=== PATIENT | male | born 1960 | race Caucasian/White ===

== ENCOUNTER 2023-08-11 12:41 | Outpatient (OUT) | payer MEDICARE, OTHER, SELFPAY ==
--- NOTE | 2023-08-11 13:00 | CA_ITS ---
Patient Name: LOREN MORSE MR#: [id number] : 1960 Exam Date: 08/11/2023 Ordering Doctor: LISA EMERY M.D. ECHOCARDIOGRAM REPORT PROCEDURE: CA ECHO DOPPLER COMPLETE INDICATIONS: Dyspnea on exertion, dizziness, peripheral edema, hypertension, diabetes COMPARISON: None. DESCRIPTION: COMPLETE ECHOCARDIOGRAM Real-time transthoracic echocardiography with 2D, M-mode, spectral and color flow Doppler performed. QUALITY: Technical quality was limited. 69 , 300#, BSA 2.45 m2 LEFT VENTRICLE: Normal chamber size. Normal left ventricular wall thickness. Normal systolic function. LV EF: Normal left ventricular ejection fraction, (>55%). DIASTOLIC: Diastolic function is indeterminate. ATRIAL SEPTUM: Visually appears intact. LEFT ATRIUM: Normal chamber size. RIGHT ATRIUM: Normal chamber size. RIGHT VENTRICLE: Normal chamber size. Normal right ventricular systolic function. TRICUSPID VALVE: Normal mobility and thickness. No stenosis with no regurgitation. Unable to assess right-sided pressures due to lack of measurable tricuspid regurgitation. MITRAL VALVE: Normal mobility and thickness. No evidence of mitral valve stenosis. Mild mitral annular calcification. No mitral regurgitation. AORTIC VALVE: Normal trileaflet appearance. No visible sclerosis. Normal leaflet mobility. No evidence of aortic valve stenosis. No aortic regurgitation. AORTIC ROOT: Normal diameter and appearance. PULMONIC VALVE: Not well visualized. Normal with Trivial regurgitation. PERICARDIUM: Trivial pericardial effusion. IVC: Collapses with inspirations. PLEURA: CONCLUSION: 1. Normal left ventricular size and systolic function. LVEF is 55%. 2. Normal right ventricular size and systolic function. 3. No significant valvular abnormalities. 4. Unable to assess right-sided pressures due to lack of measurable tricuspid regurgitation. 5. Trivial pericardial effusion. 6. Technically difficult study with poor sound transmission. Adult Echocardiography Procedure Report Left Ventricle LVEDD (3.7 - 5.6 cm): 6.63 cm LVESD (2.2 - 4.0 cm): 4.23 cm LVIVS thickness (0.6 - 1.2 cm): 0.81 cm LVPW thickness (0.5 - 1.0 cm): 0.69 cm e': 0.06 m/s E - e': 11.33 LVOT Max Gradient: 2.35 mm[Hg] LVOT Area (cm2): 0.77 m/s Peak Velocity (LVOT): 0.77 m/s Mean Velocity (LVOT): 0.54 m/s LVOT Diameter 2.71 cm Left Atrium LA Volume Index (2D A2C): 28.44 ml/m2 Left Atrium Systolic Dimension: 3.64 cm Mitral Valve MV E to A Ratio: 0.96 Mitral Valve A-Wave Peak Velocity: 0.67 m/s Mitral Valve E-Wave Peak Velocity: 0.64 m/s Right Ventricle Aorta AO Root Diam: 4.30 cm Ascending Ao Diam: 3.19 cm Aortic Valve AoV Area (Peak Jamaal): 3.60 cm2, 3.60 cm2 AoV Area (VTI): 4.29 cm2, 4.29 cm2 Peak Velocity(Antegrade Flow): 1.23 m/s Peak Gradient(Antegrade Flow): 6.04 mm[Hg] Mean Velocity(Antegrade Flow): 0.88 m/s Mean Gradient(Antegrade Flow): 3.43 mm[Hg] Velocity Time Integral: 25.65 cm Tricuspid Valve Pulmonic Valve Peak Velocity: 0.88 m/s Peak Gradient: 2.77 mm[Hg], 3.39 mm[Hg] Right Atrium Right Atrium Systolic Pressure: 55.87 ml, 55.87 ml Dictated by: Kiran Calles M.D. on 08/11/2023 at 16:39 Approved by: Kiran Calles M.D. on 08/11/2023 at 16:42
== END 2023-08-11 12:42 | disposition home or self-care (01) ==
LOC: CARD 12:41
PROVIDERS: PCP Family Medicine; Visit Provider Internal Medicine Cardiovascular Disease
DX: R42 Dizziness and giddiness (principal); R60.0 Localized edema; R06.02 Shortness of breath
CPT/HCPCS: 93306

== ENCOUNTER 2023-12-15 09:10 | Outpatient (OUT) | payer MEDICARE, OTHER, SELFPAY ==
[2023-12-15 09:41] LABS: Creatinine Urine Random 115.95 mg/dL (20.00-300.00); Microalbum Creatinine Ratio Ur 11.2 mg/g (0.0-29.9); Microalbumin Urine Random <1.3 mg/dL (<=30.0)
[2023-12-15 10:27] LABS: Albumin Level 3.3 g/dL (3.4-5.0); Anion Gap 12.8; BUN Creatinine Ratio 15.7; Calcium 8.6 mg/dL (8.5-10.1); Carbon Dioxide 29.4 mmol/L (21.0-32.0); Chloride 102 mmol/L (98-107); Chol HDL Ratio 2.4; Cholesterol 111 mg/dL (<=200); Estimated GFR (African America >60 (>=60); Estimated GFR (Non-African Ame >60 (>=60); Glucose 110 mg/dL (74-106); HDL Cholesterol 47 mg/dL (40-60); Phosphorus 3.8 mg/dL (2.6-4.7); Potassium 4.2 mmol/L (3.5-5.1); Sodium 140 mmol/L (136-145); Triglycerides 65 mg/dL (<=150)
== END 2023-12-15 09:11 | disposition home or self-care (01) ==
LOC: LAB 09:12
PROVIDERS: PCP Family Medicine; Visit Provider Internal Medicine
DX: E78.2 Mixed hyperlipidemia (principal); Z79.4 Long term (current) use of insulin; E11.49 Type 2 diabetes mellitus with other diabetic neurological complication
CPT/HCPCS: 36415; 80061; 80069; 82043; 82306; 82570

== ENCOUNTER 2024-09-16 09:26 | Emergency (ER) | payer OTHER, SELFPAY ==
[2024-09-16 09:35] VITALS: BP 104/59; PULSE 74; TEMP 37.1; O2SAT 98; BMI 38.4
--- NOTE | 2024-09-16 09:45 | ED_ITS ---
HPI HPI - General Adult General Chief complaint: Fall Stated complaint: FALL; BACK PAIN Time Seen by Provider: 09/16/24 09:30 Source: patient Mode of arrival: walk-in Limitations: no limitations History of Present Illness HPI narrative: 64-year-old male presents for left lower back pain. At about 3:00 this morning he was stepping backwards and stepped on a toy mouse which caused him to lose his balance and he fell and landed on his lower back. The pain does not seem to radiate down his legs, no weakness or numbness. He did not hit his head. He is on Plavix. The pain is moderate and worse in certain positions. Related Data Home Medications ?Medication ?Instructions ?Recorded ?Confirmed atorvastatin 80 mg tablet 80 mg PO DAILY 09/16/24 09/16/24 clopidogrel 75 mg tablet 75 mg PO DAILY 09/16/24 09/16/24 duloxetine 30 mg capsule,delayed 30 mg PO DAILY 09/16/24 09/16/24 release duloxetine 60 mg capsule,delayed 60 mg PO DAILY 09/16/24 09/16/24 release insulin glargine 100 unit/mL (3 65 unit subcut .QHS 09/16/24 09/16/24 mL) subcutaneous pen (Lantus Solostar U-100 Insulin) levothyroxine 200 mcg tablet 200 mcg PO .ACB 09/16/24 09/16/24 lisinopril 10 mg tablet 10 mg PO .QD 09/16/24 09/16/24 metformin 500 mg tablet 1,000 mg PO BIDWM 09/16/24 09/16/24 metoprolol succinate 50 mg 50 mg PO .QD 09/16/24 09/16/24 tablet,extended release 24 hr Previous Rx's ?Medication ?Instructions ?Recorded hydrocodone 5 mg-acetaminophen 325 1 tab PO Q6H PRN pain 5 days #20 09/16/24 mg tablet tabs Allergies Allergy/AdvReac Type Severity Reaction Status Date / Time No Known Drug Allergies Allergy Verified 09/16/24 09:35 Opioid HPI Opioid Management Most Recent Opioid Data: No Data to Display Review of Systems ROS Narrative A ten point review of systems is negative except as noted above. PFSH PFSH Social History Little interest or pleasure in doing things: not at all Feeling down, depressed, or hopeless: not at all Exam Narrative Exam Narrative: Nurses note and vital signs reviewed and patient is not hypoxic. General: The patient appears in no apparent distress. Patient laying in a recumbent position. Skin: Warm, dry, no pallor noted. There is no rash noted. Head: Normocephalic, atraumatic Eye: Normal conjunctiva, no drainage Ears, Nose, Mouth, and Throat: oral mucosa is moist. Nares patent. Cardiovascular: Regular Rate and Rhythm Respiratory: Patient is in no distress, no accessory muscle use, lungs are clear to auscultation, no wheezing, rales or rhonchi Back: No bruise rash or abrasion. He has some tenderness in the left lower back. GI: Soft and nontender Musculoskeletal: Hips have good range of motion. He is able to stand and ambulate. Neurological: A&O, normal speech Psychiatric: Cooperative Constitutional Vital Signs, click to edit/add: Last Vital Signs Temp 98.7 F 09/16/24 09:35 Pulse 74 09/16/24 09:35 Resp 18 09/16/24 09:35 BP 104/59 09/16/24 09:35 Pulse Ox 98 09/16/24 09:35 O2 Del Method Room Air 09/16/24 09:35 Course Vital Signs Vital signs: Vital Signs Temperature 98.7 F 09/16/24 09:35 Pulse Rate 74 09/16/24 09:35 Respiratory Rate 18 09/16/24 09:35 Blood Pressure 104/59 09/16/24 09:35 Pulse Oximetry 98 09/16/24 09:35 Oxygen Delivery Method Room Air 09/16/24 09:35 Temperature 98.7 F 09/16/24 09:35 Pulse Rate 74 09/16/24 09:35 Respiratory Rate 18 09/16/24 09:35 Blood Pressure 104/59 09/16/24 09:35 Pulse Oximetry 98 09/16/24 09:35 Oxygen Delivery Method Room Air 09/16/24 09:35 Medical Decision Making MDM Narrative Medical decision making narrative: X-rays per radiologist showed no acute findings and he is prescribed Clarinda and given a dose here. Treatment diagnosis and follow-up were discussed with the patient. Differential Diagnosis Differential Diagnosis: Contusion, fracture Imaging Data Lumbar x-ray: Radiologist's impression: No acute fracture Discharge Plan Discharge Chief Complaint: Fall Clinical Impression: Back contusion Patient Disposition: Home, Self-Care Time of Disposition Decision: 10:37 Condition: Good Mode of Transportation: Private Vehicle Prescriptions / Home Meds: New hydrocodone-acetaminophen 5-325 mg tablet 1 tab PO Q6H PRN (Reason: pain) 5 Days Qty: 20 0RF No Action metformin 500 mg tablet 1,000 mg PO BIDWM atorvastatin 80 mg tablet 80 mg PO DAILY metoprolol succinate 50 mg tablet extended release 24 hr 50 mg PO .QD clopidogrel 75 mg tablet 75 mg PO DAILY lisinopril 10 mg tablet 10 mg PO .QD levothyroxine 200 mcg tablet 200 mcg PO .ACB duloxetine 30 mg capsule,delayed release(DR/EC) 30 mg PO DAILY duloxetine 60 mg capsule,delayed release(DR/EC) 60 mg PO DAILY insulin glargine [Lantus Solostar U-100 Insulin] 100 unit/mL (3 mL) insulin pen 65 unit SUBCUT .[facility] Print Language: Amharic Instructions: Contusion in Adults (ED) Referrals: POLI WELCH [Primary Care Provider] - 1 week
--- OUTSIDE RECORDS SUMMARY | 2024-09-16 09:49 | XMS_ITS | CCD ---
Author Organization [facility] Care Team Providers Care Director Custom Name Role Phone Alberto Mcgrath Unavailable Norma Fonseca Unavailable WARNER WELCH Primary Care Unavailable ALGHOTHANI, MOHAMAD Admitting Unavailable RUPERT, VALERIOD Attending Unavailable WARNER WELCH Referring Unavailable NORMA KIRAN Attending Unavailable REBEKAH, WARNER Primary Care Unavailable NORMA KIRAN Admitting Unavailable WARNER WELCH Referring Unavailable NORMA KIRAN Admitting Unavailable NORMA KIRAN Attending Unavailable REBEKAH, WARNER Primary Care Unavailable WARNER WELCH Referring Unavailable TATIANALOJASON, WARNER Primary Care Unavailable SAMMIE BERKOWITZAMED Admitting Unavailable ZENJANA Attending Unavailable WARNER WELCH Referring Unavailable FURLOJASON, DR WARNER Ward Primary Care Unavailable ALGHOTHANI, MOHAMAD Admitting Unavailable ALGHOTHANI, MOHAMAD Consulting Unavailable ALGHOTHANI, MOHAMAD Attending Unavailable FCO, DR BEKAH Acosta Consulting Unavailable TATIANALOJASON, DR WARNER Ward Primary Care Unavailable GRACE, LAMONT N Admitting Unavailable GRACE, LAMONT N Attending Unavailable GRACE, LAMONT N Consulting Unavailable FURLONG, DR WARNER Ward Primary Care Unavailable GRACE, LAMONT N Admitting Unavailable GRACE, LAMONT N Consulting Unavailable GRACE, LAMONT N Attending Unavailable FURLOJASON, DR WARNER Ward Primary Care Unavailable LÓPEZ, AHMAD Admitting Unavailable LÓPEZ, AHMAD Consulting Unavailable LÓPEZ, AHMAD Attending Unavailable MISC, DR BECKETT Admitting Unavailable REBEKAH, DR WARNER Ward Primary Care Unavailable MISC, DR BECKETT Attending Unavailable OLDWICK, DR JOSEF Matos Consulting Unavailable MISC, DR BECKETT Consulting Unavailable ZIDR BEKAH CAIN Consulting Unavailable Grovers, Lilibeth R Unavailable BEN ZIMMERMAN Referring Unavailable Mamie AGUIRRE, Lilibeth R Unavailable KARIE BARRIGA Attending Unavailable SELF Referring Unavailable WARNER WELCH Referring Unavailab BEN Mcdaniel Attending Unavailable BEN ZIMMERMAN Referring Unavailable ELSIE, BEN Ward Referring Unavailable NONA ZAMBRANO Attending Unavailable BEN ZIMMERMAN Referring Unavailable MINDA DELCID Attending Unavailable LISA EMERY Attending Unavailable LISA EMERY Attending Unavailable LISA EMERY Attending Unavailable Warner Welch MD Primary Care Provider Warner Welch DO Primary Care Provider [phone] WARNER WELCH Referring Unavailable WARNER WELCH Primary Care Unavailable WARNER WELCH Attending Unavailable WARNER WELCH Referring Unavailable WARNER WELCH Primary Care Unavailable MILO MODI Attending Unavailable MILO MODI Attending Unavailable MILO MODI Referring Unavailable HOOD SALES Attending Unavailable TatianaloWarner manuel Primary Care Unavailable Austin Corral Admitting Unavailable Austin Corral Attending Unavailable Hood Sales Admitting Unavailable Hood Sales Attending Unavailable Warner Welch Primary Care Unavailable Warner Welch Primary Care Unavailable Kleber Alarcon Admitting Unavailab Kleber Celeste Attending Unavailab le Medications Current Medications Medication Drug Class(es) Dates Sig (Normalized) Sig (Original) acetaminophen 325 mg oral tablet (5 sources) End: 05-24-2024 acetaminophen (Tylenol) 325 MG tablet Take by mouth 05/24/2024 Discontinued albuterol 0.83 mg/ml inhalation solution (18 sources) beta2-Adrenergic Agonist Start: 05-01-2020 Albuterol Sulfate (2.5 MG/3ML) 0.083% 1 dose as directed Inhalation every 6 hrs Apr, Active atorvastatin 80 mg oral tablet (20 sources) HMG-CoA Reductase Inhibitor Start: 02-11-2024 take 1 tablet by mouth once daily in the morning atorvastatin (LIPITOR) 80 mg tablet Take 1 tablet (80 mg total) by mouth every morning. 90 tablet 1 02/11/2024 Active Start: 02-10-2024 take 1 tablet by luis enrique th once daily in the morning atorvastatin (LIPITOR) 80 mg tablet Take 1 tablet (80 mg total) by mouth every morning. 90 tablet 1 02/10/2024 Active Start: 08-25-2022 End: 02-11-2024 take 1 tablet by mouth once daily in the morning atorvastatin (LIPITOR) 80 mg tablet Take 1 tablet (80 mg total) by mouth every morning. 90 tablet 1 02/10/2024 02/11/2024 Discontinued (Reorder) take 1 tablet by luis enrique th once daily atorvastatin (Lipitor) 40 MG tablet Take 40 mg by mouth Daily Active Atorvastatin Pablo cium 80 MG Oral for 90 Active Lipitor Active Comment on above: Take 1 tablet by luis enrique th once daily. Take 40 mg by mouth once daily. blood-glucose meter misc (12 sources) blood-glucose me ter misc Accu-Chek Domonique Plus Meter Active blood-glucose me ter misc Accu-Chek Domonique Plus Meter 0 Active celecoxib 100 mg oral capsule (20 sources) Nonsteroidal Anti-inflammatory Drug Start: 03-10-2022 End: 07-27-2024 take 1 capsule by mouth once daily celecoxib (CeleBREX) 100 mg capsule take 1 capsule by mouth once daily if needed 90 capsule 1 07/02/2023 07/27/2024 Discontinued (Ineffective) Comment on above: take [address] [facility] once daily if needed chlorthalidone 25 mg oral tablet (20 sources) Thiazide-like Diuretic Start: 05-23-2022 chlorthalidone (Hygroton) 25 MG tablet Take 25 mg by mouth 08/17/2023 Active Comment on above: Take 1 tablet by luis enrique th once daily. cholecalciferol 0.05 mg oral tablet (3 sources) Vitamin D Start: 04-21-2024 cholecalciferol (Vitamin D-3) 50 MCG (1999 UT) tablet Take 50 mcg by mouth 04/21/2024 Active clopidogrel 75 mg oral tablet (20 sources) P2Y12 Platelet Inhibitor Start: 01-09-2023 End: 07-20-2023 take 1 tablet by mouth once daily clopidogreL (PLAVIX) 75 mg tablet take 1 tablet by mouth once daily 90 tablet 1 07/20/2023 Active Comment on above: Take 1 tablet by luis enrique once daily. Continuous Glucose Sensor (FreeStyle Temla 3 Sensor) [facility] [place] (7 sources) Start: 03-02-2024 Continuous Glucose Sensor (FreeStyle Telma 3 Sensor) [facility] [place] Indications: Type II diabetes mellitus with neurological manifestations (CMS/HCC) 1 kit by Other route every 14 (fourteen) days 6 each 1 03/02/2024 Active Start: 03-01-2024 Continuous Glu cose Sensor (FreeStyle Telma 3 Sensor) [facility] [place] Indications: Type II diabetes mellitus with neurological manifestations (CMS/HCC) USE DIRECTED and change q14d 6 each 1 03/01/2024 Active DULoxetine 60 mg delayed release oral capsule (19 sources) Serotonin and Norepinephrine Reuptake Inhibitor Start: 07-10-2023 take 1 capsule by mouth in the morning DULoxetine (Cymbalta) [address] capsule Take 60 mg by mouth in the morning. 07/10/2023 Active take [address] [facility] every twelve hours Cymbalta 20 MG 1 capsule Orally Twice a day Active ergocalciferol 1.25 mg oral capsule (20 sources) Provitamin D2 Compound Start: 11-08-2022 take 1 capsule by mouth every week ergocalciferol 50,000 unit capsule (VITAMIN D2, DRISDOL) Take 1 capsule by mouth one time a week. 11/08/2022 Active Start: 08-22-2022 End: 07-27-2024 take 1 capsule by mouth every week ergocalciferol (DRISDOL) 1,250 mcg (50,000 unit) capsule Take 1 capsule (50,000 Units total) by mouth once a week. 08/22/2022 07/27/2024 Discontinued (Therapy completed) Comment on above: Take [address] [facility] one time a week. Fluarix Quadrivalent 0.5 ML (3 sources) Fluarix Quadriva lent 0.5 ML Intramuscular for 1 Active furosemide 20 mg oral tablet (20 sources) Loop Diuretic Start: 04-08-2024 furosemide (Lasix) 20 MG tablet Take 20 mg by mouth 04/08/2024 Active Start: 01-22-2023 take 1 tablet by mouth once fu rosemide (LASIX) 20 mg tablet Take 1 tablet by mouth every afternoon. 0 01/22/2023 Active take 1 tablet by luis enrique th every twenty-four hours Lasix 20 MG 1 tablet Orally Once a day Active Comment on above: Take 1 tablet by luis enrique th every afternoon. gabapentin 300 mg oral capsule (19 sources) Anti-epileptic Agent Start: 3 End: 5 take 1 capsule by mouth twice daily at bedtime gabapentin (NEURONTIN) 300 mg capsule Indications: Spinal stenosis at L4-L5 level take 1 capsule by mouth twice a day - IN THE MORNING AND AT BEDTIME 60 capsule 2 01/09/2023 07/27/2024 Discontinued (Therapy completed) Comment on above: Take 300 mg by mouth . ibuprofen 200 mg oral tablet (6 sources) Nonsteroidal Anti-inflammatory Drug ibuprofen 200 MG tablet Take by mouth Active 3 ml insulin aspart, human 100 unt/ml pen injector (18 sources) Insulin Analog Insulin Aspart FlexPen 100 UNIT/ML Subcutaneous for 75 Active 3 ml insulin glargine 100 unt/ml pen injector (20 sources) Insulin Analog insulin glargine (LANTUS, BASAGLAR) 100 unit/mL (3 mL) insulin pen Inject under the skin nightly. Active inject 30 [IU] by marrero bcutaneous injection at bedtime insulin glargine (Lantus) 100 UNIT/ML injection Inject 30 Units under the skin at bedtime Active insulin glargine (LANTUS, BASAGLAR) 100 unit/mL (3 mL) insulin pen Inject under the skin nightly. 0 Active Lantus SoloStar 100 UNIT/ML Subcutaneous for 75 Active insulin glargine,hum.rec.anl og (LANTUS SUBCUTANEOUS) (7 sources) insulin glargine ,hum.rec.anlog (LANTUS SUBCUTANEOUS) Inject subcutaneously. Active insulin glargine ,hum.rec.anlog (LANTUS SUBCUTANEOUS) Inject subcutaneously. 0 Active Comment on above: Inject subcutaneousl y. 3 ml insulin lispro 100 unt/ml pen injector (20 sources) Insulin Analog Start: 03-05-2022 End: 07-27-2024 HumaLOG KwikPen Insulin 100 unit/mL insulin pen inject 20-25-30 units three times a day PLUS SLIDING ACALE ACCORD... (REFER TO PRESCRIPTION NOTES). 03/05/2022 07/27/2024 Discontinued (Discontinued by another clinician) insulin lispro ( HUMALOG PEN SUBCUTANEOUS) Inject subcutaneously. Active insulin lispro ( HUMALOG PEN SUBCUTANEOUS) Inject subcutaneously. 0 Active Comment on above: Inject subcutaneousl y. 3 ml insulin lispro 50 unt/ml / insulin lispro protamine, human 50 unt/ml pen injector (10 sources) Insulin Analog End: 09-03-2023 insulin lispro protamine-insulin lispro (HumaLOG MIX 50/50 KWIKPEN) (50-50) 100 UNIT/ML injection Inject under the skin 2 (two) times a day with meals Active Lacto no.78-Ftgmcw-WAT-l arch 25B cell-25B cell-50 mg cap (14 sources) Start: 06-25-2022 take 2 tablets by mouth twice daily Lacto no.69-Xttecd-AFA-l arch 25B cell-25B cell-50 mg cap Take 2 tablets twice a day by oral route for 90 days. 06/25/2022 Active Start: 06-25-2022 take 2 tablets by [facility] twice daily Lacto no.69-Ugyqzu-SRH-larch 25B cell-25 B cell-50 mg cap Take 2 tablets twice a day by oral route for 90 days. 0 06/25/2022 Active take 1 tablet by luis enrique once daily Lacto no.37-Owuwwo-JDW-larch 25B cell-25 B cell-50 mg cap Take 1 tablet by mouth once daily. Active take 1 tablet by luis enrique once daily Lacto no.48-Rwgwlf-JXS-larch 25B cell-25 B cell-50 mg cap Take 1 tablet by mouth once daily. 0 Active Comment on above: Take 1 tablet by luis enrique th once daily. Take 2 tablets twice a day by oral route for 90 days. levothyroxine sodium 0.2 mg oral tablet (20 sources) l-Thyroxine Start: 3 End: 4 take 1 tablet by mouth in the morning levothyroxine (SYNTHROID, LEVOTHROID) 200 MCG tablet Take 1 tablet (200 mcg total) by mouth in the morning. 90 tablet 01/27/2024 Active levothyroxine (S ynthroid, Unithroid) 300 MCG tablet Take by mouth Daily before meals Active take 1 capsule by mo uth once daily before breakfast levothyroxine 200 mcg cap Take 200 mcg b y mouth daily before breakfast. Active Levothyroxine So dium 300 MCG Oral for 90 Active Comment on above: Take 200 mcg by mout h daily before breakfast. 3 ml liraglutide 6 mg/ml pen injector (20 sources) GLP-1 Receptor Agonist End: 07-27-19 25 inject 0.3 mL by subcutaneous injection in the morning liraglutide (VICTOZA) 0.6 mg/0.1 mL (18 mg/3 mL) pen injector Inject 0.3 mL (1.8 mg total) under the skin in the morning. 07/27/2024 Discontinued (Formulary change) End: 05-24-2024 liraglutide (Victoza) 18 MG/ 3ML injection Inject under the skin Daily 05/24/2024 Discontinued liraglutide (BRODERICK TOZA 3-FRANKLIN SUBCUTANEOUS) Inject subcutaneously. Active liraglutide (BRODERICK TOZA 3-FRANKLIN SUBCUTANEOUS) Inject subcutaneously. 0 Active Victoza 18 MG/3M L Subcutaneous for 90 Active Comment on above: Inject subcutaneousl y. lisinopril 20 mg oral tablet (20 sources) Angiotensin Converting Enzyme Inhibitor Start: 03-17-20 take 1 tablet by mouth once daily in the morning lisinopriL (PRINIVIL,ZESTRIL) 20 mg tablet Indications: Essential hypertension take 1 tablet by mouth every morning 30 tablet 11 03/17/2023 Active Start: 06-08-2008 take 1 tablet by luis enrique th once daily lisinopril (ZESTRIL) 40 mg tablet Take 1 tablet every day by oral route for 90 days. 06/08/2008 Active Comment on above: Take 1 tablet every day by oral route for 90 days. loratadine 10 mg oral tablet (20 sources) Start: 04-21-2024 take 1 tablet by mouth every twenty-four hours as needed loratadine (Claritin) 10 MG tablet Take 1 tablet by mouth Daily as needed 04/21/2024 Active Claritin Active 24 hr metFORMIN hydrochloride 500 mg extended release oral tablet (20 sources) Biguanide Start: 12-30-2022 take 2 tablets by mouth every twenty-four hours at bedtime metFORMIN XR (GLUCOPHAGE XR) 500 mg 24 hr tablet Take 2 tablets (1,000 mg total) by mouth in the morning and at bedtime. 360 tablet 1 12/30/2022 Active Start: 12-30-2022 take 2 tablets by mo uth twice daily metFORMIN ER (GLUCOPHAGE XR) 500 mg 24 hr tablet Take 500 mg by mouth twice daily. Takes two tablets by mouth twice daily 0 12/30/2022 Active take 1 tablet by lui senrique th at mealtime, then take 1 tablet by mouth every twenty-four hours metFORMIN, OSM, (Fortamet) 500 MG 24 hr tablet Take 500 mg by mouth in the evening. Take with meals Do not crush, chew, or split. Active metFORMIN HCl ER 500 MG Oral for 90 Active Comment on above: Take 500 mg by mouth twice daily. Takes two tablets by mouth twice daily 24 hr metoprolol succinate 50 mg extended release oral tablet (20 sources) beta-Adrenergic Peggy Start: 03-24-2024 take 1 tablet by mouth once daily metoprolol succinate XL (Toprol-XL) 50 MG 24 hr tablet Take 1 tablet by mouth Daily 03/24/2024 Active take 1 tablet by luis enrique th every twenty-four hours in the morning metoprolol succinate XL (TOPROL XL) 50 m g 24 hr tablet Take 1 tablet (50 mg total) by mouth in the morning. Active take 1 tablet by mouth once yon y metoprolol succinate ER (TOPROL XL) 25 mg 24 hr tablet Take 1 tablet by mouth once daily. Active take 1 capsule by mouth once renu ly Metoprolol Succinate 25 MG 1 capsule Orally Once a day Active Comment on above: Take 1 tablet by luis enrique th once daily. pioglitazone 45 mg oral tablet (20 sources) Peroxisome Proliferator Receptor alpha Agonist, Peroxisome Proliferator Receptor gamma Agonist, Thiazolidinedione Start: 09-22-19 End: 08-29-19 take 1 tablet by mouth once daily pioglitazone (Actos) 45 MG tablet Indications: Type 2 diabetes mellitus with hyperglycemia, unspecified whether [facility] insulin use ([facility]) Take 1 tablet (45 mg) by mouth Daily 90 tablet 1 03/01/2024 08/28/2024 Active Pioglitazone HCl 45 MG Oral for 90 Active Comment on above: Take 1 tablet by luis enrique th once daily. 0.25 mg, 0.5 mg dose 1.5 ml semaglutide 1.34 mg/ml pen injector (1 source) semaglutide 0.25 mg or 0.5 mg(2 mg/1.5 mL) pen injector Inject under the skin. Active Semaglutide,0.25 or 0.5MG/DOS, 2 MG/3ML solution pen-injector (3 sources) Start: 04-21-2024 Semaglutide,0.25 or 0.5MG/DOS, 2 MG/3ML solution pen-injector Inject under the skin 04/21/2024 Active sertraline 25 mg oral tablet (18 sources) Serotonin Reuptake Inhibitor End: 05-24-2024 sertraline (Zoloft) 25 MG tablet Take by mouth Daily 05/24/2024 Discontinued take 1 tablet by luis enrique th every twenty-four hours Zoloft 100 MG 1 tablet orally Once a day Active take 1 tablet by luis enrique th every twenty-four hours Zoloft 50 MG 1 tablet orally Once a day Active TENS Unit (4 sources) Start: 06-26-2022 TENS Unit Use as directed. Jun, Active Completed/Discontinued Medications Medication Drug Class(es) Dates Sig (Normalized) Sig (Original) amoxicillin 875 mg oral tablet (13 sources) Penicillin-class Antibacterial Start: 05-01-2020 take 1 tablet by mouth every twelve hours Amoxicillin 875 MG 1 tablet Orally every 12 hrs for 7 days Apr, Not-Taking ARIPiprazole 5 mg oral tablet (3 sources) Atypical Antipsychotic Start: 01-27-2023 take 1 tablet by mouth once ARIPiprazole (ABILIFY) 5 mg tablet Take 1 tablet by mouth every afternoon. 0 01/27/2023 Active Comment on above: Take 1 tablet by luis enrique th every afternoon. aspirin 81 mg delayed release oral tablet (20 sources) Platelet Aggregation Inhibitor, Nonsteroidal Anti-inflammatory Drug Start: 01-22-2023 End: 09-03-2023 take 1 tablet by mouth in the morning aspirin 81 mg Indications: Cerebrovascular accident (CVA), unspecified mechanism (CMS-HCC) Take 1 tablet (81 mg total) by mouth in the morning. 150 tablet 2 01/22/2023 09/03/2023 Discontinued (Therapy completed) Aspirin 81 Activ e azithromycin 250 mg oral tablet (13 sources) Macrolide Antimicrobial Start: 05-01-2020 Azithromycin 250 MG as directed Orally for 5 days Apr, Not-Taking cariprazine 3 mg oral capsule (6 sources) Atypical Antipsychotic Start: 04-13-2023 take 1 capsule by mouth once VRAYLAR 3 mg capsule Take 1 capsule by mouth every afternoon. 0 04/13/2023 Active Start: 02-27-2023 End: 09-03-2023 take 1 capsule by mouth once daily VRAYLAR 1.5 mg capsule take 1 capsule by mouth once daily 0 02/27/2023 09/03/2023 Discontinued (Therapy completed) Comment on above: Take 1 capsule by la ut every afternoon. dextromethorphan hydrobromide 1.5 mg/ml / pyrilamine maleate 1.5 mg/ml oral solution (13 sources) Uncompetitive A-qtsrlt-C-aspartate Receptor Antagonist, Sigma-1 Agonist Start: [place] DM 7.5-7.5 MG/5ML 10 ml Orally every 6-8 hours as needed for 8 days Apr, Not-Taking Lacto no.91-Rkvuwl-MNF-larch 25B cell-25B cell-50 mg capsule (4 sources) Start: 023 End: 024 take 2 tablets by mouth twice daily Lacto no.58-Fdorht-MUB-la rch 25B cell-25B cell-50 mg capsule Take 2 tablets twice a day by oral route for 90 days. 0 06/25/2022 09/03/2023 Discontinued (Therapy completed) Start: 06-25-2022 take 2 tablets by [facility] twice daily Lacto no.34-Gkgyzn-NPQ-larch 25B cell-25 B cell-50 mg capsule Take 2 tablets twice a day by oral route for 90 days. 0 06/25/2022 Active methylPREDNISolone 4 mg oral tablet (13 sources) Corticosteroid Start: 05-01-2020 Medrol ([place]) 4 MG half of daily dose in the morning with food and the rest at night with food Orally Apr, Not-Taking vilazodone hydrochloride 40 mg oral tablet (11 sources) Start: 05-12-2022 End: 09-03-2023 take 1 tablet by mouth once daily in the morning vilazodone (VIIBRYD) 40 mg tablet Indications: Moderate episode of recurrent major depressive disorder (CMS-HCC) , 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 , with long-term current use of insulin (CMS-HCC) take 1 tablet by mouth every morning (AFTER COMPLETING 10MG AND 20MG) 90 tablet 1 12/07/2022 09/03/2023 Discontinued (Therapy completed) Comment on above: take 1 tablet by luis enrique th every morning (AFTER COMPLETING 10MG AND 20MG) Problems Active Problems Problem Classification Problem Date Documented Date Episodic/Chronic Acute cerebrovascular disease (14 sources) Cerebrovascular accident; Translations: [Cerebral infarction, unspecified] Onset: 07-29-2021 08-11-2023 Chronic Administrative/social admission (4 sources) Patient encounter status; Translations: [Persons encountering health services in other specified circumstances] 08-14-2023 Episodic Anxiety disorders (13 sources) Anxiety; Translations: [Anxiety disorder, unspecified] Onset: 01-22-2023 08-11-2023 Chronic Aortic; peripheral; and visceral artery aneurysms (4 sources) Aneurysm of infrarenal abdominal aorta ; Translations: [Infrarenal abdominal aortic aneurysm, without rupture] Onset: 07-03-2022 08-11-2023 Chronic Chronic kidney disease (2 sources) Chronic kidney disease stage 3; Translations: [Chronic kidney disease, stage 3 unspecified] Onset: 10-23-2022 08-11-2023 Chronic Diabetes mellitus with complications (18 sources) Type 2 diabetes mellitus with other specified complication; Translations: [Hyperglycemia due to type 2 diabetes mellitus] Onset: 04-14-2022 04-19-2024 Chronic Diabetes mellitus without complication (20 sources) Type 2 diabetes mellitus; Translations: [Type 2 diabetes mellitus without complications] Onset: 03-03-2022 Resolved: 04-14-2022 08-11-2023 Chronic Disorders of lipid metabolism (20 sources) Hyperlipidemia; Translations: [Hyperlipidemia, unspecified] Onset: 03-03-2022 08-11-2023 Chronic Diverticulosis and diverticulitis (15 sources) Diverticulosis of large intestine without perforation or abscess without bleeding; Translations: [Diverticulosis of sigmoid colon] Onset: 03-03-2022 08-11-2023 Chronic Essential hypertension (20 sources) Essential hypertension; Translations: [Essential (primary) hypertension] Onset: 03-03-2022 08-11-2023 Chronic Genitourinary symptoms and ill-defined conditions (8 sources) Proteinuria; Translations: [Proteinuria, unspecified] Onset: 04-04-2024 04-04-2024 Episodic Headache; including migraine (14 sources) Cluster headache; Translations: [Cluster headache syndrome, unspecified, not intractable] Onset: 03-03-2022 08-11-2023 Chronic Hypertension with complications and secondary hypertension (2 sources) Hypertensive heart failure; Translations: [Hypertensive heart disease with heart failure] Onset: 10-23-2022 08-11-2023 Chronic Mood disorders (15 sources) Moderate major depression, single episode; Translations: [Major depressive disorder, single episode, moderate] Onset: 04-14-2022 08-11-2023 Chronic Nutritional deficiencies (8 sources) Vitamin D deficiency; Translations: [Vitamin D deficiency, unspecified] Onset: 04-04-2024 04-04-2024 Chronic Osteoarthritis (14 sources) Osteoarthritis of knee; Translations: [Osteoarthritis of knee, unspecified] Onset: 03-03-2022 08-11-2023 Chronic Other aftercare (8 sources) Long-term current use of insulin; Translations: [group home (current) use of insulin] Onset: 04-04-2024 04-04-2024 Episodic Other connective tissue disease (14 sources) History of arthroplasty of right knee; Translations: [Presence of right artificial knee joint] Onset: 03-03-2022 08-11-2023 Chronic Other nervous system disorders (18 sources) Chronic pain; Translations: [Other chronic pain] Chronic Other nervous system disorders (12 sources) Other chronic pain; Translations: [Chronic midline low back pain without sciatica] Onset: 10-24-2021 Resolved: 01-30-2022 Chronic Other nervous system disorders (12 sources) Plantar nerve lesion; Translations: [Lesion of plantar nerve, unspecified lower limb] Onset: 03-03-2022 03-03-2022 Chronic Other nervous system disorders (3 sources) Numbness of lower limb ; Translations: [Anesthesia of skin] 12-16-2022 Episodic Other nutritional; endocrine; and metabolic disorders (4 sources) Morbid (severe) obesity due to excess calories; Translations: [MORBID SEVERE OBES D/T EXCESS PABLO] Onset: 01-24-2022 Chronic Other nutritional; endocrine; and metabolic disorders (2 sources) Obesity; Translations: [Obesity, unspecified] 12-16-2022 Chronic Other nutritional; endocrine; and metabolic disorders (3 sources) Severe obesity; Translations: [Morbid (severe) obesity due to excess calories] 08-14-2023 Chronic Other nutritional; endocrine; and metabolic disorders (1 source) Obesity, unspecified; Translations: [Obesity with serious comorbidity, unspecified classification, unspecified obesity type] Onset: 05-07-2023 Chronic Other nutritional; endocrine; and metabolic disorders (6 sources) Obesity caused by energy imbalance; Translations: [Morbid (severe) obesity due to excess calories] Onset: 04-04-2024 04-04-2024 Chronic Other nutritional; endocrine; and metabolic disorders (13 sources) Morbid obesity; Translations: [Morbid (severe) obesity due to excess calories] Onset: 03-14-2019 03-03-2022 Chronic Residual codes; unclassified (14 sources) Obstructive sleep apnea syndrome; Translations: [Obstructive sleep apnea (adult) (pediatric)] Onset: 03-03-2022 08-11-2023 Chronic Spondylosis; intervertebral disc disorders; other back problems (20 sources) Solitary sacroiliitis; Translations: [Sacroiliitis, not elsewhere classified] Onset: 10-24-2021 Resolved: 01-30-2022 Chronic Thyroid disorders (15 sources) Hypothyroidism; Translations: [Hypothyroidism, unspecified] Onset: 03-03-2022 08-11-2023 Chronic Unclassified (2 sources) Chronic midline low back pain without sciatica; Translations: [Chronic midline low back pain without sciatica] Onset: 12-16-2022 Unclassified (1 source) Thyroid Problem Onset: 07-27-2024 Unclassified (1 source) medicare annual wellness Onset: 09-03-2023 Past or Other Problems Problem Classification Problem Date Documented Da te Episodic/Chronic Abdominal hernia (2 sources) Umbilical hernia without obstruction or gangrene; Translations: [Unilateral inguinal hernia, without obstruction or gangrene, not specified as recurrent] Onset: 05-03-2022 Episodic Acquired foot deformities (14 sources) Acquired deformity of left foot; Translations: [Other acquired deformities of left foot] Onset: 03-03-2022 08-11-2023 Episodic Acquired foot deformities (14 sources) Acquired deformity of right foot; Translations: [Other acquired deformities of right foot] Onset: 03-03-2022 08-11-2023 Episodic Calculus of urinary tract (3 sources) Calculus of kidney; Translations: [History of calculus of kidney] Onset: 04-21-2022 08-11-2023 Episodic Cardiac dysrhythmias (12 sources) Palpitations; Translations: [Palpitations] Onset: 11-26-2021 05-14-2022 Episodic Fracture of upper limb (14 sources) Fracture of distal end of radius; Translations: [Unspecified fracture of the lower end of unspecified radius, initial encounter for closed fracture] Onset: 04-04-2016 08-11-2023 Episodic Joint disorders and dislocations; trauma-related (12 sources) Tear of meniscus of knee; Translations: [Unspecified tear of unspecified meniscus, current injury, unspecified knee, initial encounter] Onset: 03-03-2022 03-03-2022 Episodic Mood disorders (12 sources) Mood disorders Onset: 03-10-2023 Resolved: 07-27-2024 03-10-2023 Occlusion or stenosis of precerebral arteries (6 sources) Occlusion and stenosis of bilateral carotid arteries; Translations: [Bilateral carotid artery occlusion] Onset: 04-28-2022 Resolved: 01-09-2024 Chronic Other and unspecified benign neoplasm (14 sources) Hyperplastic polyp of intestine; Translations: [Polyp of colon] Onset: 06-08-2009 08-11-2023 Episodic Other circulatory disease (1 source) Personal history of other diseases of the circulatory system; Translations: [PERSONAL HISTORY OTH DZ CIRC SYSTEM] Onset: 05-03-2022 Episodic Other circulatory disease (1 source) History of cerebrovascular disease; Translations: [Personal history of transient ischemic attack (TIA), and cerebral infarction without residual deficits] Onset: 01-22-2023 08-11-2023 Episodic Other diseases of veins and lymphatics (1 source) Peripheral venous insufficiency; Translations: [Venous insufficiency (chronic) (peripheral)] Onset: 01-22-2023 08-11-2023 Episodic Other gastrointestinal disorders (6 sources) Other specified diseases of intestine; Translations: [Other specified disorders of intestine] Onset: 05-24-2024 05-24-2024 Episodic Other lower respiratory disease (4 sources) Dyspnea, unspecified; Translations: [DYSPNEA UNSPECIFIED] Onset: 12-25-2021 Episodic Other lower respiratory disease (12 sources) Dyspnea; Translations: [Dyspnea, unspecified] Onset: 11-26-2021 Resolved: 07-27-2024 05-14-2022 Episodic Other nervous system disorders (2 sources) Anesthesia of skin; Translations: [Numbness of right lower extremity] Onset: 12-16-2022 Episodic Other non-traumatic joint disorders (12 sources) Anterior knee pain; Translations: [Pain in right knee] Onset: 03-03-2022 03-03-2022 Episodic Other screening for suspected conditions (not mental disorders or infectious disease) (1 source) Encounter for screening for malignant neoplasm of colon; Translations: [Encounter for screening for malignant neoplasm of colon] Onset: 05-20-2024 Episodic Residual codes; unclassified (1 source) Other specified postprocedural states; Translations: [OTH SPECIFIED POSTPROCEDURAL STATES] Onset: 05-03-2022 Episodic Residual codes; unclassified (4 sources) Localized edema; Translations: [LOCALIZED EDEMA] Onset: 10-25-2021 Episodic Screening and history of mental health and substance abuse codes (13 sources) Ex-cigar smoker; Translations: [Personal history of nicotine dependence] Onset: 01-22-2023 08-11-2023 Episodic Spondylosis; intervertebral disc disorders; other back problems (20 sources) Lumbar radiculopathy; Translations: [Radiculopathy, lumbar region] Onset: 10-24-2021 Resolved: 01-30-2022 Episodic Substance-related disorders (20 sources) Tobacco dependence syndrome; Translations: [Nicotine dependence, unspecified, uncomplicated] Onset: 03-03-2022 Resolved: 03-10-2023 08-11-2023 Chronic Syncope (12 sources) Tussive syncope; Translations: [Syncope and collapse] Onset: 03-03-2022 03-03-2022 Episodic Unclassified (2 sources) Cecum mass 05-24-2024 Results Test Name Value Interpretation Reference Range Facility Creatinineon 05-24-2024 Creatinine [Mass/Vol] 1.36 mg/dL High 0.70-1.30 [facility] Comment on above: Performed By: #### C REAT #### [address] Estimated GFR 58.113 mL/Min Normal [facility] Comment on above: Result Comment: PERF ORMED BY: [place] [address] PATHOLOGIST CONNIE CLEANER JANA VARMA M.D. Performed By: #### C REAT #### [place] [id number] [place] Creatinine [Mass/Vol]on 05-08 Creatinine (U) [Mass/Vol] 1.36 mg/dL High 0.70 - 1.30 mg/dL [facility] GFR/1.73 sq M.predicted MDRD (S/P/Bld) [Vol rate/Area] 58.113 mL/min/{1.73_m2} mL/Min [facility] Interpretation and review of laboratory results Abnormal [facility] [employer] e Glucose Poct Glucometerson 07-21-2023 Glucose [Mass/Vol] 131 mg/dL Normal [facility] Comment on above: Result Comment: [facility] Glucose Reference Range is dependent on time and content of last meal. Glucose of more than 200 mg/dL in a nonstressed, ambulatory subject supports the diagnosis of Diabetes Mellitus. PERFORMED BY: [place] [address] PATHOLOGIST CONNIE CLEANER JANA VARMA M.D. Performed By: #### G LULS #### Point of Care testing , Pathology Request for Lab Co rpon 05-20-2024 Pathology Request for Lab Cristina Normal [facility] Comment on above: Order Comment: PATHO LOGY GI SPECIMEN Result Comment: See report. Scanned copy available in EMR. PERFORMED BY: [place] [id number] PATHOLOGIST CONNIE CLEANER JANA VARMA M.D. Performed By: #### P ATH TO [facility] #### [facility] [address] [place] [id number] [place] Glucose (Bld) [Mass/Vol]Orde red By: Shazia Yung on 04-19-2024 Glucose Blood, POC 188 mg/dL [facility] [employer] [facility] Office Visiton 04-07-2024 Follow-up visit [id number] Loren Porter 1960 Date Provider Department Center 04/07/2024 [place] [facility] TOBARFIDENCIOSharon OLIVEIRA [facility] No family history on file Level of Service:[id number] [place] OFFICE/OUTPATIENT ESTABLISHED LOW MDM 20 MIN Normal [facility] Office Visiton 10-19-2023 Follow-up visit [id number] Loren Porter Shantel 1960 Date Provider Department Center 10/19/2023 [place] [facility] No family history on file Level of Service:73444 [place] OFFICE/OUTPATIENT ESTABLISHED LOW MDM 20 MIN Normal [facility] Office Visiton 07-24-2023 Follow-up visit [id number] Loren Porter Shantel 1960 Date Provider Department Center 07/24/2023 [place] [facility]USANTRENTON SAMMIEPIYUSH OLIVEIRA [facility] No family history on file Level of Service:42851 [place] OFFICE/OUTPATIENT ESTABLISHED LOW MDM 20 MIN Normal [facility] CNOVon 05-07-2023 CNOV Office Visit (GENBMI ) LOREN PORTER ([id number]) 1960 Date Time Provider Department 05/07/23 3:45 PM MINDA DELCID GENBMI During your visit today, we recorded the following information about you: Pulse Blood pressure Weight Height 85/minute 120/62 147.5 kg 1.753 m Minda Delcid DO 05/07/2023 4:54 PM Signed BMI Obesity Medicine Consult 05/07/23 Consultation requested by Ben Zimmerman DO for an opinion regarding Obesity. My final recommendations will be communicated back to the requesting physician by way of shared Medical record or letter to requesting physician via US mail. Patient Summary: Loren Porter is a 62 year old male with obesity who presents to the [facility] for an initial evaluation of his obesity and is interested in non-surgical weight loss approaches. Primary reason for wanting obesity treatment : improve overall health Overall goal: 220 lbs Weight History: He reports a family history of obesity and adult onset weight gain. He states his weight gain is related to the following factors, including inactivity in the last 2 years after having a right sided weakness secondary to a stroke in 2020, and lifestyle changes Weight Graph: (please see graph scanned in chart) Obesigenic Medications: No Diet: Quality of diet: 24hr recall suggests healthy diet, has 3 meals a day, low carb diet, and does not skip meals B- egg sandwich L-chicken breast sandwich D-prepared meal Drinks water and diet 2 drinks diet drinks Characterization of diet:Structured. Health Management Consultant of impaired eating habits:denies Eating Disorder no Diet History: Past weight loss attempts? dietitian. Exercise: Regular exercise: No Strength/resistance exercise: limited due to low back pain Barriers to regular exercise? See above Work-related activity:retired x 20 years. ?Sleep: Duration: 8 hours. JORDAN YES ; CPAP YES Quality:adequate, Generally restful:Sleep-wake cycle disruption:No ??Stress: Some, Cause:Personal Obesity Related Comorbidities: Prior Weight Loss Surgery:No PMH: T2DM x 20 years, hypertension, hypothyroidism, JORDAN, hyperlipidemia, kidney stones, and CVA. No history of IA, COPD, asthma, peptic ulcer dx, pancreatitis, cancer, DVT, PE, gout, CKD, glaucoma, smoking history (quit 2017) PSH: bilateral TKR, stent abdominal aorta, left CEA, hernia repair, and cholecystectomy Obesity ROS/ FHx GEN: Fatigue:No CV: h/o palpitations/cardiac arrhythmia, CP:No PULM: Asthma:No GI: GERD:No; Gallstones: S/P cholecystectomy; Fatty liver disease:No; H/o hernia:YES MSK: Joint Pain:No : Nephrolithiasis:YES; Stress incontinence:N/A Symptoms of PCOS(women):N/A No history of cold intolerance,heat,into lerance,polydypsia, polyuria, and polyphagia NEURO: Migraines/BARROW:+ cluster headaches; H/o seizures: No Glaucoma:No; Cataracts No Symptoms of pseudotumor cerebri:No The physical systems reviewed reveal no pathological symptoms that are pertinent to this visit No family history on file. PREV: PAP n/a, Mammogram n/a and Colonoscopy Not UTD Social History Occupation: retired PE BP 120/62 NAD. Central adiposity. Waist circumference not measured. No acanthosis, no lipoma, no pallor. No supraclavicular adiposity. No dorsal adiposity. PERRL. Tongue moist, pink. + OP crowding. Good dental hygiene RRR nl. s1s2 CTAB Abdomen Soft Large pannus; No striae. NT/ND. No peripheral edema Results: reviewed with the patient No visits with results within 3 Month(s) from this visit. Latest known visit with results is: No results found for any previous visit. Impression: Loren Porter is a 62 year old male with Class III obesity (There is no height or weight on file to calculate BMI.) who has adult onset obesity with gradual weight gain despite several weight loss attempts. The causes of his obesity are multifactorial, biological, psychological and social and environmental. Specific factors include suboptimal physical activity. He has several weight-related medical comorbidities which increase his cardiovascular mortality risk. There are additional metabolic obesity complications including type 2 diabetes mellitus, dyslipidemia, hypertension, obstructive sleep apnea, and carotid artery disease. Other medical conditions as above. Regarding his lifestyle, as above, he has no significant behavioral contributors; his physical activity is non-existent. Overall, it is clear that his quality of life is moderately compromised by his weight. It is likely a combination of weight loss therapies will be needed. He appears motivated today. Plan: -- Based on the severity and resistance of the obesity to more conservative weight loss approaches, I believe a combination of behavioral and pharmacological intervention is the best and most appro (more content not included)... Normal [facility] CNOVon 01-29-2023 CNOV Office Visit (NSADHC ) LOREN PORTER ([id number]) 1960 M Date Time Provider Department 01/29/23 10:00 AM NONA ZAMBRANO [facility] During your visit today, we recorded the following information about you: Nona Zambrano MD 01/29/2023 12:38 PM Signed SPINE SURGERY OUTPATIENT CONSULT This is an in-person visit. SERVICE DATE: 01/29/2023 PCP: No primary care provider on file. REFERRING PROVIDER: Ben Zimmerman [id number] [facility] [id number] Consult requested for an opinion regarding the evaluation and treatment of back pain. My final impression and recommendations will be communicated back to the requesting physician by way of the shared medical record or letter via US mail. SUBJECTIVE Loren Porter is a 62 year old male presenting with spouse for back pain. States that pain is distal lumbar region, and that when he gets out of bed the pain is exacerbated. Pt denies radiating pain to LE. Pt claims to have gone to pain management and PT with no significant positive improvement on lifestyle. CHIEF COMPLAINT: LB pain HISTORY OF PRESENT ILLNESS PRECIPITATING EVENT: None DURATION OF SYMPTOMS: Greater Than 1 Year PAIN EVALUATION 01/28/2023 1624 01/29/2023 0938 Pain Level: 8 7 Pain Location: Back-Lower Back-Lower Description: Aching;Crushing Aching;Pressure Duration Amount of Time: 24 -- Duration Units: Hours Years Frequency: Continuous Continuous Intervention/Comfort measure: Medication;Reposition ;Relaxation;Cold;Heat ;Positioning Medication;Therapeuti c techniques-CPRP injections from pain management Pain Radiation: Pain does not radiate Aggravating Factors: Standing, Walking Alleviating Factors: Lying down, leaning Pain Ratio: N/A DERMATOMAL DISTRIBUTION: NA AMBULATORY STATUS: Independent Community Distances ANTIPLATELET OR ANTICOAGULATION STATUS: Yes, Plavix PREVIOUS CONSERVATIVE TREATMENTS: PREVIOUS SPINAL SURGERY: None There is no problem list on file for this patient. No past medical history on file. No past surgical history on file. No family history on file. ALLERGIES No Known Allergies MEDICATIONS: ARIPiprazole (ABILIFY) 5 mg tablet Take 1 tablet by mouth every afternoon. clopidogrel (PLAVIX) 75 mg tablet Take 1 tablet by mouth once daily. furosemide (LASIX) 20 mg tablet Take 1 tablet by mouth every afternoon. metFORMIN ER (GLUCOPHAGE XR) 500 mg 24 hr tablet Take 500 mg by mouth twice daily. Takes two tablets by mouth twice daily atorvastatin (LIPITOR) 40 mg tablet Take 40 mg by mouth once daily. liraglutide (VICTOZA 3-FRANKLIN SUBCUTANEOUS) Inject subcutaneously. insulin glargine,hum.rec.anlo g (LANTUS SUBCUTANEOUS) Inject subcutaneously. insulin lispro (HUMALOG PEN SUBCUTANEOUS) Inject subcutaneously. levothyroxine 200 mcg cap Take 200 mcg by mouth daily before breakfast. celecoxib (CELEBREX) 100 mg capsule take 1 capsule by mouth once daily if needed chlorthalidone (HYGROTON) 25 mg tablet Take 1 tablet by mouth once daily. ergocalciferol 50,000 unit capsule (VITAMIN D2, DRISDOL) Take 1 capsule by mouth one time a week. pioglitazone (ACTOS) 45 mg tablet Take 1 tablet by mouth once daily. vilazodone (VIIBRYD) 40 mg tablet take 1 tablet by mouth every morning (AFTER COMPLETING 10MG AND 20MG) metoprolol succinate ER (TOPROL XL) 25 mg 24 hr tablet Take 1 tablet by mouth once daily. lisinopril (ZESTRIL) 40 mg tablet Take 1 tablet every day by oral route for 90 days. gabapentin (NEURONTIN) 300 mg capsule Take 300 mg by mouth. Lacto no.99-Zphein-YLT-larc h 25B cell-25B cell-50 mg cap Take 1 tablet by mouth once daily. Lacto no.04-Locjrn-NLA-larc h 25B cell-25B cell-50 mg cap Take 2 tablets twice a day by oral route for 90 days. (Patient not taking: Reported on 01/29/2023) atorvastatin (LIPITOR) 80 mg tablet Take 1 tablet by mouth once daily. (Patient not taking: Reported on 01/29/2023) REVIEW OF SYSTEMS: GENERAL: No weight loss or malaise MUSCULOSKELETAL: Negative for joint pain, swelling or muscle pain NEURO: No history of headaches, syncope, paralysis, seizures or tremors Patient Entered Questionnaires Spine Questions 12/15/2022 01/28/2023 Pain Location: Lower back Lower back Pain Duration: 1 to 5 years - Pain over last 6 months: Every day or nearly every day in the past 6 months - Symptoms from neck/cervical spine: Yes No Employment Status: Disabled for reasons other than back pain - Involved in law suit/legal claim: No - Spine Red Flags 12/15/2022 Any type of cancer: No Unexplained fever: No Bowel or bladder disfunction: No Unintentional weight loss: No Osteoporosis: No Neck Questionnaires 12/15/2022 [place] Modified JOAQUÍN Score 14 (A lower score indicates increased pain and issues.) PROMIS Score Percentiles Physical Health 12/15/2022 01/28/2023 Physical Function Percentile 3 2 Sleep Percentile 34 62 Fatigue Percentile 16 (more content not included)... Normal [facility] MRI LUMBAR SPINE WO IVCONon 01-03-2023 MRI LUMBAR SPINE WO IVCON * * *Final Report* * * DATE OF EXAM: Jan 03 2023 10:16AM [id number] [id number] - MRI LUMBAR SPINE WO IVCON / PROCEDURE REASON: multiple diagnoses * * * * Physician Interpretation * * * * EXAMINATION: MRI LUMBAR SPINE WO IVCON CLINICAL HISTORY: Chronic midline low back pain without sciatica Chronic midline low back pain without sciatica Degenerative lumbar spinal stenosis Numbness of right lower extremity Chronic midline lower lumbar back pain without radiating pain to lower extremities. He is having numbness down the RLE. Patient has tried PT, NSAIDs, Gabapentin , chiropractic, acupuncture, lumbar injections including MBB and RFA, all without significant benefit. At this point a new MRI is SEE MYPRACTICE FOR MORE DETAILS TECHNIQUE: Routine lumbosacral spine MR protocol without gadolinium. MQ: [id number] COMPARISON: MRI lumbar spine 09/09/2021 RESULT: Counting reference: Lumbosacral junction. For the purposes of this report, L4-5 is considered the level of the iliac crest and assume there are 5 lumbar-type vertebrae. Anatomic variant: None. Localizer images: No additional findings. Alignment: There is slight retrolisthesis at L3-4 and slight anterolisthesis at L4-5. Bone marrow signal/fracture: There is desiccation and mild height loss of the T11-12, L3-4, L4-5 and L5-S1 intervertebral discs. No evidence of pathologic marrow infiltration. No evidence of prior fracture. The lower spinal canal is developmentally borderline in size and there is prominent dorsal epidural fat accentuating compressive features. Conus: The conus is within normal limits of signal intensity and morphology. Paraspinal soft tissues: There is dilatation of the infrarenal abdominal aorta to a maximum diameter of approximately 4.9 cm which is not well included on the prior study due to saturation bands. There appears to be a central stent with bilateral iliac wings confirmed on the recent x-ray. Lower thoracic spine: At T11-12 there is disc bulging narrowing the ventral epidural space and there is mild posterior facet arthropathy. The spinal canal and neural foramen are adequately maintained. At T12-L1 the spinal canal and neural foramen are adequately maintained. L1-L2: The spinal canal and neural foramen are adequately maintained. L2-L3: There is little leftward disc bulging and mild posterior facet arthropathy. There is mild left foraminal stenosis. The right neural foramen and spinal canal are adequately maintained. L3-L4: There is uncovering of mild disc bulge and facet arthropathy as well as prominent dorsal epidural fat. There is mild narrowing of the thecal sac with worsening and there is mild to moderate foraminal stenosis similar to that seen previously. L4-L5: Uncovering of mild to moderate disc bulge and there is moderate posterior facet arthropathy as well as prominent dorsal epidural fat. There is mild to moderate spinal canal stenosis and moderate foraminal stenosis right side worse in left. Findings are similar to progressed. L5-S1: There is disc bulge, moderate to advanced right and moderate left posterior facet arthropathy. There is mild foraminal stenosis without substantial spinal canal stenosis. Findings are similar. Sacrum and iliac wings: The visualized sacrum and iliac wings are within normal limits. IMPRESSION: Multilevel malalignment associated with multilevel spondylosis most significantly in the mid to lower lumbar spine which is similar to progressed. The spinal canal is developmentally borderline in size and there is prominent dorsal epidural fat accentuating compressive features. There is mild to moderate spinal canal stenosis at L4-5 and mild spinal canal stenosis at L3-4. There is multilevel acquired foraminal stenosis most notably moderate foraminal stenosis at L4-5. Anatomic Lumbar Variant: None. L4-5 is considered the level of the iliac crest and assume there are 5 lumbar-type vertebrae. Barrow Worker: BRITTANY Transcribe Date/Time: Jan 03 2023 11:56A Dictated by : PAZ FREEMAN MD This examination was interpreted and the report reviewed and electronically signed by: PAZ FREEMAN MD on Jan 03 2023 12:52PM EST [id number] Normal [facility] XR Lumbar spine Views W flex ion and W extensionon 12-22-2022 IMPRESSION: Anterior subluxation at L4-5 with no acute fractures seen. Facet degenerative changes. Barrow Worker: BRITTANY Transcribe Date/Time: Dec 22 2022 8:05P Dictated by : JESSICA ÁLVAREZ MD This examination was interpreted and the report reviewed and electronically signed by: JESSICA ÁLVAREZ MD on Dec 22 2022 8:07PM [facility] DIVISION OF RADIOLOGY * * *Final Report* * * DATE OF EXAM: Dec 16 2022 12:34PM [id number] - XR LUMBAR 4V AP/LAT/ FLEX/EXT / PROCEDURE REASON: multiple diagnoses * * * * Physician Interpretation * * * * XR LUMBAR 4V AP/LAT/ FLEX/EXT PROVIDED HISTORY: Chronic midline low back pain without sciatica Chronic midline low back pain without sciatica Degenerative lumbar spinal stenosis Numbness of right lower extremity COMPARISON: No previous similar exams are available for comparison TECHNIQUE: 4 views. Counting reference: Lumbosacral junction. For the purposes of this report, L4-5 is considered the level of the iliac crest and assume there are 5 lumbar-type vertebrae. Anatomic variant: None. RESULT: The bony mineralization appears within normal limits. There is mild endplate degenerative change at L3-4 and L4-5 with moderate narrowing at L5-S1. Moderate facet degenerative change at L3-4, L4-5 and L5-S1. Anterior subluxation at L4-5 of 7 mm. No significant change seen on flexion and extension. Stent in the aorta and iliac arteries DIVISION OF RADIOLOGY Provider, [facility] - 12/22/2022 * * *Final Report* * * DATE OF EXAM: Dec 16 2022 12:34PM [id number] - XR LUMBAR 4V AP/LAT/ FLEX/EXT / PROCEDURE REASON: multiple diagnoses * * * * Physician Interpretation * * * * XR LUMBAR 4V AP/LAT/ FLEX/EXT PROVIDED HISTORY: Chronic midline low back pain without sciatica Chronic midline low back pain without sciatica Degenerative lumbar spinal stenosis Numbness of right lower extremity COMPARISON: No previous similar exams are available for comparison TECHNIQUE: 4 views. Counting reference: Lumbosacral junction. For the purposes of this report, L4-5 is considered the level of the iliac crest and assume there are 5 lumbar-type vertebrae. Anatomic variant: None. RESULT: The bony mineralization appears within normal limits. There is mild endplate degenerative change at L3-4 and L4-5 with moderate narrowing at L5-S1. Moderate facet degenerative change at L3-4, L4-5 and L5-S1. Anterior subluxation at L4-5 of 7 mm. No significant change seen on flexion and extension. Stent in the aorta and iliac arteries IMPRESSION IMPRESSION: Anterior subluxation at L4-5 with no acute fractures seen. Facet degenerative changes. Barrow Worker: PSCB Transcribe Date/Time: Dec 22 2022 8:05P Dictated by : JESSICA ÁLVAREZ MD This examination was interpreted and the report reviewed and electronically signed by: JESSICA ÁLVAREZ MD on Dec 22 2022 8:07PM EST [facility] XR Lumbar spine Views W flex ion and W extensionOrdered By: Ccf Provider on 12-22-2022 [facility] CNOVon 12-16-2022 CNOV Office Visit (SPMESH ) ANNECHANTELLLOREN ([id number]) 1960 M Date Time Provider Department 12/16/22 11:00 AM [facility] During your visit today, we recorded the following information about you: Pulse Blood pressure Weight 70/minute 104/66 151.5 kg Ben Zimmerman DO 12/21/2022 4:18 PM Signed [facility] [place] [facility] [place] [facility] - Medical Spine Initial Exam SUBJECTIVE HISTORY OF PRESENT ILLNESS: Loren Porter is a 62 year old male who presents with a chief complaint of low back pain and is seen in consultation requested by Dr. Warner Welch for an opinion regarding lumbar spine. My final recommendations will be communicated back to the requesting physician by way of shared medical record or letter via US mail. Patient reports symptoms for around 2 years, but has progressively worsened. Patient had a CVA and while recovering he began having pain that he thought was his hips and he saw Ortho and X-rays showed aortic aneurysm. States he had a stent for that. Then was told problem was not his hips, but his spine instead. He then tried PT. Then saw Pain management and had RFA, but it only helped for 10 days so repeat RFA was not approved. He then tried TENS unit without benefit. Pain is distal midline lumbar region. Denies radiating pain to LE. Does report numbness in RLE posterior/medially into the foot. Denies weakness. Denies bowel/bladder incontinence or saddle anesthesia. Patient reports his function and quality of life are limited by pain. The pain is currently 8/10. The pain can get to 10/10 at the highest and 3-4/10 at the lowest with lying down. PAIN EVALUATION 12/15/20222103 Pain Level: 8 Pain Location: Back-Lower Description: Aching;Crushing Duration Amount of Time: 20 Duration Units: Hours Frequency: Continuous Intervention/Comfort measure: Medication;Reposition ;Relaxation;Distracti ons;Positioning;Spina l Cord Stimulator Pain Radiation: As above Aggravating Factors: Standing, walking Alleviating Factors: Lying down better than Sitting Standing/walking in pool Leaning on grocery cart Current Treatment: Medications Celebrex 100 mg or Ibuprofen 800 mg daily - minimal relief Gabapentin 300 mg BID - minimal benefit THC edibles make the pain numb, help him sleep Therapies Pool exercise arthritis class twice weekly, Seated cardio class Prior Treatment: Medications Therapies PT in 2021 for 6 weeks, last in April 2022 - made his pain worse Chiropractic without benefit Acupuncture with chiropractor Prior spine interventions: Dr. Alberto Mcgrath All procedures only provided mild temporary relief. -06/19/22 BL IA SI joint CSI - 30 mg Kenalog, 2 mL 0.025% Bupivacaine into each side (Versed 3 mg) -05/27/22 BL L4 TFESI - 60 mg Depomedrol, 2 m L 0.5% Lidocaine divided into each side (Versed 3 mg) -01/14/22 BL L3, L4 MB and L5 DR RFA for the BL L4-5 and L5-S1 facet joints (90 degrees Celsius for 90 seconds, 2 sessions at each needle), no steroid (Versed 3 mg, Fentanyl 50 mcg) - helped for 10 days -12/31/21 BL L3, L4 MB and L5 DR blocks - 0.5 mL of 0.5% bupivacaine at each level -12/19/21 BL L3, L4 MB and L5 DR - 0.5 mL of 0.5% bupivacaine at each level -11/12/21 BLI IA SI joint CSI - 30 mg Kenalog, 2 mL 0.025% Bupivacaine into each side (Versed 3 mg) -10/30/21 BL L4 TFESI - 60 mg Depomedrol, 2 m L 0.5% Lidocaine divided into each side (Versed 3 mg) -10/16/21 L4-5 ILESI - 60 mg Depomedrol and 4 mL 0.5% Lidocaine (Versed 3 mg) Prior spine surgery: Denies Previously treated by: -Pain Management Dr. Sheriff Mcgrath in [place]. Last visit around August 2022. 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 Litigation: No Workers' Compensation: No YELLOW AND BLUE FLAGS No-Neg Attitude; Back Pain is Disabling No-Avoiding Activity (for Fear of Pain) YES-Depression or Anxiety Disorders No-Social Problems No-Substance Use Disorder No-Job Dissatisfaction No-Financial Disincentives Patient Entered Questionnaires Spine Questions 12/15/2022 Pain Location: Lower back Pain Duration: 1 to 5 years Pain over last 6 months: Every day or nearly every day in the past 6 months Symptoms from neck/cervical spine: Yes Employment Status: Disabled for reasons other than back pain Involved in law suit/legal claim: No Spine Red Flags 12/15/2022 Any ty (more content not included)... Normal [facility] XR LUMBAR 4V AP/LAT/ FLEX/EX Ton 12-16-2022 XR LUMBAR 4V AP/LAT/ FLEX/EXT * * *Final Report* * * DATE OF EXAM: Dec 16 2022 12:34PM [id number] - XR LUMBAR 4V AP/LAT/ FLEX/EXT / PROCEDURE REASON: multiple diagnoses * * * * Physician Interpretation * * * * XR LUMBAR 4V AP/LAT/ FLEX/EXT PROVIDED HISTORY: Chronic midline low back pain without sciatica Chronic midline low back pain without sciatica Degenerative lumbar spinal stenosis Numbness of right lower extremity COMPARISON: No previous similar exams are available for comparison TECHNIQUE: 4 views. Counting reference: Lumbosacral junction. For the purposes of this report, L4-5 is considered the level of the iliac crest and assume there are 5 lumbar-type vertebrae. Anatomic variant: None. RESULT: The bony mineralization appears within normal limits. There is mild endplate degenerative change at L3-4 and L4-5 with moderate narrowing at L5-S1. Moderate facet degenerative change at L3-4, L4-5 and L5-S1. Anterior subluxation at L4-5 of 7 mm. No significant change seen on flexion and extension. Stent in the aorta and iliac arteries IMPRESSION: Anterior subluxation at L4-5 with no acute fractures seen. Facet degenerative changes. Barrow Worker: BRITTANY Transcribe Date/Time: Dec 22 2022 8:05P Dictated by : JESSICA ÁLVAREZ MD This examination was interpreted and the report reviewed and electronically signed by: JESSICA ÁLVAREZ MD on Dec 22 2022 8:07PM EST [id number] Normal [facility] XR Lumbar spine Views W flex ion and W extensionon 12-16-2022 Radiology Study observation (narrative) [facility] C-PEPTIDE, SERUMon 3 C-Peptide, Serum 2.0 ng/mL Normal 1.1-4.4 [facility] Comment on above: Result Comment: C-Pe ptide reference interval is for fasting patients. Performed By: #### C PEPT #### [facility] [address] [address] [address] Red Munoz LIPID PROFILEon 10-20-2022 CHOL-HDL RATIO NORM SEE BELOW Normal [facility] Comment on above: Result Comment: 3.3 - 4.4 LOW RISK 4.4 - 7.1 AVERAGE RISK 7.1 - 11.0 MODERATE RISK >11.0 HIGH RISK Performed By: #### L IPID, RENAL #### [facility] [address] [place], [place] [address] Dr. Red Munoz Cholesterol [Mass/Vol] 129 mg/dL Normal <=200 [facility] Comment on above: Performed By: #### L IPID, RENAL #### [facility] [address] [address] [address] Red Munoz Cholesterol in HDL [Mass/Vol] 44 mg/dL Normal 40-60 [facility] Comment on above: Performed By: #### L IPID, RENAL #### [facility] [address] [address] [address] Red Munoz Cholesterol in LDL [Mass/Vol] 69.4 mg/dL Normal [facility] Comment on above: Performed By: #### L IPID, RENAL #### [facility] [address] [address] [address] Red Munoz Cholesterol.total/Ch olesterol in HDL [Mass ratio] 2.9 {ratio} Normal [facility] Comment on above: Performed By: #### L IPID, RENAL #### [facility] [address] [place] [address] Dr. Red Munoz HDL NORMAL > or = 60 mg/dl - LO W CARDIOVASCULAR RISK <40 mg/dl - HIGH CARDIOVASCULAR RISK Normal [facility] Comment on above: Performed By: #### L IPID, RENAL #### [facility] [address] [address] [address] Red Munoz LDL CALC NORMAL SEE BELOW Normal [facility] Comment on above: Result Comment: <100 mg/dl OPTIMAL 100 - 129 mg/dl NEAR OR ABOVE OPTIMAL 130 - 159 mg/dl BORDERLINE HIGH 160 - 189 mg/dl HIGH >190 mg/dl VERY HIGH Performed By: #### L IPID, RENAL #### [facility] [address] [address] [address] Red Munoz Triglyceride [Mass/Vol] 78 mg/dL Normal <=150 [facility] Comment on above: Performed By: #### L IPID, RENAL #### [facility] [address] [address] [address] Red Munoz VLDL CALC 15.6 mg/dL Normal [facility] Comment on above: Performed By: #### L IPID, RENAL #### [facility] [address] [address] [address] eRd Munoz MICROALB CREAT RATIO RANDOMo n 10-20-2022 mALB <1.3 Normal <=30.[address] [facility] Comment on above: Performed By: #### M CRR #### [facility] [address] [address] [address] Red Munoz URINE CREAT 99.86 mg/dL Normal 20.00-300.00 [facility] Comment on above: Performed By: #### M CRR #### [facility] [address] [address] [address] Red Munoz RENAL FUNCTION PANELon 10-20 Albumin [Mass/Vol] 3.6 g/dL Normal 3.4-5.0 [facility] Comment on above: Performed By: #### L IPID, RENAL #### [facility] [address] [place] [address] Dr. Red Munoz Calcium [Mass/Vol] 9.1 mg/dL Normal 8.5-10.1 [facility] Comment on above: Performed By: #### L IPID, RENAL #### [facility] [address] [place] [address] Dr. Red Munoz Chloride [Moles/Vol] 103 mmol/L Normal 98-[address] [facility] Comment on above: Performed By: #### L IPID, RENAL #### [facility] [address] [place] [address] Dr. Red Munoz CO2 [Moles/Vol] 28.3 mmol/L Normal 21.0-32.0 [facility] Comment on above: Performed By: #### L IPID, RENAL #### [facility] [address] [place] [address] Dr. Red Munoz Creatinine [Mass/Vol] 1.28 mg/dL Normal 0.70-1.[address] [facility] Comment on above: Performed By: #### L IPID, RENAL #### [facility] [address] [place] [address] Dr. Red Munoz EGFR-AF KENYAN >60 Normal >=60 [facility] Comment on above: Performed By: #### L IPID, RENAL #### [facility] [address] [address] [address] Red Munoz EGFR-NON AF KENYAN 57 mL/min/1.73m2 Critically low >=60 [facility] Comment on above: Performed By: #### L IPID, RENAL #### [facility] [address] [address] [address] Red Munoz Glucose [Mass/Vol] 110 mg/dL Critically high 74-106 [facility] Comment on above: Performed By: #### L IPID, RENAL #### [facility] [address] [address] [address] Red Munoz Phosphate [Mass/Vol] 3.7 mg/dL Normal 2.6-4.7 [facility] Comment on above: Performed By: #### L IPID, RENAL #### [facility] [address] [place] [address] Dr. Red Munoz Potassium [Moles/Vol] 4.1 mmol/L Normal 3.5-5.1 [facility] Comment on above: Performed By: #### L IPID, RENAL #### [facility] [address] [address] [address] Red Munoz Sodium [Moles/Vol] 141 mmol/L Normal 136-145 [facility] Comment on above: Performed By: #### L IPID, RENAL #### [facility] [address] [address] [address] Red Munoz Urea nitrogen [Mass/Vol] 18.0 mg/dL Normal 7.0-18.0 [facility] Comment on above: Performed By: #### L IPID, RENAL #### [facility] [address] [address] [address] Red Munoz VITAMIN D 25 OHon 10-20-2022 VIT D 25-OH 35.5 ng/mL Normal [facility] Comment on above: Performed By: #### V ITAD #### [facility] [address] [address] [address] Red Munoz VIT D RANGES SEE BELOW Normal [facility] Comment on above: Result Comment: <20 ng/mL Vit D deficient 20 - <30 ng/mL Vit D insufficient 30 - 100 ng/mL Vit D sufficient >100 ng/mL Potential Toxicity Performed By: #### V ITAD #### [facility] [address] [address] [address] Red Munoz CTA ABD/PELVIS WO W CONon CTA ABD/PELVIS WO W CON EXAMINATION: CTA ABD/PELVIS WO W CON HISTORY: Postprocedural state finding ; follow-up abdominal aortic aneurysm COMPARISON: CTA abdomen pelvis 03/22/2021 TECHNIQUE: Axial, Coronal, and Sagittal CT images without and with IV contrast. Multi-planar/3-D imaging to optimize visualization of vascular anatomy. Dose reduction techniques were achieved by using automated exposure control and/or adjustment of mA and/or kV according to patient size and/or use of iterative reconstruction technique. FINDINGS: AORTA/VASCULAR: 5.1 cm diameter fusiform aneurysm of the infrarenal aorta with prior aortobifemoral endovascular stenting. No evidence of leakage of contrast out of the stent lumen. CELIAC ARTERY: Normal celiac vessels. SMA: Mild atherosclerotic narrowing at its origin. RENAL ARTERIES: Narrowed at their origins, left greater than right. LUNG BASES: No visible pulmonary or pleural disease. LIVER: No enlargement, atrophy, abnormal density, or significant focal lesion. BILIARY: Cholecystectomy. PANCREAS: No lesion, fluid collection, ductal dilatation, or atrophy. SPLEEN: No enlargement or focal lesion. ADRENALS: No mass or enlargement. KIDNEYS: Nonobstructing 3 mm stone within right kidney. Unremarkable left kidney and bilateral ureters. BOWEL/MESENTERY: Marked diverticulosis of the descending and sigmoid colon without acute inflammatory changes. No visible mass, obstruction, or bowel wall thickening. Normal appendix. RETROPERITONEUM: No mass or adenopathy. LYMPH NODES: No adenopathy. URINARY BLADDER: No visible focal wall thickening, lesion, or calculus. PELVIC ORGANS: No visible mass. Pelvic organs appropriate for patient age. ABDOMINAL WALL: Small fat filled inguinal and umbilical hernias without strangulation. Fat and bowel filled supraumbilical hernia 5.67 m in diameter with wide neck and no strangulation or obstruction. BONES: No bony lesion or fracture. OTHER: Negative. IMPRESSION: 1. Stable 5.1 cm diameter fusiform infrarenal aortic aneurysm with interval aortobifemoral endovascular stenting compared to prior study. 2. Nonobstructing right nephrolithiasis. 3. Marked colonic diverticulosis. No acute findings. 4. Supraumbilical 5.6 cm ventral hernia containing fat and small bowel; this has a wide neck without strangulation or obstruction. Addition there are fat filled umbilical and bilateral inguinal small hernias without strangulation. Electronically authenticated by: BEKAH EAGLE Date: 2022-04-29 16:[address] [facility] CREATININEon 04-28-2022 Creatinine [Mass/Vol] 1.21 mg/dL Normal 0.70-1.30 [facility] Comment on above: Performed By: #### C ANKITA #### [facility] [address] [address] [address] Red Munoz EGFR-AF KENYAN >60 Normal >=60 [facility] Comment on above: Performed By: #### C ANKITA #### [facility] [address] [address] [address] Red Munoz EGFR-NON AF KENYAN >60 Normal >=60 [facility] Comment on above: Performed By: #### C ANKITA #### [facility] [address] [place] [address] Dr. Red Munoz US CAROTID ART BILon 022 US CAROTID ART SUSAN EXAMINATION: US CAROTID ART SUSAN HISTORY: Bilateral carotid artery occlusion COMPARISON: No relevant comparison available. TECHNIQUE: Duplex Doppler ultrasound analysis of carotid and vertebral arteries. . Bilateral carotid arterial duplex examination was performed using B-mode, color flow and spectral analysis. Carotid stenosis is reported according to validated velocity parameters, similar to NASCET criteria. FINDINGS: RIGHT CAROTID ARTERY Moderate plaque, 78% reduction proximal ica Subclavian: PSV: 258.8 cm/s cm/s EDV: 11.4 cm/s cm/s CCA: Prox: PSV: 134.5 cm/s cm/s EDV: 30.0 cm/s cm/s Mid: PSV: 108.9 cm/s cm/s EDV: 25.3 cm/s cm/s Distal: PSV: 99.6 cm/s cm/s EDV: 27.6 cm/s cm/s BULB: PSV: 69.3 cm/s cm/s EDV: 17.6 cm/s cm/s ICA: Prox: PSV: 125.8 cm/s cm/s EDV: 17.6 cm/s cm/s Mid: PSV: 64.7 cm/s cm/s EDV: 18.6 cm/s cm/s Distal: PSV: 79.0 cm/s cm/s EDV: 13.1 cm/s cm/s ECA: PSV: 180.8 cm/s cm/s EDV: 22.0 cm/s cm/s VERTEBRAL: PSV: 49.1 cm/s cm/s EDV: 19.3 cm/s cm/s ICA/CCA ratio: PSV: 0.9 EDV: 0.6 LEFT CAROTID ARTERY Mild plaque Subclavian: PSV: 271.2 cm/s cm/s EDV: 0.0 cm/s CCA: Prox: PSV: 115.9 cm/s cm/s EDV: 35.2 cm/s Mid: PSV: 97.3 cm/s cm/s EDV: 30.0 cm/s Distal: PSV: 90.4 cm/s cm/s EDV: 25.3 cm/s BULB: PSV: 95.0 cm/s cm/s EDV: 23.0 cm/s ICA: Prox: PSV: 127.9 cm/s cm/s EDV: 22.0 cm/s Mid: PSV: 71.0 cm/s cm/s EDV: 23.2 cm/s Distal: PSV: 58.1 cm/s cm/s EDV: 23.2 cm/s ECA: PSV: 166.9 cm/s cm/s EDV: 24.8 cm/s VERTEBRAL: PSV: 64.5 cm/s cm/s EDV: 19.2 cm/s ICA/CCA ratio: PSV: 1.1 EDV: 0.6 IMPRESSION: 78% area narrowing proximal right ica 0-49% flow stenosis left ica Spectral Doppler US Thresholds (Reference: Derrick EG, et al. Radiology 2000; 214:247-252) Stenosis (%) PSV (cm/sec) VICA/VCCA 0-49 <150 <2.5 50-69 150-225 2.5-4.0 >70 >225 >4.0 Electronically authenticated by: JOSEF MCFARLANE Date: 2022-04-28 17:05 Normal [facility] ECHOCARDIO M/2D COMPLETEon 0 12-25-2021 ECHOCARDIO M/2D COMPLETE Patient: LOREN PORTER Exam Date: 12/25/2021 : 1960 Gender:M Ordering : LISA EMERY Admission #: [id number] Family : DR ASHTON SylviaDipti TATIANABRIGITTE Order #: [id number] CLICK HERE TO VIEW EXAM ECHOCARDIOGRAM REPORT PROCEDURE: CARDIO PULMONARY ECHOCARDIO M/2D COMP INDICATIONS: Dyspnea COMPARISON: None. DESCRIPTION: COMPLETE ECHOCARDIOGRAM Real-time transthoracic echocardiography with 2D, M-mode, spectral and color flow Doppler performed. QUALITY: Technical quality was adequate. 69 340# 108/58 HR 92 LEFT VENTRICLE: Normal chamber size. Proximal septal hypertrophy (sigmoid septum). LV EF: Global left ventricular systolic function is hyperdynamic. Visual estimation of left ventricular ejection fraction is 65-70%. No regional wall motion abnormalities. DIASTOLIC: Normal diastolic function. ATRIAL SEPTUM: Lipomatous hypertrophy of the interatrial septum. LEFT ATRIUM: Normal chamber size. RIGHT ATRIUM: Normal chamber size. RIGHT VENTRICLE: Normal chamber size. Normal right ventricular systolic function. TRICUSPID VALVE: Normal mobility and thickness. No stenosis with trivial regurgitation. Doppler studies reveal mildly (35-45) elevated right sided pressures. RVSP 38 mmHg. MITRAL VALVE: Normal mobility and thickness. No evidence of mitral valve stenosis. Mild mitral annular calcification. AORTIC VALVE: Normal trileaflet appearance. No evidence of aortic valve stenosis. No aortic regurgitation. AORTIC ROOT: Normal diameter and appearance. Ascending aorta and arch are normal in size. PULMONIC VALVE: Normal thickness and mobility. No stenosis. Trivial regurgitation. PERICARDIUM: Anterior free space; trivial effusion versus fat pad. IVC: Collapses with inspirations. IVC is normal in size. CONCLUSION: Global left ventricular systolic function is hyperdynamic; visually estimated ejection fraction is 65 to 70%. No wall motion abnormalities. Normal diastolic function. The right ventricle is normal in size and systolic function. Mildly elevated right-sided heart pressures. Anterior free space; trivial effusion versus fat pad. No significant valvular abnormalities. Adult Echocardiography Procedure Report Left Ventricle Left Atrium Mitral Valve Right Ventricle Aorta Aortic Valve Peak Velocity (Antegrade Flow): 1.30 m/s AoV Area (Peak Jamaal): 3.05 cm2, 3.05 cm2 Peak Velocity(Antegrade Flow): 1.30 m/s Peak Gradient(Antegrade Flow): 6.75 mm[Hg] Tricuspid Valve Peak Velocity (Regurgitant Flow): 2.08 m/s, 3.16 m/s, 2.78 m/s Peak Velocity: 0.57 m/s Pulmonic Valve PV Max Jamaal (0.6 - 0.9 m per sec): 1.06 m/s PV Max Gradient: 4.50 mm[Hg] Right Atrium Dictated by: Luz Marina Leon M.D. on 12/25/2021 at 17:02 Approved by: Luz Marina Leon M.D. on 12/25/2021 at 17:05 Normal [facility] BASIC METABOLIC PANELon - Calcium [Mass/Vol] 9.1 mg/dL Normal 8.6-10.3 [facility] Comment on above: Performed By: #### 0 0071 #### [facility] [address] [place] [address], [place] Chloride [Moles/Vol] 98 mmol/L Normal 98-107 [facility] Comment on above: Performed By: #### 0 0071 #### [facility] [address] [place] [address], [place] CO2 [Moles/Vol] 30 mmol/L Normal 21-31 [facility] Comment on above: Performed By: #### 0 0071 #### [facility] [address] [place] [address], [place] Creatinine [Mass/Vol] 1.15 mg/dL Normal 0.70-1.30 [facility] Comment on above: Performed By: #### 0 0071 #### [facility] [address] [place] [address], [place] GFR/1.73 sq M.predicted among blacks MDRD (S/P/Bld) [Vol rate/Area] mL/min/{1.73_m2} Normal >60 [facility] Comment on above: Performed By: #### 0 0071 #### [facility] [address] [place] [address], [facility] GFR/1.73 sq M.predicted among non-blacks MDRD (S/P/Bld) [Vol rate/Area] mL/min/{1.73_m2} Normal >60 [facility] Comment on above: Performed By: #### 0 0071 #### [facility] [address] [place] [address], [facility] Glucose [Mass/Vol] 110 mg/dL High 70-100 [facility] Comment on above: Performed By: #### 0 0071 #### [facility] [address] [place] [address], [facility] Potassium [Moles/Vol] 4.2 mmol/L Normal 3.5-5.1 [facility] Comment on above: Performed By: #### 0 0071 #### [facility] [address] [place] [address], [facility] Sodium [Moles/Vol] 135 mmol/L Low 136-145 [facility] Comment on above: Performed By: #### 0 0071 #### [facility] [address] [place] [address], [facility] Urea nitrogen [Mass/Vol] 26 mg/dL High 7-25 [facility] Comment on above: Performed By: #### 0 0071 #### [facility] [address] [place] [address], [facility] BNP (B-TYPE NATRIURETIC PEPT PRECIOUS)on 11-26-2021 Natriuretic peptide B (Bld) [Mass/Vol] 12 pg/mL Normal 0-100 [facility] [place] [facility] Comment on above: Result Comment: Give n the appropriate clinical setting a BNP result of >100 pg/mL indicates congestive heart failure. Performed By: #### 0 0071 #### [facility] [address] VC VENOUS REFLUX SUSAN LMTon 0 10-25-2021 VC VENOUS REFLUX SUSAN LMT Patient: LOREN PORTER Exam Date: 10/25/2021 : 1960 Gender:M Ordering : LAMONT EDWADRS Admission #: [id number] Family : Order #: [id number] CLICK HERE TO VIEW EXAM RADIOLOGY REPORT PROCEDURE: VEIN CENTER ULTRASOUND VENOUS REFLUX BILATERAL LIMTED COMPARISON: None. INDICATIONS: Bilateral lower leg edema R60.0 TECHNIQUE: Duplex imaging of the lower extremity to assess the deep and superficial venous system for the presence of deep or superficial venous incompetence and to document the location and severity of disease. The study includes evaluation of the great saphenous vein (GSV), anterior accessory saphenous vein (AASV) and small saphenous vein (SSV). Patient scanned in reverse Trendelenburg and standing. FINDINGS: RIGHT LOWER EXTREMITY: Saphenofemoral Junction Reflux: Yes 8.8mm 4.8 sec GSV: Diam (mm) Reflux/ Time (sec) Proximal Thigh 8.8 Yes 1.4 Mid Thigh 6.4 Yes 0.7 Distal Thigh 5.3 Yes 4.9 Prox Calf 5.0 Yes 1.4 Mid Calf 3.3 Yes 0.7 Saphenopopliteal Junction Reflux: 3.0mm No SSV: Proximal Calf 3.2 Yes 2.7 Mid Calf 2.2 Yes 0.9 AASV: Proximal Thigh 6.2 Yes 3.7 Mid Thigh 4.8 Yes 0.4 Distal Thigh Thrombi: No acute or chronic thrombus. Compressibility: Normal. Flow: Mild deep reflux in popliteal vein. Preforator: Dist calf 3.9 mm, 4.6s reflux. Mid calf 3.8 mm, 3.0s. Tech Note: Incompetent varicose vein mid calf 3.3 mm with 3.6s reflux. Prox calf varicosity measures 3.1 mm with 0.2s reflux. LEFT LOWER EXTREMITY: Saphenofemoral Junction Reflux: Yes 9.9 mm 1.8 sec GSV: Diam (mm) Reflux/Time (sec) Proximal Thigh 11.7 Yes 2.7 Mid Thigh 7.5 Yes 1.5 Distal Thigh 6.0 Yes 2.6 Prox Calf 4.6 Yes 4.8 Mid Calf 3.0 Yes 2.8 Saphenopopliteal Junction Relux: 5.7 mm Yes 0.5 SSV: Proximal Calf 3.4 Yes 0.6 Mid Calf 2.9 Yes 0.4 AASV: Proximal Thigh 5.0 Yes 0.6 Mid Thigh 4.5 Yes 0.3 Distal Thigh Thrombi: No acute or chronic thrombus. Compressibility: Normal. Flow: Normal. Fleet Director: Dist calf 3.6mm, 1.8s. Dist calf 3.0mm, 1.2s. Mid calf 2.6mm. Tech Note: Multiple incompetent varicose veins. Prox calf medial varicose vein measures 3.5 mm with 4.8s reflux. Medial knee varicose vein measures 4.1 mm with 0.5s reflux. Distal anterior lower leg varicosity measures 4.2 mm with 0.4s reflux. CONCLUSION: 1. Dilated, incompetent right great saphenous, small saphenous, and anterior accessory saphenous veins. 2. Dilated, incompetent left great saphenous vein. 3. Bilateral dilated incompetent branch saphenous varicosities. 4. Consultation for venous ablation is recommended. Dictated by: Bekah Eagle M.D. on 10/25/2021 at 12:14 Approved by: Bekah Eagle M.D. on 10/25/2021 at 12:18 Normal [facility] BASIC METABOLIC PANELon 04- BUN/CREATININE RATIO NOT APPLICABLE Normal 6-22 [facility] Comment on above: Order Comment: FASTI NG:NO FASTING: NO Performed By: #### 1 0165 #### [facility] [address], [address] [place], [place] [id number] [employer] Helper: Mario Vasquez MD Calcium [Mass/Vol] 8.9 mg/dL Normal 8.6-10.3 [facility] Comment on above: Order Comment: FASTI NG:NO FASTING: NO Performed By: #### 1 0165 #### [facility] [address], [address] [place] [id number] [employer] Helper: Mario Vasquez MD Chloride [Moles/Vol] 103 mmol/L Normal 98-110 [facility] Comment on above: Order Comment: FASTI NG:NO FASTING: NO Performed By: #### 1 0165 #### [facility] [place] [address] [employer] Helper: Mario Vasquez MD CO2 [Moles/Vol] 28 mmol/L Normal 20-32 [facility] Comment on above: Order Comment: FASTI NG:NO FASTING: NO Performed By: #### 1 0165 #### [facility] [place] [address] [employer] Helper: Mario Vasquez MD Creatinine [Mass/Vol] 1.00 mg/dL Normal 0.70-1.25 [facility] Comment on above: Order Comment: FASTI NG:NO FASTING: NO Result Comment: For patients >49 years of age, the reference limit for Creatinine is approximately 13% higher for people identified as -Brazilian. Performed By: #### 1 0165 #### [facility] [place] [address] [employer] Helper: Mario Vasquez MD eGFR NON-AFR. KENYAN 80 mL/min/1.73m2 Normal > OR = 60 [facility] Comment on above: Order Comment: FASTI NG:NO FASTING: NO Performed By: #### 1 0165 #### [facility] [place] [address] [employer] Helper: Mario Vasquez MD GFR/1.73 sq M.predicted among blacks MDRD (S/P/Bld) [Vol rate/Area] 93 mL/min/{1.73_m2} Normal > OR = 60 [facility] Comment on above: Order Comment: FASTI NG:NO FASTING: NO Performed By: #### 1 0165 #### [facility] [place] [address] [employer] Helper: Mario Vasquez MD Glucose [Mass/Vol] 128 mg/dL Normal 65-139 [facility] Comment on above: Order Comment: FASTI NG:NO FASTING: NO Result Comment: Non-fasting reference interval For someone without known diabetes, a glucose value >125 mg/dL indicates that they may have diabetes and this should be confirmed with a follow-up test. Performed By: #### 1 0165 #### [facility] [address], [address] [place] [address] [employer] Helper: Mario Vasquez MD Potassium [Moles/Vol] 4.8 mmol/L Normal 3.5-5.3 [facility] Comment on above: Order Comment: FASTI NG:NO FASTING: NO Performed By: #### 1 0165 #### [facility] [address], [address] [place] [address] [employer] Helper: Mario Vasquez MD Sodium [Moles/Vol] 139 mmol/L Normal 135-146 [facility] Comment on above: Order Comment: FASTI NG:NO FASTING: NO Performed By: #### 1 0165 #### [facility] [address], [address] [place] [address] [employer] Helper: Mario Vasquez MD Urea nitrogen [Mass/Vol] 16 mg/dL Normal 7-25 [facility] Comment on above: Order Comment: FASTI NG:NO FASTING: NO Performed By: #### 1 0165 #### [facility] [address], [address] [place] [address] [employer] Helper: Mraio Vasquez MD ALBUMIN, RANDOM URINE W/CREA TININEon 07-29-2021 ALBUMIN, URINE 15.8 mg/dL Normal See Note: [facility] Comment on above: Result Comment: Refe rence Range: Reference Range Not established Performed By: #### 1 0231, 7600, 6517, 496, 5363 #### [facility] [address], [address] [place] [address] [employer] Helper: Mario Vasquez MD ALBUMIN/CREATININE RATIO, RANDOM URINE 170 mcg/mg creat High <30 [facility] Comment on above: Result Comment: The ADA defines abnormalities in albumin excretion as follows: Albuminuria Category Result (mcg/mg creatinine) Normal to Mildly increased <30 Moderately increased 30-299 Severely increased > OR = 300 The ADA recommends that at least two of three specimens collected within a 3-6 month period be abnormal before considering a patient to be within a diagnostic category. Performed By: #### 1 0231, 7600, 6517, 496, 5363 #### [facility] of [place] [address] [employer]per: Mario Vasquez MD Creatinine (U) [Mass/Vol] 93 mg/dL Normal 20-320 [facility] Comment on above: Performed By: #### 1 0231, 7600, 6517, 496, 5363 #### [facility] of [address], [address] [place] [address] [employer] Helper: Mario Vasquez MD [facility] METABOLIC [facility] 07-29-2021 Albumin [Mass/Vol] 4.1 g/dL Normal 3.6-5.1 [facility] Comment on above: Performed By: #### 1 0231, 7600, 6517, 496, 5363 #### [facility] of [place] [address] [employer] Helper: Mario Vasquez MD Albumin/Globulin [Mass ratio] 1.6 {ratio} Normal 1.0-2.5 [facility] Comment on above: Performed By: #### 1 0231, 7600, 6517, 496, 5363 #### [facility] [place] [address] [employer] Helper: Mario Vasquez MD ALP [Catalytic activity/Vol] 119 U/L Normal 35-144 [facility] Comment on above: Performed By: #### 1 0231, 7600, 6517, 496, 5363 #### [facility] [place] [address] [employer] Helper: Mario Vasquez MD ALT [Catalytic activity/Vol] 21 U/L Normal 9-46 [facility] Comment on above: Performed By: #### 1 0231, 7600, 6517, 496, 5363 #### [facility] [place] [address] [employer] Helper: Mario Vasquez MD AST [Catalytic activity/Vol] 18 U/L Normal 10-35 [facility] Comment on above: Performed By: #### 1 0231, 7600, 6517, 496, 5363 #### [facility] of [address], [address] [place] [address] [employer] Helper: Mario Vasquez MD Bilirubin [Mass/Vol] 0.3 mg/dL Normal 0.2-1.2 [facility] Comment on above: Performed By: #### 1 0231, 7600, 6517, 496, 5363 #### [facility] of [address], [address] [place] [address] [employer] Helper: Mario Vasquez MD BUN/CREATININE RATIO NOT APPLICABLE Normal 6-22 [facility] Comment on above: Performed By: #### 1 0231, 7600, 6517, 496, 5363 #### [facility] [place] [address] [employer] Helper: Mario Vasquez MD Calcium [Mass/Vol] 9.0 mg/dL Normal 8.6-10.3 [facility] Comment on above: Performed By: #### 1 0231, 0, 6517, 496, 5363 #### [facility] [place] [address] [employer] Helper: Mario Vasquez MD Chloride [Moles/Vol] 104 mmol/L Normal 98-110 [facility] Comment on above: Performed By: #### 1 0231, 7600, 6517, 496, 5363 #### [facility] [place] [address] [employer] Helper: Mario Vasquez MD CO2 [Moles/Vol] 29 mmol/L Normal 20-32 [facility] Comment on above: Performed By: #### 1 0231, 7600, 6517, 496, 5363 #### [facility] [place] [address] [employer] Helper: Mario Vasquez MD Creatinine [Mass/Vol] 1.03 mg/dL Normal 0.70-1.25 [facility] Comment on above: Result Comment: For patients >49 years of age, the reference limit for Creatinine is approximately 13% higher for people identified as -Brazilian. Performed By: #### 1 0231, 7600, 6517, 496, 5363 #### [facility] [place] [address] [employer]per: Mario Vasquez MD eGFR NON-AFR. KENYAN 77 mL/min/1.73m2 Normal > OR = 60 [facility] Comment on above: Performed By: #### 1 0231, 7600, 6517, 496, 5363 #### [facility] [place] [address] [employer] Helper: Mario Vasquez MD GFR/1.73 sq M.predicted among blacks MDRD (S/P/Bld) [Vol rate/Area] 90 mL/min/{1.73_m2} Normal > OR = 60 [facility] Comment on above: Performed By: #### 1 0231, 7600, 6517, 496, 5363 #### [facility] [place] [address] [employer] Helper: Mario Vasquez MD Globulin (S) [Mass/Vol] 2.5 g/dL Normal 1.9-3.7 [facility] Comment on above: Performed By: #### 1 0231, 7600, 6517, 496, 5363 #### [facility] [place] [address] [employer] Helper: Mario Vasquez MD Glucose [Mass/Vol] 126 mg/dL High 65-99 [facility] Comment on above: Result Comment: Fasting reference interval For someone without known diabetes, a glucose value >125 mg/dL indicates that they may have diabetes and this should be confirmed with a follow-up test. Performed By: #### 1 0231, 7600, 6517, 496, 5363 #### [facility] [place] [address] [employer] Helper: Mario Vasquez MD Potassium [Moles/Vol] 4.7 mmol/L Normal 3.5-5.3 [facility] Comment on above: Performed By: #### 1 0231, 7600, 6517, 496, 5363 #### [facility] [place] [address] [employer] Helper: Mario Vasquez MD Protein [Mass/Vol] 6.6 g/dL Normal 6.1-8.1 [facility] Comment on above: Performed By: #### 1 0231, 7600, 6517, 496, 5363 #### [facility] [place] [address] [employer] Helper: Mario Vasquez MD Sodium [Moles/Vol] 140 mmol/L Normal 135-146 [facility] Comment on above: Performed By: #### 1 023, 7600, 6517, 496, 5363 #### [facility] [place] [address] [employer] Helper: Mario Vasquez MD Urea nitrogen [Mass/Vol] 22 mg/dL Normal 7-25 [facility] Comment on above: Performed By: #### 1 0231, 7600, 6517, 496, 5363 #### [facility] [place] [address] [employer] Helper: Mario Vasquez MD HEMOGLOBIN A1con 07-29-2021 HEMOGLOBIN A1c 7.5 % of total Hgb High <5.7 [facility] Comment on above: Result Comment: For someone without known diabetes, a hemoglobin A1c value of 6.5% or greater indicates that they may have diabetes and this should be confirmed with a follow-up test. For someone with known diabetes, a value <7% indicates that their diabetes is well controlled and a value greater than or equal to 7% indicates suboptimal control. A1c targets should be individualized based on duration of diabetes, age, comorbid conditions, and other considerations. Currently, no consensus exists regarding use of hemoglobin A1c for diagnosis of diabetes for children. Performed By: #### 1 0231, 7600, 6517, 496, 5363 #### [facility] [address], [address] [place] [address] [employer] Helper: Mario Vasquez MD LIPID PANEL, [facility] 07-10 Cholesterol [Mass/Vol] 129 mg/dL Normal <200 [facility] Comment on above: Performed By: #### 1 0231, 7600, 6517, 496, 5363 #### [facility] [address], [address] [place] [address] [employer] Helper: Mario Vasquez MD Cholesterol in HDL [Mass/Vol] 46 mg/dL Normal > OR = 40 [facility] Comment on above: Performed By: #### 1 0231, 7600, 6517, 496, 5363 #### [facility] [address], [address] [place] [address] [employer] Helper: Mario Vasquez MD Cholesterol in LDL [Mass/Vol] 68 mg/dL Normal [facility] Comment on above: Result Comment: Refe rence range: <100 Desirable range <100 mg/dL for primary prevention; <70 mg/dL for patients with CHD or diabetic patients with > or = 2 CHD risk factors. LDL-C is now calculated using the River-Marcella calculation, which is a validated novel method providing better accuracy than the Friedewald equation in the estimation of LDL-C. River MICHAEL et al. SHANIA. 2013;310(19): 6716-8673 (http://education.[employer]/faq/PPP101) Performed By: #### 1 0231, 7600, 6517, 496, 5363 #### [facility] [address], [address] [place] [address] [employer] Helper: Mario Vasquez MD Cholesterol.total/Ch olesterol in HDL [Mass ratio] 2.8 {ratio} Normal <5.0 [facility] Comment on above: Performed By: #### 1 0231, 7600, 6517, 496, 5363 #### [facility] [address], [address] [place] [address] [employer] Helper: Mario Vasquez MD NON HDL CHOLESTEROL 83 mg/dL (calc) Normal <130 [facility] Comment on above: Result Comment: For patients with diabetes plus 1 major ASCVD risk factor, treating to a non-HDL-C goal of <100 mg/dL (LDL-C of <70 mg/dL) is considered a therapeutic option. Performed By: #### 1 023, 7600, 6517, 496, 5363 #### [facility] [address], [address] [place] [address] [employer] Helper: Mario Vasquez MD Triglyceride [Mass/Vol] 70 mg/dL Normal <150 [facility] Comment on above: Performed By: #### 1 023, 7600, 6517, 496, 5363 #### [facility] [address], [address] [place] [address] [employer] Helper: Mario Vasquez MD PSA, TOTALon 07-29-2021 PSA, TOTAL 0.29 ng/mL Normal < OR = 4.00 [facility] Comment on above: Result Comment: The total PSA value from this assay system is standardized against the WHO standard. The test result will be approximately 20% lower when compared to the equimolar-standardized total PSA (Tyrone Cleveland). Comparison of serial PSA results should be interpreted with this fact in mind. This test was performed using the Siemens chemiluminescent method. Values obtained from different assay methods cannot be used interchangeably. PSA levels, regardless of value, should not be interpreted as absolute evidence of the presence or absence of disease. Performed By: #### 1 0231, 760, 6517, 496, 5363 #### [facility] [address], [address] [place], [place] [id number] [employer] Helper: Mario Vasquez MD CTA ABDOMEN AND PELVISon CTA ABDOMEN AND PELVIS [facility] Department of Radiology [address] [place] [id number] Patient Name: LOREN PORTER : 1960 Sex: M Age: Race: White Pt. Location: [facility] Patient Status: O Ordered Date: 05/17/2021 12:05:00 PM Completed Date: 06/13/2021 10:42 AM Requesting Provider: NORMA KIRAN Attending Provider: NORMA KIRAN Report Copy To: WARNER WELCH Signs & Symptoms: I71.4 Abdominal aortic aneurysm, without rupture I10 History: Reserve labs done 04/26/21 Same day F/U Comments: Exam: CTA ABDOMEN AND PELVIS CTA ABDOMEN AND PELVIS 06/13/2021 10:42 AM CLINICAL INDICATIONS: I71.4 Abdominal aortic aneurysm, without rupture I10 TECHNOLOGIST COMMENTS: follow up AAA repair QUESTION FOR THE RADIOLOGIST: PROTOCOL: Axial CT angiography images were obtained with IV contrast. CONTRAST: Contrast: OMNIPAQUE 350 (LOCM), 100 milliliter, Intravenous TECHNIQUE: Multidetector CT angiography axial slices of the abdomen and pelvis were obtained with IV contrast. Multiplanar reformats, MIP, and volume rendered 3-D images were generated on a separate workstation and reviewed to further define anatomy and possible pathology. Appropriate CT dose lowering techniques were utilized. COMPARISON: CTA abdomen pelvis March 22, 2021. FINDINGS: Infrarenal abdominal aneurysm has undergone endovascular stenting since the prior outside study. The abdominal aorta measures 5.1 x 4.8 cm on the immediate postcontrast image 315, unchanged from the prior study. No endoleak is identified. Both iliac limbs of the stent are patent with a satisfactory bilateral runoff. The origins of the celiac axis and SMA are unremarkable. Both renal arteries are opacified and appear unremarkable. The lung bases are unremarkable. The liver, spleen, adrenals and pancreas are unremarkable. The gallbladder has been resected. The kidneys concentrate contrast satisfactorily with no focal lesion identified. The GI tract is unremarkable except for uncomplicated colonic diverticula. The bladder, seminal vesicles and prostate appear unremarkable. There is a midline ventral hernia present containing unaffected bowel. No free intraperitoneal air or free fluid. No retroperitoneal adenopathy or hematoma. The study viewed at bone window is unremarkable. IMPRESSION: * Stenting of infrarenal abdominal aortic aneurysm with no evidence of endoleak. Satisfactory bilateral iliac runoff. * Uncomplicated colonic diverticula. * Midline ventral hernia containing unaffected bowel. All CT scans at this facility use dose modulation, iterative reconstruction, and/or weight based dosing when appropriate to reduce radiation dose to as low as reasonably achievable Electronically signed: Dhaval Gregory. Transcribed by: [email or web address], User Resident: Electronically Signed by: DHAVAL GREGORY @ 06/13/2021 12:34 PM Normal [facility] Operative Reporton 1 Operative Report MR#: [id number] I [facility] Pt. Name: Loren Porter Room #: DESIRE 300 10 Discharge 04/30/2021 Date: Birthdate: 1960 OPERATIVE REPORT DATE OF SURGERY: 04/29/2021 SURGEON: Brian Waite M.D. PREOPERATIVE DIAGNOSIS: Abdominal aortic aneurysm. POSTOPERATIVE DIAGNOSIS: Abdominal aortic aneurysm. PROCEDURES DONE: 1. Percutaneous access to the right common femoral artery. 2. Percutaneous access to the left common femoral artery. 3. Abdominal aortogram and angiogram. 4. Placement of an aorto bi-iliac endograft. Perclose closure of the common femoral arteries bilaterally. ANESTHESIA: General anesthesia. COMPLICATIONS: No complications. TOTAL AMOUNT OF CONTRAST: 50 mL. RADIATION TIME: 10.5 minutes. RADIATION DOSE: 1242 mGy. INDICATIONS: The patient is a 60-year-old male patient who is presenting for abdominal aortic aneurysm, which is about 5.2 cm. The patient presented with backache and it was found during evaluation. The patient currently had no abdominal pain. He is overweight, presenting for repair. This was discussed with him in the clinic. DESCRIPTION OF PROCEDURE: The patient was put in supine position, given general anesthesia with intubation. Abdomen was prepped and draped in the usual fashion. After that, time-out was performed. Access was made to the right common femoral artery under ultrasound guidance. Perclose devices were inserted 2 of them. Then, after that, access was made to the left common femoral artery in the same way. After that, 9-Urdu sheaths were inserted in both groins. Then, wire was placed in the aorta followed by placing of a universal flush catheter in the left groin to the abdominal aorta. Angiogram was done followed by placing bifurcated graft 28 x 14 x 103, deployed partially. Then, the stabilizers were released. After that, the contralateral limb was negotiated and the gate entered with no difficulty. This was followed by placing on the left side and an iliac extension of 16 x 20 x 124 that ended just before the bifurcation of the common iliac artery. Then, after that, the bifurcated graft was completely released. Sheaths were inserted in both the groins followed by angiogram of the right groin followed by placement of an extension on the right side, which is 16 x 20 x 124, followed by placing 2 balloons dilating the stent throughout its length. Then, an angiogram was done again followed by removal of the sheath and closure of the access site bilaterally successfully. The patient recovered from anesthesia with no complications. Blood loss was about 100 mL. The patient was stable during the procedure. Was taken to recovery. FINDINGS: The abdominal angiogram showed aneurysmal dilatation involving the aorta and the iliac arteries, more on the left side. Both renal arteries seem to have some degree of stenosis. The aorta is slightly dilated around the renal arteries, then becomes smaller just immediately distal to the renal arteries. Post placement of aneurysm device, there was no endoleak and the renal arteries were patent. Both internal iliac arteries were patent. Electronically Signed by: Brian Waite M.D. 05/30/2021 05:26 P Brian Waite M.D. Date Dict: 05/01/2021/10:59 A/Brian Waite M.D. Date Trans: 05/01/2021 08:56 P/blossom [id number] cc: Warner Welch M.D. [address] [place] [phone] Normal [facility] APTTon 04-30-2021 aPTT Coag (Bld) [Time] 25.9 s Normal 25.0-35.0 [facility] Comment on above: Order Comment: No: D o not add to previous draw Result Comment: ALL RESULTS MUST BE INTERPRETED WITH RESPECT TO BLOOD DRAWING ARTIFACT OR DILUTION ERROR OF ANTICOAGULANT AT THE TIME OF SAMPLING. THE APTT SHOULD NOT BE USED TO MONITOR UNFRACTIONATED HEPARIN THERAPY, THIS LABORATORY NO LONGER HAS AN ESTABLISHED THERAPEUTIC RANGE BASED ON THE APTT. IT IS RECOMMENDED THAT THE [facility]FH - HEPARIN ASSAY (ANTI-XA ACTIVITY) BE USED FOR THIS PURPOSE. Performed By: #### 0 0071 #### [facility] [address] [place] [address], [facility] BASIC METABOLIC PANELon 04-09 Calcium [Mass/Vol] 8.4 mg/dL Low 8.6-10.3 [facility] Comment on above: Order Comment: No: D o not add to previous draw Performed By: #### 0 0071 #### [facility] [address] [place] [address], [facility] Chloride [Moles/Vol] 101 mmol/L Normal 98-107 [facility] Comment on above: Order Comment: No: D o not add to previous draw Performed By: #### 0 0071 #### [facility] [address] [place] [address], [place] CO2 [Moles/Vol] 28 mmol/L Normal 21-31 [facility] Comment on above: Order Comment: No: D o not add to previous draw Performed By: #### 0 0071 #### [facility] [address] [place] [address], [facility] Creatinine [Mass/Vol] 0.73 mg/dL Normal 0.70-1.30 [facility] Comment on above: Order Comment: No: D o not add to previous draw Performed By: #### 0 0071 #### [facility] [address] [place] [address], [place] GFR/1.73 sq M.predicted among blacks MDRD (S/P/Bld) [Vol rate/Area] mL/min/{1.73_m2} Normal >60 [facility] Comment on above: Order Comment: No: D o not add to previous draw Performed By: #### 0 0071 #### [facility] [address] [place] [address], [place] GFR/1.73 sq M.predicted among non-blacks MDRD (S/P/Bld) [Vol rate/Area] mL/min/{1.73_m2} Normal >60 [facility] Comment on above: Order Comment: No: D o not add to previous draw Performed By: #### 0 0071 #### [facility] [address] [place] [address], [place] Glucose [Mass/Vol] 194 mg/dL High 70-100 [facility] Comment on above: Order Comment: No: D o not add to previous draw Performed By: #### 0 0071 #### [facility] [address] [place] [address], [place] Potassium [Moles/Vol] 4.5 mmol/L Normal 3.5-5.1 The [facility] Comment on above: Order Comment: No: D o not add to previous draw Performed By: #### 0 0071 #### [facility] [address] [place] [address], [place] Sodium [Moles/Vol] 135 mmol/L Low 136-145 The [facility] Comment on above: Order Comment: No: D o not add to previous draw Performed By: #### 0 0071 #### [facility] [address] [place] [address], [place] Urea nitrogen [Mass/Vol] 18 mg/dL Normal 7-25 The [facility] Comment on above: Order Comment: No: D o not add to previous draw Performed By: #### 0 0071 #### [facility] [address] [place] [address], [facility] CBC COMPLETE BLOOD COUNTon 06-30-2020 Erythrocyte distribution width (RBC) [Ratio] 13.5 % Normal 11.5-15.0 The [facility] Comment on above: Order Comment: No: D o not add to previous draw Performed By: #### 0 0071 #### [facility] [address] [place] [address], [facility] Hematocrit (Bld) [Volume fraction] 34.1 % Low 39.0-50.0 The [facility] Comment on above: Order Comment: No: D o not add to previous draw Performed By: #### 0 0071 #### [facility] [address] [place] [address], [facility] Hemoglobin (Bld) [Mass/Vol] 10.9 g/dL Low 13.0-17.0 The [facility] Comment on above: Order Comment: No: D o not add to previous draw Performed By: #### 0 0071 #### [facility] [address] [facility] [place] [address], [facility] MCH (RBC) [Entitic mass] 30.2 pg Normal 27.0-33.0 The [facility] Comment on above: Order Comment: No: D o not add to previous draw Performed By: #### 0 0071 #### [facility] [address] [place] [address], [facility] MCHC (RBC) [Mass/Vol] 32.0 g/dL Normal 32.0-35.0 The [facility] Comment on above: Order Comment: No: D o not add to previous draw Performed By: #### 0 0071 #### [facility] [address] [place] [id number], [facility] MCV (RBC) [Entitic vol] 94.5 fL Normal 82.0-98.0 The [facility] Comment on above: Order Comment: No: D o not add to previous draw Performed By: #### 0 0071 #### [facility] [address] [place] [address], [facility] Nucleated RBC/100 WBC (Bld) [Ratio] 0 % Normal 0-0 The [facility] Comment on above: Order Comment: No: D o not add to previous draw Performed By: #### 0 0071 #### [facility] [address] [place] [id number], [facility] PLAT CNT 214 10*3/uL Normal 150-400 The [facility] Comment on above: Order Comment: No: D o not add to previous draw Performed By: #### 0 0071 #### [facility] [address] [facility] [place] [address], [facility] RBC (Bld) [#/Vol] 3.61 10*6/uL Low 4.20-5.70 The [facility] Comment on above: Order Comment: No: D o not add to previous draw Performed By: #### 0 0071 #### [facility] [address] [place] [address], [facility] WBC (Bld) [#/Vol] 10.93 10*3/uL High 4.00-10.60 The [facility] Comment on above: Order Comment: No: D o not add to previous draw Performed By: #### 0 0071 #### [facility] [address] [place] [address], [facility] LACTATE BLOODon 04-30-2021 Lactate [Moles/Vol] 0.6 mmol/L Normal .5-2.2 The [facility] Comment on above: Order Comment: No: D o not add to previous draw Performed By: #### 1 0054 #### [facility] [address] [place] [id number], [facility] POC GLUCOSE LABon 04-30-2021 Glucose [Mass/Vol] 265 mg/dL High 70-100 The [facility] Comment on above: Performed By: #### 8 [id number] #### [facility] [address] [place] [address], [facility] Glucose [Mass/Vol] 270 mg/dL High 70-100 [facility] Comment on above: Performed By: #### 0 0071 #### [facility] [address] [place] [address], [facility] Glucose [Mass/Vol] 171 mg/dL High 70-100 The [facility] Comment on above: Performed By: #### 0 0071 #### [facility] [address] PROTHROMBIN TIMEon 1 INR Coag (PPP) [Relative time] 1.03 {INR} Normal 0.91-1.16 The [facility] Comment on above: Order Comment: No: D o not add to previous draw Result Comment: ACCC P RECOMMENDED INR FOR WARFARIN THERAPY ------- ------- CONDITION INR PROPHYLAXIS OF VENOUS THROMBOSIS 2-3 (HIGH-RISK SURGERY) TREATMENT OF VENOUS THROMBOSIS 2-3 TREATMENT OF PULMONARY EMBOLISM 2-3 PREVENTION OF SYSTEMIC EMBOLISM: 2-3 ACUTE MYOCARDIAL INFARCTION TISSUE HEART VALVES VALVULAR HEART DISEASE ATRIAL FIBRILLATION RECURRENT SYSTEMIC EMBOLISM MECHANICAL HEART VALVE 2.5-3.5 FROM: ORAL ANTICOAGULANTS. MECHANISM OF ACTION, CLINICAL EFFECTIVENESS, AND OPTIMAL THERAPEUTIC RANGE. CHEST 1995;108:231S-246S. Performed By: #### 0 0071 #### [facility] [address] PT Coag (PPP) [Time] 13.5 s Normal 12.3-14.8 [facility] Comment on above: Order Comment: No: D o not add to previous draw Result Comment: ALL RESULTS MUST BE INTERPRETED WITH RESPECT TO BLOOD DRAWING ARTIFACT OR DILUTION ERROR OF ANTICOAGULANT AT THE TIME OF SAMPLING. Performed By: #### 0 0071 #### [facility] [address] [facility] ACTIVATED CLOTTING TIMEon ACTIVATED CLOTTING TIME 169 sec High 82-152 The [facility] Comment on above: Performed By: #### 0 0071 #### [facility] [address] [facility]. [address] ACTIVATED CLOTTING TIME 126 sec Normal 82-152 The [facility] Comment on above: Performed By: #### 0 0071 #### [facility] [address] [facility]. [address] ARTERIAL BLOOD GAS W/COOXon 04-29-2021 BASE EXCESS -2 mmol/L Normal -2-3 [facility] Comment on above: Order Comment: RESUL TS CHECKED AND CALLED. ACCURATELY READ BACK BY A WALKER, OR Performed By: #### 4 005, 88238, 17953, 88311 #### [facility] [address] COHB 1.2 % Normal 0.0-1.5 [facility] Comment on above: Order Comment: RESUL TS CHECKED AND CALLED. ACCURATELY READ BACK BY A WALKER, OR Performed By: #### 4 0055, 48351, 68011, 03158 #### [facility] [address] DELIVERY SYSTEMS OR Normal The [facility] Comment on above: Order Comment: RESUL TS CHECKED AND CALLED. ACCURATELY READ BACK BY A WALKER, OR Performed By: #### 4 0055, 94083, 68395, 35326 #### [facility] [address] [place] [address], [facility] HCO3 (Bld) [Moles/Vol] 26 mmol/L Normal 21-28 [facility] Comment on above: Order Comment: RESUL TS CHECKED AND CALLED. ACCURATELY READ BACK BY A WALKER, OR Performed By: #### 4 0055, 44493, 05499, 52739 #### [facility] [address] [place] [address], [facility] METHB 0.6 % Normal 0.0-1.5 [facility] Comment on above: Order Comment: RESUL TS CHECKED AND CALLED. ACCURATELY READ BACK BY A WALKER, OR Performed By: #### 4 0055, 12472, 59098, 38325 #### [facility] [address] [place] [address], [facility] Oxygen (Bld) [Partial pressure] 83 mm[Hg] Normal 83-108 [facility] Comment on above: Order Comment: RESUL TS CHECKED AND CALLED. ACCURATELY READ BACK BY A WALKER, OR Performed By: #### 4 0055, 02801, 36483, 96122 #### [facility] [address] Oxygen saturation in Blood 94.8 % Normal 94.0-97.0 [facility] Comment on above: Order Comment: RESUL TS CHECKED AND CALLED. ACCURATELY READ BACK BY A WALKER, OR Performed By: #### 4 0055, 46496, 85290, 00772 #### [facility] [address] [place] [address], [facility] PCO2 57 mmHg Critically high 35-45 The [facility] Comment on above: Order Comment: RESUL TS CHECKED AND CALLED. ACCURATELY READ BACK BY A WALKER, OR Performed By: #### 4 0055, 79239, 06763, 38070 #### [facility] [address] [place] [address], [facility] pH (Bld) 7.26 [pH] Low 7.35-7.45 [facility] Comment on above: Order Comment: RESUL TS CHECKED AND CALLED. ACCURATELY READ BACK BY A WALKER, OR Performed By: #### 4 0055, 69919, 50818, 82340 #### [facility] [address] [place] [address], [facility] THB 12.0 g/dL Normal 12.0-16.3 The [facility] Comment on above: Order Comment: RESUL TS CHECKED AND CALLED. ACCURATELY READ BACK BY A WALKER, OR Performed By: #### 4 0055, 73676, 30071, 85522 #### [facility] [address] [place] [address], [facility] CALCIUM IONIZED CBGLon 04-29 IONIZED CALCIUM 1.20 mmol/L Normal 1.13-1.32 [facility] Comment on above: Performed By: #### 4 0055, 12557, 04538, 15165 #### [facility] [address] [place] [address], [facility] POC GLUCOSE LABon 04-29-2021 Glucose [Mass/Vol] 180 mg/dL High 70-100 The [facility] Comment on above: Performed By: #### 0 0071 #### [facility] [address] [facility] [place] [id number], [facility] Glucose [Mass/Vol] 200 mg/dL High 70-100 [facility] Comment on above: Performed By: #### 0 0071 #### [facility] [address] [facility] [place] [address], [facility] Glucose [Mass/Vol] 166 mg/dL High 70-100 [facility] Comment on above: Performed By: #### 0 0071 #### [facility] [address] [place] [id number], [facility] POTASSIUM WHOLE BLOOD CBGLon 04-29-2021 Potassium [Moles/Vol] 4.1 mmol/L Normal 3.4-5.2 The [facility] Comment on above: Performed By: #### 4 0055, 87142, 18025, 86094 #### [facility] [address] SODIUM WHOLE BLOOD CBGLon Sodium [Moles/Vol] 135.0 mmol/L Low 136.0-146.0 The [facility] Comment on above: Performed By: #### 4 0055, 37465, 59049, 25818 #### [facility] [address] [place] [address], [facility] TYPE AND SCREENon 04-29-2021 ABO INTERPRETATION O Normal [facility] Comment on above: Performed By: #### 0 0071 #### [facility] [address] RH INTERPRETATION Positive Normal [facility] Comment on above: Performed By: #### 0 0071 #### [facility] [address] Pulmonary Functionon 021 Pulmonary Function MR #: [id number] [facility] PT. Name: Loren Porter Date: 03/11/2021 Date of : 1960 Patient Type: D Pulmonary Function INTERPRETATION CLINICAL INDICATION: The patient is 60-year-old male with BMI of 47.5. Indication is dyspnea on exertion. Patient has nonproductive cough but no wheezing. He smoked 1 pack/day for 40 years but quit 3 years ago patient was on prednisone until 1 week prior to testing. LUNG MECHANICS: FEV1 is mild reduced to 72% of predicted which is 2.48 L with improvement by 7% after bronchodilators. FVC is reduced also to 67% of predicted which is 3.07 L with improvement by 4% after bronchodilators. FEV1/FVC ratio is 81% with no significant change after bronchodilators. There is some bronchospastic component at the level of small airway. MVV is normal. The change after bronchodilators does not meet ATS criteria for positivity. Flow volume loop showed normal inhalation loop, the exhalation loop does not show central obstruction however may suggest small airway obstruction. LUNG VOLUMES: (NITROGEN WASHOUT TECHNIQUE) Residual volume is 62%. Total lung capacity is 73%. LUNG VOLUMES: (BODY BOX TECHNIQUE) Residual volume is 89% which is normal, total lung capacity is normal at 82%. LUNG DIFFUSION: Uncorrected DLCO is 68%. Corrected DLCO to hemoglobin is 76%. DLCO corrected to alveolar volume is 101%. The reduction in DLCO could be secondary to extraparenchymal causes. ARTERIAL BLOOD GASES: Arterial blood gas on room air showed normal oxygenation with PaO2 of 98 and saturation of 98.7% on room air. Carboxyhemoglobin is normal. PaCO2 is normal at 42 with pH of 7.42. AA gradient is within normal. 6-minute walk test: 6-minute walk test was completed on room air on 03/11/2021. The predicted distance was 453 m and the predicted low limit of normal distance was a 300 m, the patient walked for a total of 317 m which is 70% of the predicted distance and 105% of the predicted lower limit of normal. The patient saturation was 93% on room air with a heart rate of 86 bpm at the beginning of the test. Patient did not have desaturation below 89% during the test, sat O2 was 93% at the minute of the test and 93% at the end of the test. Heart rate increased to 112 at the end of the test which is 70% of the predicted max heart rate dyspnea Pradeep score was 2 at the base of the test and 4 at the end of the test. Fatigue Pradeep score was 4 at the minute of the test and 6 at the end of the test. Leg Pradeep score was a 3 at the point of the test and 7 at the end of the test. Blood pressure was 111/64 at the beginning of the test and 117/64 at the end of the test. CLINICAL IMPRESSION: Spirometry shows restrictive pattern with suggestion of bronchospastic component and obstruction at the level of small airway. The bronchodilators does not meet ATS criteria for positivity. Lung volumes are normal. There is mild reduction in DLCO which is most likely secondary to extraparenchymal causes like chest wall/body habitus. Normal arterial blood gas. That the study was done after 1 week of his steroids that may affect the results. The patient did not have desaturation during the 6-minute walk test at rest or exercise on room air. Electronically Signed by: Fabi Jaramillo MD 03/14/2021 05:07 P Fabi Jaramillo MD [facility] Date Dict: 03/14/2021/04:48 P/Fabi Jaramillo MD Date Trans: 03/14/2021 04:48 P/ [id number] cc: Warner Welch M.D. [address] [place] [address] Normal The [facility] ARTERIAL BLOOD GAS W/COOXon 03-11-2021 BASE EXCESS 2 mmol/L Normal -2-3 [facility] Comment on above: Performed By: #### 0 0071 #### [facility] [address] [place] [address], [facility] COHB 1.4 % Normal 0.0-1.5 [facility] Comment on above: Performed By: #### 0 0071 #### [facility] [address] [place] [address], [facility] DELIVERY SYSTEMS ROOM AIR Normal [facility] Comment on above: Performed By: #### 0 0071 #### [facility] [address] [place] [address], [place] FIO2 0 % Normal [facility] Comment on above: Performed By: #### 0 0071 #### [facility] [address] [place] [address], [place] HCO3 (Bld) [Moles/Vol] 27 mmol/L Normal 21-28 [facility] Comment on above: Performed By: #### 0 0071 #### [facility] [address] [place] [address], [place] METHB 0.9 % Normal 0.0-1.5 [facility] Comment on above: Performed By: #### 0 0071 #### [facility] [address] [place] [address], [facility] Oxygen (Bld) [Partial pressure] 98 mm[Hg] Normal 83-108 [facility] Comment on above: Performed By: #### 0 0071 #### [facility] [address] [place] [address], [facility] Oxygen saturation in Blood 96.4 % Normal 94.0-97.0 [facility] Comment on above: Performed By: #### 0 0071 #### [facility] [address] [place] [address], [facility] PCO2 42 mmHg Normal 35-45 [facility] Comment on above: Performed By: #### 0 0071 #### [facility] [address] [place] [address], [facility] pH (Bld) 7.42 [pH] Normal 7.35-7.45 [facility] Comment on above: Performed By: #### 0 0071 #### [facility] [address] [place] [address], [facility] THB 13.0 g/dL Normal 12.0-16.3 [facility] Comment on above: Performed By: #### 0 0071 #### [facility] [address] [place] [address], [facility] TSH+FREE T4on 02-07-2021 Free T4 [Mass/Vol] 1.1 ng/dL Normal 0.8-1.8 [facility] Comment on above: Order Comment: FASTI NG:YES FASTING: YES Performed By: #### 5 8984 #### [facility] [address], [address] [place] [id number] [employer] Helper: Mario Vasquez MD TSH Qn 0.86 m[IU]/L Normal 0.40-4.50 [facility] Comment on above: Order Comment: FASTI NG:YES FASTING: YES Performed By: #### 5 8938 #### [facility] [address] [place] [address] [employer]: Mario Vasquez MD Coding Summaryon 01-24-2020 Coding Summary CODING DATE: 01/24/2020 [facility] STATUS: Home PAYOR: [employer] APC DESCRIPTION 5591 Level 1 [facility] ADMIT DX: REASON FOR VISIT DX: M25.561 Pain in right knee FINAL DX: PRINCIPAL: M25.561 Pain in right knee SECONDARY: Z96.651 Presence of right artificial knee joint PYMT PROC APC STAT DESCRIPTION DOCTOR NAME DATE NOTE: The code number assigned matches the documented diagnosis and / or procedure in the patient's chart. However, the narrative phrase printed from the coding software may appear abbreviated, or result in slightly different terminology. Coded By: Lisa Chowdary Date Saved: 01/24/2020 11:46 am [facility] Provider [place] 01-24-2020 Provider Orders [id number] [facility]-06 Medication Management [id number] [facility] 01-18-2020 [place] Bone Three Phase Study EXAMINATION: [place] BONE THREE PHASE STUDY HISTORY: Acute pain of right knee. COMPARISON: Three-phase bone scan dated 04/29/2019. TECHNIQUE: Utilizing 26.2 mCi of technetium 99m MDP, three-phase bone scan of the knees was performed. FINDINGS: Blood flow images demonstrate grossly symmetric isotope activity. Blood pool images demonstrate yeeb-lu-aarwzyja increased isotope activity about the right knee distal femoral region compared to the unremarkable appearance of the left knee at this level. Minimal activity at the medial tibial plateau level on the left. Standard delayed images demonstrate mild to moderate increased isotope activity about the right knee compared to the left. Isotope defect about both knees compatible with post arthroplasty changes. Overall the degree of activity in the right knee is slightly decreased compared to the prior exam, activity of the left knee appears similar to prior study. IMPRESSION: Increased isotope activity in the right knee as described with minimal increased activity in the medial tibial plateau on the left. Right knee findings are slightly decreased compared to the prior exam with left knee findings appearing similar. There was concern for loosening or infection in the right knee previously, this is difficult to exclude entirely though slightly improved compared to prior study. Left knee finding is likely of doubtful acute significance. Final Dictated by: Thom Mccoy MD Dictated DT/TM: 01/18/20 10:52 Signed (Electronic Signature): Thom Mccoy MD 01/18/20 11:46 a Technologist: SIMON [facility] Provider [place] 05-03-2019 Provider Orders [id number] .00OTGTIFF [facility] Coding Summaryon 05-02-2019 Coding Summary CODING DATE: 05/02/2019 [facility] STATUS: Home PAYOR: Derick Murphy APC DESCRIPTION 5591 Level 1 Nuclear Medicine and Related Services ADMIT DX: REASON FOR VISIT DX: M25.561 Pain in right knee FINAL DX: PRINCIPAL: M25.561 Pain in right knee SECONDARY: PYMT PROC APC STAT DESCRIPTION DOCTOR NAME DATE NOTE: The code number assigned matches the documented diagnosis and / or procedure in the patient's chart. However, the narrative phrase printed from the coding software may appear abbreviated, or result in slightly different terminology. Coded By: Ave Sandoval Date Saved: 05/02/2019 01:03 pm [facility] Medication Managementon 04-09 Medication Management [id number] .00OTGTIFF [facility] Bone Three Phase Studyon 04-29-2019 [place] Bone Three Phase Study NUCLEAR MEDICINE TRIPLE-PHASE BONE SCAN HISTORY: Right knee pain with right knee prosthesis. COMPARISON: None. METHOD: Following an intravenous injection of 26.8 mCi of Tc-MDP, blood flow and blood pool of the knees was acquired. In addition, delayed images of the same area of the skeleton were performed. FINDINGS: There is increased blood flow and increased blood pool activity seen in the right knee more focal increased uptake seen in the right posterior medial femoral condyle. On delayed scintigraphy, there is symmetric increased uptake seen in the tibial plateau portion of the right knee prosthesis with more focal increased uptake seen in the posterior medial femoral condyle. There is minimal hyperemia and minimal blood pool uptake seen in the medial tibial plateau process of the left knee prosthesis. There is focal asymmetric increased uptake in the medial plateau portion of the left knee prosthesis. IMPRESSION: Findings concerning for loosening or infection in the right posterior medial femoral condyle. Hyperemia with asymmetric delayed uptake in the medial tibial plateau portion of the left knee prosthesis, cannot exclude loosening or infection. Final Dictated by: Diallo Bird Dictated DT/TM: 04/29/19 1:28 Signed (Electronic Signature): Diallo Bird 04/29/19 2:17 pm Technologist: ANTWAN [facility] Vital Signs Date Time Vital Sign Value Performing Clinician Facility 07-27-2024 09:42-0500 Body height 175.3 cm Warner Furlong DO Work Phone: [facility] 07-27-2024 09:42-0500 Body mass index (BMI) [Ratio] 41.45 kg/m2 Warner Furlong DO Work Phone: [facility] 07-27-2024 09:42-0500 Body temperature 98.01 [degF] Warner Furlong DO Work Phone: [facility] 07-27-2024 09:42-0500 Body weight 127.37 kg Warner Furlong DO Work Phone: [facility] 07-27-2024 09:42-0500 Diastolic blood pressure 58 mm[Hg] Warner Furlong DO Work Phone: [facility] 07-27-2024 09:42-0500 Heart rate 69 /min Warner Furlong DO Work Phone: [facility] 07-27-2024 09:42-0500 Respiratory rate 20 /min Warner Furlong DO Work Phone: [facility] 07-27-2024 09:42-0500 SaO2% (BldA) [Mass fraction] 97 % Warner Furlong DO Work Phone: [facility] 07-27-2024 09:42-0500 Systolic blood pressure 110 mm[Hg] Warner Welch DO Work Phone: [facility] 05-24-2024 08:58-0500 Body height 175.3 cm Hood Sales DO Work Phone: [facility] 05-24-2024 08:58-0500 Body mass index (BMI) [Ratio] 44.15 kg/m2 Hood Sales DO Work Phone: [facility] 05-24-2024 08:58-0500 Body weight 135.63 kg Hood Sales DO Work Phone: [facility] 05-24-2024 08:58-0500 Diastolic blood pressure 90 mm[Hg] Hood Sales DO Work Phone: [facility] 05-24-2024 08:58-0500 Systolic blood pressure 140 mm[Hg] Hood Sales DO Work Phone: [facility] 04-19-2024 10:52-0500 Body height 175.3 cm Milo Modi MD Work Phone: [facility] 04-19-2024 10:52-0500 Body mass index (BMI) [Ratio] 44.3 kg/m2 Milo Modi MD Work Phone: [facility] 04-19-2024 10:52-0500 Body weight 136.08 kg Milo Modi MD Work Phone: [facility] 04-19-2024 10:52-0500 Diastolic blood pressure 68 mm[Hg] Milo Modi MD Work Phone: [facility] 04-19-2024 10:52-0500 Heart rate 70 /min Milo Modi MD Work Phone: [facility] 04-19-2024 10:52-0500 Respiratory rate 19 /min Milo Modi MD Work Phone: [facility] 04-19-2024 10:52-0500 Systolic blood pressure 134 mm[Hg] Milo Modi MD Work Phone: [facility] 09-03-2023 15:06-0400 Body height 175.3 cm Warner Furlong DO Work Phone: [facility] 09-03-2023 15:06-0400 Body mass index (BMI) [Ratio] 45.22 kg/m2 Warner Furlong DO Work Phone: [facility] 09-03-2023 15:06-0400 Body weight 138.89 kg Warner Furlong DO Work Phone: [facility] 09-03-2023 15:06-0400 Diastolic blood pressure 70 mm[Hg] Warner Furlong DO Work Phone: [facility] 09-03-2023 15:06-0400 Systolic blood pressure 127 mm[Hg] Warner Furlong DO Work Phone: [facility] 08-14-2023 14:54-0500 Body height 175.3 cm Karie Barriga SPOILAGE WORKER.MANAGER CRITICAL CARE Work Phone: [facility] 08-14-2023 14:54-0500 Body weight 136.08 kg Karie Barriga SPOILAGE WORKER.MANAGER CRITICAL CARE Work Phone: [facility] 05-07-2023 15:46-0500 Body height 175.3 cm Minda Cetin DO Work Phone: [facility] 05-07-2023 15:46-0500 Body weight 147.46 kg Minda Cetin DO Work Phone: [facility] 05-07-2023 15:46-0500 Diastolic blood pressure 62 mm[Hg] Minda Cetin DO Work Phone: [facility] 05-07-2023 15:46-0500 Heart rate 85 /min Minda Cetin DO Work Phone: [facility] 05-07-2023 15:46-0500 Systolic blood pressure 120 mm[Hg] Minda Cetin DO Work Phone: [facility] 12-16-2022 11:01-0400 Body weight 151.5 kg Ben Zimmerman DO Work Phone: [facility] 12-16-2022 11:01-0400 Diastolic blood pressure 66 mm[Hg] Ben Zimmerman DO Work Phone: [facility] 12-16-2022 11:01-0400 Heart rate 70 /min Ben Zimmerman DO Work Phone: [facility] 12-16-2022 11:01-0400 SaO2% (BldA) [Mass fraction] 99 % Ben Zimmerman DO Work Phone: [facility] 12-16-2022 11:01-0400 Systolic blood pressure 104 mm[Hg] Ben Zimmerman DO Work Phone: [facility] 06-26-2022 14:45-0500 Body height 175.26 cm Alberto Mcgrath Other [employer] Other 06-26-2022 14:45-0500 Body mass index (BMI) [Ratio] 48.2 kg/m2 Alberto Mcgrath Other [employer] Other 06-26-2022 14:45-0500 Body weight 148.06 kg Alberto Mcgrath Other [employer] Other 06-26-2022 14:45-0500 Diastolic blood pressure 66 mm[Hg] Alberto Mcgrath Other [employer] Other 06-26-2022 14:45-0500 SaO2% (BldA) [Mass fraction] 96 % Alberto Mcgrath Other [employer] Other 06-26-2022 14:45-0500 Systolic blood pressure 118 mm[Hg] Alberto Mcgrath Other [employer] Other 06-12-2022 16:15-0500 Body height 175.26 cm Alberto Mcgrath Other [employer] Other 06-12-2022 16:15-0500 Body mass index (BMI) [Ratio] 48.2 kg/m2 Alberto Mcgrath Other [employer] Other 06-12-2022 16:15-0500 Body weight 148.06 kg Alberto Mcgrath Other [employer] Other 06-12-2022 16:15-0500 Diastolic blood pressure 78 mm[Hg] Alberto Mcgrath Other [employer] Other 06-12-2022 16:15-0500 SaO2% (BldA) [Mass fraction] 97 % Alberto Mcgrath Other [employer] Other 06-12-2022 16:15-0500 Systolic blood pressure 136 mm[Hg] Alberto Mcgrath Other [employer] Other 05-13-2022 10:15-0500 Body height 175.26 cm Alberto Mcgrath Other [employer] Other 05-13-2022 10:15-0500 Body mass index (BMI) [Ratio] 4.37 kg/m2 Alberto Mcgrath Other [employer] Other 05-13-2022 10:15-0500 Body weight 13.43 kg Alberto Mcgrath Other [employer] Other 05-13-2022 10:15-0500 Diastolic blood pressure 60 mm[Hg] Alberto Alcides Other [employer] Other 05-13-2022 10:15-0500 SaO2% (BldA) [Mass fraction] 98 % Alberto Mcgrath Other [employer] Other 05-13-2022 10:15-0500 Systolic blood pressure 110 mm[Hg] Alberto Gusmanky Other [employer] Other 01-30-2022 10:45-0400 Body height 175.26 cm Norma Fonseca Other [employer] Other 01-30-2022 10:45-0400 Diastolic blood pressure 68 mm[Hg] Norma Fonseca Other [employer] Other 01-30-2022 10:45-0400 Respiratory rate 18 /min Norma Fonseca Other [employer] Other 01-30-2022 10:45-0400 SaO2% (BldA) [Mass fraction] 96 % Norma Fonseca Other [employer] Other 01-30-2022 10:45-0400 Systolic blood pressure 116 mm[Hg] Norma Fonseca Other [employer] Other 01-09-2022 15:30-0400 Body height 175.26 cm Alberto Mcgrath Other [employer] Other 01-09-2022 15:30-0400 Body mass index (BMI) [Ratio] 48.64 kg/m2 Alberto Gusmanky Other [employer] Other 01-09-2022 15:30-0400 Body weight 149.42 kg Alberto Alcides Other [employer] Other 01-09-2022 15:30-0400 Diastolic blood pressure 58 mm[Hg] Alberto Mcgrath Other [employer] Other 01-09-2022 15:30-0400 SaO2% (BldA) [Mass fraction] 98 % Alberto Mcgrath Other [employer] Other 01-09-2022 15:30-0400 Systolic blood pressure 116 mm[Hg] Alberto Mcgrath Other [employer] Other 12-26-2021 16:00-0400 Body height 175.26 cm Alberto Mcgrath Other [employer] Other 12-26-2021 16:00-0400 Body mass index (BMI) [Ratio] 49.76 kg/m2 Alberto Mcgrath Other [employer] Other 12-26-2021 16:00-0400 Body weight 152.86 kg Alberto Mcgrath Other [employer] Other 12-26-2021 16:00-0400 Diastolic blood pressure 74 mm[Hg] Alberto Mcgrath Other [employer] Other 12-26-2021 16:00-0400 Systolic blood pressure 122 mm[Hg] Alberto Mcgrath Other [employer] Other 12-16-2021 16:15-0400 Body height 175.26 cm Alberto Mcgrath Other [employer] Other 12-16-2021 16:15-0400 Body mass index (BMI) [Ratio] 50.41 kg/m2 Alberto Alcides Other [employer] Other 12-16-2021 16:15-0400 Body weight 154.86 kg Alberto Mcgrath Other [employer] Other 12-16-2021 16:15-0400 Diastolic blood pressure 70 mm[Hg] Alberto Mcgrath Other [employer] Other 12-16-2021 16:15-0400 SaO2% (BldA) [Mass fraction] 97 % Alberto Mcgrath Other [employer] Other 12-16-2021 16:15-0400 Systolic blood pressure 124 mm[Hg] Alberto Mcgrath Other [employer] Other 11-19-2021 12:45-0400 Body height 175.26 cm Alberto Mcgrath Other [employer] Other 11-19-2021 12:45-0400 Body mass index (BMI) [Ratio] 49.97 kg/m2 Alberto Mcgrath Other [employer] Other 11-19-2021 12:45-0400 Body weight 153.5 kg Alberto Mcgrath Other [employer] Other 11-19-2021 12:45-0400 Diastolic blood pressure 74 mm[Hg] Alberto Mcgrath Other [employer] Other 11-19-2021 12:45-0400 SaO2% (BldA) [Mass fraction] 99 % Alberto Mcgrath Other [employer] Other 11-19-2021 12:45-0400 Systolic blood pressure 126 mm[Hg] Alberto Mcgrath Other [employer] Other 11-11-2021 11:45-0400 Body height 175.26 cm Alberto Mcgrath Other [employer] Other 11-11-2021 11:45-0400 Body mass index (BMI) [Ratio] 49.97 kg/m2 Alberto Mcgrath Other [employer] Other 11-11-2021 11:45-0400 Body weight 153.5 kg Alberto Mcgrath Other [employer] Other 11-11-2021 11:45-0400 Diastolic blood pressure 70 mm[Hg] Alberto Mcgrath Other [employer] Other 11-11-2021 11:45-0400 SaO2% (BldA) [Mass fraction] 98 % Alberto Mcgrath Other [employer] Other 11-11-2021 11:45-0400 Systolic blood pressure 120 mm[Hg] Alberto Mcgrath Other [employer] Other 10-24-2021 16:15-0400 Body height 175.26 cm Alberto Mcgrath Other [employer] Other 10-24-2021 16:15-0400 Body mass index (BMI) [Ratio] 51.24 kg/m2 Alberto Mcgrath Other [employer] Other 10-24-2021 16:15-0400 Body weight 157.4 kg Alberto Mcgrath Other [employer] Other 10-24-2021 16:15-0400 Diastolic blood pressure 80 mm[Hg] Alberto Mcgrath Other [employer] Other 10-24-2021 16:15-0400 Systolic blood pressure 128 mm[Hg] Alberto Mcgrath Other [employer] Other Encounters Encounter Date Encounter Type Care Provider Facility Start: 09-06-2024 [facility] Facility :[facility] Start: 08-16-2024 End: 08-16-2024 ambulatory AZUCENAPARVEZ Trish LÓPEZ Not Available Start: 07-27-2024 End: 07-27-2024 Office outpatient visit 25 minutes [facility] DO Work Phone: [facility] Comment on above: 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 ([facility]) (Primary Dx); Infrarenal abdominal aortic aneurysm (AAA) without rupture ([facility]); Current moderate episode of major depressive disorder, unspecified whether recurrent ([facility]); Morbid obesity ([facility]); Acquired hypothyroidism Start: 07-27-2024 End: 07-27-2024 [facility] Start: 05-24-2024 End: 05-24-2024 External Result Encounter Hood Sales DO Work Phone: [facility] External Department Unsolicited Start: 05-24-2024 End: 05-24-2024 External Result Encounter Hood Sales DO Work Phone: [facility] External Department Unsolicited Start: 05-24-2024 End: 05-24-2024 Office outpatient new 45 minutes Hood Sales DO Work Phone: [facility] Comment on above: Cecum mass (Primary Dx) Start: 05-24-2024 End: 05-24-2024 ambulatory HOOD SALES Not Available Start: 05-20-2024 End: 05-20-2024 ambulatory [facility] Facility:[facility] Start: 04-19-2024 End: 04-19-2024 Bamboo flowsheet Milo Modi MD Work Phone: [facility] Start: 04-19-2024 End: 04-19-2024 Bamboo flowsheet Milo Modi MD Work Phone: [facility] Start: 04-19-2024 End: 04-19-2024 Office outpatient visit 25 minutes Milo Modi MD Work Phone: [facility] Comment on above: Type 2 diabetes sulaiman itus with hyperglycemia, with long-term current use of insulin (CMS/HCC) (Primary Dx); Essential (primary) hypertension (CMS/HCC); Mixed hyperlipidemia (CMS/HCC); group home (current) use of insulin (CMS/HCC); Vitamin D deficiency; Microalbuminuria; Encounter for dietary consultation; Class 3 severe obesity due to excess calories with serious comorbidity and body mass index (BMI) of 40.0 to 44.9 in adult (CMS/HCC) Start: 04-19-2024 End: 04-19-2024 ambulatory MILO OMDI Not Available Start: 04-07-2024 End: 04-07-2024 ambulatory [facility] Start: 02-29-2024 End: 03-01-2024 Telephone encounter Milo Modi MD Work Phone: [facility] Start: 02-11-2024 End: 02-11-2024 Orders Only Warner Ward Rebekah DO Work Phone: [facility] Start: 02-10-2024 End: 02-10-2024 Refill Shaneka Pierce HEAD OF BUSINESS DEVELOPMENT [facility] Start: 02-02-2024 End: 02-03-2024 Refill Shaneka Pierce HEAD OF BUSINESS DEVELOPMENT [facility] Start: 01-27-2024 End: 01-27-2024 Refill Shaneka Pierce HEAD OF BUSINESS DEVELOPMENT [facility] Start: 01-18-2024 End: 01-18-2024 Refill Shaneka Pierce HEAD OF BUSINESS DEVELOPMENT [facility] Start: 11-07-2023 End: 11-07-2023 Refill Lilibeth Hatch SPOILAGE WORKER-FRUIT RECEIVER [facility] Start: 10-19-2023 End: 10-19-2023 ambulatory [facility] Start: 10-13-2023 End: 10-13-2023 Refill Warner Welch DO Work Phone: [facility] Start: 09-03-2023 End: 09-03-2023 ambulatory FLINT Sylvia Muscogee Start: 09-03-2023 End: 09-03-2023 Patient encounter procedure Warner Welch DO Work Phone: [facility] Comment on above: Medicare annual well ness visit, subsequent (Primary Dx); Screening for depression Start: 08-14-2023 End: 08-14-2023 ambulatory Karie Barriga MANAGER CRITICAL CARE Work Phone: General Surgery Comment on above: Encounter for weight management (Primary Dx); Class 3 severe obesity with serious comorbidity and body mass index (BMI) of 45.0 to 49.9 in adult, unspecified obesity type (HCC) Start: 08-14-2023 End: 08-14-2023 Telemedicine consultation with patient Karie Barriga MANAGER CRITICAL CARE Work Phone: [facility] Start: 07-24-2023 End: 07-24-2023 ambulatory [facility] Start: 07-19-2023 Refill Lilibeth Hatch SPOILAGE WORKER-FRUIT RECEIVER [facility] Start: 07-02-2023 Refill Lilibeth Hatch SPOILAGE WORKER-FRUIT RECEIVER Work Phone: [facility] Medicine - Family [facility] Start: 06-09-2023 Refill Lilibeth Hatch SPOILAGE WORKER-FRUIT RECEIVER Work Phone: [facility] Start: 05-07-2023 End: 05-08-2023 ambulatory BEN ZIMMERMAN Facility:[facility] Start: 05-07-2023 End: 05-07-2023 Patient encounter procedure Minda Delcid DO Work Phone: General Surgery Comment on above: Obesity with serious comorbidity, unspecified classification, unspecified obesity type Start: 01-29-2023 End: 01-29-2023 ambulatory BEN ZIMMERMAN Facility:[facility] Start: 01-29-2023 End: 01-29-2023 Patient encounter procedure Nona Zambrano MD Work Phone: Neurosurgery Comment on above: Degenerative lumbar spinal stenosis; Chronic midline low back pain without sciatica Start: 01-14-2023 ambulatory Ben edouard DO Work Phone: [facility] Start: 01-14-2023 Patient encounter procedure Ben Zimmerman DO Work Phone: Spine Medicine Comment on above: Consultation Start: 01-03-2023 [facility]ulatory [facility] Start: 01-03-2023 End: 01-03-2023 Subsequent hospital visit by physician [facility] (I-Stat/Lg Bore/1.5t) [facility] Comment on above: Chronic midline low back pain without sciatica [M54.50, G89.29] Start: 12-16-2022 End: 12-16-2022 ambulatory WARNER WELCH Facility:[facility] Start: 12-16-2022 End: 12-16-2022 Subsequent hospital visit by physician [facility] Work Phone: Radiology Comment on above: Chronic midline low back pain without sciatica [M54.50, G89.29] Start: 12-16-2022 End: 12-16-2022 Patient encounter procedure Ben Zimmerman DO Work Phone: Spine Medicine Comment on above: Chronic midline low back pain without sciatica (Primary Dx); Degenerative lumbar spinal stenosis; Numbness of right lower extremity; Obesity with serious comorbidity, unspecified classification, unspecified obesity type Start: 10-20-2022 End: 10-21-[address] WARNER WELCH Facility:[facility] Start: 06-26-2022 End: 06-26-2022 ambulatory Alberto Mcgrath Other [employer] Other Start: 06-26-2022 Office outpatient vi sit 15 minutes Alberto Alcides [facility] Start: 06-19-2022 (PROC) PROCEDURE Alberto Ellis [facility] [place] Start: 06-19-2022 End: 06-19-2022 ambulatory Alberto Alcides Other [employer] Other Start: 06-12-2022 End: 06-12-2022 ambulatory Alberto Alcides Other [employer] Other Start: 06-12-2022 Office outpatient vi sit 25 minutes Alberto Alcides [facility] Start: 05-27-2022 (PROC) PROCEDURE Alberto Ellis [facility] Start: 05-27-2022 End: 05-27-2022 ambulatory Alberto Alcides Other [employer] Other Start: 05-13-2022 End: 05-13-2022 ambulatory Alberto Alcides Other [employer] Other Start: 05-13-2022 Office outpatient vi sit 25 minutes Alberto Alcides [facility] Start: 04-28-2022 End: 04-29-[address] DOCTOR BLANC Facility:[facility] Start: 01-30-2022 End: 01-30-2022 ambulatory Norma Fonseca Other [employer] Other Start: 01-30-2022 Office outpatient vi sit 15 minutes Norma Fonseca [facility] Start: 01-24-2022 End: 01-25-[address] WARNER WELCH Facility:[facility] Start: 01-14-2022 (Procedure) Short Alberto Alcides [facility] Start: 01-14-2022 End: 01-14-2022 ambulatory Alberto Alcides Other [employer] Other Start: 01-09-2022 End: 01-09-2022 ambulatory Alberto Alcides Other [employer] Other Start: 01-09-2022 Office outpatient vi sit 25 minutes Alberto Alcides [facility] Start: 12-31-2021 (Procedure) Short Alberto Mcgrath [facility] Start: 12-31-2021 End: 12-31-2021 ambulatory Alberto Alcides Other [employer] Other Start: 12-26-2021 End: 12-26-2021 ambulatory Alberto Alcides Other [employer] Other Start: 12-26-2021 Office outpatient vi sit 15 minutes Alberto Alcides [facility] Start: 12-25-2021 End: 12-26-[address] WANRER WELCH Facility: Start: 12-19-2021 (Procedure) Margarito Mcgrath [facility] Start: 12-19-2021 End: 12-19-2021 ambulatory Alberto Alcides Other [employer] Other Start: 12-16-2021 End: 12-16-2021 ambulatory Alberto Alcides Other [employer] Other Start: 12-16-2021 Office outpatient vi sit 25 minutes Alberto Alcides [facility] Start: 12-05-2021 End: 12-25-2021 ambulatory WARNER WELCH Facility:[facility] Start: 11-19-2021 End: 11-19-2021 ambulatory Alberto Alcides Other [employer] Other Start: 11-19-2021 Office outpatient vi sit 25 minutes Alberto Alcides [facility] Start: 11-12-2021 (Procedure) Short Alberto Mcgrath [facility] Start: 11-12-2021 End: 11-12-2021 ambulatory Alberto Alcides Other [employer] Other Start: 11-11-2021 End: 11-11-2021 ambulatory Alberto Alcides Other [employer] Other Start: 11-11-2021 Office outpatient vi sit 25 minutes Alberto Alcides [facility] Start: 10-30-2021 (Procedure) Short Alberto Mcgrath [facility] Start: 10-30-2021 End: 10-30-2021 ambulatory Alberto Alcides Other [employer] Other Start: 10-25-2021 End: 10-26-[address] BEKAH EAGLE Facility: Start: 10-24-2021 End: 10-24-2021 ambulatory Alberto Alcides Other [employer] Other Start: 10-24-2021 Office outpatient vi sit 25 minutes Alberto Alcides [facility] Start: 10-16-2021 (Procedure) Short Alberto Mcgrath [facility] Start: 10-16-2021 End: 10-16-2021 ambulatory Alberto Alcides Other [employer] Other Start: 06-13-2021 End: 06-14-2021 ambulatory NORMA KIRAN Facility:[facility] Start: 04-29-2021 End: 04-30-2021 Evaluation and management of inpatient WARNER WELCH Facility:[facility] Start: 02-12-2021 End: 02-13-2021 ambulatory NORMA KIRAN Facility:[facility] Procedures Date Procedure Procedure Detail Performing Clinician Start: 07-27-2024 Adult depression scr eening assessment Warner Welch DO Work Phone: Start: 05-24-2024 Creatinine blood Hood Sales DO Work Phone: Start: 05-23-2024 Colonoscopy Hood winchester DO Work Phone: Start: 04-19-2024 Gluc bld gluc mntr d ev cleared fda spec home use Milo Modi MD Work Phone: Start: 09-03-2023 Adult depression scr eening assessment Warner Welch DO Work Phone: Start: 03-10-2023 Adult depression scr eening assessment Lilibeth Hatch SPOILAGE WORKER-FRUIT RECEIVER Work Phone: Start: 01-22-2023 Lipid 1996 panel - S jasbir or Plasma Minda Mayomelody DO Work Phone: Start: 01-03-2023 Mri spinal canal lum bar w/o contrast material Ben Navarrosilke DO Work Phone: Start: 12-16-2022 Radex spine lumbosac ral minimum 4 views Ben G Elsie DO Work Phone: Start: 04-29-2021 Antibody screen WARNER WELCH Comment on above: Performed By: #### [id number] #### [address] Plan of Treatment Date Care Activity Detail Author Start: 05-23-2034 Screening for malign ant neoplasm of colon [facility] Start: 05-20-2032 DTaP,Tdap and Td Vaccines (2 - Td or Tdap) DTaP,Tdap and Td Vaccines (2 - Td or Tdap) [facility] Start: 05-20-2032 Urine microalbumin profile DTaP,Tdap,Td Vaccine (2 - Td or Tdap) [facility] Start: 01-23-2028 Lipid 1996 panel - S jasbir or Plasma Lipid Screening [facility] Start: 01-23-2028 LIPID SCREEN LIPID SCREEN [facility] Start: 01-23-2028 PROSTATE CANCER SCREENING DISCUSSION PROSTATE CANCER SCREENING DISCUSSION [facility] Start: 01-23-2028 Prostate specific antigen measurement Prostate Cancer Screening Discussion [facility] Start: 07-27-2025 Adult BMI Screening Adult BMI Screen ing [facility] Start: 07-27-2025 Depression Screening Depression Scre ening [facility] Start: 07-27-2025 Fall Risk Screening Fall Risk Screen ing [facility] Start: 07-27-2025 Tobacco Screening Tobacco Screening [facility] Start: 01-25-2025 End: 01-25-2025 Patient encounter procedure 01/25/2025 9:00 AM EDT Office Visit [facility] [address] [place] [address] Warner Welch DO [address], [facility] [place] [address] [facility] Start: 09-06-2024 End: 09-06-2024 Patient encounter procedure 09/06/2024 2:20 PM EDT Office Visit [facility] [address] [place] [address] [facility] Start: 09-02-2024 Adult BMI Screening Adult BMI Screen ing [facility] Start: 09-02-2024 Depression Screening Depression Scre ing [facility] Start: 08-16-2024 End: 08-16-2024 Patient encounter procedure 08/16/2024 11:10 AM EDT Office Visit [facility] [address] [place] [address] Milo Modi MD [address] [place] [address] [facility] Start: 2024 Pneumococcal vaccination Pneum ococcal Vaccine (3 of 3 - PPSV23 or PCV20) [facility] Start: 06-10-2024 End: 06-10-2024 Patient encounter procedure 06/10/2024 10:30 AM EST Office Visit [facility] [address] [facility] [address] [place] [id number] Hood Sales DO [address] [facility] [address] [place] [address] [facility] Start: 05-24-2024 End: 05-24-2025 Creatinine [Mass/volume] in Serum or Plasma Creatinine, Serum Lab Routine Cecum mass Expected: 05/24/2024 (Approximate), Expires: 05/24/2025 [facility] Comment on above: Expected: 05/24/2024 (Approximate), Expires: 05/24/2025 Start: 05-24-2024 End: 05-24-2025 CT Abdomen and Pelvis W contrast IV CT abdomen pelvis w IV contrast Imaging Routine Cecum mass Expected: 05/24/2024, Expires: 05/24/2025 [facility] Work Phone: Comment on above: Expected: 05/24/2024 , Expires: 05/24/2025 Start: 05-07-2024 BP Controlled (<130/80) BP Con trolled (<130/80) [facility] Start: 04-19-2024 End: 04-19-2024 Patient encounter procedure 04/19/2024 10:40 AM EST Office Visit [facility] [address] [place] [address] Milo Modi MD [address] [place] [address] [facility] Start: 03-10-2024 Adult BMI Screening Adult BMI Screen ing [facility] Start: 03-10-2024 Creatinine measurement Serum Creatin ine [facility] Start: 03-10-2024 Depression Screening Depression Scre ening [facility] Start: 03-10-2024 Tobacco Screening Tobacco Screening [facility] Start: 02-07-2024 Covid-19 Vaccine () Covid-19 Vaccine () [facility] Start: 02-07-2024 Influenza vaccination [facility] Start: 10-04-2023 Administration of varicella zoster vaccine Zoster (Shingles) Vaccine (3 of 3) [facility] Comment on above: Postponed from 07/15 (Insurance / Financial) Start: 09-24-2023 Diabetic foot examination Diabetic Foot Exam [facility] Start: 02-06-2023 Covid-19 Vaccine () Covid-19 Vaccine () [facility] Start: 02-06-2023 Influenza vaccination C [facility] Start: 07-15-2022 Administration of varicella zoster vaccine Zoster (Shingles) Vaccine (3 of 3) [facility] Start: 06-08-2022 DEPRESSION ASSESSMENT DEPRESSION ASS ESSMENT [facility] Start: 2019 RSV Vaccine (1 - 1-d ose 60+ series) RSV Vaccine (1 - 1-dose 60+ series) [facility] Start: 2014 PROSTATE CANCER SCREENING DISCUSSION PROSTATE CANCER SCREENING DISCUSSION [facility] Start: 2009 SHINGRIX VACCINE (1 of 2) SHINGRIX VACCINE (1 of 2) [facility] Start: 2004 COLOGUARD (FIT-DNA) COLOGUARD (FIT-D NA) [facility] Start: 2004 Colonoscopy COLONOSCOPY [facility] Start: 2004 COLORECTAL CANCER SCREENING COLORECTAL CANCER SCREENING [facility] Start: [address] COLONOGRAPHY [facility] Start: 2004 DIABETES SCREEN DIABETES SCREEN [facility] Start: 2004 Diabetes Screening Diabetes Screenin g [facility] Start: 2004 FECAL OCCULT BLOOD FECAL OCCULT BLOO D [facility] Start: 2004 Screening for malign ant neoplasm of colon [facility] Start: 2004 SIGMOIDOSCOPY SIGMOIDOSCOPY [facility] Start: 1994 LIPID SCREEN LIPID SCREEN [facility] Start: 1978 Urine microalbumin profile DTAP,TDAP,TD (1 - Tdap) [facility] Start: 1977 Adult BMI Follow Up Plan Adult BMI Follow Up Plan [facility] Start: 1977 Annual PCP Team Lead Web Application Developer amarilis Disease Visit Annual PCP Team Chronic Disease Visit [facility] Start: 1977 Complete blood count Hemoglobin/Jose tocrit [facility] Start: 1977 Hepatitis B surface antibody level LDL Cholesterol [facility] Start: 1977 HEPATITIS C SCREENING HEPATITIS C [facility] Start: 1977 Hepatitis C screening Hepatitis C [facility] Start: 1977 HIV SCREENING HIV SCREENING [facility] Start: 1977 HIV screening HIV Screening [facility] Start: 1969 Diabetic foot examination Diabetic Foot Exam [facility] Start: 1969 Glaucoma screening Dilated Retinal E xam [facility] Start: 1969 Hepatitis B screening Urine Albumin:Creatinine Ratio [facility] Start: 1964 Hemoglobin A1c measurement HbA1C [facility] Start: 1959 Glaucoma screening Diabetic Op hthalmology Exam [facility] Start: 1959 Screening for malign ant neoplasm of colon [facility] Start: 1959 Urine screening for protein Urine Microalbumin [facility] End: 01-15-2024 Mri spinal canal lumbar w/o contrast material MRI LUMBAR SPINE WO IVCON Radiology Routine Chronic midline low back pain without sciatica Degenerative lumbar spinal stenosis Numbness of right lower extremity 1 Occurrences starting 12/16/2022 until 01/15/2024 [facility] Work Phone: Comment on above: 1 Occurrences starti ng 12/16/2022 until 01/15/2024 End: 01-15-2024 Radex spine lumbosacral minimum 4 views XR LUMBAR MOTION 4V AP/LAT/ FLEX/EXT Radiology Routine Chronic midline low back pain without sciatica Degenerative lumbar spinal stenosis Numbness of right lower extremity 1 Occurrences starting 12/16/2022 until 01/15/2024 [facility] Work Phone: Comment on above: 1 Occurrences starti ng 12/16/2022 until 01/15/2024 Radex spine lumbosac ral minimum 4 views XR LUMBAR MOTION 4V AP/LAT/ FLEX/EXT Radiology Routine Chronic midline low back pain without sciatica Degenerative lumbar spinal stenosis Numbness of right lower extremity 12/16/2022 12:34 PM EDT [facility] Work Phone: [facility] Immunizations Immunization Date Immunization Notes Care Provider Jose moreno 04-06-2024 Influenza, High-dose , Quadrivalent Warner Welch DO Work Phone: [facility] 05-20-2022 tetanus toxoid, redu akanksha diphtheria toxoid, and acellular pertussis vaccine, adsorbed Lilibeth Hatch SPOILAGE WORKER-FRUIT RECEIVER Work Phone: [facility] 05-20-2022 zoster vaccine recombinant Lilibeth Hatch SPOILAGE WORKER-FRUIT RECEIVER Work Phone: [facility] 05-20-2022 zoster vaccine, live Lilibeth ledesma SPOILAGE WORKER-FRUIT RECEIVER Work Phone: [facility] 05-20-2022 zoster vaccine, unspecified formulation Lilibeth Hatch SPOILAGE WORKER-FRUIT RECEIVER Work Phone: [facility] 03-24-2022 SARS-COV-2 (COVID-19 ) Vaccine, Unspecified Lilibeth Hatch SPOILAGE WORKER-FRUIT RECEIVER Work Phone: [facility] 03-24-2022 zoster vaccine recombinant Lilibeth Hatch SPOILAGE WORKER-FRUIT RECEIVER Work Phone: [facility] 03-17-2022 influenza virus vaccine, unspecified formulation Minda Delcid DO Work Phone: [facility] 05-22-2021 Influenza, injectabl e, Madin [place] Canine Kidney, preservative free, quadrivalent Lilibeth Hatch SPOILAGE WORKER-FRUIT RECEIVER Work Phone: [facility] 05-22-2021 pneumococcal conjuga te vaccine, 13 valent Lilibeth Hatch SPOILAGE WORKER-FRUIT RECEIVER Work Phone: [facility] 05-22-2021 pneumococcal conjuga te vaccine, 7 valent Lilibeth Hatch SPOILAGE WORKER-FRUIT RECEIVER Work Phone: [facility] 05-22-2021 influenza virus vaccine, unspecified formulation Lilibeth Hatch SPOILAGE WORKER-FRUIT RECEIVER Work Phone: [facility] 04-09-2021 COVID-19 Vaccine, vector-nr, rS-Ad26, PF, 0.5mL Lilibeth Hatch SPOILAGE WORKER-FRUIT RECEIVER Work Phone: [facility] 04-09-2021 SARS-COV-2 (COVID-19 ) Vaccine, Unspecified Lilibeth Hatch SPOILAGE WORKER-FRUIT RECEIVER Work Phone: [facility] 08-13-2020 COVID-19 Vaccine, vector-nr, rS-Ad26, PF, 0.5mL Lilibeth Hatch SPOILAGE WORKER-FRUIT RECEIVER Work Phone: [facility] 08-13-2020 SARS-COV-2 (COVID-19 ) Vaccine, Unspecified Lilibeth Hatch SPOILAGE WORKER-FRUIT RECEIVER Work Phone: [facility] 08-06-2020 COVID-19, mRNA, LNP- S, PF, 100mcg/0.5mL Dose Lilibeth Hatch SPOILAGE WORKER-FRUIT RECEIVER Work Phone: [facility] 03-23-2020 influenza, injectabl e, quadrivalent, preservative free Lilibeth Hatch SPOILAGE WORKER-FRUIT RECEIVER Work Phone: [facility] 03-30-2016 influenza virus vaccine, unspecified formulation Lilibeth Hatch SPOILAGE WORKER-FRUIT RECEIVER Work Phone: [facility] 05-05-2015 influenza, seasonal, injectable, preservative free Lilibeth Hatch SPOILAGE WORKER-FRUIT RECEIVER Work Phone: [facility] 04-01-2013 pneumococcal polysaccharide vaccine, 23 valent Lilibeth Hatch SPOILAGE WORKER-FRUIT RECEIVER Work Phone: [facility] Fluarix Quadrivalent 0.5 ML; Translations: [Fluarix Quadrivalent 0.5 ML] Alberto Mcgrath Other [employer] Other Payers Date Payer Category Payer Medicare HMO [facility] [id number] 2024 Medicare [id number] 2023 Medicare [facility] MEDICARE [facility] MEDICARE ADVANTAGE [id number] [id number] [place], [place] [id number] 2023 Medicare (Managed Care) [facility] [id number] 2023 Medicare [id number] 2022 Self-pay 2022 [employer] ( and others) [id number] 2022 Unknown [id number] 2021 () [id number] 2021 [employer] ( and others) [id number] 2021 Medicaid [id number] 2019 Department [facility] ( and others) [id number] 2018 Private Health Insurance [id number] 1959 Unknown [id number] [id number] .647 1959 Unknown [id number] 2.16.840.1.985409.3.579.2 .647 1959 Unknown [id number] 2.16.840.1.583693.3.579.2 .647 1959 Unknown [id number] 2.16.840.1.234024.3.579.2 .647 1959 Unknown [id number] 2.16.840.1.045353.3.579.2 .593 1959 Unknown [id number] 2.16.840.1.115744.3.579.2 .593 1959 Unknown [id number] 2.16.840.1.308881.3.579.2 .593 1959 Unknown [id number] 2.16.840.1.640546.3.579.2 .593 1959 Unknown [id number] 2.16.840.1.748925.3.579.2 .593 1959 Unknown [id number] 2.16.840.1.804993.3.579.2 .1286 1959 Unknown [id number] 2.16.840.1.894777.3.579.2 .1286 1959 Unknown [id number] 2.16.840.1.858868.3.579.2 .1259 1959 Unknown [id number] 2.16.840.1.742145.3.579.2 .1259 1959 Unknown [id number] 2.16.840.1.860272.3.579.2 .1259 1959 [employer] ( and others) [id number] 1959 Unknown [id number] 2.16.840.1.290937.19 Unknown [id number] 2.16.840.1.340693.3.579.2 .531 Unknown [id number] 2.16.840.1.989583.3.579.2 .531 Unknown [id number] 2.16.840.1.530018.3.579.2 .531 Social History Date Type Detail Facility Unknown if ever smoked [employer] Other Start: 12-15-2022 End: 09-03-2023 Sex Assigned At [facility] Tobacco smoking status [facility] Tobacco smoking consumption unknown [facility] Start: 12-15-2022 End: 09-03-2023 History of Social function [facility] Adult Depression Screening Assessment 5 [facility] Start: 1960 Sex Assigned At Not on file [facility] Start: 05-07-2023 End: 07-27-2024 Tobacco smoking status [facility] Ex-smoker [facility] Start: 01-06-1998 End: 01-06-2018 History of tobacco use Current smoker [facility] Start: 01-06-1998 End: 01-06-2018 History of tobacco use Cigarette Smoker [facility] Start: 05-07-2023 End: 07-27-2024 Tobacco use and exposure Smokeless tobacco non-user [facility] Start: 05-07-2023 Alcohol intake Lifetime non-d nikki (finding) [facility] Start: 04-19-2024 End: 07-27-2024 Alcoholic beverage intake Current drinker of alcohol (finding) [facility] Start: 11-11-2022 Tobacco Comment Last smoked: 1 -5 years [facility] Start: 11-11-2022 Alcohol Comment 1 or 2 drinks, 2-4 times a month; caffeine intake: 1-2 cups per day coffee, soda/pop [facility] Start: 1960 Sex assigned at Male [facility] Start: 11-05-2022 Gender identity Identifies as male gender (finding) [facility] History of tobacco use Passive smoker [facility] Start: 01-22-2023 Tobacco Comment Smoked 1 PPD x 20 years and 0.5 PPD x 20 years for a total of 30 pack years [facility] Start: 02-27-2022 Alcohol Comment OCCASIONAL [facility] Has the electric, gas, oil, or water company threatened to shut off services in your home in past 12Mo No [facility] Are you now , , , , never or living with a partner? [facility] How often to you have a drink containing alcohol? Monthly or less [facility] How many standard drinks containing alcohol do you have on a typical day? 1 or 2 [facility] How often do you have 6 or more drinks on 1 occasion? Never [facility] Do you feel stress - tense, restless, nervous, or anxious, or unable to sleep at night because your mind is troubled all the time - these days [OSQ] Not at all [facility] Start: 01-11-2015 Sex Male (finding) [facility] NEGATED: Highlighted rowStart: [id number] History of tobacco use Passive smoker [facility] Medical Equipment Procedure Code Equipment Code Equipment Origin al Text Equipment Identifier Dates [id number], [id number] Star t: 03-25-2022 End: 07-27-2024 Clinical Notes 05-01-2021 to 07-27-2024 Warner Welch, - 07/27/2024 9:30 AM Loly Sales, - 05/24/2024 9:00 AM Yannick Modi MD - 04/19/2024 10:40 AM ESTTelephone Encounter - Pedro Harris - 02/29/2024 1:12 PM EDT Note Date & Type Note Facility 07-27-2024 History of Present illness Narrative Subjective Patient ID: Loren Porter is a 64 y.o. male. Loren Porter is 64 y.o. male here for evaluation of lipids and thyroid. He has been seeing a doctor at the [place] and they are monitoring his labs twice a year. He reports he has begun a weight loss challenge and has lost 20lbs intentionally since early June. He has a continuous blood glucose monitor averaging in the 140-150 range daily. He reports occasional episodes of cold and hot flashes. He also reports occasional lightheadedness when rises from a seated position too quickly. He denies chest pain, SOB, palpitations. He sees the eye doctor yearly. Thyroid Problem Patient reports no constipation, diarrhea or palpitations. The following portions of the patient's history were reviewed and updated as appropriate: allergies, current medications, past family history, past medical history, past social history, past surgical history, problem list, and medication reconciliation was completed including current medication and post discharge medication. Review of Systems Constitutional: Positive for appetite change (Decreased since he starte semiglutide). Negative for fever. HENT: Negative for congestion and rhinorrhea. Eyes: Negative. Respiratory: Negative for shortness of breath and wheezing. Cardiovascular: Negative for chest pain, palpitations and leg swelling. Gastrointestinal: Negative for abdominal pain, blood in stool, constipation and diarrhea. Genitourinary: Positive for decreased urine volume (Difficulty initating urine). Negative for dysuria and hematuria. Neurological: Positive for light-headedness (When rising from a seated position). Negative for dizziness. Psychiatric/Behavioral: Positive for agitation (Feeling irritable for the past month, not sure why). Negative for confusion. Objective Physical Exam Constitutional: General: He is not in acute distress. Appearance: Normal appearance. He is obese. He is not ill-appearing. HENT: Head: Normocephalic and atraumatic. Right Ear: Tympanic membrane, ear canal and external ear normal. Left Ear: Tympanic membrane, ear canal and external ear normal. Nose: Nose normal. Mouth/Throat: Mouth: Mucous membranes are moist. Eyes: Extraocular Movements: Extraocular movements intact. Pupils: Pupils are equal, round, and reactive to light. Neck: Vascular: No carotid bruit. Cardiovascular: Rate and Rhythm: Normal rate and regular rhythm. Pulses: Normal pulses. Heart sounds: No murmur heard. Pulmonary: Effort: Pulmonary effort is normal. No respiratory distress. Breath sounds: No wheezing, rhonchi or rales. Abdominal: General: Abdomen is flat. Palpations: Abdomen is soft. Tenderness: There is no abdominal tenderness. Musculoskeletal: Cervical back: Neck supple. Lymphadenopathy: Cervical: No cervical adenopathy. Skin: General: Skin is warm and dry. Coloration: Skin is not jaundiced. Neurological: General: No focal deficit present. Mental Status: He is alert and oriented to person, place, and time. Psychiatric: Mood and Affect: Mood normal. Behavior: Behavior normal. Thought Content: Thought content normal. Judgment: Judgment normal. Assessment/Plan Loren was seen today for thyroid problem. Diagnoses and all orders for this visit: Hypertension 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 ([facility]) Blood pressure at goal. Recommend to get labs sent [facility]. Infrarenal abdominal aortic aneurysm (AAA) without rupture (CMS-HCC) Stable. Follow up with specialist as directed. Current moderate episode of major depressive disorder, unspecified whether recurrent ([facility]) Stable. Continue current regimen Morbid obesity ([facility]) He is morbidly obese. He is losing weight through medications, diet and an exercise program. He has lost 43 lb in a year and 4 months. He was congratulated on his weight loss and encouraged to continue. Acquired hypothyroidism Try to get labs documenting that his thyroid is under control. Note composed in part by Dieter Kim MS3 07/27/24 9:45 AM documented in this encounter [facility] 05-24-2024 History of Present illness Narrative Images from the original note were not included. Loren Porter 1960 Loren Porter is a 63 y.o. male presents with chief complaint of Consult (Colon mass) HPI: HPI Patient had a colonoscopy and said that his bilingual receptionist told him that he had a growth where his appendix comes in that could not be removed and he needed to see a surgeon. He has not having any blood in his stool. He has not having any abdominal pain. He has not having any bloating or nausea or problems eating. He did have polyps years ago and was overdue for his colonoscopy, He does see a branch controller, he had a stroke and a endovascular AAA repaired in 2020 as well as a carotid endarterectomy and a lap choly. He did not have problems with anesthesia. He has not having any chest pain or shortness of breath currently. His hemoglobin A1c is 7 he is working with his family doctor on his diabetes control. SUBJECTIVE: MEDICATIONS: ALLERGIES Current Outpatient Medications Medication Instructions atorvastatin (LIPITOR) 40 mg, Daily chlorthalidone (HYGROTON) 25 mg cholecalciferol (VITAMIN D-3) 50 mcg clopidogrel (Plavix) 75 MG tablet Daily Continuous Glucose Sensor (FreeStyle Telma 3 Sensor) misc 1 kit, Other, Every 14 days Drug Tamms Unifine Pentips 31G X 8 MM misc USE DIRECTED FOUR TIMES DAILY DULoxetine (CYMBALTA) 60 mg, Daily RT ergocalciferol (VITAMIN D-2) 1.25 mg, Weekly furosemide (LASIX) 20 mg HumaLOG KWIKPEN 100 UNIT/ML injection INJECT 8-10-12 UNITS THREE TIMES DAILY PLUS SLIDING SCALE ACCORDING TO MEAL SIZE (EXPECT UP TO 50 TOTAL UNITS DAILY) ibuprofen 200 MG tablet Take by mouth insulin glargine (LANTUS) 30 Units, Nightly insulin lispro protamine-insulin lispro (HumaLOG MIX 50/50 KWIKPEN) (50-50) 100 UNIT/ML injection 2 times daily with meals levothyroxine (Synthroid, Unithroid) 300 MCG tablet Daily before breakfast lisinopril 40 mg, Daily loratadine (Claritin) 10 MG tablet 1 tablet, Daily PRN metFORMIN (OSM) (FORTAMET) 500 mg, Daily with evening meal metoprolol succinate XL (Toprol-XL) 50 MG 24 hr tablet 1 tablet, Daily pioglitazone (ACTOS) 45 mg, Oral, Daily Semaglutide,0.25 or 0.5MG/DOS, 2 MG/3ML solution pen-injector Inject under the skin No Known Allergies PAST MEDICAL HISTORY: SOCIAL HISTORY SURGICAL HISTORY: Past Medical History: Diagnosis Date Current use of insulin ([facility]) Diabetes ([facility]) Dietary counseling and surveillance HTN (hypertension) ([facility] Hyperlipemia ([facility] Hypothyroidism ([facility]) Kidney stone Microalbuminuria Mixed hyperlipidemia ([facility]) Morbid obesity with body mass index (BMI) of 40.0 to 49.9 ([facility]) Sleep apnea Type 2 diabetes mellitus with other diabetic neurological complication ([facility]) Vitamin D deficiency, unspecified Social History Tobacco Use Smoking status: Former Types: Cigarettes Tobacco comments: Last smoked: 1-5 years Substance Use Topics Alcohol use: Yes Comment: 1 or 2 drinks, 2-4 times a month; caffeine intake: 1-2 cups per day coffee, soda/pop Past Surgical History: Procedure Laterality Date CAROTID ENDARTERECTOMY 01/14/2021 CT ANGIOGRAM ABDOMEN PELVIS 06/13/2021 CT ANGIOGRAM ABDOMEN PELVIS HERNIA REPAIR KNEE ARTHROPLASTY Left 2011 DR. ZAMBRANO KNEE SURGERY x 9 GA KNEE SCOPE,DIAGNOSTIC Bilateral LT KNEE SCOPE X5 PER DR QUESADA/JUAN MANUEL, [place] LAP,CHOLECYSTECTOMY 08/2020 - [facility] TOTAL KNEE ARTHROPLASTY Right 01/21/2018 DR ZAMBRANO WRIST SURGERY Left 2016 PER [facility] REVIEW OF SYMPTOMS: Review of Systems Constitutional: Negative for appetite change and fatigue. HENT: Negative for trouble swallowing. Respiratory: Negative for cough and shortness of breath. Cardiovascular: Negative for chest pain. Gastrointestinal: Negative for abdominal pain. Genitourinary: Negative for hematuria. Musculoskeletal: Negative for arthralgias. Neurological: Negative for seizures. Hematological: Negative for adenopathy. OBJECTIVE: Visit Vitals Ht 5' 9 Wt 299 lb BMI 44.15 kg/m Smoking Status Former BSA 2.57 m Physical Exam Constitutional: Appearance: Normal appearance. He is not ill-appearing. HENT: Head: Atraumatic. Eyes: General: No scleral icterus. Cardiovascular: Rate and Rhythm: Regular rhythm. Heart sounds: Normal heart sounds. Pulmonary: Breath sounds: No wheezing. Abdominal: General: There is no distension. Tenderness: There is no abdominal tenderness. Musculoskeletal: Right lower leg: No edema. Left lower leg: No edema. Neurological: Mental Status: He is alert. ASSESSMENT AND PLAN: Assessment/Plan Diagnoses and all orders for this visit: Cecum mass - CT abdomen pelvis w IV contrast; Future - Creatinine, Serum; Future Large polyp at cecum irregular and involving appendiceal orifice. Gastroenterology did not feel this could be endoscopically resected. I discussed with the patient all findings. We discussed surgical treatment which would be partial colectomy. We discussed some of the basics of surgery and hospitalization. Also we will check CT abdomen and pelvis with IV contrast to look for any local invasion or evidence of metastases as well as check CEA. Pathology is still pending. I will see him back with all this to discuss further. documented in this encounter [facility] 04-19-2024 History of Present illness Narrative Loren Porter is a 63 y.o. male Milo Modi MD presents with chief complaint of Diabetes and Follow-up HPI: Interim History: 04/2024 Follow-up visit on 04/18/2024, [facility], bg 188, He is on Lantus 30, Humalog an average 12 at least once a day, metformin 500 2 tablets twice a day, and Actos 45. Interim History: 12/2023 Follow-up visit on 12/22/2023, A1c 6.6, bg 131, He is on Lantus 35, Humalog an average 9-10 at least once a day, metformin 500 2 tablets twice a day, and Actos 45, off Victoza 1.8. CGM avg 146. lab on 12/2023 TC 111, HDL 47, LDL 51, VIT D 39. Interim History: 08/2023 Follow-up visit on 09/03/2023, A1c 6.1, bg 111, He is on Lantus 45, Humalog an average 15-18 at least once a day, metformin 500 2 tablets twice a day, and Actos 45, victoza 1.8. Interim History: 05/2023. Follow-up visit on 05/28/2023, A1c 5.9 bg 121, He is on Lantus 60, Humalog an average 20 at least once a day, metformin 500 2 tablets twice a day, and Actos 45, victoza 1.8. meter 62 low 34 normal, 0 high, avg 60. Interim History: 02/2023. Follow-up visit on 02/16/2023, A1c 6.3, bg 108, He is on Lantus 65, Humalog an average 20 to 25 at least once a day, metformin 500 2 tablets twice a day, and Actos 45, victoza 1.8. lab on 10/2022 GFR 57, TC 129,HDL 44, TG 78, LDL 69, VIT D 35, AL/CR 13, C-peptide 2.0 Interim History: 10/2022. Follow-up visit on 10/15/2022, A1c 6.8, bg 74, He is on Lantus 65, Humalog an average 20 to 25 every meal, metformin 500 2 tablets twice a day, and Actos 45, victoza 1.8. meter 75-25%, avg 152. Interim History: 06/2022. Follow-up visit on 06/18/2022, A1c 7.9, bg 102, He is on Lantus 65, Humalog an average 20 to 25 every meal, metformin 500 2 tablets twice a day, and Actos 45, victoza 1.8 Interim History: 02/2022. Follow-up visit on 02/17/2022, A1c 6, bg 107, He is on Lantus 80, Humalog an average 20 to 30 every meal, metformin 500 2 tablets twice a day, and Actos 45, victoza 1.8 Interim History: 10/2021. Follow-up visit on UNABLE TO DO A1C, bg 108 He is on Lantus 80, Humalog an average 20 to 30 every vani , metformin 500 2 tablets twice a day, and Actos 45. meter 50-226 , avg 160. lab on 08/2021 GFR>60, TC 129,TG 78, HDL 46, LDL 68. Interim History: 06/2021. Follow-up visit on A1c 7.2 , bg 142 He is on Lantus 80, Humalog an average 20 to 30 every meal mainly once , metformin 500 2 tablets twice a day, and Actos 45. meter 161-312, avg 248. lab on 03/2021 GFR>60, TC 133,TG 74, HDL 52, LDL 66, AL/CR 13, VIT D 34 Interim History: 03/2021. Follow-up visit on 03/25/2021. A1c 8.3 , bg 253 He is on Lantus 80, Humalog an average 20 to 30 every meal, MISSED SOMETIMES , metformin 500 twice a day, and Actos 45. meter 87-251, avg 261 Interim History: 12/2020. Follow-up visit on 12/11/2020. A1c 9.2, bg 156 He is on Lantus 80, Humalog an average 20 to 30 every meal, metformin 500 twice a day, and Actos 45 Interim History: 08/2020. Follow-up visit on 08/28/2020. A1c 7.8, bg 237 He is on Lantus 80, Humalog an average 20 to 30 every meal, metformin 500 twice a day, and Actos 45. meter 92-377, avg 192 Interim History: 05/2020. Follow-up visit on 05/16/2020. A1c 8,3, bg 104 He is on Lantus 80, Humalog an average 20 to 30 every meal, metformin 500 twice a day, and Actos 45. Interim History: 02/2020. Follow-up visit on 02/09/2020. CGM interpretation in good range, 2% low range, 86 good range, 12 in high range, and average 133. Lab done. BUN 22, creatinine 1, and GFR above 60. Total cholesterol 134, HDL 38, triglycerides 154, LDL 85, albumin/creatinine 100, vitamin D 14.3, and C-peptide 2.9. He is on Lantus 80, Humalog an average 20 to 30 every meal, metformin 500 twice a day, and Actos 45. HPI: 01/2020 New patient sent from Dr. Welch for uncontrolled diabetes. A1c 9, blood sugar 240 and lab done in early January 2020; A1c 10.8, total cholesterol 110, triglycerides 160, HDL 40, LDL 37, and GFR 58. He is asking and concerned about creatinine 1.16. He was never aware about kidney function before. He used on daily basis NSAID for his joint pain. He has issues with his knee. He is currently on metformin 500 , Actos 45, Victoza 1.8, Lantus 80, and NovoLog mainly use once at big dinner 20. SUBJECTIVE: MEDICATIONS: Current Outpatient Medications Medication Instructions acetaminophen (Tylenol) 325 MG tablet Take by mouth atorvastatin (LIPITOR) 40 mg, Daily clopidogrel (Plavix) 75 MG tablet Daily Continuous Glucose Sensor (FreeStyle Telma 3 Sensor) misc 1 kit, Other, Every 14 days ergocalciferol (VITAMIN D-2) 1.25 mg, Weekly ibuprofen 200 MG tablet Take by mouth insulin glargine (LANTUS) 30 Units, Nightly insulin lispro protamine-insulin lispro (HumaLOG MIX 50/50 KWIKPEN) (50-50) 100 UNIT/ML injection 2 times daily with meals levothyroxine (Synthroid, Unithroid) 300 MCG tablet Daily before breakfast liraglutide (Victoza) 18 MG/3ML injection Daily lisinopril 40 mg, Daily metFORMIN (OSM) (FORTAMET) 500 mg, Daily with evening meal pioglitazone (ACTOS) 45 mg, Oral, Daily sertraline (Zoloft) 25 MG tablet Daily ALLERGIES: No Known Allergies Past Medical History: Diagnosis Date Current use of insulin ([facility]) Diabetes ([facility]) Dietary counseling and surveillance HTN (hypertension) ([facility]) Hyperlipemia ([facility]) Hypothyroidism ([facility]) Kidney stone Microalbuminuria Mixed hyperlipidemia ([facility]) Morbid obesity with body mass index (BMI) of 40.0 to 49.9 ([facility]) Sleep apnea Type 2 diabetes mellitus with other diabetic neurological complication ([facility]) Vitamin D deficiency, unspecified Past Surgical History: Procedure Laterality Date CAROTID ENDARTERECTOMY 01/14/2021 CT ANGIOGRAM ABDOMEN PELVIS 06/13/2021 CT ANGIOGRAM ABDOMEN PELVIS HERNIA REPAIR KNEE ARTHROPLASTY Left 2011 DR. ZAMBRANO KNEE SURGERY x 9 [place] KNEE SCOPE,DIAGNOSTIC Bilateral LT KNEE SCOPE X5 PER DR QUESADA/JUAN MANUEL, [place] LAP,CHOLECYSTECTOMY 08/2020 - [facility] TOTAL KNEE ARTHROPLASTY Right 01/21/2018 DR ZAMBRANO WRIST SURGERY Left 2015 PER [facility] REVIEW OF SYMPTOMS: 14 POINT OF SYSTEM REVIEWED AND NEGATIVE OBJECTIVE: Constitutional: Afebrile @ home; no weakness or night sweats SKIN: No change in skin color; no itching, rash or lesions; no hair loss; HEENT: No HAs or injury; no dizziness; No difficulty with vision; no eye pain, discharge or lesions; no hearing loss or difficulty; no nasal discharge, NECK: No pain, limitation of motion, lumps or swollen glands RESP: No cough, wheezing or difficulty breathing. No CP with breathing; CARDIO: No CP , SOB or fatigue, No edema, palpitations or dyspnea with exertion GI: No N/V/D or abd. pain; good appetite with no recent change. No heart burn, liver or gallbladder disease; no rectal bleeding or pain : No urinary pain , frequency or odor. MUSCULOSKELETAL: No muscle pain or cramps; no extremity weakness.No joint pain, stiffness, swelling or limitation of movement NEUROLOGY: No H/O seizures, stroke or fainting. No weakness, tremors. Hematology: No bleeding problems or excessive bruising ENDOCRINE: No increase in hunger, thirst or urination; admits compliance to medical management plan Feet: numbness tingling , ulcers or skin break Lab Results Component Value Date GLU 188 04/19/2024 GLU 98 03/10/2023 GLU 185 (H) 08/31/2020 Visit Vitals BP 134/68 Pulse 70 Resp 19 Ht 5' 9 Wt 300 lb BMI 44.30 kg/m Smoking Status Former BSA 2.57 m ASSESSMENT AND PLAN: Assessment/Plan Diagnoses and all orders for this visit: Type 2 diabetes mellitus with hyperglycemia, with long-term current use of insulin ([facility]) - POCT glucose manually resulted Continue with Lantus 30 units, NovoLog average 12 units, metformin 500 2tablets twice a day, Actos 45 mg daily, he enrolled in weight loss program Essential (primary) hypertension (CMS/HCC) Mixed hyperlipidemia (CMS/HCC) group home (current) use of insulin ([facility]) Vitamin D deficiency Microalbuminuria Encounter for dietary consultation Diet and exercise reviewed with the patient in Class 3 severe obesity due to excess calories with serious comorbidity and body mass index (BMI) of 40.0 to 44.9 in adult ([facility]) Follow up in about 4 months (around 08/17/2024). documented in this encounter [facility] 04-07-2024 Note Cardiology Clinic No te Loren Porter is a 63 y.o. year old male with past medical history of abdominal aortic aneurysm status post EVAR 04/27/2021, history of TIA status post CEA in January 2021, venous insufficiency, hypertension, type 2 diabetes, hypothyroidism and obesity seen in follow-up. Patient here for 6 mo follow up hypertension, hyperlipidemia, and hx of syncope. Had lipid panel in December 2023, lipids near target. Denies chest pain, SOB, and recurrent syncope. Doing well cardiac ku. Patient adamantly denies any cardiac complaints or concerns. Patient denies any chest pain or shortness of breath. Patient denies any lower extremity edema, orthopnea, or proximal nocturnal dyspnea. No near-syncope or syncope. No dizziness or lightheadedness. Patient Active Problem List Diagnosis Knee pain Cerebrovascular accident (CMS/HCC) Cluster headache Current moderate episode of major depressive disorder (CMS/HCC) Type 2 diabetes mellitus (CMS/HCC) Diverticulosis of sigmoid colon Dyspnea Essential hypertension Fracture of distal end of radius History of arthroplasty of right knee History of renal calculi Hyperlipidemia Hyperplastic polyp of intestine Hypothyroidism Morbid obesity (CMS/HCC) Neck pain Obstructive sleep apnea syndrome Other acquired deformities of left foot Palpitations Plantar nerve lesion Right anterior knee pain Tear of meniscus of knee Tobacco dependence syndrome Anxiety Spinal stenosis at L4-L5 level Tussive syncope Ex-cigar smoker Chronic kidney disease, stage 3 unspecified (CMS/HCC) Hypertensive heart disease with heart failure (CMS/HCC) Infrarenal abdominal aortic aneurysm, without rupture (CMS/HCC) Occlusion and stenosis of bilateral carotid arteries Personal history of transient ischemic attack (TIA), and cerebral infarction without residual deficits Venous insufficiency (chronic) (peripheral) No family history on file. Social History Tobacco Use Smoking status: Former Years: 40 Types: Cigarettes Smokeless tobacco: Never Substance Use Topics Alcohol use: Defer Drug use: Defer HPI Loren Porter is a 61 y.o. male with a past medical history including HTN, HLD, DM, TIA s/p CEA in January 2021, and EVAR 04/27/2021. Patient was initially referred to cardiology for lower extremity edema and shortness of breath. Lower extremity edema was thought to be secondary to venous insufficiency, as demonstrated by venous reflux study, and shortness of breath was thought to be multifactorial. Update: 07/16/2022 Patient presents today for follow up. He denies any cardiac complaints or concerns. He adamantly denies any chest pain, syncope, orthopnea, PND, palps, or bleeding. He states that his lower extremity edema is much improved with lasix/chlorthalidone and lower extremity stocking. Shortness of breath has resolved, as per his report. Update: 01/22/2023 He has noticed lower extremity edema over the last month despite compression stockings No worsening dyspneic symptoms Dealing with back pain and is scheduled to see spinal surgery next week No chest pain or palpitations Review of Systems Cardiovascular: Positive for leg swelling. Musculoskeletal: Positive for back pain. Objective Visit Vitals Smoking Status Former Physical Exam General: Awake, alert, NAD Pulm: Breath sounds clear to ascultation bilaterally with no wheeze, crackles or rhonchi Cards: Regular rate and rhythm, S1, S2. No S3 or S4 gallop. Murmur: none Extr: Lower extremity edema: None. DP pulses:2+ Skin: warm, dry, well perfused Neuro: A&Ox3, No gross deficits Allergies No Known Allergies Medications Current Outpatient Medications: atorvastatin (Lipitor) 80 mg tablet, Take 80 mg by mouth at bedtime., Disp: , Rfl: celecoxib (CeleBREX) 100 mg capsule, celecoxib 100 mg capsule take 1 capsule by mouth once daily if needed, Disp: , Rfl: chlorthalidone (Hygroton) 25 mg tablet, take 1 tablet by mouth every morning, Disp: 90 tablet, Rfl: 3 clopidogrel (Plavix) 75 mg tablet, Take 75 mg by mouth in the morning., Disp: , Rfl: DULoxetine (Cymbalta) [address] capsule, Take 60 mg by mouth in the morning., Disp: , Rfl: ergocalciferol (Vitamin D-2) 1.25 MG (34700 Units) capsule, Vitamin D2 1,250 mcg (50,000 unit) capsule take 1 capsule by mouth every week, Disp: , Rfl: furosemide (Lasix) 20 mg tablet, Take 1 tablet (20 mg) by mouth if needed (Take daily as needed for lower extremity edema). (Patient not taking: Reported on 10/19/2023), Disp: 60 tablet, Rfl: 1 insulin glargine (Lantus) 100 unit/mL (3 mL) pen, Lantus Solostar U-100 Insulin 100 unit/mL (3 mL) subcutaneous pen INJECT 80 UNITS SUBCUTANEOUSLY ONCE A DAY, Disp: , Rfl: insulin lispro (HumaLOG) 100 unit/mL injection, Humalog KwikPen (U-100) Insulin 100 unit/mL subcutaneous, Disp: , Rfl: levothyroxine (Synthroid, Levoxyl) 175 mcg tablet, levothyroxine 175 mcg tablet, Disp: , Rfl: (more content not included)... [facility] 02-29-2024 Telephone encounter Note Please send Piglitozone 45mg please and thank you. Pt PCP retired and wants med mgmt through you now. [facility] 02-29-2024 Miscellaneous Notes Please send Piglitozone 45mg please and thank you. Pt PCP retired and wants med mgmt through you now. documented in this encounter [facility] 02-10-2024 Miscellaneous Notes [facility] can you resend it ? documented in this encounter [facility] 02-10-2024 Telephone encounter Note [facility] RX can you resend it ? [facility] 02-02-2024 Miscellaneous Notes Pt [facility] documented in this encounter [facility] 02-02-2024 Telephone encounter Note Pt called [facility] order [facility] 01-27-2024 Miscellaneous Notes Pretty sure the last refill on 01/17 was sent to [facility] . Pharmacy is updated now Prescription sent in. He is due for CV/general recheck documented in this encounter [facility] 01-27-2024 Telephone encounter Note Pretty sure the last refill on 01/17 was [facility] to [facility] . Pharmacy is updated now [facility] 01-27-2024 Telephone encounter Note Prescription sent in. He is due for CV/general recheck [facility] 10-19-2023 Note Cardiology Clinic No te Subjective Loren Porter is a 63 y.o. year old male with past medical history of abdominal aortic aneurysm status post EVAR 04/27/2021, history of TIA status post CEA in January 2021, venous insufficiency, hypertension, type 2 diabetes, hypothyroidism and obesity seen in follow-up. Patient here for 3 mo follow up echo done in August 2023. Hasn't had to take lasix for a few weeks. Denies chest pain and palpitations. Breathing is improved overall. No complaints or concerns. No recurrent syncopal episodes. Echo was complete after last visit and was without acute abnormality. EF is normal. Normal right ventricular size and systolic function. No significant valvular abnormality. Unable to assess right sided pressures due to lack of measurable tricuspid regurg. Patient Active Problem List Diagnosis Knee pain Cerebrovascular accident (CMS/HCC) Cluster headache Current moderate episode of major depressive disorder (CMS/HCC) Type 2 diabetes mellitus (CMS/HCC) Diverticulosis of sigmoid colon Dyspnea Essential hypertension Fracture of distal end of radius History of arthroplasty of right knee History of renal calculi Hyperlipidemia Hyperplastic polyp of intestine Hypothyroidism Morbid obesity (CMS/HCC) Neck pain Obstructive sleep apnea syndrome Other acquired deformities of left foot Palpitations Plantar nerve lesion Right anterior knee pain Tear of meniscus of knee Tobacco dependence syndrome Anxiety Spinal stenosis at L4-L5 level Tussive syncope Ex-cigar smoker Chronic kidney disease, stage 3 unspecified (CMS/HCC) Hypertensive heart disease with heart failure (CMS/HCC) Infrarenal abdominal aortic aneurysm, without rupture (CMS/HCC) Occlusion and stenosis of bilateral carotid arteries Personal history of transient ischemic attack (TIA), and cerebral infarction without residual deficits Venous insufficiency (chronic) (peripheral) No family history on file. Social History Tobacco Use Smoking status: Former Years: 40 Types: Cigarettes Smokeless tobacco: Never Substance Use Topics Alcohol use: Defer Drug use: Defer HPI Loren Porter is a 61 y.o. male with a past medical history including HTN, HLD, DM, TIA s/p CEA in January 2021, and EVAR 04/27/2021. Patient was initially referred to cardiology for lower extremity edema and shortness of breath. Lower extremity edema was thought to be secondary to venous insufficiency, as demonstrated by venous reflux study, and shortness of breath was thought to be multifactorial. Update: 07/16/2022 Patient presents today for follow up. He denies any cardiac complaints or concerns. He adamantly denies any chest pain, syncope, orthopnea, PND, palps, or bleeding. He states that his lower extremity edema is much improved with lasix/chlorthalidone and lower extremity stocking. Shortness of breath has resolved, as per his report. Update: 01/22/2023 He has noticed lower extremity edema over the last month despite compression stockings No worsening dyspneic symptoms Dealing with back pain and is scheduled to see spinal surgery next week No chest pain or palpitations Review of Systems Cardiovascular: Positive for dyspnea on exertion and leg swelling. Negative for chest pain, irregular heartbeat, near-syncope, orthopnea, palpitations, paroxysmal nocturnal dyspnea and syncope. Musculoskeletal: Positive for back pain. Objective Visit Vitals BP 99/60 (BP Location: Left arm, Patient Position: Sitting) Pulse 70 Ht 1.753 m (5' 9 ) Wt (!) 138 kg (305 lb) SpO2 95% BMI 45.04 kg/m??? Smoking Status Former BSA 2.59 m??? Physical Exam General: Awake, alert, NAD Pulm: Breath sounds clear to ascultation bilaterally with no wheeze, crackles or rhonchi Cards: Regular rate and rhythm, S1, S2. No S3 or S4 gallop. Murmur: none Extr: Lower extremity edema: None. DP pulses:2+ Skin: warm, dry, well perfused Neuro: A&Ox3, No gross deficits Allergies No Known Allergies Medications Current Outpatient Medications: atorvastatin (Lipitor) 80 mg tablet, Take 80 mg by mouth at bedtime., Disp: , Rfl: celecoxib (CeleBREX) 100 mg capsule, celecoxib 100 mg capsule take 1 capsule by mouth once daily if needed, Disp: , Rfl: chlorthalidone (Hygroton) 25 mg tablet, take 1 tablet by mouth every morning, Disp: 90 tablet, Rfl: 3 clopidogrel (Plavix) 75 mg tablet, Take 75 mg by mouth in the morning., Disp: , Rfl: DULoxetine (Cymbalta) [address] capsule, Take 60 mg by mouth in the morning., Disp: , Rfl: ergocalciferol (Vitamin D-2) 1.25 MG (19016 Units) capsule, Vitamin D2 1,250 mcg (50,000 unit) capsule take 1 capsule by mouth every week, Disp: , Rfl: insulin glargine (Lantus) 100 unit/mL (3 mL) pen, Lantus Solostar U-100 Insulin 100 unit/mL (3 mL) subcutaneous pen INJECT 80 UNITS SUBCUTANEOUSLY ONCE A DAY, Disp: , Rfl: insulin lispro (HumaLOG) 100 unit/mL injection, Humalog KwikPen ( (more content not included)... [facility] 09-03-2023 History of Present illness Narrative Subjective SUBJECTIVE: Patient ID: Loren Porter is a 63 y.o. male who presents for a Medicare Annual Wellness exam. HPI The following portions of the patient's history were reviewed and updated as appropriate: allergies, current medications, past family history, past medical history, past social history, past surgical history and problem list. AWV FLOWSHEET : Lifestyle Assessment Do you smoke or use smokeless tobacco?: No If you smoke or use smokeless tobacco, are you ready to quit?: NA Are you exposed to secondhand smoke?: No On average, how many drinks of alcohol do you consume in a week?: 1 or less Do you exercise for 30 or more minutes on average at least 3 days a week?: (!) Never Do you have any tooth, denture, or oral problems?: No Do you snore or has anyone told you that you snore?: No Do you try to eat a balanced diet?: Yes Do you experience leakage of urine, also known as urinary incontinence?: Never Do you have difficulty performing any of these activities? (check all that apply): None Do you have difficulty performing any of these activities? (check all that apply): None Fall Risk Fall Risk Assessment Completed?: Yes Have you fallen in the past year?: (!) Yes How many times?: 1 Were you injured?: No Are you worried about falling?: No Do you feel unsteady when standing or walking?: No Risk Stratification: Moderate Risk Depression Screening Little interest or pleasure in doing things: Not at all Feeling down, depressed, or hopeless: Not at all Trouble falling or staying asleep, or sleeping too much: Not at all Feeling tired or having little energy: Not at all Poor appetite or overeating: Not at all Feeling bad about yourself - or that you are a failure or have let yourself or your family down: Not at all Trouble concentrating on things, such as reading the newspaper or watching television: Not at all Moving or speaking so slowly that other people could have noticed. Or the opposite - being so fidgety or restless that you have been moving around a lot more than usual: Not at all Thoughts that you would be better off , or of hurting yourself in some way: Not at all PEG Scale Safety Assessment Do you have throw rugs on the floor?: No Do you feel safe at your home?: Yes Do you feel unsteady when walking?: No Are you having difficulty with driving?: No Do you have trouble seeing?: No What assistive device do you use? (check all that apply): None Hearing Assessment Do you strain or struggle to hear/understand conversations?: (!) Yes Do you have trouble hearing the television or radio when others do not?: (!) Yes Does your family ever voice concerns about your hearing?: (!) Yes Do you wear hearing aid/s?: (!) Yes Personal Health During the past 4 weeks, how would you rate your overall health?: (!) Fair Do you understand how to take all of your medications?: Yes How confident are you that you can control and manage most of your health problems?: Very confident In the past 12 months, how many times have you been hospitalized?: None End of Life Planning Do you have a living will?: (!) No Do you have a durable power of geochemical manager?: (!) No Cognitive Screening Do you have trouble remembering or recalling facts or events?: (!) Yes Do family members or caregivers report that you have difficulty remembering things?: (!) Yes Clock Drawing Test: Normal REVIEW OF SYSTEMS: Review of Systems Objective PHYSICAL EXAMINATION: Vitals: 03/28/24 1506 BP: 127/70 Weight: (!) 138.9 kg (306 lb 3.2 oz) Height: 175.3 cm (5' 9 ) Physical Exam Assessment/Plan ASSESSMENT/PLAN Encounter Diagnoses Name Primary? Medicare annual wellness visit, subsequent Yes Screening for depression Health maintenance discussed. Depression screen was negative. At least 3 minute spent administering and discussing. Cognitive evaluation did not reveal any impairment. He does not have any advanced directives in place. He was encouraged to do so. Return in about 1 year (around 09/02/2024). documented in this encounter [facility] 08-14-2023 Note HNO ID: [id number] Author: KARIE BARRIGA APRN.MANAGER CRITICAL CARE Service: ? Author Type: Nurse Practitioner Type: Progress Notes Filed: 08/14/2023 15:18 Note Text: BMI Obesity Medicine Follow-Up Note - VIRTUAL VISIT August 14, 2023 This Team Access Model visit is a virtual encounter. I have communicated my name and active licensure. The patient's identity and physical location were verified at the time of this visit. Either the patient or their legal contact representative has been informed of the risks and benefits of -- and alternatives to -- treatment through a remote evaluation and consents to proceed with the evaluation remotely. Patient Summary: is 63 year old male who presents for follow-up evaluation of his obesity and related complications to the [facility]. Initial program weight: 325 lbs [April 2023] Today's weight: 300 lbs Recent Weight history: Last Wt 08/14/23 : 136.1 kg (300 lb) 05/07/23 : (!) 147.5 kg (325 lb 1.6 oz) 12/16/22 : (!) 151.5 kg (334 lb) Assessement/plan from last visit: -- Based on the severity and resistance of the obesity to more conservative weight loss approaches, I believe a combination of behavioral and pharmacological intervention is the best and most appropriate usp therapeutic option. The patient is extremely reluctant to have bariatric surgery as his had complications from bariatric surgery. -- We discussed several strategies to track food intake and increase mindfulness around eating. He was counseled on the moderate protein, low carbohydrate diet, and the Mediterranean heart healthy guidelines. He will be referred to dietitian for further education on the Mediterranean heart healthy guidelines. -- Should try and discontinue all diet drinks in an effort to help promote additional weight loss. -- He will have a discussion with his curriculum development coordinator to potentially switch to tirzepatide 15 mg weekly dose to be used in place of liraglutide 1.8 mg daily dose. Other options would include semaglutide 2.0, liraglutide 3.0, and the extended release form of naltrexone/bupropion. Tirzepatide can provide not only excellent diabetic control but may promote additional weight loss not seen with the current dose of liraglutide at the 1.8 mg dose which is effectively controlling his diabetes. He is also on Lantus, NovoLog, metformin, and Actos. -- Encouraged the patient to improve his physical activity. Although cardiovascular exercise is most beneficial for weight loss initially, we discussed healthy muscle from a combination of resistance training and cardiovascular exercise is the best hospice bereavement coordinator plan. An overall goal of 200 minutes per week of exercise has been effective in weight loss and maintenance. -- Follow-up visit in 3 months for management of above interventions HPI: PT specifies the following items as new or significant updates since the last appointment: Last visit was with Dr. Delcid in April. Reports weight is stable since the last visit. Was advised to discuss switching GLP-1 options with his curriculum development coordinator at initial visit. He saw his curriculum development coordinator and they did not switch GLP-1. His A1C decreased to 5.7%, curriculum development coordinator did not want to adjust GLP. Lowered his novolog, metformin, and lantus. Anti-obesity medication: No AOMs prescribed by our office Metformin Victoza per his endo Dietary changes: Increasing water intake Increasing servings of fruit Increasing servings of vegetables Seeing internal communications writer Increasing protein Exercise: stable Regular exercise: No Strength/resistance exercise: limited due to low back pain Barriers to regular exercise? See above Work-related activity:retired x 20 years Stress: stable Sleep: stable Weight graph: No past medical history on file. Current Outpatient Medications Medication Sig Dispense Refill VRAYLAR 3 mg capsule Take 1 capsule by mouth every afternoon. ARIPiprazole (ABILIFY) 5 mg tablet Take 1 tablet by mouth every afternoon. (Patient not taking: Reported on 05/07/2023) clopidogrel (PLAVIX) 75 mg tablet Take 1 tablet by mouth once daily. furosemide (LASIX) 20 mg tablet Take 1 tablet by mouth every afternoon. metFORMIN ER (GLUCOPHAGE XR) 500 mg 24 hr tablet Take 500 mg by mouth twice daily. Takes two tablets by mouth twice daily atorvastatin (LIPITOR) 40 mg tablet Take 40 mg by mouth once daily. Lacto no.08-Cpvqct-DSD-larch 25B cell-25B cell-50 mg cap Take 1 tablet by mouth once daily. Lacto no.24-Wzrfth-IAH-larch 25B cell-25B cell-50 mg cap Take 2 tablets twice a day by oral route for 90 days. (Patient not taking: Reported on 01/29/2023) atorvastatin (LIPITOR) 80 mg tablet Take 1 tablet by mouth once daily. (Patient not taking: Reported on 01/29/2023) liraglutide (VICTOZA 3-FRANKLIN SUBCUTANEOUS) Inject subcutaneously. insulin glargine,hum.rec.anlog (LANTUS SUBCUTANEOUS) Inject subcutaneously. insulin lispro (HUMALO (more content not included)... [facility] 08-14-2023 History of Present illness Narrative Images from the original note were not included. BMI Obesity Medicine Follow-Up Note - VIRTUAL VISIT August 14, 2023 This Team Access Model visit is a virtual encounter. I have communicated my name and active licensure. The patient's identity and physical location were verified at the time of this visit. Either the patient or their legal contact representative has been informed of the risks and benefits of -- and alternatives to -- treatment through a remote evaluation and consents to proceed with the evaluation remotely. Patient Summary: is 63 year old male who presents for follow-up evaluation of his obesity and related complications to the [facility]. Initial program weight: 325 lbs [April 2023] Today's weight: 300 lbs Recent Weight history: Last Wt 08/14/23 : 136.1 kg (300 lb) 05/07/23 : (!) 147.5 kg (325 lb 1.6 oz) 12/16/22 : (!) 151.5 kg (334 lb) Assessement/plan from last visit: -- Based on the severity and resistance of the obesity to more conservative weight loss approaches, I believe a combination of behavioral and pharmacological intervention is the best and most appropriate usp therapeutic option. The patient is extremely reluctant to have bariatric surgery as his had complications from bariatric surgery. -- We discussed several strategies to track food intake and increase mindfulness around eating. He was counseled on the moderate protein, low carbohydrate diet, and the Mediterranean heart healthy guidelines. He will be referred to dietitian for further education on the Mediterranean heart healthy guidelines. -- Should try and discontinue all diet drinks in an effort to help promote additional weight loss. -- He will have a discussion with his curriculum development coordinator to potentially switch to tirzepatide 15 mg weekly dose to be used in place of liraglutide 1.8 mg daily dose. Other options would include semaglutide 2.0, liraglutide 3.0, and the extended release form of naltrexone/bupropion. Tirzepatide can provide not only excellent diabetic control but may promote additional weight loss not seen with the current dose of liraglutide at the 1.8 mg dose which is effectively controlling his diabetes. He is also on Lantus, NovoLog, metformin, and Actos. -- Encouraged the patient to improve his physical activity. Although cardiovascular exercise is most beneficial for weight loss initially, we discussed healthy muscle from a combination of resistance training and cardiovascular exercise is the best hospice bereavement coordinator plan. An overall goal of 200 minutes per week of exercise has been effective in weight loss and maintenance. -- Follow-up visit in 3 months for management of above interventions HPI: PT specifies the following items as new or significant updates since the last appointment: Last visit was with Dr. Delcid in April. Reports weight is stable since the last visit. Was advised to discuss switching GLP-1 options with his curriculum development coordinator at initial visit. He saw his curriculum development coordinator and they did not switch GLP-1. His A1C decreased to 5.7%, curriculum development coordinator did not want to adjust GLP. Lowered his novolog, metformin, and lantus. Anti-obesity medication: No AOMs prescribed by our office Metformin Victoza per his endo Dietary changes: Increasing water intake Increasing servings of fruit Increasing servings of vegetables Seeing internal communications writer Increasing protein Exercise: stable Regular exercise: No Strength/resistance exercise: limited due to low back pain Barriers to regular exercise? See above Work-related activity:retired x 20 years Stress: stable Sleep: stable Weight graph: No past medical history on file. Current Outpatient Medications Medication Sig Dispense Refill VRAYLAR 3 mg capsule Take 1 capsule by mouth every afternoon. ARIPiprazole (ABILIFY) 5 mg tablet Take 1 tablet by mouth every afternoon. (Patient not taking: Reported on 05/07/2023) clopidogrel (PLAVIX) 75 mg tablet Take 1 tablet by mouth once daily. furosemide (LASIX) 20 mg tablet Take 1 tablet by mouth every afternoon. metFORMIN ER (GLUCOPHAGE XR) 500 mg 24 hr tablet Take 500 mg by mouth twice daily. Takes two tablets by mouth twice daily atorvastatin (LIPITOR) 40 mg tablet Take 40 mg by mouth once daily. Lacto no.06-Whjtwm-OHI-larch 25B cell-25B cell-50 mg cap Take 1 tablet by mouth once daily. Lacto no.64-Kahwow-NAO-larch 25B cell-25B cell-50 mg cap Take 2 tablets twice a day by oral route for 90 days. (Patient not taking: Reported on 01/29/2023) atorvastatin (LIPITOR) 80 mg tablet Take 1 tablet by mouth once daily. (Patient not taking: Reported on 01/29/2023) liraglutide (VICTOZA 3-FRANKLIN SUBCUTANEOUS) Inject subcutaneously. insulin glargine,hum.rec.anlog (LANTUS SUBCUTANEOUS) Inject subcutaneously. insulin lispro (HUMALOG PEN SUBCUTANEOUS) Inject subcutaneously. levothyroxine 200 mcg cap Take 200 mcg by mouth daily before breakfast. celecoxib (CELEBREX) 100 mg capsule take 1 capsule by mouth once daily if needed chlorthalidone (HYGROTON) 25 mg tablet Take 1 tablet by mouth once daily. (Patient not taking: Reported on 05/07/2023) ergocalciferol 50,000 unit capsule (VITAMIN D2, DRISDOL) Take 1 capsule by mouth one time a week. pioglitazone (ACTOS) 45 mg tablet Take 1 tablet by mouth once daily. vilazodone (VIIBRYD) 40 mg tablet take 1 tablet by mouth every morning (AFTER COMPLETING 10MG AND 20MG) metoprolol succinate ER (TOPROL XL) 25 mg 24 hr tablet Take 1 tablet by mouth once daily. lisinopril (ZESTRIL) 40 mg tablet Take 1 tablet every day by oral route for 90 days. gabapentin (NEURONTIN) 300 mg capsule Take 300 mg by mouth. (Patient not taking: Reported on 05/07/2023) No current facility-administered medications for this visit. Denies chest pain, sob, palpitations, elevated heart rate or blood pressure. Denies abdominal pain, constipation, diarrhea, nausea, vomiting, or GERD. Denies trouble swallowing, hoarseness. Denies paresthesias, insomnia, grogginess, anxiety, mood changes, or flank pain. Physical exam:Ht 175.3 cm (5' 9 ) Wt 136.1 kg (300 lb) BMI 44.30 kg/m VIDEO EXAM: (if done, performed via video enabled technology) GENERAL: alert and appropriate, in no distress, well-hydrated, well nourished, and happy, smiling, interactive Results: No flowsheet data found. No results found for: CHOL No results found for: HDL No results found for: LDL No results found for: TG No flowsheet data found. CrCl cannot be calculated (No successful lab value found.). No results found for: HBA1C Assessment/Plan: Loren Porter is a 63 year old male with Class III obesity who presents today for supervised weight loss follow-up. Patient has been successful with the personalized nutrition and physical activity plan we discussed last visit. Patient has lost 25 lbs/7.7% TBW from last visit and since initiating medical weight management in April 2023. - Was advised to discuss switching GLP-1s with his curriculum development coordinator. Endo lowered his insulin and other DM medications, did not adjust GLP-1. I will send a recap of more ideal GLP-1s to him via [employer] to discuss with his curriculum development coordinator again at next visit such as Mounjaro [tirzepatide] or Ozempic [semaglutide]. - His only other medication option is contrave, he would like to avoid this given his current mental health regimen and I agree. - Referral placed to BMI dieticians. - Additional agents that may be useful in the future are bupropion/naltrexone. - Agents that are currently contraindicated in this case are phentermine (CVA). Would avoid topiramate (kidney stone hx). Already takes metformin. Follow-up visit for management of above interventions in 3 mos. I spent a total of 15 minutes on the date of the service which included preparing to see the patient, [id number] patient care, completing clinical documentation, obtaining and/or reviewing separately obtained history, performing a medically appropriate examination, counseling and educating the patient/family/caregiver, and ordering medications, tests, or procedures. This visit was performed virtually due to the COVID-19 epidemic as an effort to protect patients and minimize exposure. Karie Barriga, MSN, SPOILAGE WORKER, YARN HAULER-C [facility] [address], [address] [place] [address] documented in this encounter [facility] 07-24-2023 Note Patient here for 6 m o follow up hypertension, hyperlipidemia, and venous insufficiency. Compression stockings help control LE edema, and he's taking lasix PRN. states he passes out when he laughs. Had labs in Jan and Mar 2023. Denies chest pain and palpitations. States there's no change to his SHAVER, lightheadedness, and LE edema. He has lost 20# since last apt in Jan! Review of Systems Constitutional: Positive for weight loss (20# since Jan 2023). Cardiovascular: Positive for dyspnea on exertion and leg swelling. Musculoskeletal: Positive for back pain. Neurological: Positive for light-headedness. All other systems reviewed and are negative. [facility] 07-24-2023 Note Cardiology Clinic No te Subjective Loren Porter is a 63 y.o. year old male with past medical history of abdominal aortic aneurysm status post EVAR 04/27/2021, history of TIA status post CEA in January 2021, venous insufficiency, hypertension, type 2 diabetes, hypothyroidism and obesity seen in follow-up. Patient adamantly denies any chest pain or shortness of breath. Patient denies any lower extremity edema, orthopnea, or proximal nocturnal dyspnea. states that patient has had several episodes of syncope with laughing. This goes back quite some time. No syncope with exertion, just with laughing. She states that they have just learned to deal with it. He feels it oncoming. Patient Active Problem List Diagnosis Knee pain Cerebrovascular accident (CMS/HCC) Cluster headache Current moderate episode of major depressive disorder (CMS/HCC) Type 2 diabetes mellitus (CMS/HCC) Diverticulosis of sigmoid colon Dyspnea Essential hypertension Fracture of distal end of radius History of arthroplasty of right knee History of renal calculi Hyperlipidemia Hyperplastic polyp of intestine Hypothyroidism Morbid obesity (CMS/HCC) Neck pain Obstructive sleep apnea syndrome Other acquired deformities of left foot Palpitations Plantar nerve lesion Right anterior knee pain Tear of meniscus of knee Tobacco dependence syndrome Anxiety Spinal stenosis at L4-L5 level Tussive syncope Ex-cigar smoker No family history on file. Social History Tobacco Use Smoking status: Former Years: 40 Types: Cigarettes Smokeless tobacco: Never Substance Use Topics Alcohol use: Defer Drug use: Defer HPI Loren Porter is a 61 y.o. male with a past medical history including HTN, HLD, DM, TIA s/p CEA in January 2021, and EVAR 04/27/2021. Patient was initially referred to cardiology for lower extremity edema and shortness of breath. Lower extremity edema was thought to be secondary to venous insufficiency, as demonstrated by venous reflux study, and shortness of breath was thought to be multifactorial. Update: 07/16/2022 Patient presents today for follow up. He denies any cardiac complaints or concerns. He adamantly denies any chest pain, syncope, orthopnea, PND, palps, or bleeding. He states that his lower extremity edema is much improved with lasix/chlorthalidone and lower extremity stocking. Shortness of breath has resolved, as per his report. Update: 01/22/2023 He has noticed lower extremity edema over the last month despite compression stockings No worsening dyspneic symptoms Dealing with back pain and is scheduled to see spinal surgery next week No chest pain or palpitations Review of Systems Cardiovascular: Positive for dyspnea on exertion and leg swelling. Negative for chest pain, irregular heartbeat, near-syncope, orthopnea, palpitations, paroxysmal nocturnal dyspnea and syncope. Musculoskeletal: Positive for back pain. Objective Visit Vitals BP 112/60 (BP Location: Left arm, Patient Position: Sitting) Pulse 91 Ht 1.753 m (5' 9 ) Wt (!) 140 kg (308 lb) SpO2 96% BMI 45.48 kg/m??? Smoking Status Former BSA 2.61 m??? Physical Exam General: Awake, alert, NAD Pulm: Breath sounds clear to ascultation bilaterally with no wheeze, crackles or rhonchi Cards: Regular rate and rhythm, S1, S2. No S3 or S4 gallop. Murmur: none Extr: Lower extremity edema: None. DP pulses:2+ Skin: warm, dry, well perfused Neuro: A&Ox3, No gross deficits Allergies No Known Allergies Medications Current Outpatient Medications: atorvastatin (Lipitor) 80 mg tablet, Take 80 mg by mouth at bedtime., Disp: , Rfl: celecoxib (CeleBREX) 100 mg capsule, celecoxib 100 mg capsule take 1 capsule by mouth once daily if needed, Disp: , Rfl: chlorthalidone (Hygroton) 25 mg tablet, Take 1 tablet (25 mg) by mouth in the morning., Disp: 90 tablet, Rfl: 3 clopidogrel (Plavix) 75 mg tablet, Take 75 mg by mouth in the morning., Disp: , Rfl: DULoxetine (Cymbalta) [address] capsule, Take 60 mg by mouth in the morning., Disp: , Rfl: ergocalciferol (Vitamin D-2) 1.25 MG (80333 Units) capsule, Vitamin D2 1,250 mcg (50,000 unit) capsule take 1 capsule by mouth every week, Disp: , Rfl: furosemide (Lasix) 20 mg tablet, Take 1 tablet (20 mg) by mouth if needed (Take daily as needed for lower extremity edema)., Disp: 60 tablet, Rfl: 1 insulin glargine (Lantus) 100 unit/mL (3 mL) pen, Lantus Solostar U-100 Insulin 100 unit/mL (3 mL) subcutaneous pen INJECT 80 UNITS SUBCUTANEOUSLY ONCE A DAY, Disp: , Rfl: insulin lispro (HumaLOG) 100 unit/mL injection, Humalog KwikPen (U-100) Insulin 100 unit/mL subcutaneous, Disp: , Rfl: levothyroxine (Synthroid, Levoxyl) 175 mcg tablet, levothyroxine 175 mcg tablet, Disp: , Rfl: liraglutide (Victoza 2-Franklin) 0.6 mg/0.1 mL (18 mg/3 mL) injection, as directed Subcutaneous, Disp: , Rfl: lisinopril 20 mg tablet, Take 20 mg by mouth in the morning., Dis (more content not included)... [facility] 05-07-2023 Note HNO ID: [id number] Author: Minda Delcid, DO Service: ? Author Type: Physician Type: Progress Notes Filed: 05/07/2023 4:54 PM Note Text: BMI Obesity Medicine Consult 05/07/23 Consultation requested by Ben Zimmerman DO for an opinion regarding Obesity. My final recommendations will be communicated back to the requesting physician by way of shared Medical record or letter to requesting physician via [place] mail. Patient Summary: Loren Porter is a 62 year old male with obesity who presents to the [facility] for an initial evaluation of his obesity and is interested in non-surgical weight loss approaches. Primary reason for wanting obesity treatment : improve overall health Overall goal: 220 lbs Weight History: He reports a family history of obesity and adult onset weight gain. He states his weight gain is related to the following factors, including inactivity in the last 2 years after having a right sided weakness secondary to a stroke in 2020, and lifestyle changes Weight Graph: (please see graph scanned in chart) Obesigenic Medications: No Diet: Quality of diet: 24hr recall suggests healthy diet, has 3 meals a day, low carb diet, and does not skip meals B- egg sandwich L-chicken breast sandwich D-prepared meal Drinks water and diet 2 drinks diet drinks Characterization of diet:Structured. Health Management Consultant of impaired eating habits:denies Eating Disorder no Diet History: Past weight loss attempts? dietitian. Exercise: Regular exercise: No Strength/resistance exercise: limited due to low back pain Barriers to regular exercise? See above Work-related activity:retired x 20 years. ?Sleep: Duration: 8 hours. JORDAN YES ; CPAP YES Quality:adequate, Generally restful:Sleep-wake cycle disruption:No ??Stress: Some, Cause:Personal Obesity Related Comorbidities: Prior Weight Loss Surgery:No PMH: T2DM x 20 years, hypertension, hypothyroidism, JORDAN, hyperlipidemia, kidney stones, and CVA. No history of IA, COPD, asthma, peptic ulcer dx, pancreatitis, cancer, DVT, PE, gout, CKD, glaucoma, smoking history (quit 2017) PSH: bilateral TKR, stent abdominal aorta, left CEA, hernia repair, and cholecystectomy Obesity ROS/ FHx GEN: Fatigue:No CV: h/o palpitations/cardiac arrhythmia, CP:No PULM: Asthma:No GI: GERD:No; Gallstones: S/P cholecystectomy; Fatty liver disease:No; H/o hernia:YES MSK: Joint Pain:No : Nephrolithiasis:YES; Stress incontinence:N/A Symptoms of PCOS(women):N/A No history of cold intolerance,heat,intolerance,poly dypsia, polyuria, and polyphagia NEURO: Migraines/BARROW:+ cluster headaches; H/o seizures: No Glaucoma:No; Cataracts No Symptoms of pseudotumor cerebri:No The physical systems reviewed reveal no pathological symptoms that are pertinent to this visit No family history on file. PREV: PAP n/a, Mammogram n/a and Colonoscopy Not UTD Social History Occupation: retired PE BP 120/62 NAD. Central adiposity. Waist circumference not measured. No acanthosis, no lipoma, no pallor. No supraclavicular adiposity. No dorsal adiposity. PERRL. Tongue moist, pink. + OP crowding. Good dental hygiene RRR nl. s1s2 CTAB Abdomen Soft Large pannus; No striae. NT/ND. No peripheral edema Results: reviewed with the patient No visits with results within 3 Month(s) from this visit. Latest known visit with results is: No results found for any previous visit. Impression: Loren Porter is a 62 year old male with Class III obesity (There is no height or weight on file to calculate BMI.) who has adult onset obesity with gradual weight gain despite several weight loss attempts. The causes of his obesity are multifactorial, biological, psychological and social and environmental. Specific factors include suboptimal physical activity. He has several weight-related medical comorbidities which increase his cardiovascular mortality risk. There are additional metabolic obesity complications including type 2 diabetes mellitus, dyslipidemia, hypertension, obstructive sleep apnea, and carotid artery disease. Other medical conditions as above. Regarding his lifestyle, as above, he has no significant behavioral contributors; his physical activity is non-existent. Overall, it is clear that his quality of life is moderately compromised by his weight. It is likely a combination of weight loss therapies will be needed. He appears motivated today. Plan: -- Based on the severity and resistance of the obesity to more conservative weight loss approaches, I believe a combination of behavioral and pharmacological intervention is the best and most appropriate usp therapeutic option. The patient is extremely reluctant to have bariatric surgery as his had complications from bariatric surgery. -- We discussed several strategies to track food intake and increase mindfulness around eating. He was co (more content not included)... [facility] 05-07-2023 History of Present illness Narrative BMI Obesity Medicine Consult 05/07/23 Consultation requested by Ben Zimmerman DO for an opinion regarding Obesity. My final recommendations will be communicated back to the requesting physician by way of shared Medical record or letter to requesting physician via [place] mail. Patient Summary: Loren Porter is a 62 year old male with obesity who presents to the [facility] for an initial evaluation of his obesity and is interested in non-surgical weight loss approaches. Primary reason for wanting obesity treatment : improve overall health Overall goal: 220 lbs Weight History: He reports a family history of obesity and adult onset weight gain. He states his weight gain is related to the following factors, including inactivity in the last 2 years after having a right sided weakness secondary to a stroke in 2020, and lifestyle changes Weight Graph: (please see graph scanned in chart) Obesigenic Medications: No Diet: Quality of diet: 24hr recall suggests healthy diet, has 3 meals a day, low carb diet, and does not skip meals B- egg sandwich L-chicken breast sandwich D-prepared meal Drinks water and diet 2 drinks diet drinks Characterization of diet:Structured. Health Management Consultant of impaired eating habits:denies Eating Disorder no Diet History: Past weight loss attempts? dietitian. Exercise: Regular exercise: No Strength/resistance exercise: limited due to low back pain Barriers to regular exercise? See above Work-related activity:retired x 20 years. ?Sleep: Duration: 8 hours. JORDAN YES ; CPAP YES Quality:adequate, Generally restful:Sleep-wake cycle disruption:No ??Stress: Some, Cause:Personal Obesity Related Comorbidities: Prior Weight Loss Surgery:No PMH: T2DM x 20 years, hypertension, hypothyroidism, JORDAN, hyperlipidemia, kidney stones, and CVA. No history of IA, COPD, asthma, peptic ulcer dx, pancreatitis, cancer, DVT, PE, gout, CKD, glaucoma, smoking history (quit 2017) PSH: bilateral TKR, stent abdominal aorta, left CEA, hernia repair, and cholecystectomy Obesity ROS/ FHx GEN: Fatigue:No CV: h/o palpitations/cardiac arrhythmia, CP:No PULM: Asthma:No GI: GERD:No; Gallstones: S/P cholecystectomy; Fatty liver disease:No; H/o hernia:YES MSK: Joint Pain:No : Nephrolithiasis:YES; Stress incontinence:N/A Symptoms of PCOS(women):N/A No history of cold intolerance,heat,intolerance,poly dypsia, polyuria, and polyphagia NEURO: Migraines/BARROW:+ cluster headaches; H/o seizures: No Glaucoma:No; Cataracts No Symptoms of pseudotumor cerebri:No The physical systems reviewed reveal no pathological symptoms that are pertinent to this visit No family history on file. PREV: PAP n/a, Mammogram n/a and Colonoscopy Not UTD Social History Occupation: retired PE BP 120/62 NAD. Central adiposity. Waist circumference not measured. No acanthosis, no lipoma, no pallor. No supraclavicular adiposity. No dorsal adiposity. PERRL. Tongue moist, pink. + OP crowding. Good dental hygiene RRR nl. s1s2 CTAB Abdomen Soft Large pannus; No striae. NT/ND. No peripheral edema Results: reviewed with the patient No visits with results within 3 Month(s) from this visit. Latest known visit with results is: No results found for any previous visit. Impression: Loren Porter is a 62 year old male with Class III obesity (There is no height or weight on file to calculate BMI.) who has adult onset obesity with gradual weight gain despite several weight loss attempts. The causes of his obesity are multifactorial, biological, psychological and social and environmental. Specific factors include suboptimal physical activity. He has several weight-related medical comorbidities which increase his cardiovascular mortality risk. There are additional metabolic obesity complications including type 2 diabetes mellitus, dyslipidemia, hypertension, obstructive sleep apnea, and carotid artery disease. Other medical conditions as above. Regarding his lifestyle, as above, he has no significant behavioral contributors; his physical activity is non-existent. Overall, it is clear that his quality of life is moderately compromised by his weight. It is likely a combination of weight loss therapies will be needed. He appears motivated today. Plan: -- Based on the severity and resistance of the obesity to more conservative weight loss approaches, I believe a combination of behavioral and pharmacological intervention is the best and most appropriate usp therapeutic option. The patient is extremely reluctant to have bariatric surgery as his had complications from bariatric surgery. -- We discussed several strategies to track food intake and increase mindfulness around eating. He was counseled on the moderate protein, low carbohydrate diet, and the Mediterranean heart healthy guidelines. He will be referred to dietitian for further education on the Mediterranean heart healthy guidelines. -- Should try and discontinue all diet drinks in an effort to help promote additional weight loss. -- He will have a discussion with his curriculum development coordinator to potentially switch to tirzepatide 15 mg weekly dose to be used in place of liraglutide 1.8 mg daily dose. Other options would include semaglutide 2.0, liraglutide 3.0, and the extended release form of naltrexone/bupropion. Tirzepatide can provide not only excellent diabetic control but may promote additional weight loss not seen with the current dose of liraglutide at the 1.8 mg dose which is effectively controlling his diabetes. He is also on Lantus, NovoLog, metformin, and Actos. -- Encouraged the patient to improve his physical activity. Although cardiovascular exercise is most beneficial for weight loss initially, we discussed healthy muscle from a combination of resistance training and cardiovascular exercise is the best usp plan. An overall goal of 200 minutes per week of exercise has been effective in weight loss and maintenance. -- Follow-up visit in 3 months for management of above interventions I spent a total of 45 minutes on the date of the service which included [id number] patient care, completing clinical documentation, obtaining and/or reviewing separately obtained history, performing a medically appropriate examination, counseling and educating the patient/family/caregiver, ordering medications, tests, or procedures, and communicating with other HCPs (not separately reported). Minda Delcid DO documented in this encounter [facility] 01-29-2023 Note HNO ID: [id number] Author: Nona Zambrano MD Service: ? Author Type: Physician Type: Progress Notes Filed: 01/29/2023 12:38 PM Note Text: SPINE SURGERY OUTPATIENT CONSULT This is an in-person visit. SERVICE DATE: 01/29/2023 PCP: No primary care provider on file. REFERRING PROVIDER: Ben Zimmerman [address] [facility] [id number] Consult requested for an opinion regarding the evaluation and treatment of back pain. My final impression and recommendations will be communicated back to the requesting physician by way of the shared medical record or letter via US mail. SUBJECTIVE Loren Porter is a 62 year old male presenting with spouse for back pain. States that pain is distal lumbar region, and that when he gets out of bed the pain is exacerbated. Pt denies radiating pain to LE. Pt claims to have gone to pain management and PT with no significant positive improvement on lifestyle. CHIEF COMPLAINT: LB pain HISTORY OF PRESENT ILLNESS PRECIPITATING EVENT: None DURATION OF SYMPTOMS: Greater Than 1 Year PAIN EVALUATION 01/28/2023 1624 01/29/2023 0938 Pain Level: 8 7 Pain Location: Back-Lower Back-Lower Description: Aching;Crushing Aching;Pressure Duration Amount of Time: 24 -- Duration Units: Hours Years Frequency: Continuous Continuous Intervention/Comfort measure: Medication;Reposition;Relaxation; Cold;Heat;Positioning Medication;Therapeutic techniques-CPRP injections from pain management Pain Radiation: Pain does not radiate Aggravating Factors: Standing, Walking Alleviating Factors: Lying down, leaning Pain Ratio: N/A DERMATOMAL DISTRIBUTION: NA AMBULATORY STATUS: Independent Community Distances ANTIPLATELET OR ANTICOAGULATION STATUS: Yes, Plavix PREVIOUS CONSERVATIVE TREATMENTS: PREVIOUS SPINAL SURGERY: None There is no problem list on file for this patient. No past medical history on file. No past surgical history on file. No family history on file. ALLERGIES No Known Allergies MEDICATIONS: ARIPiprazole (ABILIFY) 5 mg tablet Take 1 tablet by mouth every afternoon. clopidogrel (PLAVIX) 75 mg tablet Take 1 tablet by mouth once daily. furosemide (LASIX) 20 mg tablet Take 1 tablet by mouth every afternoon. metFORMIN ER (GLUCOPHAGE XR) 500 mg 24 hr tablet Take 500 mg by mouth twice daily. Takes two tablets by mouth twice daily atorvastatin (LIPITOR) 40 mg tablet Take 40 mg by mouth once daily. liraglutide (VICTOZA 3-FRANKLIN SUBCUTANEOUS) Inject subcutaneously. insulin glargine,hum.rec.anlog (LANTUS SUBCUTANEOUS) Inject subcutaneously. insulin lispro (HUMALOG PEN SUBCUTANEOUS) Inject subcutaneously. levothyroxine 200 mcg cap Take 200 mcg by mouth daily before breakfast. celecoxib (CELEBREX) 100 mg capsule take 1 capsule by mouth once daily if needed chlorthalidone (HYGROTON) 25 mg tablet Take 1 tablet by mouth once daily. ergocalciferol 50,000 unit capsule (VITAMIN D2, DRISDOL) Take 1 capsule by mouth one time a week. pioglitazone (ACTOS) 45 mg tablet Take 1 tablet by mouth once daily. vilazodone (VIIBRYD) 40 mg tablet take 1 tablet by mouth every morning (AFTER COMPLETING 10MG AND 20MG) metoprolol succinate ER (TOPROL XL) 25 mg 24 hr tablet Take 1 tablet by mouth once daily. lisinopril (ZESTRIL) 40 mg tablet Take 1 tablet every day by oral route for 90 days. gabapentin (NEURONTIN) 300 mg capsule Take 300 mg by mouth. Lacto no.06-Iyrnfw-YTJ-larch 25B cell-25B cell-50 mg cap Take 1 tablet by mouth once daily. Lacto no.51-Bjlbpr-QYB-larch 25B cell-25B cell-50 mg cap Take 2 tablets twice a day by oral route for 90 days. (Patient not taking: Reported on 01/29/2023) atorvastatin (LIPITOR) 80 mg tablet Take 1 tablet by mouth once daily. (Patient not taking: Reported on 01/29/2023) REVIEW OF SYSTEMS: GENERAL: No weight loss or malaise MUSCULOSKELETAL: Negative for joint pain, swelling or muscle pain NEURO: No history of headaches, syncope, paralysis, seizures or tremors Patient Entered Questionnaires Spine Questions 12/15/2022 01/28/2023 Pain Location: Lower back Lower back Pain Duration: 1 to 5 years - Pain over last 6 months: Every day or nearly every day in the past 6 months - Symptoms from neck/cervical spine: Yes No Employment Status: Disabled for reasons other than back pain - Involved in law suit/legal claim: No - Spine Red Flags 12/15/2022 Any type of cancer: No Unexplained fever: No Bowel or bladder disfunction: No Unintentional weight loss: No Osteoporosis: No Neck Questionnaires 12/15/2022 Benzel Modified JOAQUÍN Score 14 (A lower score indicates increased pain and issues.) PROMIS Score Percentiles Physical Health 12/15/2022 01/28/2023 Physical Function Percentile 3 2 Sleep Percentile 34 62 Fatigue Percentile 16* 38 Pain Interference Percentile 1 1 PROMIS SOCIAL ROLE SCORE 12/15/2022 01/28/2023 Social Role Satisfaction Percentile 2 12 PROMIS Global Health Scale 12/15/2022 Phy (more content not included)... [facility] 01-29-2023 History of Present illness Narrative Images from the original note were not included. SPINE SURGERY OUTPATIENT CONSULT This is an in-person visit. SERVICE DATE: 01/29/2023 PCP: No primary care provider on file. REFERRING PROVIDER: Ben Zimmerman [address] [facility] [id number] Consult requested for an opinion regarding the evaluation and treatment of back pain. My final impression and recommendations will be communicated back to the requesting physician by way of the shared medical record or letter via US mail. SUBJECTIVE Loren Porter is a 62 year old male presenting with spouse for back pain. States that pain is distal lumbar region, and that when he gets out of bed the pain is exacerbated. Pt denies radiating pain to LE. Pt claims to have gone to pain management and PT with no significant positive improvement on lifestyle. CHIEF COMPLAINT: LB pain HISTORY OF PRESENT ILLNESS PRECIPITATING EVENT: None DURATION OF SYMPTOMS: Greater Than 1 Year PAIN EVALUATION 01/28/2023 1624 01/29/2023 0938 Pain Level: 8 7 Pain Location: Back-Lower Back-Lower Description: Aching;Crushing Aching;Pressure Duration Amount of Time: 24 -- Duration Units: Hours Years Frequency: Continuous Continuous Intervention/Comfort measure: Medication;Reposition;Relaxation; Cold;Heat;Positioning Medication;Therapeutic techniques-CPRP injections from pain management Pain Radiation: Pain does not radiate Aggravating Factors: Standing, Walking Alleviating Factors: Lying down, leaning Pain Ratio: N/A DERMATOMAL DISTRIBUTION: NA AMBULATORY STATUS: Independent Community Distances ANTIPLATELET OR ANTICOAGULATION STATUS: Yes, Plavix PREVIOUS CONSERVATIVE TREATMENTS: PREVIOUS SPINAL SURGERY: None There is no problem list on file for this patient. No past medical history on file. No past surgical history on file. No family history on file. ALLERGIES No Known Allergies MEDICATIONS: ARIPiprazole (ABILIFY) 5 mg tablet Take 1 tablet by mouth every afternoon. clopidogrel (PLAVIX) 75 mg tablet Take 1 tablet by mouth once daily. furosemide (LASIX) 20 mg tablet Take 1 tablet by mouth every afternoon. metFORMIN ER (GLUCOPHAGE XR) 500 mg 24 hr tablet Take 500 mg by mouth twice daily. Takes two tablets by mouth twice daily atorvastatin (LIPITOR) 40 mg tablet Take 40 mg by mouth once daily. liraglutide (VICTOZA 3-FRANKLIN SUBCUTANEOUS) Inject subcutaneously. insulin glargine,hum.rec.anlog (LANTUS SUBCUTANEOUS) Inject subcutaneously. insulin lispro (HUMALOG PEN SUBCUTANEOUS) Inject subcutaneously. levothyroxine 200 mcg cap Take 200 mcg by mouth daily before breakfast. celecoxib (CELEBREX) 100 mg capsule take 1 capsule by mouth once daily if needed chlorthalidone (HYGROTON) 25 mg tablet Take 1 tablet by mouth once daily. ergocalciferol 50,000 unit capsule (VITAMIN D2, DRISDOL) Take 1 capsule by mouth one time a week. pioglitazone (ACTOS) 45 mg tablet Take 1 tablet by mouth once daily. vilazodone (VIIBRYD) 40 mg tablet take 1 tablet by mouth every morning (AFTER COMPLETING 10MG AND 20MG) metoprolol succinate ER (TOPROL XL) 25 mg 24 hr tablet Take 1 tablet by mouth once daily. lisinopril (ZESTRIL) 40 mg tablet Take 1 tablet every day by oral route for 90 days. gabapentin (NEURONTIN) 300 mg capsule Take 300 mg by mouth. Lacto no.54-Dmiwjm-NAV-larch 25B cell-25B cell-50 mg cap Take 1 tablet by mouth once daily. Lacto no.12-Jmxucu-GUK-larch 25B cell-25B cell-50 mg cap Take 2 tablets twice a day by oral route for 90 days. (Patient not taking: Reported on 01/29/2023) atorvastatin (LIPITOR) 80 mg tablet Take 1 tablet by mouth once daily. (Patient not taking: Reported on 01/29/2023) REVIEW OF SYSTEMS: GENERAL: No weight loss or malaise MUSCULOSKELETAL: Negative for joint pain, swelling or muscle pain NEURO: No history of headaches, syncope, paralysis, seizures or tremors Patient Entered Questionnaires Spine Questions 12/15/2022 01/28/2023 Pain Location: Lower back Lower back Pain Duration: 1 to 5 years - Pain over last 6 months: Every day or nearly every day in the past 6 months - Symptoms from neck/cervical spine: Yes No Employment Status: Disabled for reasons other than back pain - Involved in law suit/legal claim: No - Spine Red Flags 12/15/2022 Any type of cancer: No Unexplained fever: No Bowel or bladder disfunction: No Unintentional weight loss: No Osteoporosis: No Neck Questionnaires 12/15/2022 Benzel Modified JOAQUÍN Score 14 (A lower score indicates increased pain and issues.) PROMIS Score Percentiles Physical Health 12/15/2022 01/28/2023 Physical Function Percentile 3 2 Sleep Percentile 34 62 Fatigue Percentile 16* 38 Pain Interference Percentile 1 1 PROMIS SOCIAL ROLE SCORE 12/15/2022 01/28/2023 Social Role Satisfaction Percentile 2 12 PROMIS Global Health Scale 12/15/2022 Physical Health Percentile 4 Mental Health Percentile 3 Percentiles provide an indication of how the patient's score ranks in relation to the general population. Higher percentile rankings indicate better function/quality of life. 50th percentile is the average of the general population and indicates half of respondents had a worse score. Depression Screening: PHQ-9 12/15/2022 01/28/2023 Score 11 5 PHQ-9 Self-harm Question 12/15/2022 01/28/2023 Thoughts that you would be better off , or of hurting yourself in some way 0 0 PHQ-9 Self-Harm (Item 9) response options: 0 Not at all 1 Several days 2 More than half the days 3 Nearly every day PHQ-9 Levels: 0-4 No to mild depression 5-9 Mild depression 10-14 Moderate depression 15-19 Moderately severe depression 20-27 Severe depression OBJECTIVE: PHYSICAL EXAM There were no vitals taken for this visit. GENERAL APPEARANCE: Morbidly obese. NEURO PSYCH: Patient oriented to person, place, and time. Mood pleasant. Benign affect. MUSCULOSKELETAL VISUAL INSPECTION CERVICAL: WNL THORACIC: WNL LUMBAR: WNL MOTOR: 5/5 in all muscle groups. SENSORY: Normal sensory exam GAIT: Normal. NEURO TESTS: None DATA REVIEW No additional images reviewed today ASSESSMENT/PLAN (M48.061) Degenerative lumbar spinal stenosis (M54.50, G89.29) Chronic midline low back pain without sciatica Loren Porter is not a candidate for surgery at this time. 1. Consults: Bariatric Consult for BMI level > 40 2. Follow up: Following above Imaging Ordered: None The documentation for this note was completed by Madalyn Starks acting as scribe for Nona Zambrano MD. January 29, 2023 10:08 AM. I agree with the Chief Complaint, ROS, and Past Histories independently gathered by the clinical client support manager and the remaining scribed note accurately describes my personal service to the patient. SIGNATURE: Nona Zambrano MD PATIENT NAME: Loren Porter DATE: January 29, 2023 TIME: 10:02 AM PAGER: documented in this encounter [facility] 01-18-2023 Miscellaneous Notes Patient has not responded to lumbar spine interventions and is now interested in surgical consultation. Updated MRI lumbar spine is available. Spine Surgery consult placed. Ben Zimmerman DO Patient is requesting a surgical consult since nothing else to offer. Do you want him to cancel 01/21 appointment? documented in this encounter [facility] 01-03-2023 Note HNO ID: [id number] Author: Carina Jo RT(Karla) Service: ? Author Type: Refuse Collector Type: Progress Notes Filed: 01/03/2023 10:03 AM Note Text: Radiology Service Progress Note PATIENT NAME: Loren Porter DATE OF SERVICE: January 03, 2023 TIME: 10:02 AM PATIENT IDENTITY VERIFICATION COMPLETED USING TWO (2) IDENTIFIERS: Name and Date of confirmed by patient verbally and Name and Date of confirmed by identification band. FALL SCREENING: Has the patient had 2 falls in the last year or 1 fall with injury or currently using an Ambulatory Assistive Device (Walker, Cane, Wheelchair, Crutches, etc.)? No PATIENT GENDER DATA: Male PATIENT RELEVANT IMPLANT DATA REVIEWED: Yes RADIOLOGY DEPARTMENT: MR; Exam(s) Completed: Spine: Lumbar spine PERIPHERAL IV DATA: Not applicable SIGNED BY: RT Ernesto(Karla) January 03, 2023 10:02 AM [facility] 01-03-2023 History of Present illness Narrative Radiology Service Progress Note PATIENT NAME: Loren Porter DATE OF SERVICE: January 03, 2023 TIME: 10:02 AM PATIENT IDENTITY VERIFICATION COMPLETED USING TWO (2) IDENTIFIERS: Name and Date of confirmed by patient verbally and Name and Date of confirmed by identification band. FALL SCREENING: Has the patient had 2 falls in the last year or 1 fall with injury or currently using an Ambulatory Assistive Device (Walker, Cane, Wheelchair, Crutches, etc.)? No PATIENT GENDER DATA: Male PATIENT RELEVANT IMPLANT DATA REVIEWED: Yes RADIOLOGY DEPARTMENT: MR; Exam(s) Completed: Spine: Lumbar spine PERIPHERAL IV DATA: Not applicable SIGNED BY: RT Ernesto(R) January 03, 2023 10:02 AM documented in this encounter [facility] 12-16-2022 Note HNO ID: [id number] Author: RT John(R) Service: ? Author Type: Technologist Type: Progress Notes Filed: 12/16/2022 12:30 PM Note Text: Radiology Service Progress Note PATIENT NAME: Loren Porter DATE OF SERVICE: December 16, 2022 TIME: 12:30 PM PATIENT IDENTITY VERIFICATION COMPLETED USING TWO (2) IDENTIFIERS: Name and Date of confirmed by patient verbally. FALL SCREENING: Has the patient had 2 falls in the last year or 1 fall with injury or currently using an Ambulatory Assistive Device (Walker, Cane, Wheelchair, Crutches, etc.)? No PATIENT GENDER DATA: Male PATIENT RELEVANT IMPLANT DATA REVIEWED: Not Applicable RADIOLOGY DEPARTMENT: General X-ray: Exam(s) Completed: Spine X-Ray(s): Lumbar AP / LAT / L5-S1 / FLEX-EXT PERIPHERAL IV DATA: Not applicable SIGNED BY: RT John(R) December 16, 2022 12:[address] [facility] 12-16-2022 Note HNO ID: [id number] Author: Ben Zimmerman, DO Service: ? Author Type: Physician Type: Progress Notes Filed: 12/21/2022 4:18 PM Note Text: [facility] [place] [facility] - Medical Spine Initial Exam SUBJECTIVE HISTORY OF PRESENT ILLNESS: Loren Porter is a 62 year old male who presents with a chief complaint of low back pain and is seen in consultation requested by Dr. Warner Welch for an opinion regarding lumbar spine. My final recommendations will be communicated back to the requesting physician by way of shared medical record or letter via US mail. Patient reports symptoms for around 2 years, but has progressively worsened. Patient had a CVA and while recovering he began having pain that he thought was his hips and he saw Ortho and X-rays showed aortic aneurysm. States he had a stent for that. Then was told problem was not his hips, but his spine instead. He then tried PT. Then saw Pain management and had RFA, but it only helped for 10 days so repeat RFA was not approved. He then tried TENS unit without benefit. Pain is distal midline lumbar region. Denies radiating pain to LE. Does report numbness in RLE posterior/medially into the foot. Denies weakness. Denies bowel/bladder incontinence or saddle anesthesia. Patient reports his function and quality of life are limited by pain. The pain is currently 8/10. The pain can get to 10/10 at the highest and 3-4/10 at the lowest with lying down. PAIN EVALUATION 12/15/20222103 Pain Level: 8 Pain Location: Back-Lower Description: Aching;Crushing Duration Amount of Time: 20 Duration Units: Hours Frequency: Continuous Intervention/Comfort measure: Medication;Reposition;Relaxation; Distractions;Positioning;Spinal Cord Stimulator Pain Radiation: As above Aggravating Factors: Standing, walking Alleviating Factors: Lying down better than Sitting Standing/walking in pool Leaning on grocery cart Current Treatment: Medications Celebrex 100 mg or Ibuprofen 800 mg daily - minimal relief Gabapentin 300 mg BID - minimal benefit THC edibles make the pain numb, help him sleep Therapies Pool exercise arthritis class twice weekly, Seated cardio class Prior Treatment: Medications Therapies PT in 2021 for 6 weeks, last in April 2022 - made his pain worse Chiropractic without benefit Acupuncture with chiropractor Prior spine interventions: Dr. Alberto Mcgrath All procedures only provided mild temporary relief. -06/19/22 BL IA SI joint CSI - 30 mg Kenalog, 2 mL 0.025% Bupivacaine into each side (Versed 3 mg) -05/27/22 BL L4 TFESI - 60 mg Depomedrol, 2 m L 0.5% Lidocaine divided into each side (Versed 3 mg) -01/14/22 BL L3, L4 MB and L5 DR RFA for the BL L4-5 and L5-S1 facet joints (90 degrees Celsius for 90 seconds, 2 sessions at each needle), no steroid (Versed 3 mg, Fentanyl 50 mcg) - helped for 10 days -12/31/21 BL L3, L4 MB and L5 DR blocks - 0.5 mL of 0.5% bupivacaine at each level -12/19/21 BL L3, L4 MB and L5 DR - 0.5 mL of 0.5% bupivacaine at each level -11/12/21 BLI IA SI joint CSI - 30 mg Kenalog, 2 mL 0.025% Bupivacaine into each side (Versed 3 mg) -10/30/21 BL L4 TFESI - 60 mg Depomedrol, 2 m L 0.5% Lidocaine divided into each side (Versed 3 mg) -10/16/21 L4-5 ILESI - 60 mg Depomedrol and 4 mL 0.5% Lidocaine (Versed 3 mg) Prior spine surgery: Denies Previously treated by: -Pain Management Dr. Sheriff Mcgrath in [place]. Last visit around August 2022. 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 Litigation: No Workers' Compensation: No YELLOW AND BLUE FLAGS No-Neg Attitude; Back Pain is Disabling No-Avoiding Activity (for Fear of Pain) YES-Depression or Anxiety Disorders No-Social Problems No-Substance Use Disorder No-Job Dissatisfaction No-Financial Disincentives Patient Entered Questionnaires Spine Questions 12/15/2022 Pain Location: Lower back Pain Duration: 1 to 5 years Pain over last 6 months: Every day or nearly every day in the past 6 months Symptoms from neck/cervical spine: Yes Employment Status: Disabled for reasons other than back pain Involved in law suit/legal claim: No Spine Red Flags 12/15/2022 Any type of cancer: No Unexplained fever: No Bowel or bladder disfunction: No Unintentional weight loss: No Osteoporosis: No Neck Questionnaires 12/15/2022 Benzel Modified JOAQUÍN Score 14 (A lower score indicates increased pain and issues. (more content not included)... [facility] 12-16-2022 History of Present illness Narrative Images from the original note were not included. [facility] - Medical Spine Initial Exam SUBJECTIVE HISTORY OF PRESENT ILLNESS: Loren Porter is a 62 year old male who presents with a chief complaint of low back pain and is seen in consultation requested by Dr. Warner Welch for an opinion regarding lumbar spine. My final recommendations will be communicated back to the requesting physician by way of shared medical record or letter via US mail. Patient reports symptoms for around 2 years, but has progressively worsened. Patient had a CVA and while recovering he began having pain that he thought was his hips and he saw Ortho and X-rays showed aortic aneurysm. States he had a stent for that. Then was told problem was not his hips, but his spine instead. He then tried PT. Then saw Pain management and had RFA, but it only helped for 10 days so repeat RFA was not approved. He then tried TENS unit without benefit. Pain is distal midline lumbar region. Denies radiating pain to LE. Does report numbness in RLE posterior/medially into the foot. Denies weakness. Denies bowel/bladder incontinence or saddle anesthesia. Patient reports his function and quality of life are limited by pain. The pain is currently 8/10. The pain can get to 10/10 at the highest and 3-4/10 at the lowest with lying down. PAIN EVALUATION 12/15/20222103 Pain Level: 8 Pain Location: Back-Lower Description: Aching;Crushing Duration Amount of Time: 20 Duration Units: Hours Frequency: Continuous Intervention/Comfort measure: Medication;Reposition;Relaxation; Distractions;Positioning;Spinal Cord Stimulator Pain Radiation: As above Aggravating Factors: Standing, walking Alleviating Factors: Lying down better than Sitting Standing/walking in pool Leaning on grocery cart Current Treatment: Medications Celebrex 100 mg or Ibuprofen 800 mg daily - minimal relief Gabapentin 300 mg BID - minimal benefit THC edibles make the pain numb, help him sleep Therapies Pool exercise arthritis class twice weekly, Seated cardio class Prior Treatment: Medications Therapies PT in 2021 for 6 weeks, last in April 2022 - made his pain worse Chiropractic without benefit Acupuncture with chiropractor Prior spine interventions: Dr. Alberto Mcgrath All procedures only provided mild temporary relief. -06/19/22 BL IA SI joint CSI - 30 mg Kenalog, 2 mL 0.025% Bupivacaine into each side (Versed 3 mg) -05/27/22 BL L4 TFESI - 60 mg Depomedrol, 2 m L 0.5% Lidocaine divided into each side (Versed 3 mg) -01/14/22 BL L3, L4 MB and L5 DR RFA for the BL L4-5 and L5-S1 facet joints (90 degrees Celsius for 90 seconds, 2 sessions at each needle), no steroid (Versed 3 mg, Fentanyl 50 mcg) - helped for 10 days -12/31/21 BL L3, L4 MB and L5 DR blocks - 0.5 mL of 0.5% bupivacaine at each level -12/19/21 BL L3, L4 MB and L5 DR - 0.5 mL of 0.5% bupivacaine at each level -11/12/21 BLI IA SI joint CSI - 30 mg Kenalog, 2 mL 0.025% Bupivacaine into each side (Versed 3 mg) -10/30/21 BL L4 TFESI - 60 mg Depomedrol, 2 m L 0.5% Lidocaine divided into each side (Versed 3 mg) -10/16/21 L4-5 ILESI - 60 mg Depomedrol and 4 mL 0.5% Lidocaine (Versed 3 mg) Prior spine surgery: Denies Previously treated by: -Pain Management Dr. Sheriff Mcgrath in [place]. Last visit around August 2022. 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 Litigation: No Workers' Compensation: No YELLOW & BLUE FLAGS No-Neg Attitude; Back Pain is Disabling No-Avoiding Activity (for Fear of Pain) YES-Depression or Anxiety Disorders No-Social Problems No-Substance Use Disorder No-Job Dissatisfaction No-Financial Disincentives Patient Entered Questionnaires Spine Questions 12/15/2022 Pain Location: Lower back Pain Duration: 1 to 5 years Pain over last 6 months: Every day or nearly every day in the past 6 months Symptoms from neck/cervical spine: Yes Employment Status: Disabled for reasons other than back pain Involved in law suit/legal claim: No Spine Red Flags 12/15/2022 Any type of cancer: No Unexplained fever: No Bowel or bladder disfunction: No Unintentional weight loss: No Osteoporosis: No Neck Questionnaires 12/15/2022 Benzel Modified JOAQUÍN Score 14 (A lower score indicates increased pain and issues.) PROMIS Score Percentiles Physical Health 12/15/2022 Physical Function Percentile 3 Sleep Percentile 34 Fatigue Percentile 16* Pain Interference Percentile 1 PROMIS SOCIAL ROLE SCORE 12/15/2022 Social Role Satisfaction Percentile 2 PROMIS Global Health Scale 12/15/2022 Physical Health Percentile 4 Mental Health Percentile 3 Percentiles provide an indication of how the patient's score ranks in relation to the general population. Higher percentile rankings indicate better function/quality of life. 50th percentile is the average of the general population and indicates half of respondents had a worse score. Depression Screening: PHQ-9 12/15/2022 Score 11 PHQ-9 Self Harm 12/15/2022 Question 9 Not at all PHQ-9 Self-Harm (Item 9) response options: 0 Not at all 1 Several days 2 More than half the days 3 Nearly every day PHQ-9 Levels: 0-4 No - mild depression 5-9 Mild depression 10-14 Moderate depression 15-19 Moderately severe depression 20-27 Severe depression There is no problem list on file for this patient. No past medical history on file. No past surgical history on file. No family history on file. ALLERGIES Not on File CURRENT MEDICATIONS: Lacto no.10-Rnpdle-TFI-larch 25B cell-25B cell-50 mg cap Take 1 tablet by mouth once daily. Lacto no.01-Vnyigv-YJC-larch 25B cell-25B cell-50 mg cap Take 2 tablets twice a day by oral route for 90 days. atorvastatin (LIPITOR) 80 mg tablet Take 1 tablet by mouth once daily. liraglutide (VICTOZA 3-FRANKLIN SUBCUTANEOUS) Inject subcutaneously. insulin glargine,hum.rec.anlog (LANTUS SUBCUTANEOUS) Inject subcutaneously. insulin lispro (HUMALOG PEN SUBCUTANEOUS) Inject subcutaneously. levothyroxine 200 mcg cap Take 200 mcg by mouth daily before breakfast. celecoxib (CELEBREX) 100 mg capsule take 1 capsule by mouth once daily if needed chlorthalidone (HYGROTON) 25 mg tablet Take 1 tablet by mouth once daily. ergocalciferol 50,000 unit capsule (VITAMIN D2, DRISDOL) Take 1 capsule by mouth one time a week. pioglitazone (ACTOS) 45 mg tablet Take 1 tablet by mouth once daily. vilazodone (VIIBRYD) 40 mg tablet take 1 tablet by mouth every morning (AFTER COMPLETING 10MG AND 20MG) metoprolol succinate ER (TOPROL XL) 25 mg 24 hr tablet Take 1 tablet by mouth once daily. lisinopril (ZESTRIL) 40 mg tablet Take 1 tablet every day by oral route for 90 days. gabapentin (NEURONTIN) 300 mg capsule Take 300 mg by mouth. REVIEW OF SYSTEMS: 14 systems reviewed and otherwise negative unless mentioned above. OBJECTIVE: PHYSICAL EXAM BP 104/66 Pulse 70 Wt (!) 151.5 kg (334 lb) SpO2 99% GENERAL APPEARANCE: Overweight, well developed, and no apparent distress. NEURO PSYCH: Patient oriented to person, place, and time. Mood pleasant. Benign affect. CARDIOVASCULAR: Palpable pulses. No edema noted. RESPIRATORY: non-labored breathing, no grunting/flaring/retractions SKIN: Head, neck, trunk, and extremities dry, intact and without lesions. MUSCULOSKELETAL VISUAL INSPECTION Posture: normal posture and alignment PALPATION: No tenderness to palpation SPINE ROM: LUMBAR ROM: Flexion and Extension full without pain, Rotation ok. MUSCLE BULK: Normal and symmetrical in the upper & lower extremities. MUSCLE TONE: Normal. MOTOR: 5/5 bilateral LE hip flexion, knee flexion, knee extension, ankle dorsiflexion, plantarflexion, EHL. SENSORY: sensation intact to light touch REFLEXES: 2+ bilateral patella; 1+ BL achilles; Unable to elicit medial hamstring BL. LONG TRACT SIGNS: No clonus. GAIT: Non-antalgic. Able to stand on toes and heels. Able to perform tandem gait. PERIPHERAL JOINT ROM: HIP ROM: WFL STRAIGHT LEG TEST: negative bilateral Hip: Negative MINDI PAYNEER SI joint: Negative Brandyn Lumbar facet loading on left side caused some pain midline Extremity: wearing compression socks Data Review: All images/reports listed below were personally reviewed by me unless otherwise indicated. [facility] records independently reviewed Imaging and outside records independently reviewed 08/14/21 MRI lumbar spine wo contrast, [facility] report: Bony alignment is normal. There is disc desiccation at the L3-4 through the L5-S1. There are no fractures seen. The conus medullaris terminates normally. There are no paraspinous masses seen. L1-2: L2-3: Within normal limits. L3-4: There is a small central annular tear with facet hypertrophy. Old neural foraminal narrowing is seen without central canal stenosis. L4-5 there is facet hypertrophy and ligamentum flavum hypertrophy with a diffuse disc bulge. Moderate neural foraminal narrowing is seen and there is mild to moderate narrowing of the central canal L5-S1: There is a diffuse disc bulge with facet hypertrophy. There is no significant neural foraminal or central canal stenosis IMPRESSION: Multilevel degenerative changes as described above. There is moderate neural foraminal narrowing bilaterally and mild to moderate narrowing of the central canal at the L4-5 level ASSESSMENT/PLAN DIAGNOSIS: M54.50, G89.29 Chronic midline low back pain without sciatica (primary encounter diagnosis) M48.061 Degenerative lumbar spinal stenosis R20.0 Numbness of right lower extremity E66.9 Obesity with serious comorbidity, unspecified classification, unspecified obesity type ASSESSMENT: Loren Porter is a 62 year old male with PMH of CVA without significant residual deficits, Aortic aneurysm, T2DM on insulin, Depression, presenting with chronic pain located distal midline lumbar region without radiating pain to LE. No significant neurologic deficits or myelopathic findings on exam. MRI lumbar spine report from outside describes moderate neural foraminal narrowing bilaterally and mild to moderate narrowing of the central canal at the L4-5 level, images requested. Pain has persisted despite PT, NSAIDs, Gabapentin, chiropractic, acupuncture. He has followed with outside Pain Management and had lumbar epidurals, MBB followed by RFA, and SI joint injections without significant benefit. Based on review of injections it does not seem like there would be any further procedures to offer. Discussed with patient that the report from his 2021 MRI lumbar does not describe anything that would necessarily require surgery. Will obtain XR and new MRI lumbar spine to evaluate for any worsening stenosis. In the meantime will refer him to the [facility] for assistance in weight loss management. Follow up after imaging. PLAN: 1) Imaging/Diagnostic Studies: -New XR and MRI lumbar spine ordered. -2021 MRI lumbar images requested from outside. -Imaging reviewed as above. 2) Therapy/Rehabilitation: -Activities and exercise as tolerated. 3) Pharmacological Management: -No changes 4) Spine/MSK Interventions: -Procedure reports requested from Dr. Mcgrath's office were received, reviewed, and entered in note above. 5) Consultations: -Bariatrics for weight loss management 6) Follow -up: -After MRI lumbar spine completed and received. Can be virtual. -Patient instructed to call/seek urgent medical care with worsening of symptoms or change of neurological status. 7) Future treatment considerations: -Spine Surgery consult if significant findings on new MRI, but if not then could consider consult to [facility]. SIGNATURE: Ben Zimmerman DO PATIENT NAME: Loren Porter DATE: December 16, 2022 TIME: 11:33 AM documented in this encounter [facility] 06-26-2022 Evaluation note Encounter Date Diagnosis Assessment Notes Jun, Sacroiliitis (ICD-10 - M46.1) Continue with current treatment plan Jun, Arthritis of sacroiliac joint (ICD-10 - M47.818) 61 year old male here for follow up status post bilateral sacroiliac joint injection under fluoroscopic guidance. Patient reports 70-80% pain relief as well as improved walking, standing and daily functions for 1 day following procedure. He voices continued complaints of low back pain today, as expected. He denies any lower extremity pain. Unfortunately the other treatment option is a sacral lateral branch RFA however his insurance company does not cover this. At this point I will order a TENS unit as needed to painful areas. I offered to refer him to a surgeon for consideration of sacral fusion, he states he is fearful of surgery at this point. He can continue Celebrex as well as topical OTC creams. Jun, Lumbosacral spondylosis (ICD-10 - M47.817) Stable. Patient denies lumbar pain Jun, Lumbar radiculopathy (ICD-10 - M54.16) Patient denies any lower extremity pain currently. Jun, Chronic pain (ICD-10 - G89.29) Continue with current treatment plan [facility] Other 01-05-2023 Evaluation note* Encounter Date Diagnosis Assessment Notes Treatment Notes Treatment Clinical Notes Jun, Sacroiliitis (ICD-10 - M46.1) Continue with current treatment plan Jun, Arthritis of sacroiliac joint (ICD-10 - M47.818) 61 year old male here for follow up status post bilateral L4 transforaminal epidural steroid injection under fluoroscopic guidance. Patient reports minimal pain relief or improved walking, standing and daily functions following procedure. He voices complaints of low back pain, denying radicular symptoms. Anatomy of spine discussed in detail with patient in regards to patients condition. Patient is a candidate for a bilateral sacral lateral nerve block under fluoroscopic guidance. Risks and benefits of procedure explained to patient; patient verbalizes understanding. Jun, Lumbosacral spondylosis (ICD-10 - M47.817) Stable. Patient denies lumbar pain Jun, Lumbar radiculopathy (ICD-10 - M54.16) Patient reports minimal pain relief of ncreased function following procedure Jun, Chronic pain (ICD-10 - G89.29) Continue with current treatment plan [facility] Other 12-06-2022 Evaluation note* Encounter Date Diagnosis Assessment Notes Treatment Notes Treatment Clinical Notes May, Neurogenic claudication due to lumbar spinal stenosis (ICD-10 - M48.062) Proceed with bilateral L4 transforaminal epidural steroid injection as a therapeutic and diagnostic injection. May, Lumbar radiculopathy (ICD-10 - M54.16) 61 year old male here for follow up to discuss chronic pain. He wast last seen 4 months ago. He voices complaints of axial low back pain. He notes feeling some relief with sitting and leaning forward for support while ambulating. He feels pain can negatively impact his ADLs and sleeping pattern. Pertinent imaging of the lumbar spine were reviewed and discussed in detail with the patient which showed moderate narrowing of the lumbar spinal canal, predominately at L4-5. Anatomy of spine as well as different treatment options were discussed in detail with patient in regards to patients condition. I recommend we proceed with a bilateral L4 transforaminal epidural steroid injection under fluoroscopic guidance. Risks and benefits of procedure explained to patient; patient verbalizes understanding. May, Lumbosacral spondylosis (ICD-10 - M47.817) Continue with current treatment plan. May, Chronic pain (ICD-10 - G89.29) Patient is encouraged to hold Plavix for 1 week prior to procedure, he verbalizes understanding. [facility] Other 08-25-2022 Evaluation note* Encounter Date Diagnosis Assessment Notes Treatment Notes Treatment Clinical Notes Jan, Lumbosacral spondylosis (ICD-10 - M47.817) 61 year old male here for follow up status post lumbar facet medial branch radiofrequency ablation bilaterally at L3, L4 as well as L5 dorsal ramus for denervation of L4-5, L5-S1 facet joint under fluoroscopic guidance. Patient reports 80% pain relief and increased function following procedure. He voices complaints of low back fatigue with prolonged standing. Overall, he appears to be doing well. I recommend he increase his activities as tolerated. He is counseled against any excessive bending or twisting. He is advised to call the office if his pain returns. Jan, Lumbar radiculopathy (ICD-10 - M54.16) Patient denies radicular symtpoms. Jan, Chronic pain (ICD-10 - G89.29) Continue with current treatment plan [facility] Other 08-04-2022 Evaluation note* Encounter Date Diagnosis Assessment Notes Treatment Notes Treatment Clinical Notes Jan, Lumbosacral spondylosis (ICD-10 - M47.817) 61 year old male here for follow up status post lumbar facet medial branch nerve block bilaterally at the L3 and L4 levels, as well as the L5 dorsal ramus under fluoroscopic guidance. Patient reports 90-100% pain relief as well as improved walking, standing and daily functions for 7-8 hours following procedure. He voices continued complaints of low back pain today, as expected. Anatomy of spine discussed in detail with patient in regards to patients condition. Patient is a candidate for a bilateral lumbar facet RFA under fluoroscopic guidance. Risks and benefits of procedure explained to patient; patient verbalizes understanding. Jan, Lumbar radiculopathy (ICD-10 - M54.16) Patient denies radicular symtpoms. Jan, Chronic pain (ICD-10 - G89.29) Continue with current treatment plan [facility] Other 07-21-2022 Evaluation note* Encounter Date Diagnosis Assessment Notes Treatment Notes Treatment Clinical Notes Dec, Sacroiliitis (ICD-10 - M46.1) Continue with current treatment plan. Dec, Lumbosacral spondylosis (ICD-10 - M47.817) 61 year old female here for follow up status post lumbar facet medial branch nerve block bilaterally at the L3 and L4 levels as well as the L5 dorsal ramus under fluoroscopic guidance. Patient reports 80-90% pain relief as well as improved walking, standing and daily functions for 7 hours following the procedure. He continues to complain of low back pain today as expected. I recommend proceeding with a second bilateral lumbar facet medial branch nerve block. Risks and benefits of procedure explained to patient; patient verbalizes understanding. Dec, Neurogenic claudication due to lumbar spinal stenosis (ICD-10 - M48.062) Stable. Dec, Lumbar radiculopathy (ICD-10 - M54.16) Stable. Dec, Chronic pain (ICD-10 - G89.29) Continue with current treatment plan [facility] Other 07-11-2022 Evaluation note* Encounter Date Diagnosis Assessment Notes Treatment Notes Treatment Clinical Notes Dec, Sacroiliitis (ICD-10 - M46.1) Continue with current treatment plan. Dec, Lumbosacral spondylosis (ICD-10 - M47.817) 61 year old male here for follow up for chronic pain. He voices complaints of axial low back pain. Pain is aggravated with standing and ambulation. He feels pain is negatively impacting his daily activities and sleeping pattern. Anatomy of spine as well as different treatment options were discussed in detail with patient in regards to patients condition. I recommend that we proceed with a bilateral lumbar facet medial branch nerve block under fluoroscopic guidance. Risks and benefits of procedure explained to patient; patient verbalizes understanding. Dec, Neurogenic claudication due to lumbar spinal stenosis (ICD-10 - M48.062) If his pain significantly persists or worsens, we can consider Vertiflex in the future. Dec, Lumbar radiculopathy (ICD-10 - M54.16) Stable. He voices no complaints of radicular pain today. If radicular symptoms return, we can repeat a lumbar epidural steroid injection in the future. Dec, Chronic pain (ICD-10 - G89.29) Continue with current treatment plan [facility] Other 06-14-2022 Evaluation note* Encounter Date Diagnosis Assessment Notes Treatment Notes Treatment Clinical Notes Nov, Sacroiliitis (ICD-10 - M46.1) 61 year old male here for follow up status post bilateral sacroiliac joint injection under fluoroscopic guidance. Patient reports 70-80% pain relief as well as improved walking, standing and daily functions following procedure. He voices complaints of muscular soreness and states his pain has significantly improved. Nov, Lumbosacral spondylosis (ICD-10 - M47.817) In the future if the pain persists, we can consider proceeding with a bilateral lumbar facet medial branch nerve block under fluoroscopic guidance. Nov, Neurogenic claudication due to lumbar spinal stenosis (ICD-10 - M48.062) If his pain significantly persists or worsens, we can consider Vertiflex in the future. Nov, Lumbar radiculopathy (ICD-10 - M54.16) Stable. He voices no complaints of radicular pain today. If radicular symptoms return, we can repeat a lumbar epidural steroid injection in the future. Nov, Chronic pain (ICD-10 - G89.29) Continue with current treatment plan [facility] Other 06-06-2022 Evaluation note* Encounter Date Diagnosis Assessment Notes Treatment Notes Treatment Clinical Notes Nov, Sacroiliitis (ICD-10 - M46.1) 61 year old male here for follow-up status post bilateral L4 transforaminal epidural steroid injection under fluoroscopic guidance. Patient reports 50-60% relief of lower extremity pain following procedure. He continues to complain of low back/buttock pain with intermittent numbness/tingling to the posterior aspect of the bilateral thighs to the knees. Pain is aggravated with increased activity. Anatomy of spine discussed in detail with patient in regards to patients condition. Patient is a candidate for a bilateral sacroiliac joint injection under fluoroscopic guidance. Risks and benefits of procedure explained to patient; patient verbalizes understanding. Nov, Lumbosacral spondylosis (ICD-10 - M47.817) In the future if the pain persists, we can consider proceeding with a bilateral lumbar facet medial branch nerve block under fluoroscopic guidance. Nov, Lumbar radiculopathy (ICD-10 - M54.16) Patient reports 50-60% relief of lower extremity pain following procedure. He feels low back/buttock pain is most bothersome today Nov, Chronic pain (ICD-10 - G89.29) Continue with current treatment plan [facility] Other 05-19-2022 Evaluation note* Encounter Date Diagnosis Assessment Notes Treatment Notes Treatment Clinical Notes October, Chronic pain (ICD-10 - G89.29) Stable, follow up after procedure. October, Lumbar radiculopathy (ICD-10 - M54.16) 61 year old male here for follow up status post interlaminar epidural steroid injection at the L4-5 level under fluoroscopic guidance. Patient reports 25% relief of his leg pain following procedure. He voices continued complaints of low back pain with radiation down the posterior aspect of bilateral lower extremities to the knees. He also notes a numbness down bilateral lower extremities to the feet. He states the back pain is the worst of his pain and increases with prolonged standing and walking. He feels pain can negatively impact his daily activities and sleeping pattern. Anatomy of spine as well as different treatment options were discussed in detail with patient in regards to patients condition. I recommend that we proceed with a bilateral L4 transforaminal epidural steroid injection. Risks and benefits of procedure explained to patient; patient verbalizes understanding. October, Lumbosacral spondylosis (ICD-10 - M47.817) Consider lumbar facet medial branch nerve blocks in the future if needed. October, Sacroiliitis (ICD-10 - M46.1) Consider SI joint injections in the future if needed. October, Lumbar degenerative disc disease (ICD-10 - M51.36) Continue with current treatment plan. [facility] Other 11-24-2021 NoteMR#: [id number] [facility] Pt. Name: Loren Porter Admitted: 04/29/2021 Discharged: 04/30/2021 Date of : 1960 Physician: Jana Berkowitz MD DISCHARGE SUMMARY PRINCIPAL DIAGNOSIS: Abdominal aortic aneurysm without rupture. SECONDARY DIAGNOSES: Hypertension, hyperlipidemia, insulin-dependent diabetes mellitus, morbid obesity, hypothyroidism, carotid artery stenosis. HOSPITAL COURSE: The patient is a 60-year-old male who presented to the hospital for elective/planned treatment of abdominal aortic aneurysm with endovascular aortic aneurysm repair. Surgery went as planned without complication. Postoperatively, the patient was admitted to ICU for close hemodynamic monitoring. The patient remained flat for 6 hours postoperatively. Postop day 1, he had adequate blood pressure control as well as urinary output. As such, arterial lines and Melvin were discontinued. He was seen by PT and OT and able to ambulate without difficulty. He is able to tolerate regular diet. He did have some postop hyperglycemia likely related to lack of use of long-acting insulin on the day of surgery. The patient is on multiple diabetic medications at home and there was a delay in administration of his home diabetes management medications. The patient's blood pressures are controlled and it is felt that the patient was able to stably discharged home to the care of his . DISCHARGE INSTRUCTIONS: The patient was given postop vascular appointment with the time and date given in discharge paperwork. He was also instructed to follow up with his PCP within 1 week of discharge. He was instructed to control his blood pressures with home blood pressure medications and follow up with his PCP, if any issues with blood pressure control. He should not drive, however, lift greater than 10 pounds for at least 2 weeks. He may take pain medications as needed for pain. However, should not operate heavy machinery while taking pain medications. He is to take zbzg-kds-[id number] stool softeners as needed secondary to constipation. He should monitor groin sites for evidence of bleeding, infection, drainage, or any other complaints. The patient verbalized understanding. DISCHARGE MED RECONCILIATION: 1. Aspirin 81 mg daily. 2. Atorvastatin 80 mg q.h.s. 3. Plavix 75 mg daily. 4. Vitamin D 1250 mcg weekly. 5. Lantus 80 units subcutaneous daily. 6. Insulin lispro Humalog sliding scale 25-30 units per meal. 7. Levothyroxine 200 mcg daily. 8. Victoza 1.8 mg subcutaneous daily. 9. Lisinopril 40 mg daily. 10. Metformin 1000 mg b.i.d., holding for 48 hours after surgery. 11. Metoprolol succinate extended release 25 mg tablet daily. 12. Pioglitazone 40 mg daily. 13. Sertraline 50 mg daily. 14. Stapleton 5/325 q.6 hours p.r.n. for pain. Electronically Signed by: Jana Berkowitz MD 05/07/2021 08:16 A Jana Berkowitz MD I have reviewed this discharge summary and confirmed the resident's documentation. Please note that there may be additional documentation from me. Date Dict: 04/30/2021/04:58 P/Avis España PA-C Date Trans: 05/01/2021 05:38 A/blossom [id number] cc: Warner Welch M.D. [address] [facility] [address] [place] [address]FfaOhio State Health SystemEvaluation noteNo [employer] Other Evaluation note* Diagnosis Chronic midline low back pain without sciatica- Primary Degenerative lumbar spinal stenosis Spinal stenosis, lumbar region, without neurogenic claudication Numbness of right lower extremity Obesity with serious comorbidity, unspecified classification, unspecified obesity type [facility] Diagnosis Chronic midline low back pain without sciatica Degenerative lumbar spinal stenosis Spinal stenosis, lumbar region, without neurogenic claudication Numbness of right lower extremity [facility]* Diagnosis Degenerative lumbar spinal stenosis- Primary Spinal stenosis, lumbar region, without neurogenic claudication Chronic midline low back pain without sciatica documented [facility]* Diagnosis Degenerative lumbar spinal stenosis Spinal stenosis, lumbar region, without neurogenic claudication Chronic midline low back pain without sciatica documented [facility]* Diagnosis Obesity with serious comorbidity, unspecified classification, unspecified obesity type [facility]* Diagnosis Encounter for weight management- Primary Class 3 severe obesity with serious comorbidity and body mass index (BMI) of 45.0 to 49.9 in adult, unspecified obesity type (HCC) documented [facility]* Diagnosis Chronic midline low back pain without sciatica Degenerative lumbar spinal stenosis Spinal stenosis, lumbar region, without neurogenic claudication Numbness of right lower extremity documented [facility]* Diagnosis Type 2 diabetes mellitus with hyperglycemia, with long-term current use of insulin ([facility])- Primary Essential (primary) hypertension ([facility]) Unspecified essential hypertension Mixed hyperlipidemia ([facility]) Mixed hyperlipidemia group home (current) use of insulin ([facility]) Vitamin D deficiency Microalbuminuria Proteinuria Encounter for dietary consultation Class 3 severe obesity due to excess calories with serious comorbidity and body mass index (BMI) of 40.0 to 44.9 in adult ([facility]) documented in [facility] encounter [facility]* Diagnosis Cecum mass- Primary Unspecified disorder of intestine documented in this encounter [facility]* Diagnosis Type 2 diabetes mellitus with hyperglycemia, unspecified whether usp insulin use ([facility])- Primary documented in this encounter [facility]* Diagnosis Medicare annual wellness visit, subsequent- Primary Screening for depression [facility] Diagnosis Hypertension 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 ([facility])- Primary Infrarenal abdominal aortic aneurysm (AAA) without rupture ([facility]) Current moderate episode of major depressive disorder, unspecified whether recurrent ([facility]) Morbid obesity ([facility]) Morbid obesity Acquired hypothyroidism Unspecified hypothyroidism [facility] N[facility]ative - Reported* Type Description Date Medical History Diabetes Medical History HTN (hypertension) Medical History Pure hypercholesterolemia, unspe cified Medical History Vitamin D deficiency, unspecifie d Surgical History knee surgery Surgical History fracture repair Surgical History bilateral knee replacement Surgical History cholecystectomy 08/2020 Surgical History carotidendarotomy 01/2021 Surgical History AAA 04/2021 Hospitalization History see above [employer] Other InstructionsNot on filedocumented in this encounter [facility] filedocumented in this encounter [facility] filedocumented in this encounter [facility]Not on filedocumented in this encounter [facility]ructionsNot on filedocumented in this encounter [facility]ructionsNot on filedocumented in [facility] [place] [facility] ([facility] Diagnostic Procedure Only (Routine) - Closed Specialty Diagnoses / Procedures Referred By Contac t Referred To Contact XR IMAGING Diagnoses Chronic midline low back pain without sciatica Degenerative lumbar spinal stenosis Numbness of right lower extremity Procedures XR LUMBAR MOTION 4V AP/LAT/ FLEX/EXT RADEX SPINE LUMBOSACRAL MINIMUM 4 VIEWS Ben Zimmerman, [address] [place] [address] [place] [address] Referral ID Status Reason Start Date Expiration Date V isits Requested Visits Authorized [id number] Closed Auto-Generate d Referral 12/16/2022 01/15/2024 1 1 [facility] for visit Narrative* Diagnostic Procedure Only (Routine) - Closed Specialty Diagnoses / Procedures Referred By Contac t Referred To Contact XR IMAGING Diagnoses Chronic midline low back pain without sciatica Degenerative lumbar spinal stenosis Numbness of right lower extremity Procedures XR LUMBAR MOTION 4V AP/LAT/ FLEX/EXT RADEX SPINE LUMBOSACRAL MINIMUM 4 VIEWS Ben Zimmerman, DO [address] [place] [address] [place] [address] Referral ID Status Reason Start Date Expiration Date V isits Requested Visits Authorized [id number] Closed Auto-Generate d Referral 12/16/2022 01/15/2024 1 1 [facility] Summary Purpose Family History No Family History Records FoundNo Family History Records FoundNo Family History Records FoundNo Family History Records FoundNo Family History Records FoundNo Family History Records FoundNo Family History Records FoundNo Family History Records FoundNo Family History Records FoundNo Family History Records Found Advance Directives No Advanced Directives Records FoundNo Advanced Directives Records FoundNo Advanced Directives Records FoundNo Advanced Directives Records FoundNo Advanced Directives Records FoundNo Advanced Directives Records FoundNo Advanced Directives Records FoundNo Advanced Directives Records FoundNo Advanced Directives Records FoundNo Advanced Directives Records Found Reason for Referral Specialty Diagnoses / Procedures Referred By Contac t Referred To Contact Nutrition Diagnoses Class 3 severe obesity with serious comorbidity and body mass index (BMI) of 45.0 to 49.9 in adult, unspecified obesity type (HCC) Procedures CONSULT TO NUTRITION THERAPY MEDICAL NUTRITION ASSMT&IVNTJ INDIV EACH [address] Karie Barriga, MICHAEL.MANAGER CRITICAL CARE [address] [place] [address] Referral ID Status Reason Start Date Expiration Date Visits Requested Visits Authorized [id number] Authorized PCP Requested Referral 08/14/2023 08/13/2024 1 4 Specialty Diagnoses / Procedures Referred By Contac t Referred To Contact Diagnoses Chronic midline low back pain without sciatica Procedures CONSULT [facility] OFFICE/OUTPATIENT [facility] 60-74 MINUTES Nona Zambrano MD [address] [place] [address] Referral ID Status Reason Start Date Expiration Date Visits Requested Visits Authorized [id number] Authorized PCP Requested Referral 01/29/2023 01/29/2024 1 1 Specialty Diagnoses / Procedures Referred By Contac t Referred To Contact Diagnoses Degenerative lumbar spinal stenosis Chronic midline low back pain without sciatica Procedures CONSULT TO SPINE SURGERY OFFICE/OUTPATIENT [facility] 60-74 MINUTES Ben Zimmerman DO [address] [place] [address] Referral ID Status Reason Start Date Expiration Date Visits Requested Visits Authorized [id number] Pending Review PCP Requested Referral 01/18/2023 01/18/2024 1 1 Specialty Diagnoses / Procedures Referred By Contac t Referred To Contact Diagnoses Obesity with serious comorbidity, unspecified classification, unspecified obesity type Procedures CONSULT [facility] OFFICE/OUTPATIENT [facility] 60-74 MINUTES Ben Zmimerman DO [address] [place] [address] Referral ID Status Reason Start Date Expiration Date Visits Requested Visits Authorized [id number] Pending Review PCP Requested Referral 12/16/2022 12/16/2023 1 1 Specialty Diagnoses / Procedures Referred By Contac t Referred To Contact XR IMAGING Diagnoses Chronic midline low back pain without sciatica Degenerative lumbar spinal stenosis Numbness of right lower extremity Procedures XR LUMBAR MOTION 4V AP/LAT/ FLEX/EXT RADEX SPINE LUMBOSACRAL MINIMUM 4 VIEWS Ben Zimmerman DO [address] [place] [address] Xr Imaging Referral ID Status Reason Start Date Expiration Date V isits Requested Visits Authorized [id number] Closed Auto-Generate d Referral 12/16/2022 01/15/2024 1 1 Specialty Diagnoses / Procedures Referred By Contac t Referred To Contact MR IMAGING Diagnoses Chronic midline low back pain without sciatica Degenerative lumbar spinal stenosis Numbness of right lower extremity Procedures MRI LUMBAR SPINE WO IVCON MRI SPINAL CANAL LUMBAR W/O CONTRAST MATERIAL MelaniesilkeBen DO [address] [place] [address] Mr Imaging Referral ID Status Reason Start Date Expiration Date Visits Requested Visits Authorized [id number] Authorized Auto-Generat ed Referral 12/16/2022 01/15/2024 1 1 Additional Source Comments (unrecognized sect ion and content) No Status Records FoundNo Status Records FoundNo Status Records FoundNo Status Records FoundNo Status Records FoundNo Status Records FoundNo Status Records FoundNo Status Records FoundNo Status Records FoundNo Status Records Found INFORMATION SOURCE (unrecogn ized section and content) DATE CREATED AUTHOR 01/28/2020 [facility] DATE CREATED AUTHOR AUTHOR'S ORGANIZ ATION 09/20/2021 [facility] DATE CREATED AUTHOR AUTHOR'S ORGANIZ ATION 02/07/2022 [facility] DATE CREATED AUTHOR AUTHOR'S ORGANIZ ATION 10/21/2022 [facility] DATE CREATED AUTHOR AUTHOR'S ORGANIZ ATION 01/03/2023 [facility] DATE CREATED AUTHOR AUTHOR'S ORGANIZ ATION 08/15/[address] [facility] DATE CREATED AUTHOR AUTHOR'S ORGANIZ ATION 04/26/2024 [facility] DATE CREATED AUTHOR AUTHOR'S ORGANIZ ATION 07/29/2024 [facility] DATE CREATED AUTHOR AUTHOR'S ORGANIZ ATION 08/18/2024 [facility] EP[facility] DATE CREATED AUTHOR AUTHOR'S ORGANIZ ATION 09/07/2024 [facility] REASON FOR VISIT (unrecogniz ed section and content) Reason Comments Back Pain Specialty Diagnoses / Procedures Referred By Contac t Referred To Contact Spine Health / SPINE Diagnoses Low back pain Procedures REFERRAL TO [facility] OFFICE/OUTPATIENT NEW [facility] MDM 60-74 MINUTES Warner Welch, [address] [place] [address] Ben Zimmerman DO [address] [place] [address] Referral ID Status Reason Start Date Expiration Date V isits Requested Visits Authorized [id number] Closed Financial Clearance Required - [employer] 12/04/2022 06/07/2023 1 1 Specialty Diagnoses / Procedures Referred By Contac t Referred To Contact MR IMAGING Diagnoses Chronic midline low back pain without sciatica Degenerative lumbar spinal stenosis Numbness of right lower extremity Procedures MRI LUMBAR SPINE WO IVCON MRI SPINAL CANAL LUMBAR W/O CONTRAST MATERIAL Ben Zimmerman DO [address] [place] [address] Mr Imaging Referral ID Status Reason Start Date Expiration Date V isits Requested Visits Authorized [id number] Closed Auto-Generate d Referral 12/16/2022 01/15/2024 1 1 Reason Comments New Patient New Back Evaluation Specialty Diagnoses / Procedures Referred By Contac t Referred To Contact Diagnoses Degenerative lumbar spinal stenosis Chronic midline low back pain without sciatica Procedures CONSULT TO SPINE SURGERY OFFICE/OUTPATIENT [facility] 60-74 MINUTES Ben Zimmerman DO [address] [place] [address] Referral ID Status Reason Start Date Expiration Date V isits Requested Visits Authorized [id number] Closed PCP Requested Referral 01/18/2023 01/18/2024 1 1 Reason Comments New Patient Specialty Diagnoses / Procedures Referred By Contac t Referred To Contact SPINE Diagnoses Obesity with serious comorbidity, unspecified classification, unspecified obesity type Procedures CONSULT [facility] OFFICE/OUTPATIENT [facility] 60-74 MINUTES Ben Zimmerman DO [address] [place] [address] [address] [address] Referral ID Status Reason Start Date Expiration Date Visits Requested Visits Authorized [id number] Authorized PCP Requested Referral 01/06/2023 06/07/2023 2 2 Reason Comments Established Patient Obesity Specialty Diagnoses / Procedures Referred By Abdiac t Referred To Contact GENERAL SURGERY Diagnoses Follow-up exam Procedures FOLLOW-UP E-ASSESSMENT Self Bmi Main [address] [place] [address] Referral ID Status Reason Start Date Expiration Date Visits Requested Visits Authorized [id number] Outside PCP OON/Self Pay Override 05/08/2023 11/04/2023 3 3 Reason Comments Diabetes Follow-up Reason Comments Consult Colon mass Reason Comments Med Refill Reason Comments medicare annual wellness Reason Onset Date Comments Med Refill 01/18/2024 Reason Onset Date Comments Med Refill 01/27/2024 Reason Onset Date Comments Med Refill 02/02/2024 Reason Onset Date Comments Med Refill 02/10/2024 Reason Comments Thyroid Problem lipid Source Comments (unrecognize d section and content) In the event this informatio n is protected by the Federal Confidentiality of Alcohol and Drug Abuse Patient Records regulations: The Federal rules restrict any use of the information to criminally investigate or prosecute any alcohol or drug abuse patient.[facility] the event this information is protected by the Federal Confidentiality of Alcohol and Drug Abuse Patient Records regulations: The Federal rules restrict any use of the information to criminally investigate or prosecute any alcohol or drug abuse patient.[facility] SystemIn the event this information is protected by the Federal Confidentiality of Alcohol and Drug Abuse Patient Records regulations: The Federal rules restrict any use of the information to criminally investigate or prosecute any alcohol or drug abuse patient.[facility] SystemIn the event this information is protected by the Federal Confidentiality of Alcohol and Drug Abuse Patient Records regulations: The Federal rules restrict any use of the information to criminally investigate or prosecute any alcohol or drug abuse patient.[facility] SystemIn the event this information is protected by the Federal Confidentiality of Alcohol and Drug Abuse Patient Records regulations: The Federal rules restrict any use of the information to criminally investigate or prosecute any alcohol or drug abuse patient.[facility] SystemIn the event this information is protected by the Federal Confidentiality of Alcohol and Drug Abuse Patient Records regulations: The Federal rules restrict any use of the information to criminally investigate or prosecute any alcohol or drug abuse patient.[facility] SystemIn the event this information is protected by the Federal Confidentiality of Alcohol and Drug Abuse Patient Records regulations: The Federal rules restrict any use of the information to criminally investigate or prosecute any alcohol or drug abuse patient.[facility] Care Teams (unrecognized sec tion and content) Director Custom Relationship Specialty Start Date End Date Lilibeth Hatch [address] [place] [address] Referring Family Medicine 10/24/22 Director Custom Relationship Specialty Start Date End Date Lilibeth Hatch [address] [address] Referring Family Medicine 10/24/22 Director Custom Relationship Specialty Start Date End Date Lilibeth Hatch [address] [place] [address] Referring Family Medicine 10/24/22 Director Custom Relationship Specialty Start Date End Date Lilibeth Hatch, MANAGER CRITICAL CARE [address] [place] [address] Referring Family Medicine 10/24/22 Director Custom Relationship Specialty Start Date End Date Lilibeth Hatch, MANAGER CRITICAL CARE [address] [place] [address] Referring Family Medicine 10/24/22 Director Custom Relationship Specialty Start Date End Date Lilibeth Hatch, MANAGER CRITICAL CARE [address] [place] [address] Referring Family Medicine 10/24/22 Director Custom Relationship Specialty Start Date End Date Lilibeth Hatch, MANAGER CRITICAL CARE [address] [place] [address] Referring Family Medicine 10/24/22 Director Custom Relationship Specialty Start Date End Date Warner Welch MD [address] [place] [address] PCP - General 11/05/22 Director Custom Relationship Specialty Start Date End Date Warner Welch MD [address] [place] [address] PCP - General 11/05/22 Director Custom Relationship Specialty Start Date End Date Warner Welch MD [address] [place] [address] PCP - General 11/05/22 Director Custom Relationship Specialty Start Date End Date Warner Welch MD [address] [place] [address] PCP - General 11/05/22 Director Custom Relationship Specialty Start Date End Date Warner Welch MD [address] [place] [address] PCP - General 11/05/22 Director Custom Relationship Specialty Start Date End Date Warner Welch DO [address] [place] [address] PCP - General Family Medicine 02/27/22 Director Custom Relationship Specialty Start Date End Date Warner Welch DO [address] [place] [address] PCP - General Family Medicine 02/27/22 Director Custom Relationship Specialty Start Date End Date Warner Welch DO [address] [place] [address] PCP - General Family Medicine 02/27/22 Director Custom Relationship Specialty Start Date End Date Warner Welch DO [address] [place] [address] PCP - General Family Medicine 02/27/22 Director Custom Relationship Specialty Start Date End Date Warner Welch DO [address] [place] [address] PCP - General Family Medicine 02/27/22 Director Custom Relationship Specialty Start Date End Date Warner Welch DO [address] [place] [address] PCP - General Family Medicine 02/27/22 Director Custom Relationship Specialty Start Date End Date Warner Welch DO [address] [place] [address] PCP - General Family Medicine 02/27/22 FOR RECORDS PERTAINING TO PATIENTS WHO ARE OR HAVE BEEN ENROLLED IN A CHEMICAL DEPENDENCY/SUBSTANCEABUSE PROGRAM, SOME INFORMATION MAY BE OMITTED. This clinical summary was aggregated from multiple sources. Caution should be exercised in using it in the provision of clinical care. This summary normalizes information from multiple sources, and as a consequence, information in this document may materially change the coding, format and clinical context of patient data. In addition, data may be omitted in some cases. CLINICAL DECISIONS SHOULD BE BASED ON THE PRIMARY CLINICAL RECORDS. [employer] provides no warranty or guarantee of the accuracy or completeness of information in this document.
--- NOTE | 2024-09-16 09:50 | PC.NURSE ---
pt to XR via wheelchair at this time.
[2024-09-16] MEDS: HYDROCODONE/ACET 5-325 MG TABLET 1 TAB PO (10:46)
== END 2024-09-16 10:51 | disposition home or self-care (01) ==
PROVIDERS: Emergency Provider Emergency Medicine; PCP Family Medicine
DX: S30.0XXA Contusion of lower back and pelvis, initial encounter (principal); W18.39XA Other fall on same level, initial encounter; Z79.02 Long term (current) use of antithrombotics/antiplatelets
CPT/HCPCS: 72100; 99283

== ENCOUNTER 2025-02-20 12:29 | Outpatient (OUT) | payer OTHER, SELFPAY ==
--- OUTSIDE RECORDS SUMMARY | 2025-02-20 11:40 | XMS_ITS | Encounter Summary ---
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 Chronic Venous Insufficiency Encounter Details Date Type Department Care Team (Late st Contact Info) Description 02/20/2025 11:40 AM EDT Office Visit [facility] [address] [place] [address] Den Stewart, FAITH HEALER [address] [place] [address] Essential hypertension (Primary Dx); Hyperlipidemia, unspecified hyperlipidemia type; History of CEA (carotid endarterectomy); Venous insufficiency; Syncope and collapse Social History Tobacco Use Types Packs/Day Years Used Date Smoking Tobacco: Former Cigarettes Smokeless Tobacco: Never Tobacco Cessation:Counseling Given: Not Answered Alcohol Use Standard Drinks/Week Comments Yes 0 (1 standard drink = 0.6 oz pur e alcohol) Occasional [place] Safety & Environment Answer Date Rec orded Fear of Current or Ex-Partner Not on file Emotionally Abused Not on file 07/30/2023 Physically Abused Not on file 07/30/2023 Sexually Abused Not on file 07/30/2023 Physically or Sexually Abused Not on file Sex and Gender Information Value Date Recorded Sex Assigned at Male 02/13/2025 3:34 PM EDT Legal Sex Male 11:49 PM EDT Gender Identity Male 02/13/2025 3:34 PM EDT Sexual Orientation Heterosexual or Straight 01/2025 3:34 PM EDT documented as of this encounter Last Filed Vital Signs Vital Sign Reading Time Taken Comments Blood Pressure 117/70 02/20/2025 11:33 AM EDT Pulse 68 02/20/2025 11:33 AM EDT Temperature - - Respiratory Rate - - Oxygen Saturation 97% 02/20/2025 11:33 AM EDT Inhaled Oxygen Concentration - - Weight 114 kg (252 lb) 02/20/2025 11:33 AM EDT Height 175.3 cm (5' 9 ) 02/20/2025 11:33 AM EDT Body Mass Index 37.21 02/20/2025 11:33 AM EDT documented in this encounter Plan of Treatment Scheduled Orders Name Type Priority Associated Diagnoses Orde r Schedule Comprehensive metabolic panel Lab Routine Essential hypertension Expected: 02/20/2025 (Approximate), Expires: 02/20/2026 documented as of this encounter Visit Diagnoses Diagnosis Essential hypertension- Primary Unspecified essential hypertension Hyperlipidemia, unspecified hyperlipidemia type History of CEA (carotid endarterectomy) Venous insufficiency Unspecified venous (peripheral) insufficiency Syncope and collapse documented in this encounter Care Teams Publications Editor Relationship Specialty Start Date End Date Warner Key DO [address] [facility] PCP - General 01/29/22 documented as of this encounter
--- OUTSIDE RECORDS SUMMARY | 2025-02-20 12:35 | XMS_ITS | Encounter Summary ---
Author Organization [facility] Address [facility] [id number] [address] [place] [address] Care Team Providers Care Region Manager Name Role Phone DerrekWarner manuel Primary Care Provider [phone] Reason for Visit * Reason Comments Med Refill Encounter Details Date Type Department Care Team (Late st Contact Info) Description 03/04/2022 Refill [facility] - Family Medicine [address] [place] [address] Evette Bhatti, MANAGER WEALTH MANAGEMENT-SSN/SSBN WEAPONS EQUIPMENT OPERATOR [address] [place] [address] Social History Tobacco Use Types Packs/Day Years Used Date Smoking Tobacco: Former Cigarettes 1 20 Smokeless Tobacco: Never Alcohol Use Standard Drinks/Week Comments Yes 0 (1 standard drink = 0.6 oz pur e alcohol) OCCASIONAL PHQ-2 Answer Date Recorded Total Score 4 03/03/2022 Childcare Answer Date Recorded Childcare Unknown 11/17/2018 Employment Answer Date Recorded Employment Unknown 11/17/2018 Purpose - Life Answer Date Recorded Purpose and direction in life Unknown Sex and Gender Information Value Date Recorded Sex Assigned at Not on file Legal Sex Male 11:35 AM EDT Gender Identity Not on file Sexual Orientation Not on file COVID-19 Exposure Response Date Recorded In the last month, have you been in contact with someone who was confirmed or suspected to have Coronavirus / COVID-19? No / Unsure 03/03/2022 9:23 AM EDT documented as of this encounter Miscellaneous Notes * Telephone Encounter - NGOZI Ambrosio - 03/04/2022 4:20 PM EDT refill documented in this encounter Plan of Treatment Not on file documented as of this encounter Visit Diagnoses Not on filedocumented in this encounter Additional Health Concerns Assessment Noted Time PHQ-9 Depression Total Score: 4 03/03/20 9:32 AM EDT documented as of this encounter Care Teams Region Manager Relationship Specialty Start Date End Date Warner Key DO [address] [facility], [place] [address] PCP - General Family Medicine 02/27/22 documented as of this encounter
--- OUTSIDE RECORDS SUMMARY | 2025-02-20 12:35 | XMS_ITS | Encounter Summary ---
Author Organization [facility] Address [address] [place] [address] Care Team Providers Care Ash Kier Boiler Name Role Phone Warner Key DO Primary Care Provider Reason for Visit * Reason Comments Med Refill Encounter Details Date Type Department Care Team (Late st Contact Info) Description 03/30/2023 Refill [facility] Cardiology [address] [place] [address] Odette Ellison, SUPERVISOR WATERWORKS [address] [place] [phone] Social History Tobacco Use Types Packs/Day Years Used Date Smoking Tobacco: Former Cigarettes Smokeless Tobacco: Never Alcohol Use Standard Drinks/Week Comments Defer 0 (1 standard drink = 0.6 oz pur e alcohol) Sex and Gender Information Value Date Recorded Sex Assigned at Male 02/13/2025 3:34 PM EDT Legal Sex Male 11:49 PM EDT Gender Identity Male 02/13/2025 3:34 PM EDT Sexual Orientation Heterosexual or Straight 01/2025 3:34 PM EDT documented as of this encounter Plan of Treatment Not on file documented as of this encounter Visit Diagnoses Not on filedocumented in this encounter Care Teams Ash Kier Boiler Relationship Specialty Start Date End Date Warner Key DO [address] [place] PCP - General 01/29/22 documented as of this encounter
--- OUTSIDE RECORDS SUMMARY | 2025-02-20 12:35 | XMS_ITS | Encounter Summary ---
Author Organization [facility] Address [id number] [address] [place] [address] Care Team Providers Care Inclusion Special Educator Name Role Phone DerrekWarner manuel Primary Care Provider Encounter Details Date Type Department Care Team (Late st Contact Info) Description 10/29/2022 [facility]phone [facility] [address] [place] [phone] Stephanie Waldron CMA Social History Tobacco Use Types Packs/Day Years Used Date Smoking Tobacco: Former Cigarettes 1 20 Smokeless Tobacco: Never Alcohol Use Standard Drinks/Week Comments Yes 0 (1 standard drink = 0.6 oz pur e alcohol) OCCASIONAL PHQ-2 Answer Date Recorded Total Score 0 10/08/2022 Childcare Answer Date Recorded Childcare Unknown 11/17/2018 Employment Answer Date Recorded Employment Unknown 11/17/2018 Purpose - Life Answer Date Recorded Purpose and direction in life Unknown Sex and Gender Information Value Date Recorded Sex Assigned at Not on file Legal Sex Male 11:35 AM EDT Gender Identity Not on file Sexual Orientation Not on file documented as of this encounter Miscellaneous Notes * Telephone Encounter - Stephanie Waldron CMA - 10/29/2022 9:29 AM EDT Tosha called because [facility] contacted them and Fabian needs a new update MRI. The last one isover a year old and they will not see him until he has a current one. documented in this encounter Plan of Treatment Not on file documented as of this encounter Visit Diagnoses Not on filedocumented in this encounter Additional Health Concerns Assessment Noted Time PHQ-9 Depression Total Score: 0 10/09/19 23 2:43 PM EDT documented as of this encounter Care Teams Inclusion Special Educator Relationship Specialty Start Date End Date Warner Key DO [address] [facility], [place] [address] PCP - General Family Medicine 02/27/22 documented as of this encounter
--- OUTSIDE RECORDS SUMMARY | 2025-02-20 12:35 | XMS_ITS | Encounter Summary ---
Author Organization [facility] Address [id number] [address] [place] [address] Care Team Providers Care Marketing Producer Name Role Phone Warner Key DO Primary Care Provider [phone] Reason for Visit * Reason Comments Med Refill Encounter Details Date Type Department Care Team (Late st Contact Info) Description 08/25/2022 Refill [facility] - Family Medicine [address] [place] [address] Warner Key DO [address] Kamalj[address], [place] [address] Social History Tobacco Use Types Packs/Day Years Used Date Smoking Tobacco: Former Cigarettes 1 20 Smokeless Tobacco: Never Alcohol Use Standard Drinks/Week Comments Yes 0 (1 standard drink = 0.6 oz pur e alcohol) OCCASIONAL PHQ-2 Answer Date Recorded Total Score 3 06/25/2022 Childcare Answer Date Recorded Childcare Unknown 11/17/2018 Employment Answer Date Recorded Employment Unknown 11/17/2018 Purpose - Life Answer Date Recorded Purpose and direction in life Unknown Sex and Gender Information Value Date Recorded Sex Assigned at Not on file Legal Sex Male 11:35 AM EDT Gender Identity Not on file Sexual Orientation Not on file documented as of this encounter Plan of Treatment Not on file documented as of this encounter Visit Diagnoses Not on filedocumented in this encounter Additional Health Concerns Assessment Noted Time PHQ-9 Depression Total Score: 3 06/25/19 23 10:05 AM EST documented as of this encounter Care Teams Marketing Producer Relationship Specialty Start Date End Date Warner Key DO [address] [place] [address] PCP - General Family Medicine 02/27/22 documented as of this encounter
--- OUTSIDE RECORDS SUMMARY | 2025-02-20 12:35 | XMS_ITS | Encounter Summary ---
Author Organization [facility] Address [facility] [id number] [address] [place] [address] Care Team Providers Care Switchboard Installer Name Role Phone Warner Key DO Primary Care Provider [phone] Reason for Visit * Reason Comments Med Refill Encounter Details Date Type Department Care Team (Late st Contact Info) Description 10/16/2022 Refill [facility] - Family Medicine [address] [place] [address] Lilibeth [place], DRY CLEANING CHECKER-STAFF ANESTHESIOLOGIST [address] [place] [address] Social History Tobacco Use Types Packs/Day Years [...] documented as of this encounter Care Teams Switchboard Installer Relationship Specialty Start Date End Date Warner Key DO [address] [facility], [place] [address] PCP - General Family Medicine 02/27/22 documented as of this encounter
--- OUTSIDE RECORDS SUMMARY | 2025-02-20 12:35 | XMS_ITS | Encounter Summary ---
Author Organization [facility] Address [address] [place] [address] Care Team Providers Care Roller Pneumatic Name Role Phone Warner Key DO Primary Care Provider [phone] Reason for Visit * Reason Comments Med Refill Encounter Details Date Type Department Care Team (Late st Contact Info) Description 04/18/2023 Refill [facility] Cardiology [address] [place] [address] Odette Ellison, MGMT CONSULTANT [address] [place] [phone] Social History Tobacco Use Types Packs/Day Years [...] on filedocumented in this encounter Care Teams Roller Pneumatic Relationship Specialty Start Date End Date Warner Key DO [address] PCP - General 01/29/22 documented as of this encounter
--- OUTSIDE RECORDS SUMMARY | 2025-02-20 12:35 | XMS_ITS | Encounter Summary ---
Author Organization [facility] Address [address] [place] [address] Care Team Providers Care Eye Physician Name Role Phone Warner Key DO Primary Care Provider [phone] Reason for Visit * Reason Comments Med Refill Encounter Details Date Type Department Care Team (Late st Contact Info) Description 04/10/[address] [facility] Cardiology [address] [place] [address] Odette Ellison, DIGITAL ACCOUNT EXECUTIVE [address] [place] [phone] Social History Tobacco Use Types Packs/Day Years [...] on filedocumented in this encounter Care Teams Eye Physician Relationship Specialty Start Date End Date Warner Key DO [address] PCP - General 01/29/22 documented as of this encounter
--- OUTSIDE RECORDS SUMMARY | 2025-02-20 12:35 | XMS_ITS | Encounter Summary ---
Author Organization [facility] Address [address] [place] [address] Care Team Providers Care Senior Applications Analyst Name Role Phone Warner Key DO Primary Care Provider [phone] Reason for Visit * Reason Comments Med Refill Encounter Details Date Type Department Care Team (Late st Contact Info) Description 03/26/2023 Refill [facility] Cardiology [address] [place] [address] Odette Ellison, RELIABILITY SPECIALIST [address] [place] [address] Social History Tobacco Use Types Packs/Day Years [...] on filedocumented in this encounter Care Teams Senior Applications Analyst Relationship Specialty Start Date End Date Warner Key DO [address] PCP - General 01/29/22 documented as of this encounter
--- OUTSIDE RECORDS SUMMARY | 2025-02-20 12:35 | XMS_ITS | Encounter Summary ---
Author Organization [facility] Address [id number] [address] [place] [address] Care Team Providers Care Paper Final Inspector Name Role Phone ShahidWarner Sylvia TILLEY Primary Care Provider Encounter Details Date Type Department Care Team (Late st Contact Info) Description 01/26/2025 Orders Only [facility] Internal Medicine - Family Medicine [address] [place] [address] Ref Prov, [place] [address] Social History Tobacco Use Types Packs/Day Years Used Date Smoking Tobacco: Former Cigarettes 1 20 0 01/06/1998 - 01/06/2018 Passive Smoke Exposure: Past Smokeless Tobacco: Never Comments:Smoked 1 PPD x 20 y ears and 0.5 PPD x 20 years for a total of 30 pack years Alcohol Use Standard Drinks/Week Comments Yes 0 (1 standard drink = 0.6 oz pur e alcohol) OCCASIONAL C Utilities Answer Date Recorded In the past 12 months has [employer], gas, oil, or water [employer] threatened to shut off services in your home? No 09/03/2023 Social Connection and Isolat ion Panel [NHANES] Answer Date Recorded In a typical week, how many times do you talk on the phone with family, friends, or neighbors? More than three times a week 09/03/2023 How often do you get togethe r with friends or relatives? Twice a week 09/03/2023 How often do you attend chur or quaker services? More than 4 times per year 09/03/2023 Do you belong to any clubs o r organizations such as restorationist groups, unions, fraternal or athletic groups, or school groups? No 09/03/2023 How often do you attend meet ings of the clubs or organizations you belong to? Never 09/03/2023 Are you , , di vorced, , never , or living with a partner? 09/03/2023 AUDIT-C Answer Date Recorded Q1: How often do you have a drink containing alc ohol? Monthly or less 09/03/2023 Q2: How many drinks containi ng alcohol do you have on a typical day when you are drinking? 1 or 2 09/03/2023 Q3: How often do you have si x or more drinks on one occasion? Never 09/03/2023 Overall Financial Resource Strain (CARDIA) Answe r Date Recorded How hard is it for you to pa y for the very basics like food, housing, medical care, and heating? Not hard at all 09/03/2023 PHQ-2 Answer Date Recorded Total Score 0 01/25/2025 [facility] - Occupational Stress Questionnaire Answer Date Recorded Do you feel stress - tense, restless, nervous, or anxious, or unable to sleep at night because your mind is troubled all the time - these days? Not at all 09/03/2023 Exercise Vital Sign Answer Date Recorde d On average, how many days pe r week do you engage in moderate to strenuous exercise (like a brisk walk)? 3 days 07/27/2024 On average, how many minutes do you engage in exercise at this level? 30 min 07/27/2024 PRAPARE - Transportation Answer Date Re corded In the past 12 months, has l ack of transportation kept you from medical appointments or from getting medications? No 01/06 In the past 12 months, has l ack of transportation kept you from meetings, work, or from getting things needed for daily living? No 01/22/2023 Housing Instability Answer Date Recorde d Are you worried or concerned that in the next two months you may not have stable housing that you own, rent or stay in as a part of a household? No 01/22/2023 Childcare Answer Date Recorded Do problems getting child ca re make it difficult for you to work or study? No 01/22/2023 Employment Answer Date Recorded Do you need help finding a [facility] career center and/or a training program? No 01/22/2023 Hunger Screening Answer Date Recorded Within the past 12 months we worried whether our food would run out before we got money to buy more. Never True 01/25/2025 Within the past 12 months th e food we bought just didn't last and we didn't have money to get more. Never True 01/25/2025 Purpose - Life Answer Date Recorded I have a purpose and direction in my life. Agree 09/03/2023 Sex and Gender Information Value Date Recorded Sex Assigned at Not on file Legal Sex Male 11:35 AM EDT Gender Identity Not on file Sexual Orientation Not on file documented as of this encounter Plan of Treatment Not on file documented as of this encounter Procedures Procedure Name Priority Date/Time Associated Diagnosis Comments HEPATITIS C VIRUS QUANTITATIVE BY NAAT Routine 01/26/2025 7:43 AM EDT documented in this encounter Results * Hepatitis C Virus Quantitative by NAAT (01/26/2025 7:43 AM EDT) Blood Venous blood / Unknown us Not In System Ref Prov LAB BLOOD ORDERABLES Karen l Result MANUALLY TRANSCRIBED RESULTS documented in this encounter Visit Diagnoses Not on filedocumented in this encounter Additional Health Concerns Assessment Noted Time PHQ-9 Depression Total Score: 0 01/26/20 25 9:13 AM EDT documented as of this encounter Care Teams Paper Final Inspector Relationship Specialty Start Date End Date Warner Key DO [address], [place] [address] PCP - General Family Medicine 02/27/22 documented as of this encounter
--- OUTSIDE RECORDS SUMMARY | 2025-02-20 12:35 | XMS_ITS | Encounter Summary ---
Author Organization [facility] Address [facility] [id number] [address] [place] [address] Care Team Providers Care Fish Hatchery Laborer Name Role Phone Shahid Warner Sylvia TILLEY Primary Care Provider Encounter Details Date Type Department Care Team (Late st Contact Info) Description 08/12/2023 Orders Only [facility] Internal Medicine - Family Medicine [address] [place] [phone] External, Scanning Provider Social History Tobacco Use Types Packs/Day Years [...] PHQ-2 Answer Date Recorded Total Score 0 03/10/2023 PRAPARE - Transportation Answer Date Re corded [...] Recorded Do you need help finding a [facility] career center and/or a training program? No 01/22/2023 Hunger Screening Answer Date Recorded Within the past 12 months we worried whether our food would run out before we got money to buy more. Never True 03/10/2023 Within the past 12 months th e food we bought just didn't last and we didn't have money to get more. Never True 03/10/2023 Purpose - Life Answer Date Recorded Purpose [...] Procedure Name Priority Date/Time Associated Diagnosis Comments ECHO DOPPLER Routine 08/11/2023 2:08 PM EST documented in this encounter Results * Echo Doppler (08/11/2023 2:08 PM EST) Anatomical Region Laterality Modality Chest N/A Ultrasound us Scanning Provider External CV ECHO ORDERABLES Fi nal Result documented in this encounter Visit Diagnoses Not on filedocumented in this encounter Additional Health Concerns Assessment Noted Time PHQ-9 Depression Total Score: 0 03/10/20 23 8:32 AM EDT documented as of this encounter Care Teams Fish Hatchery Laborer Relationship Specialty Start Date End Date Warner Key DO [address] [facility], [place] [address] PCP - General Family Medicine 02/27/22 documented as of this encounter
--- OUTSIDE RECORDS SUMMARY | 2025-02-20 12:35 | XMS_ITS | Encounter Summary ---
Author Organization [facility] Address [address] [place] [address] Care Team Providers Care Fork Lift Technician Name Role Phone Warner Key Primary Care Provider [phone] Encounter Details Date Type Department Care Team (Late st Contact Info) Description 02/20/2025 Orders Only [facility] [address] [place] [address] ProviderFozia MD [address] [place] [address] Social History Tobacco Use Types Packs/Day Years [...] Procedure Name Priority Date/Time Associated Diagnosis Comments TSH Routine 02/20/2025 9:43 AM EDT T4, FREE Routine 02/20/2025 9:43 AM EDT BASIC METABOLIC PANEL Routine 02/20/2025 9:43 AM EDT BASIC METABOLIC PANEL Routine 02/20/2025 9:42 AM EDT BASIC METABOLIC PANEL Routine 02/20/2025 9:42 AM EDT CBC Routine 02/20/2025 9:40 AM EDT LIPID PANEL Routine 02/20/2025 9:40 AM EDT COMPREHENSIVE METABOLIC PANEL Routine 02/20/2025 9:40 AM EDT documented in this encounter Results * Basic metabolic panel (02/20/2025 9:43 AM EDT) Blood Venous blood specimen / Unknown Result [facility] Provider MD LAB BLOOD ORDERABLES Karen l Result * TSH (02/20/2025 9:43 AM EDT) Blood Venous blood specimen / Unknown Result [facility] Provider LAB BLOOD ORDERABLES Karen l Result * T4, free (02/20/2025 9:43 AM EDT) Blood Venous blood specimen / Unknown Result [facility] Provider LAB BLOOD ORDERABLES Karen l Result * Basic metabolic panel (02/20/2025 9:42 AM EDT) Blood Venous blood specimen / Unknown Result [facility] Provider MD LAB BLOOD ORDERABLES Karen l Result * Basic metabolic panel (02/20/2025 9:42 AM EDT) Blood Venous blood specimen / Unknown Result [facility] Provider LAB BLOOD ORDERABLES Karen l Result * CBC (02/20/2025 9:40 AM EDT) Blood Venous blood specimen / Unknown Result [facility] Provider MD LAB BLOOD ORDERABLES Karen l Result * Comprehensive metabolic panel (02/20/2025 9:40 AM EDT) Blood Venous blood specimen / Unknown Historical Provider MD LAB BLOOD ORDERABLES Karen l Result * Lipid panel (02/20/2025 9:40 AM EDT) Blood Venous blood specimen / Unknown [facility] Provider LAB BLOOD ORDERABLES Karen l Result documented in this encounter Visit Diagnoses Not on filedocumented in this encounter Care Teams Fork Lift Technician Relationship Specialty Start Date End Date Warner Key DO [address] [facility] PCP - General 01/29/22 documented as of this encounter
--- OUTSIDE RECORDS SUMMARY | 2025-02-20 12:35 | XMS_ITS | Encounter Summary ---
Author Organization [facility] Address [id number] [address] 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) documented in this encounter Additional Health Concerns Assessment Noted Time PHQ-9 Depression Total Score: 0 10/09/19 23 2:43 PM EDT documented as of this encounter Care Teams Music Video Producer Relationship Specialty Start Date End Date Warner Key DO [address] [facility] [address] [facility] [place] [address] PCP - General Family Medicine 02/27/22 documented as of this encounter
--- OUTSIDE RECORDS SUMMARY | 2025-02-20 12:35 | XMS_ITS | Clinical Summary ---
Author Organization [facility] Address [id number] [address] [place] [address] Care Team Providers Care Lath Hand Name Role Phone Warner Key DO Primary Care Provider [phone] Allergies No known active allergies Medications furosemide (LASIX) 20 mg tablet Take 1 tablet (20 mg total) by mouth 2 (two) times a day. Active insulin glargine (LANTUS, BASAGLAR) 100 unit/mL (3 mL) insulin pen Inject 25 Units/kg under the skin nightly. Active [facility] Active blood-glucose meter [facility] Active PEN NEEDLE 31 gauge x 5/16 needle 2 Active metFORMIN XR (GLUCOPHAGE XR) 500 mg 24 hr tablet Take 2 tablets (1,000 mg total) by mouth in the morning and at bedtime. 360 tablet 1 3 Active lisinopriL (PRINIVIL,ZESTRI L) 20 mg tabletIndication s:Essential hypertension take 1 tablet by mouth every morning 30 tablet 11 3 Active clopidogreL (PLAVIX) 75 mg tablet take 1 tablet by mouth once daily 90 tablet 1 4 Active levothyroxine (SYNTHROID, LEVOTHROID) 200 MCG tablet Take 1 tablet (200 mcg total) by mouth in the morning. 90 tablet 4 Active atorvastatin (LIPITOR) 80 mg tablet Take 1 tablet (80 mg total) by mouth every morning. 90 tablet 1 4 Active semaglutide 0.25 mg or 0.5 mg(2 mg/1.5 mL) pen injector Inject under the skin. Active lamoTRIgine (LaMICtal) 25 mg tablet Take 1 tablet (25 mg total) by mouth in the morning and 1 tablet (25 mg total) before bedtime. Active ARIPiprazole (ABILIFY) 10 mg tablet Take 1 tablet (10 mg total) by mouth in the morning and at bedtime. Active aspirin 81 mg Take 1 tablet (81 mg total) by mouth in the morning. Active chlorthalidone (HYGROTON) 25 mg tablet Take 1 tablet (25 mg total) by mouth daily. 01/26/20 25 Discontinue d(Therapy completed) metoprolol succinate XL (TOPROL XL) 50 mg 24 hr tablet Take 1 tablet (50 mg total) by mouth in the morning. 01/26/20 25 Discontinue d(Therapy completed) DULoxetine (CYMBALTA) 60 mg capsule Take 1 capsule (60 mg total) by mouth in the morning. 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 ([facility]) 07/27/2024 Infrarenal abdominal aortic aneurysm (AAA) witho ut rupture 07/27/2024 Cecum mass 05/24/2024 Tinnitus 04/07/2024 Vitamin D deficiency 04/04/2024 Proteinuria, unspecified 04/04/2024 Ex-cigar smoker 01/22/2023 Venous insufficiency (chronic) (peripheral) 01/06 Hypertensive heart disease with heart failure Chronic kidney disease, stage 3 unspecified 10/06 Spinal stenosis at L4-L5 level 10/08/2022 Occlusion and stenosis of bilateral carotid sidney megan 07/03/2022 Diabetes mellitus due to und erlying condition with microalbuminuria, with long-term current use of insulin 04/14/2022 Current moderate episode of major depressive dis order 04/14/2022 Type 2 diabetes mellitus 04/14/2022 Right anterior knee pain 03/03/2022 Cluster headache 03/03/2022 Diverticulosis of sigmoid colon 03/03/2022 Essential hypertension 03/03/2022 History of arthroplasty of right knee 03/03/2022 Hyperlipidemia 03/03/2022 Hypothyroidism 03/03/2022 Neck pain 03/03/2022 Obstructive sleep apnea syndrome 03/03/2022 Other acquired deformities of left foot 03/03/20 Other acquired deformities of right foot 022 Plantar nerve lesion 03/03/2022 Tussive syncope 03/03/2022 Tear of meniscus of knee 03/03/2022 Osteoarthritis of knee 03/03/2022 Palpitations 11/26/2021 Cerebrovascular accident 07/29/2021 Morbid obesity 03/14/2019 Fracture of distal end of radius 04/04/2016 Hyperplastic polyp of intestine 06/08/2009 Anxiety Resolved Problems Problem Noted Date Diagnosed Date Resolved Date Tobacco dependence syndrome 04/21/2022 03/10/2023 Tobacco dependence syndrome 03/03/2022 03/03/2022 Type 2 diabetes mellitus without complication 03/03/2004/14/2022 Dyspnea 11/26/2021 07/27/2024 Encounters Date Type Department Care Team Description 01/26/2025 Orders Only [facility] - [facility] [address] [place] [address] Warner Key DO 01/26/2025 Orders Only [facility] - Family Medicine [address] [place] [address] Ref Prov, Not In System 01/25/2025 9:00 AM EDT Office Visit [facility] [address] [place] [address] Warner Key DO Welcome to Medicare preventive visit (Primary Dx); Screening for depression; Morbid obesity ([facility]); Sensorineural hearing loss (SNHL) of both ears; Hypertensive heart disease with heart failure ([facility]); Stage 3a chronic kidney disease ([facility]); 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, with long-term current use of insulin ([facility]); Acquired hypothyroidism 01/25/2025 Orders Only [facility] - Family Medicine [address] [place] [address] Ref Prov, Not In System 01/25/2025 Travel from Last 3 Months Immunizations Immunization Administration Dates Next Due COVID-19 Vaccine, vector-nr, rS-Ad26, PF, 0.5mL 04/09/2021,08/13/2020 COVID-19, mRNA, LNP-S, PF, 1 00mcg/0.5mL Dose 08/06/2020 Influenza (IM) Preservative Free 05/05/2015 Influenza, High-dose, Quadrivalent 04/06/2024 Influenza, Injectable, Mdck, Preservative Free, Quad 05/22/2021 Influenza, Injectable, quadrivalent (PF) 020 Influenza, Unspecified 05/22/2021,03/30/2016 Pneumococcal Conjugate 05/22/2021 Pneumococcal Conjugate 13-Valent 05/22/2021 Pneumococcal Polysaccharide 04/01/2013 SARS-COV-2 (COVID-19) Vaccine, Unspecified 03/24,04/09/2021,08/13/2020 Tdap 05/20/2022 Zoster Vaccine Recombinant 05/20/2022,03/24/2022 Family History Medical History Relation Name Comments Alcohol abuse Brother Heart attack Brother Heart disease Brother Blood Clots Daughter Coronary artery disease Father Diabetes Father Heart attack Father Heart disease Father Heart failure Father Hyperlipidemia Father Hypertension Father Heart disease Maternal Aunt Heart attack Maternal Grandfather Diabetes Maternal Grandmother Heart disease Maternal Grandmother Heart disease Maternal Uncle 1 Heart disease Maternal Uncle 2 Heart disease Maternal Uncle 3 Heart disease Maternal Uncle 4 Diabetes Mother Diverticulitis Mother colon perfora tion Hypertension Mother Alzheimer's disease Paternal Aunt Heart disease Paternal Grandfather Obesity Paternal Grandfather Other Paternal Grandmother Maligna nt neoplastic disease No Known Problems Son Relation Name Status Comments Brother Daughter Alive Father Maternal Aunt Maternal Grandfather Maternal Grandmother Maternal Uncle 1 Maternal Uncle 2 Alive Maternal Uncle 3 Alive Maternal Uncle 4 Alive Mother Paternal Aunt Paternal Grandfather Paternal Grandmother Son Alive Social History Tobacco Use Types Packs/Day Years Used Date Smoking Tobacco: Former Cigarettes 1 20 0 01/06/1998 - 01/06/2018 Passive Smoke Exposure: Past Smokeless Tobacco: Never Tobacco Cessation:Counseling Given: Not Answered Comments:Smoked 1 PPD x 20 years and 0.5 PPD x 20 years for a total of 30 pack years Alcohol Use Standard Drinks/Week Comments Yes 0 (1 standard drink = 0.6 oz pur e alcohol) [facility] Utilities Answer Date Recorded In the past 12 months has e electric, gas, oil, or water company threatened [...] 09/03/2023 How often do you attend chur ch or presybeterian services? More than 4 times per year 09/03/2023 Do you belong to any clubs o r organizations such as scientology groups, unions, fraternal or athletic groups, or [...] Answer Date Recorded Total Score 0 01/25/2025 [facility] of Occupat ional Health - Occupational Stress [...] Recorded Do you need help finding a [facility] career center and/or a training program? [...] on file Sexual Orientation Not on file Last Filed Vital Signs Vital Sign Reading Time Taken Comments Blood Pressure 128/84 01/25/2025 9:24 AM EDT Pulse 79 01/25/2025 9:24 AM EDT Temperature 36.5 C (97.7 F) 01/25/2025 9:24 AM EDT Respiratory Rate 18 01/25/2025 9:24 AM EDT Oxygen Saturation 95% 01/25/2025 9:24 AM EDT Inhaled Oxygen Concentration - - Weight 113.9 kg (251 lb) 01/25/2025 9:24 AM EDT Height 175.3 cm (5' 9.02 ) 01/25/2025 9:24 AM ED T Body Mass Index 37.05 01/25/2025 9:24 AM EDT Plan of Treatment Health Maintenance Due Date Last Done Comments Adult BMI Follow Up Plan 1978 Influenza Vaccine 02/06/2025 04/06/2024, , 05/22/2021, Additional history exists Statin Use: Diabetic 02/10/2025 02/11/2024 Diabetic Foot Exam 06/08/2025 09/23/2022, 06/18/2022 Postponed from 09/24/2023 (Patient Refused) Diabetic Ophthalmology Exam 08/02/2025 08/02/2024 Adult BMI Screening 01/25/2026 01/25/2025 Depression Screening 01/25/2026 01/25/2025 Fall Risk Screening 01/25/2026 01/25/2025 Tobacco Screening 01/25/2026 01/25/2025 DTaP,Tdap and Td Vaccines (2 - Td or Tdap) 05/20/2032 05/20/2022 COVID-19 Vaccine Discontinued 03/24/2022, 07/2020, 04/09/2021, Additional history exists Zoster (Shingles) Vaccine Completed 05/20/2022, Colonoscopy Discontinued 05/23/2024, 05/08, 01/17/2010 Abdominal Aortic Aneurysm (AAA) Screen Completed 07/27/2024, 07/27/2024 Medical Devices Not on file Procedures Procedure Name Priority Date/Time Associated Diagnosis Comments HEPATITIS C VIRUS QUANTITATIVE BY NAAT Routine 01/26/2025 7:43 AM EDT DIABETES EYE EXAM Routine 08/02/2024 4:57 PM EST HM COLONOSCOPY Routine 05/20/2024 12:03 PM EST from Last 3 Months or Most Recently Relevant to Health Maintenance Results * Hepatitis C Virus Quantitative by NAAT (01/26/2025 7:43 AM EDT) Blood Venous blood / Unknown us Not In System Ref Prov LAB BLOOD ORDERABLES Karen l Result MANUALLY TRANSCRIBED RESULTS * DIABETES EYE EXAM (08/02/2024 4:57 PM EST) us Not In System Ref Prov HEALTH MAINTENANCE Final Result MANUALLY TRANSCRIBED RESULTS * Colonoscopy (01/17/2010) us Scanning Provider External GI PROCEDURE ORDERABL ES Final Result [facility] EXTERNAL NON-INTERFACED REF LAB [id number] [place] [address] from Last 3 Months or Most Recently Relevant to Health Maintenance Insurance [employer] Care Teams Lath Hand Relationship Specialty Start Date End Date Warner Key DO [address], [facility] [address] [place], [place] [id number] PCP - General Family Medicine 02/27/22
--- OUTSIDE RECORDS SUMMARY | 2025-02-20 12:35 | XMS_ITS | Encounter Summary ---
Author Organization [facility] Address [address] [facility] [place] [address] Care Team Providers Care Sld Teacher Name Role Phone Warner Key MD Primary Care Provider [phone] Encounter Details Date Type Department Care Team (Late st Contact Info) Description 11/11/2022 Abstract [facility] [address] [facility] [address] [place] [address] Jr. Kiran Greco, DO [address] [place] [address] Social History Tobacco Use Types Packs/Day Years Used Date Smoking Tobacco: Former Cigarettes Tobacco Cessation:Counseling Given: Not Answered Comments:Last smoked: 1-5 years Alcohol Use Standard Drinks/Week Comments Yes 0 (1 standard drink = 0.6 oz pure alcohol) 1 or 2 drinks, 2-4 times a month; caffeine intake: 1-2 cups per day coffee, soda/pop Sex and Gender Information Value Date Recorded Sex Assigned at Male 11/05/2022 9:02 AM EDT Legal Sex Male 6:53 PM EDT Gender Identity Male 11/05/2022 9:02 AM EDT Sexual Orientation Not on file documented as of this encounter Plan of Treatment Not on file documented as of this encounter Visit Diagnoses Not on filedocumented in this encounter Care Teams Sld Teacher Relationship Specialty Start Date End Date Warner Key MD PCP - General 11/05/22 documented as of this encounter
--- OUTSIDE RECORDS SUMMARY | 2025-02-20 12:35 | XMS_ITS | Encounter Summary ---
Author Organization [facility] Address [facility] [id number] [address] [place] [address] Care Team Providers Care Puncher And Fastener Name Role Phone DerrekWarner manuel Primary Care Provider Encounter Details Date Type Department Care Team (Late st Contact Info) Description 04/30/2022 Orders Only [facility] - Family Medicine [address] [place] [id number] External, Scanning Provider Social History Tobacco Use Types Packs/Day Years Used Date Smoking Tobacco: Former Cigarettes 1 20 Smokeless Tobacco: Never Alcohol Use Standard Drinks/Week Comments Yes 0 (1 standard drink = 0.6 oz pur e alcohol) OCCASIONAL PHQ-2 Answer Date Recorded Total Score 2 04/14/2022 Childcare Answer Date Recorded Childcare Unknown 11/17/2018 [...] have Coronavirus / COVID-19? No / Unsure 04/14/2022 9:24 AM EST documented as of this encounter Plan of Treatment Not on file documented as of this encounter Procedures Procedure Name Priority Date/Time Associated Diagnosis Comments CT CTA ABDOMEN Routine 04/28/2022 documented in this encounter Results * CT angiogram abdomen (04/28/2022) Anatomical Region Laterality Modality Body, Abdomen, Body Covera N/A Compu viviana Tomography 04/28/2022 us Scanning Provider External IMG CT ORDERABLES Fin al Result documented in this encounter Visit Diagnoses Not on filedocumented in this encounter Additional Health Concerns Assessment Noted Time PHQ-9 Depression Total Score: 2 04/14/20 22 9:35 AM EST documented as of this encounter Care Teams Puncher And Fastener Relationship Specialty Start Date End Date Warner Key DO [address] [facility] [place] [address] PCP - General Family Medicine 02/27/22 documented as of this encounter
--- OUTSIDE RECORDS SUMMARY | 2025-02-20 12:35 | XMS_ITS | Encounter Summary ---
Author Organization [facility] Address [address] [place] [address] Care Team Providers Care Special Technical Operations Officer Name Role Phone Lilibeth Hatch REGIONAL PSYCHIATRIC DIRECTOR Unavailable Source Comments In the event this information is protected by the Federal Confidentiality of Alcohol and Drug AbusePatient Records regulations: The Federal rules restrict any use of the information to criminally investigate or prosecute any alcohol or drug abuse patient.[facility] Encounter Details Date Type Department Care Team (Late st Contact Info) Description 12/18/2022 Patient Msg General Surgery [address], [place] [id number] Provider, Ccf Consultation Order Social History Tobacco Use Types Packs/Day Years Used Date Smoking Tobacco: Never Assessed PHQ-2 Answer Date Recorded PHQ-2 score 5 12/15/2022 Area Deprivation Index Answer Date Surendra rded National Score (1-100), lower number is lower ri sk 93 12/16/2022 State Score (1-10), lower number is lower risk 9 12/16/2022 Data from: https://www.neighborhoodatlas.medicine.[facility].edu/. Last address used for calculation [address] [place] 12/16/2022 Sex and Gender Information Value Date Recorded Sex Assigned at Not on file Legal Sex Male 12:10 PM EDT Gender Identity Not on file Sexual Orientation Not on file documented as of this encounter Plan of Treatment Not on file documented as of this encounter Visit Diagnoses Not on filedocumented in this encounter Care Teams Special Technical Operations Officer Relationship Specialty Start Date End Date Lilibeth Hatch, CARLA [address] [place] [address] Referring Family Medicine 10/24/22 documented as of this encounter
--- OUTSIDE RECORDS SUMMARY | 2025-02-20 12:35 | XMS_ITS | Encounter Summary ---
Author Organization [facility] Address [address] [place] [address] Care Team Providers Care Copy Room Technician Name Role Phone Warner Key DO Primary Care Provider [phone] Reason for Visit * Reason Comments Med Refill Encounter Details Date Type Department Care Team (Late st Contact Info) Description 05/22/[address] [facility] Cardiology [address] [place] [phone] Odette Ellison, CULLET CRUSHER [address] [place] [phone] Essential hypertension Social History Tobacco Use Types Packs/Day Years Used Date Smoking Tobacco: Former Cigarettes Alcohol Use Standard Drinks/Week Comments Defer 0 [...] of this encounter Visit Diagnoses Diagnosis Essential hypertension Unspecified essential hypertension documented in this encounter Care Teams Copy Room Technician Relationship Specialty Start Date End Date Warner Key DO [address] [place] PCP - General 01/29/22 documented as of this encounter
--- OUTSIDE RECORDS SUMMARY | 2025-02-20 12:35 | XMS_ITS | Encounter Summary ---
Author Organization [facility] Address [id number] [address] [place] [address] Care Team Providers Care Rn Acute Care Name Role Phone DerrekWarner manuel Primary Care Provider Encounter Details Date Type Department Care Team (Late st Contact Info) Description 12/30/2022 Telephone [facility] - Family Medicine [address] [place] [phone] Stephanie Waldron CMA Social History Tobacco Use [...] Telephone Encounter - Stephanie Waldron CMA - 12/30/2022 11:06 AM EDT Patient called because he has been taking Metformin ER 500mg 2 tabs 2 times a day. He keeps runningout and on his bottle it says take 1 tablet 2 times a day. He has been taling it 2 times a day. Didit change? I tried looking it up and in the old system it says Metformin ER 500mg 2 tablets twice aday, but in the new Epic is says 1 tab twice a day. He wants to know if it changed and what he shoul d be taking. If he is suppose to take it 2 tabs twice a day he needs a new prescription sent in for2 times a day. * Telephone Encounter - ROMEO Thurman - 12/30/2022 11:06 AM EDT I changed it back, however he needs his A1c checked we don't have one since 2021, and if he sees anendocrinologist then the self propelled mining machine operator should be the one filling this not us * Telephone Encounter - Stephanie Waldron CMA - 12/30/2022 11:06 AM EDT Spoke with the patient and let him know this information. He is going to call them. documented in this encounter Plan of Treatment Not on file documented as of this encounter Visit Diagnoses Not on filedocumented in this encounter Additional Health Concerns Assessment Noted Time PHQ-9 Depression Total Score: 0 10/09/19 23 2:43 PM EDT documented as of this encounter Care Teams Rn Acute Care Relationship Specialty Start Date End Date Warner Key DO [address], [facility] [place] [address] PCP - General Family Medicine 02/27/22 documented as of this encounter
--- OUTSIDE RECORDS SUMMARY | 2025-02-20 12:35 | XMS_ITS | Encounter Summary ---
Author Organization [facility] Address [address] [place] [address] Care Team Providers Care Upkeep Worker Name Role Phone Lilibeth Hatch INSURANCE RISK ANALYST Unavailable Source Comments In the event this information is protected by the Federal Confidentiality of Alcohol and Drug AbusePatient Records regulations: The Federal rules restrict any use of the information to criminally investigate or prosecute any alcohol or drug abuse patient.[facility] Encounter Details Date Type Department Care Team (Late st Contact Info) Description 06/12/2023 Patient Msg General Surgery [address] [place], [place] [id number] Provider, Ccf Webinar Invitation from Bariatric and Metabolic Morris Social History Tobacco Use Types Packs/Day Years Used Date Smoking Tobacco: Former Cigarettes Q uit: 2018 Passive Smoke Exposure: Never Smokeless Tobacco: Never Alcohol Use Standard Drinks/Week Comments Never 0 (1 standard drink = 0.6 oz pur e alcohol) PHQ-2 Answer Date Recorded PHQ-2 score 2 01/28/2023 Area Deprivation Index Answer Date Surendra rded National Score (1-100), lower number is lower ri sk 93 12/16/2022 State Score (1-10), lower number is lower risk 9 12/16/2022 Data from: https://www.neighborhoodatlas.medicine.[facility].edu/. Last address used for calculation [address] 12/16/2022 Sex and Gender Information Value Date Recorded Sex Assigned at Not on file Legal Sex Male 12:10 PM EDT Gender Identity Not on file Sexual Orientation Not on file documented as of this encounter Plan of Treatment Not on file documented as of this encounter Visit Diagnoses Not on filedocumented in this encounter Care Teams Upkeep Worker Relationship Specialty Start Date End Date Lilibeth Hatch, INSURANCE RISK ANALYST [address] [place] [address] Referring Family Medicine 10/24/22 documented as of this encounter
--- OUTSIDE RECORDS SUMMARY | 2025-02-20 12:35 | XMS_ITS | Encounter Summary ---
Author Organization [facility] Address [address] [place] [address] Care Team Providers Care Viscosity Inspector Name Role Phone Warner Key MD Primary Care Provider Encounter Details Date Type Department Care Team (Late st Contact Info) Description 12/22/2023 Abstract [facility] [address] [place] [address] Milo Modi MD [address] [place] [address] Social History Tobacco Use Types Packs/Day Years Used Date Smoking Tobacco: Former Cigarettes Comments:Last smoked: 1-5 ye ars Alcohol Use Standard Drinks/Week Comments Yes 0 [...] on filedocumented in this encounter Care Teams Viscosity Inspector Relationship Specialty Start Date End Date Warner Key MD PCP - General 11/05/22 documented as of this encounter
--- OUTSIDE RECORDS SUMMARY | 2025-02-20 12:35 | XMS_ITS | Encounter Summary ---
Author Organization [facility] Address [address] [place] [address] Care Team Providers Care Trial Manager Name Role Phone Lilibeth Hatch CHOCOLATE REFINING ROLLER Unavailable Source Comments In the event this information is protected by the Federal Confidentiality of Alcohol and Drug AbusePatient Records regulations: The Federal rules restrict any use of the information to criminally investigate or prosecute any alcohol or drug abuse patient.[facility] Encounter Details Date Type Department Care Team (Late st Contact Info) Description 08/14/2023 Patient Msg General Surgery [address] [phone] Karie Chan APRN.[facility] [address] [phone] recap Social History Tobacco Use Types Packs/Day Years Used Date Smoking Tobacco: Former Cigarettes Q uit: 2018 Passive Smoke Exposure: Never Smokeless Tobacco: Never Alcohol Use Standard Drinks/Week Comments Never 0 (1 standard drink = 0.6 oz pur e alcohol) PHQ-2 Answer Date Recorded PHQ-2 score 2 01/28/2023 Area Deprivation Index Answer Date Surendra rded National Score (1-100), lower number is lower ri 93 12/16/2022 State Score (1-10), lower number is lower risk 9 12/16/2022 Data from: https://www.neighborhoodatlas.medicine.[facility].edu/. Last address used for calculation [address] [...] on filedocumented in this encounter Care Teams Trial Manager Relationship Specialty Start Date End Date Lilibeth Hatch CNP [address] [place] [address] Referring Family Medicine 10/24/22 documented as of this encounter
--- OUTSIDE RECORDS SUMMARY | 2025-02-20 12:35 | XMS_ITS | Encounter Summary ---
Author Organization [facility] [employer] [facility] s tem Address [id number] [place] [address] Care Team Providers Care Joint Finisher Name Role Phone DerrekWarner manuel Primary Care Provider Encounter Details Date Type Department Care Team (Late st Contact Info) Description 10/06/2022 Telephone [facility] Internal Medicine - Family Medicine [address] [place] [phone] Shelley Carrillo CMA Social History Tobacco Use Types Packs/Day [...] encounter Miscellaneous Notes * Telephone Encounter - Shleley Carrillo CMA - 10/06/2022 3:26 PM EDT Patient called and stated he has not hear from the behavioral health office so he called and the physician you referred him to is not accepting any new patients. He will need a new referral to another behavioral health doctor. * Telephone Encounter - ROMEO Thurman - 10/06/2022 3:26 PM EDT I put a new one in for [facility] - Lilibeth * Telephone Encounter - Shelley Carrillo CMA - 10/06/2022 3:26 PM EDT They only treat patients for Psychology for drug addiction not just someone who needs psychology. * Telephone Encounter - ROMEO Thurman - 10/06/2022 3:26 PM EDT That isn't what their brochure said * Telephone Encounter - Shelley Carrillo CMA - 10/06/2022 3:26 PM EDT Is there anywhere else that you are willing to send him to? I think we are very limited for psych right now on who to use. * Telephone Encounter - ROMEO Thurman - 10/06/2022 3:26 PM EDT Ok we can send this to Dr len Fierro at [address] [place] [address] [place] her phone number is [phone] I think I accidentally put in a [place] address but I don't think that is current I also put in a neurosurgery referral for him, that should go to the [facility] documented in this encounter Plan of Treatment Not on file documented as of this encounter Visit Diagnoses Not on filedocumented in this encounter Additional Health Concerns Assessment Noted Time PHQ-9 Depression Total Score: 1 04/18/20 23 10:03 AM EDT documented as of this encounter Care Teams Joint Finisher Relationship Specialty Start Date End Date Warner Key DO [address], [facility] [place] [address] PCP - General Family Medicine 02/27/22 documented as of this encounter
--- OUTSIDE RECORDS SUMMARY | 2025-02-20 12:35 | XMS_ITS | Encounter Summary ---
Author Organization [facility] Address [address] [facility] [address] [place] [address] Care Team Providers Care Overlay Plastician Name Role Phone Warner Key DO Primary Care Provider [phone] Reason for Visit * Reason Comments Med Refill Encounter Details Date Type Department Care Team (Late st Contact Info) Description 10/16/2022 Refill [facility] Cardiology [address] [place] [id number] Odette Ellison, ADVISER SALES [address] [place] [phone] Social History Tobacco Use Types Packs/Day Years [...] PM EDT documented as of this encounter Miscellaneous Notes * Telephone Encounter - Shelby Walker MD - 01/24/2023 12:16 PM EDT Appears to have been discontinued documented in this encounter Plan of Treatment Not on file documented as of this encounter Visit Diagnoses Not on filedocumented in this encounter Care Teams Overlay Plastician Relationship Specialty Start Date End Date Warner Key DO [address] [facility] PCP - General 01/29/22 documented as of this encounter
--- OUTSIDE RECORDS SUMMARY | 2025-02-20 12:35 | XMS_ITS | Encounter Summary ---
Author Organization [facility] Address [id number] [address] [place] [address] Care Team Providers Care Senior Consumer Insights Consultant Name Role Phone DerrekWarner manuel Primary Care Provider [phone] Reason for Visit * Reason Comments Med Refill Encounter Details Date Type Department Care Team (Late st Contact Info) Description 03/05/2022 Refill [facility] Internal Medicine - Family Medicine [address] [place] [address] Evette Bhatti, SEATING AND MOBILITY TECHNOLOGIST-FORENSIC BALLISTICS EXPERT [address] [place] [address] Social History Tobacco Use Types Packs/Day Years [...] * Telephone Encounter - NGOZI Ambrosio - 03/05/2022 2:53 PM EDT refill documented in this encounter Plan of Treatment Not on file documented as of this encounter Visit Diagnoses Not on filedocumented in this encounter Additional Health Concerns Assessment Noted Time PHQ-9 Depression Total Score: 4 03/03/20 9:32 AM EDT documented as of this encounter Care Teams Senior Consumer Insights Consultant Relationship Specialty Start Date End Date Warner Key DO [address] [facility], [place] [address] PCP - General Family Medicine 02/27/22 documented as of this encounter
--- OUTSIDE RECORDS SUMMARY | 2025-02-20 12:35 | XMS_ITS | Clinical Summary ---
Author Organization [facility] Address [address] [place] [address] Care Team Providers Care Road Conductor Name Role Phone Warner Key MD Primary Care Provider Allergies No known active allergies Medications pioglitazone (Actos) 45 MG tabletIndications: Type 2 diabetes mellitus with hyperglycemia, unspecified whether senior care insulin use (HCC) Take 1 tablet (45 mg) by mouth Daily 90 tablet 1 03/01/20 24 Active Additional Information Patient not taking.Reported on 08/16/2024 Continuous Glucose Sensor (FreeStyle Telma 3 Sensor) miscIndications: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 (HCC) 1 kit by Other route every 14 (fourteen) days 6 each 1 03/02/20 Active atorvastatin (Lipitor) 40 MG tablet Take 40 mg by mouth Daily Active clopidogrel (Plavix) 75 MG tablet Take by mouth Daily Active ergocalciferol (Vitamin D-2) 1.25 MG (85782 UT) capsule Take 1.25 mg by mouth 1 (one) time per week Active ibuprofen 200 MG tablet Take by mouth Active insulin glargine (Lantus) 100 UNIT/ML injection Inject 30 Units under the skin at bedtime Active insulin lispro protamine-insulin lispro (HumaLOG MIX 50/50 KWIKPEN) (50-50) 100 UNIT/ML injection Inject under the skin 2 (two) times a day with meals Active levothyroxine (Synthroid, Unithroid) 300 MCG tablet Take by mouth Daily before meals Active lisinopril 40 MG tablet Take 40 mg by mouth Daily Active metFORMIN, OSM, (Fortamet) 500 MG 24 hr tablet Take 500 mg by mouth in the evening. Take with meals Do not crush, chew, or split. Active chlorthalidone (Hygroton) 25 MG tablet Take 25 mg by mouth 08/17/19 24 Active cholecalciferol (Vitamin D-3) 50 MCG (1999) tablet Take 50 mcg by mouth 04/21/20 Active DULoxetine (Cymbalta) [address] capsule Take 60 mg by mouth in the morning. 07/10/19 24 Active furosemide (Lasix) 20 MG tablet Take 20 mg by mouth 04/08/20 24 Active HumaLOG KWIKPEN 100 UNIT/ML injection INJECT 8-10-12 UNITS THREE TIMES DAILY PLUS SLIDING SCALE ACCORDING TO MEAL SIZE (EXPECT UP TO 50 TOTAL UNITS DAILY) Active Drug [place] Unifine Pentips 31G X 8 MM misc USE DIRECTED FOUR TIMES DAILY 01/19/20 Active loratadine (Claritin) 10 MG tablet Take 1 tablet by mouth Daily as needed 04/21/20 Active metoprolol succinate XL (Toprol-XL) 50 MG 24 hr tablet Take 1 tablet by mouth Daily 03/24/20 24 Active Semaglutide,0.25 or 0.5MG/DOS, 2 MG/3ML solution pen-injector Inject under the skin 04/21/20 Active Active Problems Problem Noted Date Diagnosed Date Cecum mass 05/24/2024 Essential (primary) hypertension 04/04/2024 Mixed hyperlipidemia 04/04/2024 detention (current) use of insulin 04/04/2024 Morbid (severe) obesity due to excess calories 1 Proteinuria, unspecified 04/04/2024 Vitamin D deficiency 04/04/2024 Family History Medical History Relation Name Comments Heart disease Father Diabetes Mother Hypertension Mother Relation Name Status Comments Brother x 1 Daughter x 2 Alive Father Mother Son x 1 Alive Social History Tobacco Use Types Packs/Day [...] AM EDT Sexual Orientation Not on file Last Filed Vital Signs Vital Sign Reading Time Taken Comments Blood Pressure 110/60 08/16/2024 11:16 AM EDT Pulse 45 08/16/2024 11:16 AM EDT Temperature - - Respiratory Rate 18 08/16/2024 11:16 AM EDT Oxygen Saturation 95% 08/16/2024 11:16 AM EDT Inhaled Oxygen Concentration - - Weight 122 kg (270 lb) 08/16/2024 11:16 AM EDT Height 175.3 cm (5' 9 ) 08/16/2024 11:16 AM EDT Body Mass Index 39.87 08/16/2024 11:16 AM EDT Plan of Treatment Health Maintenance Due Date Last Done Comments CT Colonography 1959 FIT-DNA 1959 FIT 1959 FOBT 1959 Sigmoidoscopy 1959 Influenza Vaccine (#1) 2025 , 03/15/2024, 03/17/2022, Additional history exists Pneumococcal Vaccine: 65+ Ye ars (3 of 3 - PCV20 or PCV21) 05/22/2026 05/22/2021, 05/22/2021, 04/01/2013 Colonoscopy 05/23/2034 05/23/2024 Colorectal Cancer Screening 05/23/2034 Procedures Procedure Name Priority Date/Time Associated Diagnosis Comments COLONOSCOPY Routine 05/23/2024 10:37 AM EST from Last 3 Months or Most Recently Relevant to Health Maintenance Results * Colonoscopy (05/23/2024 10:37 AM EST) Anatomical Region Laterality Modality Endoscopy Austin Corral MD ENDOSCOPY PROCEDURE ORDERABLES Final Result from Last 3 Months or Most Recently Relevant to Health Maintenance Insurance [facility] Care Teams Road Conductor Relationship Specialty Start Date End Date Warner Key MD PCP - General 11/05/22
--- OUTSIDE RECORDS SUMMARY | 2025-02-20 12:35 | XMS_ITS | Clinical Summary ---
Author Organization [facility] Address [address] [place] [address] Care Team Providers Care Filtration Plant Operator Name Role Phone Warner Key Primary Care Provider Allergies Active Allergy Reactions Criticality Noted Date Comments Empagliflozin Unknown Low 04/21/2024 Medications atorvastatin (Lipitor) 80 mg tablet Take 80 mg by mouth at bedtime. Active celecoxib (CeleBREX) 100 mg capsule celecoxib 100 mg capsule take 1 capsule by mouth once daily if needed 03/10/20 22 Active clopidogrel (Plavix) 75 mg tablet Take 75 mg by mouth in the morning. Active ergocalciferol (Vitamin D-2) 1.25 MG (02324 Units) capsule Vitamin D2 1,250 mcg (50,000 unit) capsule take 1 capsule by mouth every week Active insulin glargine (Lantus) 100 unit/mL (3 mL) pen Lantus Solostar U-100 Insulin 100 unit/mL (3 mL) subcutaneous pen INJECT 80 UNITS SUBCUTANEOUSLY ONCE A DAY Active insulin lispro (HumaLOG) 100 unit/mL injection Humalog KwikPen (U-100) Insulin 100 unit/mL subcutaneous 03/05/20 22 Active levothyroxine (Synthroid, Levoxyl) 175 mcg tablet levothyroxine 175 mcg tablet Active pioglitazone (Actos) 15 mg tablet pioglitazone 15 mg tablet Active liraglutide (Victoza 2-Avery) 0.6 mg/0.1 mL (18 mg/3 mL) injection as directed Subcutaneous Active metFORMIN XR (Glucophage-XR) 500 mg 24 hr tablet Take 1,000 mg by mouth in the morning and 1,000 mg in the evening. 06/25/19 23 Active furosemide (Lasix) 20 mg tabletIndication s:Venous insufficiency Take 1 tablet (20 mg) by mouth if needed (Take daily as needed for lower extremity edema). 60 tablet 1 01/23/20 23 Active Additional Information Patient taking differently:20 mg oralDaily, Reported on 02/20/2025 DULoxetine (Cymbalta) [address] capsule Take 60 mg by mouth in the morning. 07/10/19 24 Active chlorthalidone (Hygroton) 25 mg tabletIndication s:Essential hypertension take 1 tablet by mouth every morning 90 tablet 3 08/17/19 24 Active Additional Information Patient not taking.Reported on 02/20/2025 lisinopril 10 mg tabletIndication s:Essential hypertension Take 1 tablet (10 mg) by mouth in the morning. 90 tablet 3 10/19/19 24 Active magnesium oxide 420 mg tablet Take 420 mg by mouth once daily as directed. 12/13/19 25 Active lamoTRIgine (LaMICtal) 25 mg tablet Take 2 tablets by mouth in the morning. 01/19/20 25 Active sertraline (Zoloft) 25 mg tablet Take 50 mg by mouth in the morning. 01/19/20 25 Active semaglutide (Ozempic) 0.25 mg or 0.5 mg (2 mg/3 mL) pen injector Inject 0.25 mg under the skin every 7 (seven) days. 04/21/20 24 Active acetaminophen (Tylenol) 325 mg tablet Take 650 mg by mouth if needed. 06/14/19 25 Active cholecalciferol (Vitamin D-3) 50 MCG (2000 UT) tablet Take 50 mcg by mouth in the morning. 04/21/20 24 Active metoprolol succinate XL (Toprol-XL) 50 mg 24 hr tabletIndication s:Palpitations Take 1 tablet (50 mg) by mouth in the morning. 90 tablet 3 02/29/20 24 025 Discontin ued(Ineff ective) Active Problems Problem Noted Date Diagnosed Date Adjustment disorder with mixed anxiety and depre ssed mood 02/20/2025 Benign neoplasm of cecum 02/20/2025 Cerebellar stroke syndrome 02/20/2025 Encounter for fitting and adjustment of hearing aid 02/20/2025 Encounter for screening, unspecified 02/20/2025 Generalized anxiety disorder 02/20/2025 History of colonic polyps 02/20/2025 History of endovascular sten t graft for abdominal aortic aneurysm (AAA) 02/20/2025 Impulsiveness 02/20/2025 Polyp of colon 02/20/2025 Presence of other vascular implants and grafts 0 02/20/2025 Sensorineural hearing loss (SNHL) of both ears 0 01/25/2025 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 07/27/2024 Cecum mass 05/24/2024 Encounter for observation fo r other suspected diseases and conditions ruled out 04/07/2024 Persons encountering health services in other specified circumstances 04/07/2024 Tinnitus 04/07/2024 rn long term care (current) use of insulin 04/04/2024 Proteinuria, unspecified 04/04/2024 Vitamin D deficiency 04/04/2024 Anxiety 01/22/2023 01/22/2023 Ex-cigar smoker 01/22/2023 07/24/2023 Personal history of transien t ischemic attack (TIA), and cerebral infarction without residual deficits 01/22/2023 10/19/19 Venous insufficiency (chronic) (peripheral) 01/0610/19/2023 Chronic kidney disease, stage 3 unspecified 10/0610/19/2023 Hypertensive heart disease with heart failure 10/19/2023 Spinal stenosis at L4-L5 level 10/08/2022 0 01/22/2023 Infrarenal abdominal aortic aneurysm, without ru pture 07/03/2022 10/19/2023 Occlusion and stenosis of bilateral carotid sidney megan 07/03/2022 10/19/2023 Knee pain 04/21/2022 History of renal calculi 04/21/2022 Tobacco dependence syndrome 04/21/2022 Current moderate episode of major depressive dis order 04/14/2022 Type 2 diabetes mellitus 04/14/2022 Cluster headache 03/03/2022 Diverticulosis of sigmoid colon 03/03/2022 Essential hypertension 03/03/2022 History of arthroplasty of right knee 03/03/2022 Hyperlipidemia 03/03/2022 Hypothyroidism 03/03/2022 Neck pain 03/03/2022 Obstructive sleep apnea syndrome 03/03/2022 Other acquired deformities of left foot 03/03/20 22 Plantar nerve lesion 03/03/2022 Right anterior knee pain 03/03/2022 Tear of meniscus of knee 03/03/2022 Tussive syncope 03/03/2022 01/22/2023 Osteoarthritis of knee 03/03/2022 Dyspnea 11/26/2021 Palpitations 11/26/2021 Cerebrovascular accident 07/29/2021 Morbid obesity 03/14/2019 Fracture of distal end of radius 04/04/2016 Hyperplastic polyp of intestine 06/08/2009 Encounters Date Type Department Care Team Description 02/20/2025 11:40 AM EDT Office Visit [facility] [address] [place] [address] Den Stewart, CARLA Essential hypertension (Primary Dx); Hyperlipidemia, unspecified hyperlipidemia type; History of CEA (carotid endarterectomy); Venous insufficiency; Syncope and collapse 02/20/2025 Orders Only [facility] [address] [place] [address] Provider, MD Fozia from Last 3 Months Family History Medical History Relation Name Comments Heart failure Father Relation Name Status Comments Father Mother Social History Tobacco Use Types Packs/Day Years [...] Heterosexual or Straight 01/2025 3:34 PM EDT Last Filed Vital Signs Vital Sign Reading Time Taken Comments Blood Pressure 117/70 02/20/2025 11:33 AM EDT Pulse 68 02/20/2025 11:33 AM EDT Temperature 36.5 C (97.7 F) 05/13/2021 3:00 PM EST Respiratory Rate 11 01/22/2023 8:54 AM EDT Oxygen Saturation 97% 02/20/2025 11:33 AM EDT Inhaled Oxygen Concentration - - Weight 114 kg (252 lb) 02/20/2025 11:33 AM EDT Height 175.3 cm (5' 9 ) 02/20/2025 11:33 AM EDT Body Mass Index 37.21 02/20/2025 11:33 AM EDT Plan of Treatment Health Maintenance Due Date Last Done Comments CT Colonography 1959 Diabetes: Hemoglobin A1C 1959 FIT-DNA 1959 FIT 1959 FOBT 1959 Medicare Annual Wellness (AWV) 1959 Medicare Initial Physical (IPPE) 1959 Sigmoidoscopy 1959 Diabetes: Retinopathy Screening 1969 Depression Screening 1971 Fall Risk Screening 2024 COVID-19 Vaccine ( season) 2025 03/15/2024, 03/24/2022, 03/24/2022, Additional history exists Influenza Vaccine (#1) 2025 , 03/15/2024, 03/17/2022, Additional history exists Pneumococcal Vaccine: 50+ Years (3 of 3 - PCV20 or PCV21) 05/22/2026 05/22/2021, 05/22/2021, 04/01/2013 Adult Tetanus 05/20/2032 05/20/2022 Colonoscopy 05/23/2034 05/23/2024 Colorectal Cancer Screening 05/23/2034 Zoster Vaccines Completed 05/20/2022, 03/08, 03/17/2022, Additional history exists HIB Vaccines Aged Out No longer eligi ble based on patient's age to complete this topic HPV Vaccines Aged Out No longer eligi ble based on patient's age to complete this topic IPV Vaccines Aged Out No longer eligi ble based on patient's age to complete this topic Meningococcal B Vaccine Aged Out No l onger eligible based on patient's age to complete this topic Meningococcal Vaccine Aged Out No ernie shanel eligible based on patient's age to complete this topic Rotavirus Vaccines Aged Out No longer eligible based on patient's age to complete this topic Procedures Procedure Name Priority Date/Time Associated Diagnosis Comments BASIC METABOLIC PANEL Routine 02/20/2025 9:43 AM EDT TSH Routine 02/20/2025 9:43 AM EDT T4, FREE Routine 02/20/2025 9:43 AM EDT BASIC METABOLIC PANEL Routine 02/20/2025 9:42 AM EDT BASIC METABOLIC PANEL Routine 02/20/2025 9:42 AM EDT CBC Routine 02/20/2025 9:40 AM EDT COMPREHENSIVE METABOLIC PANEL Routine 02/20/2025 9:40 AM EDT LIPID PANEL Routine 02/20/2025 9:40 AM EDT from Last 3 Months Results * TSH (02/20/2025 9:43 AM EDT) Blood Venous blood specimen / Unknown Result [facility] Provider MD LAB BLOOD ORDERABLES Karen l Result * T4, free (02/20/2025 9:43 AM EDT) Blood Venous blood specimen / Unknown Result [facility] Provider MD LAB BLOOD ORDERABLES Karen l Result * Basic metabolic panel (02/20/2025 9:43 AM EDT) Only the most recent of3 resultswithin the time period is included. Blood Venous blood specimen / Unknown Result [facility] Provider MD LAB BLOOD ORDERABLES Karen l Result * CBC (02/20/2025 9:40 AM EDT) Blood Venous blood specimen / Unknown Result [facility] Provider MD LAB BLOOD ORDERABLES Karen l Result * Lipid panel (02/20/2025 9:40 AM EDT) Blood Venous blood specimen / Unknown us Historical Provider MD LAB BLOOD ORDERABLES Karen l Result * Comprehensive metabolic panel (02/20/2025 9:40 AM EDT) Blood Venous blood specimen / Unknown Historical Provider LAB BLOOD ORDERABLES Karen l Result from Last 3 Months Insurance [facility] Care Teams Filtration Plant Operator Relationship Specialty Start Date End Date Warner Key DO [address] PCP - General 01/29/22
--- OUTSIDE RECORDS SUMMARY | 2025-02-20 12:35 | XMS_ITS | Encounter Summary ---
Author Organization [facility] Address [id number] [address] [place] [address] Care Team Providers Care Professor Of Finance Name Role Phone Warner Key DO Primary Care Provider [phone] Reason for Visit * Reason Comments Med Refill Encounter Details Date Type Department Care Team (Late st Contact Info) Description 09/21/2022 Refill [facility] - Family Medicine [address] [place] [address] Lilibeth Hatch, MICHAEL-BAG VALVER [address] [address] Social History Tobacco Use Types Packs/Day Years Used Date Smoking Tobacco: Former Cigarettes 1 20 Smokeless Tobacco: Never Alcohol Use Standard Drinks/Week Comments Yes 0 (1 standard drink = 0.6 oz pur e alcohol) OCCASIONAL PHQ-2 Answer Date Recorded Total Score 1 09/23/2022 Childcare Answer Date Recorded Childcare Unknown 11/17/2018 [...] documented as of this encounter Care Teams Professor Of Finance Relationship Specialty Start Date End Date Warner Key G, DO [address] [facility], [place] [address] PCP - General Family Medicine 02/27/22 documented as of this encounter
--- OUTSIDE RECORDS SUMMARY | 2025-02-20 12:35 | XMS_ITS | Encounter Summary ---
Author Organization [facility] Address [id number] [address] [place] [address] Care Team Providers Care Burlap Bag Sewer Name Role Phone DerrekWarner manuel Sylvia TILLEY Primary Care Provider [phone] Encounter Details Date Type Department Care Team (Late st Contact Info) Description 12/22/2022 [facility] Only [facility] - Family Medicine [address] [place] [address] Stephanie Waldron CMA Spinal stenosis at L4-L5 level Social History Tobacco Use Types Packs/Day Years [...] Procedure Name Priority Date/Time Associated Diagnosis Comments AMB REFERRAL TO NEUROSURGERY Routine 12/22/2022 4:41 PM EDT Spinal stenosis at L4-L5 level documented in this encounter Results * Ambulatory referral to Neurosurgery (12/22/2022 4:41 PM EDT) Lilibeth Hatch FIELD CONTRACTOR-SUPERINTENDENT PIPELINES OUTPATIENT REFERRAL ORDERAB LES Final Result MANUALLY TRANSCRIBED RESULTS documented in this encounter Visit Diagnoses Diagnosis Spinal stenosis at L4-L5 level documented in this encounter Additional Health Concerns Assessment Noted Time PHQ-9 Depression Total Score: 0 10/09/19 23 2:43 PM EDT documented as of this encounter Care Teams Burlap Bag Sewer Relationship Specialty Start Date End Date Warner Key DO [address], [place] [address] PCP - General Family Medicine 02/27/22 documented as of this encounter
--- OUTSIDE RECORDS SUMMARY | 2025-02-20 12:35 | XMS_ITS | Encounter Summary ---
Author Organization [facility] Address [facility] [id number] [address] [place] [address] Care Team Providers Care Knitted Goods Shaper Name Role Phone Warner Key DO Primary Care Provider [phone] Reason for Visit * Reason Comments Med Refill Encounter Details Date Type Department Care Team (Late st Contact Info) Description 08/28/2022 Refill [facility] - Family Medicine [address] [place] [address] Lilibeth Hatch, MICHAEL-LIFTS AND CRANES INSPECTOR [address] [place] [address] Social History Tobacco Use Types Packs/Day Years [...] documented as of this encounter Care Teams Knitted Goods Shaper Relationship Specialty Start Date End Date Warner Key G, DO [address] [facility], [place] [address] PCP - General Family Medicine 02/27/22 documented as of this encounter
--- OUTSIDE RECORDS SUMMARY | 2025-02-20 12:35 | XMS_ITS | Encounter Summary ---
Author Organization [facility] Address [address] [place] [address] Care Team Providers Care Camera Prototyping Engineer Name Role Phone Warner Key MD Primary Care Provider Encounter Details Date Type Department Care Team (Late st Contact Info) Description 05/23/2024 Orders Only [facility] [address] [facility] [address] [place] [address] Austin Corral MD [address] [facility] [address] [place] [address] Social History Tobacco Use Types Packs/Day Years [...] Comments COLONOSCOPY Routine 05/23/2024 10:37 AM EST documented in this encounter Results * Colonoscopy (05/23/2024 10:37 AM EST) Anatomical Region Laterality Modality Endoscopy us Austin Corral MD ENDOSCOPY PROCEDURE ORDERABLES Final Result documented in this encounter Visit Diagnoses Not on filedocumented in this encounter Care Teams Camera Prototyping Engineer Relationship Specialty Start Date End Date Warner Key MD PCP - General 11/05/22 documented as of this encounter
--- OUTSIDE RECORDS SUMMARY | 2025-02-20 12:35 | XMS_ITS | Encounter Summary ---
Author Organization [facility] tem Address [facility] [id number] [address] [place] [address] Care Team Providers Care Roving Winder Name Role Phone Warner Key DO Primary Care Provider Encounter Details Date Type Department Care Team (Late st Contact Info) Description 10/18/2024 Orders Only [facility] - Family Medicine [address] [place] [address] Warner Key DO [address], [facility] [place] [address] Social History Tobacco Use Types Packs/Day Years Used Date Smoking Tobacco: Former Cigarettes 1 20 0 01/06/1998 - 01/06/2018 Passive Smoke Exposure: Past Smokeless Tobacco: Never Comments:Smoked 1 PPD x 20 y ears and 0.5 PPD x 20 years for a total of 30 pack years Alcohol Use Standard Drinks/Week Comments Yes 0 (1 standard drink = 0.6 oz pur e alcohol) OCC[facility]AL [facility] Utilities Answer Date Recorded In the past 12 months has [employer] electric, gas, oil, or water company threatened [...] week 09/03/2023 How often do you attend [facility] or shinto services? More than 4 times per year 09/03/2023 Do you belong to any clubs o r organizations such as latter day groups, unions, fraternal or athletic groups, or [...] PHQ-2 Answer Date Recorded Total Score 0 07/27/2024 [facility] of Occupat ional Health - Occupational Stress [...] Recorded Do you need help finding a [facility] career center and/or a training program? No 01/22/2023 Hunger Screening Answer Date Recorded Within the past 12 months we worried whether our food would run out before we got money to buy more. Never True 07/27/2024 Within the past 12 months th e food we bought just didn't last and we didn't have money to get more. Never True 07/27/2024 Purpose - Life Answer Date Recorded I [...] Noted Time PHQ-9 Depression Total Score: 0 07/27/19 25 9:37 AM EST documented as of this encounter Care Teams Roving Winder Relationship Specialty Start Date End Date Warner Key DO [address] [facility], [facility] [place] [address] PCP - General Family Medicine 02/27/22 documented as of this encounter
--- OUTSIDE RECORDS SUMMARY | 2025-02-20 12:35 | XMS_ITS | Clinical Summary ---
Author Organization [facility] Address [address] [place] [address] Care Team Providers Care Cost Control Analyst Name Role Phone Lilibeth Hatch TRAFFIC INVESTIGATOR Unavailable Allergies No known active allergies Medications Lacto no.80-Ojnyyi-QE S-larch 25B cell-25B cell-50 mg cap Take 1 tablet by mouth once daily. Active Lacto no.62-Igwujm-YF S-larch 25B cell-25B cell-50 mg cap Take 2 tablets twice a day by oral route for 90 days. 3 Active atorvastatin (LIPITOR) 80 mg tablet Take 1 tablet by mouth once daily. 3 Active liraglutide (VICTOZA 3-FRANKLIN SUBCUTANEOUS) Inject subcutaneously. Active insulin glargine,hum.re c.anlog (LANTUS SUBCUTANEOUS) Inject subcutaneously. Active insulin lispro (HUMALOG PEN SUBCUTANEOUS) Inject subcutaneously. Active levothyroxine 200 mcg cap Take 200 mcg by mouth daily before breakfast. Active celecoxib (CELEBREX) 100 mg capsule take 1 capsule by mouth once daily if needed 2 Active chlorthalidone (HYGROTON) 25 mg tablet Take 1 tablet by mouth once daily. 2 Active ergocalciferol 50,000 unit capsule (VITAMIN D2, DRISDOL) Take 1 capsule by mouth one time a week. 3 Active pioglitazone (ACTOS) 45 mg tablet Take 1 tablet by mouth once daily. 3 Active vilazodone (VIIBRYD) 40 mg tablet take 1 tablet by mouth every morning (AFTER COMPLETING 10MG AND 20MG) 2 Active metoprolol succinate ER (TOPROL XL) 25 mg 24 hr tablet Take 1 tablet by mouth once daily. Active lisinopril (ZESTRIL) 40 mg tablet Take 1 tablet every day by oral route for 90 days. 9 Active gabapentin (NEURONTIN) 300 mg capsule Take 300 mg by mouth. 3 Active ARIPiprazole (ABILIFY) 5 mg tablet Take 1 tablet by mouth every afternoon. 3 Active clopidogrel (PLAVIX) 75 mg tablet Take 1 tablet by mouth once daily. 3 Active furosemide (LASIX) 20 mg tablet Take 1 tablet by mouth every afternoon. 3 Active metFORMIN ER (GLUCOPHAGE XR) 500 mg 24 hr tablet Take 500 mg by mouth twice daily. Takes two tablets by mouth twice daily 3 Active atorvastatin (LIPITOR) 40 mg tablet Take 40 mg by mouth once daily. Active VRAYLAR 3 mg capsule Take 1 capsule by mouth every afternoon. 3 Active Active Problems Problem Noted Date Diagnosed Date Anxiety 01/22/2023 08/11/2023 Ex-cigar smoker 01/22/2023 08/11/2023 Personal history of transien t ischemic attack (TIA), and cerebral infarction without residual deficits 01/22/2023 08/11/19 Venous insufficiency (chronic) (peripheral) 01/0608/11/2023 Chronic kidney disease, stage 3 unspecified 10/0608/11/2023 Hypertensive heart disease with heart failure 08/11/2023 Spinal stenosis at L4-L5 level 10/08/2022 0 08/11/2023 Infrarenal abdominal aortic aneurysm, without ru pture 07/03/2022 08/11/2023 History of renal calculi 04/21/2022 024 Tobacco dependence syndrome 04/21/2022 03/10/2023 Current moderate episode of major depressive dis order 04/14/2022 08/11/2023 Type 2 diabetes mellitus 04/14/2022 024 Cluster headache 03/03/2022 08/11/2023 Diverticulosis of sigmoid colon 03/03/2022 08/11/2023 Essential hypertension 03/03/2022 History of arthroplasty of right knee 03/03/2022 08/11/2023 Hyperlipidemia 03/03/2022 08/11/2023 Hypothyroidism 03/03/2022 08/11/2023 Obstructive sleep apnea syndrome 03/03/2022 08/11/2023 Other acquired deformities of left foot 03/03/20 22 08/11/2023 Other acquired deformities of right foot 022 08/11/2023 Osteoarthritis of knee 03/03/2022 Cerebrovascular accident 07/29/2021 024 Fracture of distal end of radius 04/04/2016 08/11/2023 Hyperplastic polyp of intestine 06/08/2009 08/11/2023 Resolved Problems Problem Noted Date Diagnosed Date Resolved Date Occlusion and stenosis of bi lateral carotid arteries 07/03/2022 08/11/2023 01/09/2024 Social History Tobacco Use Types Packs/Day Years [...] is lower risk 9 12/16/2022 Data from: https://www.neighborhoodatlas.medicine.[facility].edu/. Last address used for calculation [address] [facility] 12/16/2022 Sex and Gender Information Value Date Recorded Sex Assigned at Not on file Legal Sex Male 12:10 PM EDT Gender Identity Not on file Sexual Orientation Not on file Last Filed Vital Signs Vital Sign Reading Time Taken Comments Blood Pressure 120/62 05/07/2023 3:46 PM EST Pulse 85 05/07/2023 3:46 PM EST Temperature - - Respiratory Rate - - Oxygen Saturation 99% 12/16/2022 11:01 AM EDT Inhaled Oxygen Concentration - - Weight 136.1 kg (300 lb) 08/14/2023 2:54 PM EST Height 175.3 cm (5' 9 ) 08/14/2023 2:54 PM EST Body Mass Index 44.3 08/14/2023 2:54 PM EST Plan of Treatment Health Maintenance Due Date Last Done Comments Abdominal Aortic Aneurysm Screening 1959 HbA1C 1964 Diabetic Foot Exam 1969 Dilated Retinal Exam 1969 Urine Albumin:Creatinine Ratio 1969 Annual PCP Team Chronic Dise ase Visit 1977 HIV Screening 1977 Hepatitis C Screening [address] Colonography 2004 Cologuard (FIT-DNA) 2004 Colonoscopy 2004 Colorectal Cancer Screening 2004 Fecal Occult Blood 2004 Sigmoidoscopy 2004 RSV Vaccine (1 - Risk 60-74 years 1-dose series) 2019 Serum Creatinine 03/10/2024 03/10/2023 Medicare Advantage Annual We llness Visit 06/08/2024 Advance Directive Discussion 2024 Influenza Vaccine (#1) 2025 , 05/22/2021, 03/23/2020, Additional history exists Pneumococcal Vaccine: 50+ (3 of 3 - PCV20 or PCV21) 05/22/2026 05/22/2021, 04/01/2013 Prostate Cancer Screening Discussion 01/23/2028 01/22/2023 DTaP,Tdap,Td Vaccine (2 - Td or Tdap) 05/20/2032 05/20/2022 Shingrix Vaccine Completed 05/20/2022, , 03/17/2022 Insurance [facility] MEDICARE ADVANTAGE O FOR LIFE Care Teams Cost Control Analyst Relationship Specialty Start Date End Date Lilibeth Hatch, CARLA [address] [place] [address] Referring Family Medicine 10/24/22
--- OUTSIDE RECORDS SUMMARY | 2025-02-20 12:36 | XMS_ITS | Encounter Summary ---
Author Organization [facility] tem Address [facility] [id number] [address] [place] [address] Care Team Providers Care Clinical Professor Name Role Phone Warner Key DO Primary Care Provider Encounter Details Date Type Department Care Team (Late st Contact Info) Description 03/20/2023 Orders Only [facility] - Family Medicine [address] [place] [address] Warner Key DO [address], [facility] [place] [address] Social History Tobacco Use Types Packs/Day Years [...] Recorded Do you need help finding a [facility] career center and/or a training program? [...] documented as of this encounter Care Teams Clinical Professor Relationship Specialty Start Date End Date Warner Key DO [address], [place] [address] PCP - General Family Medicine 02/27/22 documented as of this encounter
--- OUTSIDE RECORDS SUMMARY | 2025-02-20 12:36 | XMS_ITS | Encounter Summary ---
Author Organization [facility] Address [facility] [id number] [address] [place] [address] Care Team Providers Care Motor Vehicle Lecturer Name Role Phone Shahid Warner Ward DO Primary Care Provider Encounter Details Date Type Department Care Team (Late st Contact Info) Description 05/17/2024 Orders Only [facility] [address] [place] [id number] External, Scanning Provider Social History Tobacco Use [...] Recorded In the past 12 months has [employer], gas, oil, or water company threatened to [...] How often do you attend chur or islam services? More than 4 times per year 09/03/2023 Do you belong to any clubs o r organizations such as denominational groups, unions, fraternal or athletic groups, or [...] PHQ-2 Answer Date Recorded Total Score 0 09/03/2023 [facility] of Occupat ional Health - Occupational Stress [...] to strenuous exercise (like a brisk walk)? 0 days 09/03/2023 On average, how many minutes do you engage in exercise at this level? 0 min 09/03/2023 PRAPARE - Transportation Answer Date Re corded [...] Recorded Do you need help finding a [facility] career center and/or a training program? No 01/22/2023 Hunger Screening Answer Date Recorded Within the past 12 months we worried whether our food would run out before we got money to buy more. Never True 09/03/2023 Within the past 12 months th e food we bought just didn't last and we didn't have money to get more. Never True 09/03/2023 Purpose - Life Answer Date Recorded I [...] Procedure Name Priority Date/Time Associated Diagnosis Comments HEMOGLOBIN A1C Routine 04/18/2024 documented in this encounter Results * (ABNORMAL) Hemoglobin A1c (04/18/2024) External Hemoglobin A1C 7.1(A) 4 - 6 % MANUALLY TRANSCRIBED RESULTS 04/18/2024 us Scanning Provider External LAB BLOOD ORDERABLES Edited Result - Final MANUALLY TRANSCRIBED RESULTS documented in this encounter Visit Diagnoses Not on filedocumented in this encounter Additional Health Concerns Assessment Noted Time PHQ-9 Depression Total Score: 0 09/03/19 24 3:13 PM EDT documented as of this encounter Care Teams Motor Vehicle Lecturer Relationship Specialty Start Date End Date Warner Key DO [address], [place] [address] PCP - General Family Medicine 02/27/22 documented as of this encounter
--- OUTSIDE RECORDS SUMMARY | 2025-02-20 12:36 | XMS_ITS | Encounter Summary ---
Author Organization [facility] Address [facility] [id number] [address] [place] [address] Care Team Providers Care Feedlot Manager Name Role Phone Shahid Warner Sylvia TILLEY Primary Care Provider [phone] Reason for Visit * Reason Onset Date Comments Med Refill 01/18/2024 Encounter Details Date Type Department Care Team (Late st Contact Info) Description 01/18/2024 Refill [facility] - Family Medicine [address] [place] [address] Stephanie Waldron CMA Social History Tobacco Use [...] = 0.6 oz pur e alcohol) OCCASIONAL [employer] Utilities Answer Date Recorded In the past 12 months has [employer], gas, oil, or water [employer] threatened to shut off services in your [...] How often do you attend chur or religion services? More than 4 times per year 09/03/2023 Do you belong to any clubs o r organizations such as samaritan groups, unions, fraternal or athletic groups, or [...] Answer Date Recorded Total Score 0 09/03/2023 [facility] of Occupat ional Health - Occupational [...] Recorded Do you need help finding a [facility] career center and/or a training [...] documented as of this encounter Care Teams Feedlot Manager Relationship Specialty Start Date End Date Warner Key DO [address], [place] [address] PCP - General Family Medicine 02/27/22 documented as of this encounter
--- OUTSIDE RECORDS SUMMARY | 2025-02-20 12:36 | XMS_ITS | Encounter Summary ---
Author Organization [facility] Address [facility] [id number] [address] [place] [address] Care Team Providers Care Pre Owned Sales Manager Name Role Phone ShahidWarner Sylvia TILLEY Primary Care Provider Encounter Details Date Type Department Care Team (Late st Contact Info) Description 01/25/2025 Orders Only [facility] - Family Medicine [address] [place] [address] Ref Prov, [place] [address] Social History Tobacco Use Types Packs/Day Years [...] Recorded In the past 12 months has [employer], gas, oil, or water [employer] threatened to shut off services in your [...] How often do you attend chur or rastafari services? More than 4 times per year 09/03/2023 Do you belong to any clubs o r organizations such as gnosticist groups, unions, fraternal or athletic groups, or [...] Answer Date Recorded Total Score 0 01/25/2025 [facility] of Occupat ional Health - [...] Recorded Do you need help finding a [facility] career center and/or a training [...] Procedure Name Priority Date/Time Associated Diagnosis Comments DIABETES EYE EXAM Routine 08/02/2024 4:57 PM EST documented in this encounter Results * DIABETES EYE EXAM (08/02/2024 4:57 PM EST) us Not In System Ref Prov HEALTH MAINTENANCE Final Result MANUALLY TRANSCRIBED RESULTS documented in this encounter Visit Diagnoses Not on filedocumented in this encounter Additional Health Concerns Assessment Noted Time PHQ-9 Depression Total Score: 0 01/26/20 9:13 AM EDT documented as of this encounter Care Teams Pre Owned Sales Manager Relationship Specialty Start Date End Date Warner Key DO [address] [facility] [place] [place] [address] PCP - General Family Medicine 02/27/22 documented as of this encounter
--- OUTSIDE RECORDS SUMMARY | 2025-02-20 12:36 | XMS_ITS | Encounter Summary ---
Author Organization [facility] Address [address] [place] [address] Care Team Providers Care Biology Intern Name Role Phone Lilibeth Hatch HEATER ENGINEER HELPER Unavailable Source Comments In the event this information is protected by the Federal Confidentiality of Alcohol and Drug AbusePatient Records regulations: The Federal rules restrict any use of the information to criminally investigate or prosecute any alcohol or drug abuse patient.[facility] Encounter Details Date Type Department Care Team (Late st Contact Info) Description 2024 [place] [address] Provider, f Medicare Coverage of Physical Exams Social History Tobacco Use Types Packs/Day Years [...] is lower risk 9 12/16/2022 Data from: https://www.neighborhoodatlas.medicine.[facility].edu/. Last address used for calculation [address] 12/16/2022 Sex and Gender Information Value Date Recorded Sex Assigned at Not on file Legal Sex Male 12:10 PM EDT Gender Identity Not on file Sexual Orientation Not on file documented as of this encounter Plan of Treatment Not on file documented as of this encounter Visit Diagnoses Not on filedocumented in this encounter Care Teams Biology Intern Relationship Specialty Start Date End Date Lilibeth Hatch, CARLA [address] [facility] [place] [address] Referring Family Medicine 10/24/22 documented as of this encounter
--- OUTSIDE RECORDS SUMMARY | 2025-02-20 12:36 | XMS_ITS | Encounter Summary ---
Author Organization [facility] tem Address [id number] [address] [place] [address] Care Team Providers Care Vegetable Preparer Name Role Phone Warner Key DO Primary Care Provider Encounter Details Date Type Department Care Team (Late st Contact Info) Description 05/20/2024 Orders Only [facility] - Family Medicine [address] [place] [address] Warner Key DO [address], [facility] [place] [address] Social History Tobacco Use Types Packs/Day Years [...] oz pur e alcohol) OCCASIONAL [facility] Utilities Answer Date Recorded In the past 12 months has [employer] electric, gas, oil, or water company threatened [...] week 09/03/2023 How often do you attend [facility] or zoroastrian services? More than 4 times per year [...] Answer Date Recorded Total Score 0 09/03/2023 [facility] of Occupat ional Health - Occupational Stress [...] Recorded Do you need help finding a [facility] career center and/or a training program? No [...] Procedure Name Priority Date/Time Associated Diagnosis Comments HM COLONOSCOPY Routine 05/20/2024 12:03 PM EST documented in this encounter Visit Diagnoses Not on filedocumented in this encounter Additional Health Concerns Assessment Noted Time PHQ-9 Depression Total Score: 0 09/03/19 24 3:13 PM EDT documented as of this encounter Care Teams Vegetable Preparer Relationship Specialty Start Date End Date Warner Key DO [address], [facility] [place] [address] PCP - General Family Medicine 02/27/22 documented as of this encounter
--- OUTSIDE RECORDS SUMMARY | 2025-02-20 12:36 | XMS_ITS | Encounter Summary ---
Author Organization [facility] [employer] [facility] Address [facility] [id number] [address] [place] [address] Care Team Providers Care Junior Paralegal Name Role Phone Warner Key DO Primary Care Provider [phone] Reason for Visit * Reason Onset Date Comments Med Refill 01/18/2024 Encounter Details Date Type Department Care Team (Late st Contact Info) Description 01/18/2024 [facility] [address] [place] [address] Warner Key DO [address] [facility], [facility] [place] [address] Social History Tobacco Use Types Packs/Day Years [...] Recorded In the past 12 months has [employer] electric, gas, oil, or water company threatened [...] often do you attend chur ch or worship services? More than 4 times per year 09/03/2023 Do you belong to any clubs o r organizations such as cheondoism groups, unions, fraternal or athletic groups, or [...] Answer Date Recorded Total Score 0 09/03/2023 [facility] of Occupat ional Health - Occupational [...] documented as of this encounter Care Teams Junior Paralegal Relationship Specialty Start Date End Date Warner Key DO [address], [place] [address] PCP - General Family Medicine 02/27/22 documented as of this encounter
--- OUTSIDE RECORDS SUMMARY | 2025-02-20 12:36 | XMS_ITS | Encounter Summary ---
Author Organization [facility] Address [address] [place] [address] Care Team Providers Care Registration Clerk Name Role Phone Lilibeth Hatch ELECTRICIAN MACHINE SHOP Unavailable Source Comments In the event this information is protected by the Federal Confidentiality of Alcohol and Drug AbusePatient Records regulations: The Federal rules restrict any use of the information to criminally investigate or prosecute any alcohol or drug abuse patient.[facility] Encounter Details Date Type Department Care Team (Late st Contact Info) Description 02/04/2023 Patient Msg General Surgery [address] [place], [place] [id number] Provider, [facility] Referral Information Social History Tobacco Use Types Packs/Day Years Used Date Smoking Tobacco: Never Assessed PHQ-2 Answer Date Recorded PHQ-2 score 2 01/28/2023 Area Deprivation Index Answer Date Surendra rded National Score (1-100), lower number is lower ri sk 93 12/16/2022 State Score (1-10), lower number is lower risk 9 12/16/2022 Data from: https://www.neighborhoodatlas.medicine.[facility].edu/. Last address used for calculation [address] 12/16/2022 Sex and Gender Information Value Date Recorded Sex Assigned at Not on file Legal Sex Male 12:10 PM EDT Gender Identity Not on file Sexual Orientation Not on file documented as of this encounter Plan of Treatment Not on file documented as of this encounter Visit Diagnoses Not on filedocumented in this encounter Care Teams Registration Clerk Relationship Specialty Start Date End Date Lilibeth Hatch, CARLA [address] [place] [address] Referring Family Medicine 10/24/22 documented as of this encounter
[2025-02-20 14:50] LABS: Alanine Aminotransferase 28 U/L (16-63); Albumin Globulin Ratio 1.0; Albumin Level 3.7 g/dL (3.4-5.0); Alkaline Phosphatase 141 U/L (46-116); Anion Gap 12.6; Aspartate Amino Transferase 17 U/L (15-37); Blood Urea Nitrogen 19.0 mg/dL (7.0-18.0); Calcium 9.1 mg/dL (8.5-10.1); Carbon Dioxide 28.8 mmol/L (21.0-32.0); Chloride 102 mmol/L (98-107); Estimated GFR (African America >60 (>=60 mL/min/1.73m^2); Estimated GFR (Non-African Ame >60 (>=60 mL/min/1.73m^2); Globulin 3.7 g/dL; Glucose 124 mg/dL (74-106); Potassium 4.4 mmol/L (3.5-5.1); Sodium 139 mmol/L (136-145); Total Protein 7.4 g/dL (6.4-8.2)
--- OUTSIDE RECORDS SUMMARY | 2025-02-20 15:31 | XMS_ITS | CCD ---
Author Organization [facility] Care Team Providers Care Gang Head Saw Operator Name Role Phone Alberto Mcgrath Unavailable Norma Fonseca Unavailable WARNER WELCH Primary Care Unavailable ALGHOTHANI, MOHAMAD Admitting Unavailable ALGHOTHANI, MOHFIDENCIOD Attending Unavailable DEVENDRALOWARNER GOMEZ Referring Unavailable NORMA KIRAN Attending Unavailable DEVENDRALONG, WARNER Primary Care Unavailable NORMA KIRAN Admitting Unavailable DEVENDRALOMAR, WARNER Referring Unavailable NORMA KIRAN Admitting Unavailable NORMA KIRAN Attending Unavailable DEVENDRALONG, WARNER Primary Care Unavailable FURLONG, WARNER Referring Unavailable FURLONG, WARNER Primary Care Unavailable ZENSAMMIEAMED Admitting Unavailable ZENJANA Attending Unavailable DEVENDRALOWARNER GOMEZ Referring Unavailable FURLONG, DR WARNER Ward Primary Care Unavailable ALGHOTHANI, MOHAMAD Admitting Unavailable ALGHOTHANI, MOHAMAD Consulting Unavailable ALGHOTHANI, MOHAMAD Attending Unavailable FCO, DR BEKAH Acosta Consulting Unavailable FURLONG, DR WARNER Ward Primary Care Unavailable GRACE, LAMONT N Admitting Unavailable GRACE, LAMONT N Attending Unavailable GRACE, LAMONT N Consulting Unavailable FURLONG, DR WARNER Ward Primary Care Unavailable GRACE, LAMONT N Admitting Unavailable GRACE, LAMONT N Consulting Unavailable GRACE, LAMONT N Attending Unavailable FURLONG, DR WARNER Ward Primary Care Unavailable LY, AHMAD Admitting Unavailable LY, AHPAULINOD Consulting Unavailable LY, AHPAULINOD Attending Unavailable MISC, DR BECKETT Admitting Unavailable FURLONG, DR WARNER Ward Primary Care Unavailable MISC, DR BECKETT Attending Unavailable RANSOM, DR JOSEF Matos Consulting Unavailable MISC, DR BECKETT Consulting Unavailable ZIEBOUMAR, DR BEKAH Acosta Consulting Unavailable Lilibeth Hatch R Unavailable BEN ZIMMERMAN Referring Unavailable Lilibeth Hatch CNP R Unavailable KARIE BARRIGA Attending Unavailable SELF Referring Unavailable WARNER WELCH Referring Unavailab BEN Mcdaniel Attending Unavailable BEN ZIMMERMAN Referring Unavailable BEN ZIMMERMAN Referring Unavailable NONA ZAMBRANO Attending Unavailable BEN ZIMMERMAN Referring Unavailable MINDA DELCID Attending Unavailable LISA EMERY Attending Unavailable LISA EMERY Attending Unavailable LISA EMERY Attending Unavailable Warner Welch MD Primary Care Provider [phone] Warner Welch DO Primary Care Provider MILO MODI Attending Unavailable MILO MODI Attending Unavailable MILO MODI Referring Unavailable HOOD SALES Attending Unavailable Warner Welch Primary Care Unavailable Austin Corral Admitting Unavailable Austin Corral Attending Unavailable Hood Sales Admitting Unavailable Hood Sales Attending Unavailable Warner Welch Primary Care Unavailable Warner Welch Primary Care Unavailable Kleber Alarcon Admitting Unavailab Kleber Celeste Attending Unavailab Warner Duval DO Primary Care Provider [phone] WARNER WELCH Attending Unavailable WARNER WELCH Referring Unavailable WARNER WELCH Primary Care Unavailable WARNER WELCH Attending Unavailable WARNER WELCH Referring Unavailable WARNER WELCH Primary Care Unavailable Medications Current Medications Medication Drug Class(es) Dates [...] Comment on above: Take 1 tablet by lusi enrique th once daily. Take 40 mg by mouth once daily. blood-glucose meter misc (14 sources) blood-glucose me ter misc Active blood-glucose me ter misc Accu-Chek Domonique [...] on above: take 1 capsule by mo uth once daily if needed chlorthalidone 25 mg oral tablet (20 sources) Thiazide-like Diuretic Start: 05-23-2022 End: 01-25-2025 chlorthalidone (Hygroton) 25 MG tablet Take 25 [...] enrique once daily. Continuous Glucose Sensor (FreeStyle Telma 3 Sensor) [facility] (7 sources) Start: 03-02-2024 Continuous Glucose Sensor (FreeStyle Telma 3 Sensor) [facility] Indications: Type II diabetes mellitus with neurological manifestations (CMS/HCC) 1 kit by Other route every 14 (fourteen) days 6 each 1 03/02/2024 Active Start: 03-01-2024 Continuous Glu cose Sensor (FreeStyle Telma 3 Sensor) [facility] Indications: Type II diabetes mellitus with neurological manifestations (CMS/HCC) USE DIRECTED and change q14d 6 each 1 03/01/2024 Active DULoxetine 60 mg delayed release oral capsule (20 sources) Serotonin and Norepinephrine Reuptake Inhibitor Start: 07-10-2023 End: 01-25-2025 take 1 capsule by mouth in the morning DULoxetine (Cymbalta) [address] capsule Take 60 mg by mouth in the morning. 07/10/2023 Active take 1 capsule by mo [facility] every twelve hours Cymbalta 20 MG [...] on above: Take 1 capsule by mo [facility] one time a week. Fluarix Quadrivalent 0.5 ML (3 sources) Fluarix Quadriva lent 0.5 ML Intramuscular for 1 Active furosemide 20 mg oral tablet (20 sources) Loop Diuretic Start: 11-01-2024 furosemide (Lasix) 20 MG tablet Take 20 [...] oral capsule (19 sources) Anti-epileptic Agent Start: 10-09-19 End: 07-27-19 25 take 1 capsule by mouth twice daily [...] unt/ml pen injector (20 sources) Insulin Analog inject 25 [IU] by subcutaneous injection once daily insulin glargine (LANTUS, BASAGLAR) 100 unit/mL (3 mL) insulin pen Inject 25 Units/kg under the skin nightly. Active inject 30 [...] times a day with meals Active Lacto no.62-Xrjdxt-EYN-l arch 25B cell-25B cell-50 mg cap (14 sources) Start: 06-25-2022 take 2 tablets by mouth twice daily Lacto no.61-Lgoblk-WBX-l arch 25B cell-25B cell-50 mg cap Take 2 tablets twice a day by oral route for 90 days. 06/25/2022 Active Start: 06-25-2022 take 2 tablets by mo [facility] twice daily Lacto no.17-Sgvkmy-NJJ-larch 25B cell-25 B cell-50 mg cap Take 2 tablets twice a day by oral route for 90 days. 0 06/25/2022 Active take 1 tablet by luis enrique th once daily Lacto no.95-Mrqadi-HPB-larch 25B cell-25 B cell-50 mg cap Take 1 tablet by mouth once daily. Active take 1 tablet by luis enrique th once daily Lacto no.72-Tzzuhi-DDW-larch 25B cell-25 B cell-50 mg cap Take 1 tablet by mouth once daily. 0 Active Comment on above: Take 1 tablet by luis enrique th once daily. Take 2 tablets twice a day by oral route for 90 days. lamoTRIgine 25 mg oral tablet (2 sources) Mood Stabilizer, Anti-epileptic Agent take 1 tablet by mouth in the morning, then take 1 tablet by mouth at bedtime lamoTRIgine (LaMICtal) 25 mg tablet Take 1 tablet (25 mg total) by mouth in the morning and 1 tablet (25 mg total) before bedtime. Active levothyroxine sodium 0.2 mg oral tablet (20 [...] sources) Angiotensin Converting Enzyme Inhibitor Start: 03-17-20 23 take 1 tablet by mouth once daily [...] 0 12/30/2022 Active take 1 tablet by luis enrique th at mealtime, then take 1 tablet [...] 1 tablet by mouth Daily 03/24/2024 Active End: 01-25-2025 take 1 tablet by mouth every twenty-four hours in the morning metoprolol succinate XL (TOPROL XL) 50 mg 24 hr tablet Take 1 tablet (50 mg total) by mouth in the morning. 01/25/2025 Discontinued (Therapy completed) take 1 tablet by mouth once yon y metoprolol succinate ER (TOPROL XL) 25 mg 24 hr tablet Take 1 tablet by mouth once daily. Active take 1 capsule by mo uth once daily Metoprolol Succinate 25 MG 1 capsule Orally [...] 2 diabetes mellitus with hyperglycemia, unspecified whether superintendent container terminal insulin use ([facility]) Take 1 tablet (45 mg) by mouth Daily 90 tablet 1 03/01/2024 08/28/2024 Active Pioglitazone HCl 45 MG Oral for 90 Active Comment on above: Take 1 tablet by luis enrique th once daily. 0.25 mg, 0.5 mg dose 1.5 ml semaglutide 1.34 mg/ml pen injector (3 sources) semaglutide 0.25 mg or 0.5 mg(2 mg/1.5 [...] Apr, Not-Taking ARIPiprazole 5 mg oral tablet (5 sources) Atypical Antipsychotic Start: 01-27-2023 take 1 tablet by mouth once ARIPiprazole (ABILIFY) 5 mg tablet Take 1 tablet by mouth every afternoon. 0 01/27/2023 Active take 1 tablet by mouth at bedtim e ARIPiprazole (ABILIFY) 10 mg tablet Take 1 tablet (10 mg total) by mouth in the morning and at bedtime. Active Comment on above: Take 1 tablet by mouth every afternoon. aspirin 81 mg delayed release oral tablet (20 sources) Platelet Aggregation Inhibitor, Nonsteroidal Anti-inflammatory Drug Start: 3 End: 4 take 1 tablet [...] on above: Take 1 capsule by mo ut every afternoon. dextromethorphan hydrobromide 1.5 mg/ml / pyrilamine maleate 1.5 mg/ml oral solution (13 sources) Uncompetitive M-wmjnqb-K-aspartate Receptor Antagonist, Sigma-1 Agonist Start: 020 Amo DM 7.5-7.5 MG/5ML 10 ml Orally every 6-8 hours as needed for 8 days Apr, Not-Taking Lacto no.98-Gcvrlv-LKV-larch 25B cell-25B cell-50 mg capsule (4 sources) Start: 023 End: 024 take 2 tablets by mouth twice daily Lacto no.98-Vxvsdz-VAA-la rch 25B cell-25B cell-50 mg capsule Take 2 tablets twice a day by oral route for 90 days. 0 06/25/2022 09/03/2023 Discontinued (Therapy completed) Start: 06-25-2022 take 2 tablets by mo uth twice daily Lacto no.05-Wtnfzi-TXC-larch 25B cell-25 B cell-50 mg capsule Take [...] Moderate episode of recurrent major depressive disorder ([facility]-HCC) , Diabetes mellitus due to underlying condition [...] Date Documented Date Episodic/Chronic Acute cerebrovascular disease (16 sources) Cerebrovascular accident; Translations: [Cerebral infarction, unspecified] Onset: 07-29-2021 08-11-2023 Chronic Administrative/social admission (5 sources) Patient encounter status; Translations: [Persons encountering health services in other specified circumstances] 08-14-2023 Episodic Anxiety disorders (15 sources) Anxiety; Translations: [Anxiety disorder, unspecified] Onset: 01-22-2023 08-11-2023 Chronic Aortic; peripheral; and visceral artery aneurysms (6 sources) Aneurysm of infrarenal abdominal aorta ; Translations: [Infrarenal abdominal aortic aneurysm, without rupture] Onset: 07-03-2022 08-11-2023 Chronic Chronic kidney disease (5 sources) Chronic kidney disease stage 3; Translations: [Chronic kidney disease, stage 3 unspecified] Onset: 10-23-2022 08-11-2023 Chronic Diabetes mellitus with complications (20 sources) Type 2 diabetes mellitus with other specified complication; Translations: [Hyperglycemia due to type 2 diabetes mellitus] Onset: 04-14-2022 04-19-2024 Chronic Diabetes mellitus without complication (20 sources) Type 2 diabetes mellitus; Translations: [Type 2 diabetes mellitus without complications] Onset: 03-03-2022 Resolved: 04-14-2022 08-11-2023 Chronic Disorders of lipid metabolism (20 sources) Hyperlipidemia; Translations: [Hyperlipidemia, unspecified] Onset: 03-03-2022 08-11-2023 Chronic Diverticulosis and diverticulitis (17 sources) Diverticulosis of large intestine without perforation or abscess without bleeding; Translations: [Diverticulosis of sigmoid colon] Onset: 03-03-2022 08-11-2023 Chronic Essential hypertension (20 sources) Essential hypertension; Translations: [Essential (primary) hypertension] Onset: 03-03-2022 08-11-2023 Chronic Headache; including migraine (16 sources) Cluster headache; Translations: [Cluster headache syndrome, unspecified, not intractable] Onset: 03-03-2022 08-11-2023 Chronic Hypertension with complications and secondary hypertension (5 sources) Hypertensive heart failure; Translations: [Hypertensive heart disease with heart failure] Onset: 10-23-2022 08-11-2023 Chronic Mood disorders (17 sources) Moderate major depression, single episode; Translations: [Major depressive disorder, single episode, moderate] Onset: 04-14-2022 08-11-2023 Chronic Nutritional deficiencies (10 sources) Vitamin D deficiency; Translations: [Vitamin D deficiency, unspecified] Onset: 04-04-2024 04-04-2024 Chronic Occlusion or stenosis of precerebral arteries (8 sources) Occlusion and stenosis of bilateral carotid arteries; Translations: [Bilateral carotid artery occlusion] Onset: 04-28-2022 Resolved: 01-09-2024 Chronic Osteoarthritis (16 sources) Osteoarthritis of knee; Translations: [Osteoarthritis of knee, unspecified] Onset: 03-03-2022 08-11-2023 Chronic Other aftercare (8 sources) Long-term current use of insulin; Translations: [skilled nursing (current) use of insulin] Onset: 04-04-2024 04-04-2024 Episodic Other connective tissue disease (16 sources) History of arthroplasty of right knee; Translations: [Presence of right artificial knee joint] Onset: 03-03-2022 08-11-2023 Chronic Other ear and sense organ disorders (3 sources) Sensorineural hearing loss, bilateral; Translations: [Sensorineural hearing loss, bilateral] Onset: 01-25-2025 01-25-2025 Chronic Other nervous system disorders (18 sources) Chronic pain; Translations: [Other chronic pain] Chronic Other nervous system disorders (12 sources) Other chronic pain; Translations: [Chronic midline low back pain without sciatica] Onset: 10-24-2021 Resolved: 01-30-2022 Chronic Other nervous system disorders (14 sources) Plantar nerve lesion; Translations: [Lesion of plantar nerve, unspecified lower limb] Onset: 03-03-2022 03-03-2022 Chronic Other nervous system disorders (3 sources) Numbness of lower limb ; Translations: [Anesthesia of skin] 12-16-2022 Episodic Other nutritional; endocrine; and metabolic disorders (5 sources) Morbid (severe) obesity due to excess [...] Chronic Other nutritional; endocrine; and metabolic disorders (16 sources) Morbid obesity; Translations: [Morbid (severe) obesity due to excess calories] Onset: 03-14-2019 03-03-2022 Chronic Residual codes; unclassified (16 sources) Obstructive sleep apnea syndrome; Translations: [Obstructive sleep apnea (adult) (pediatric)] Onset: 03-03-2022 08-11-2023 Chronic Screening and history of mental health and substance abuse codes (16 sources) Ex-cigar smoker; Translations: [Personal history of nicotine dependence] Onset: 01-22-2023 08-11-2023 Episodic Spondylosis; intervertebral disc disorders; other back problems (20 sources) Solitary sacroiliitis; Translations: [Sacroiliitis, not elsewhere classified] Onset: 10-24-2021 Resolved: 01-30-2022 Chronic Thyroid disorders (18 sources) Hypothyroidism; Translations: [Hypothyroidism, unspecified] Onset: 03-03-2022 08-11-2023 Chronic Unclassified (2 sources) Chronic midline low back pain without sciatica; Translations: [Chronic midline low back pain without sciatica] Onset: 12-16-2022 Unclassified (1 source) MAW Onset: 01-25-2025 Unclassified (1 source) Thyroid Problem Onset: 07-27-2024 Past or Other Problems Problem Classification Problem Date Documented Da te Episodic/Chronic Abdominal hernia (2 sources) Umbilical hernia without obstruction or gangrene; Translations: [Unilateral inguinal hernia, without obstruction or gangrene, not specified as recurrent] Onset: 05-03-2022 Episodic Acquired foot deformities (16 sources) Acquired deformity of left foot; Translations: [Other acquired deformities of left foot] Onset: 03-03-2022 08-11-2023 Episodic Acquired foot deformities (16 sources) Acquired deformity of right foot; Translations: [Other acquired deformities of right foot] Onset: 03-03-2022 08-11-2023 Episodic Calculus of urinary tract (3 sources) Calculus of kidney; Translations: [History of calculus of kidney] Onset: 04-21-2022 08-11-2023 Episodic Cardiac dysrhythmias (14 sources) Palpitations; Translations: [Palpitations] Onset: 11-26-2021 05-14-2022 Episodic Fracture of upper limb (16 sources) Fracture of distal end of radius; Translations: [Unspecified fracture of the lower end of unspecified radius, initial encounter for closed fracture] Onset: 04-04-2016 08-11-2023 Episodic Genitourinary symptoms and ill-defined conditions (10 sources) Proteinuria; Translations: [Proteinuria, unspecified] Onset: 04-04-2024 04-04-2024 Episodic Joint disorders and dislocations; trauma-related (14 sources) Tear of meniscus of knee; Translations: [Unspecified tear of unspecified meniscus, current injury, unspecified knee, initial encounter] Onset: 03-03-2022 03-03-2022 Episodic Mood disorders (14 sources) Mood disorders Onset: 03-10-2023 Resolved: 01-25-2025 03-10-2023 Other and unspecified benign neoplasm (16 sources) Hyperplastic polyp of intestine; Translations: [Polyp [...] Episodic Other diseases of veins and lymphatics (3 sources) Peripheral venous insufficiency; Translations: [Venous insufficiency (chronic) (peripheral)] Onset: 01-22-2023 08-11-2023 Episodic Other ear and sense organ disorders (2 sources) Tinnitus; Translations: [Tinnitus, unspecified ear] Onset: 04-07-2024 01-25-2025 Episodic Other gastrointestinal disorders (8 sources) Other specified diseases of intestine; Translations: [Other specified disorders of intestine] Onset: 05-24-2024 05-24-2024 Episodic Other lower respiratory disease (4 sources) Dyspnea, unspecified; Translations: [DYSPNEA UNSPECIFIED] Onset: 12-25-2021 Episodic Other lower respiratory disease (14 sources) Dyspnea; Translations: [Dyspnea, unspecified] Onset: 11-26-2021 Resolved: 07-27-2024 05-14-2022 Episodic Other nervous system disorders (2 sources) Anesthesia of skin; Translations: [Numbness of right lower extremity] Onset: 12-16-2022 Episodic Other non-traumatic joint disorders (14 sources) Anterior knee pain; Translations: [Pain in [...] edema; Translations: [LOCALIZED EDEMA] Onset: 10-25-2021 Episodic Spondylosis; intervertebral disc disorders; other back problems (20 sources) Lumbar radiculopathy; Translations: [Radiculopathy, lumbar region] Onset: 10-24-2021 Resolved: 01-30-2022 Episodic Substance-related disorders (20 sources) Tobacco dependence syndrome; Translations: [Nicotine dependence, unspecified, uncomplicated] Onset: 03-03-2022 Resolved: 03-10-2023 08-11-2023 Chronic Syncope (14 sources) Tussive syncope; Translations: [Syncope and collapse] Onset: 03-03-2022 03-03-2022 Episodic Unclassified (2 sources) Cecum mass 05-24-2024 Results Test Name Value Interpretation Reference Range Facility Creatinineon 05-24-2024 Creatinine [Mass/Vol] 1.36 mg/dL High 0.70-1.30 [facility] Comment on above: Performed By: #### C REAT #### [address] Estimated GFR 58.113 mL/Min Normal [facility] Comment on above: Result Comment: PERF ORMED BY: [place] [address] PATHOLOGIST SPIN TABLE OPERATOR JANA VARMA M.D. Performed By: #### C REAT #### [address] Creatinine [Mass/Vol]on 05-08 Creatinine (U) [Mass/Vol] 1.36 mg/dL High 0.70 - 1.30 mg/dL [facility] GFR/1.73 sq M.predicted MDRD (S/P/Bld) [Vol rate/Area] 58.113 mL/min/{1.73_m2} mL/Min [facility] Interpretation and review of laboratory results Abnormal [facility] Glucose Poct Glucometerson 07-21-2023 Glucose [Mass/Vol] 131 mg/dL Normal [facility] Comment on above: Result Comment: [facility] Glucose Reference Range is dependent on time and content of last meal. Glucose of more than 200 mg/dL in a nonstressed, ambulatory subject supports the diagnosis of Diabetes Mellitus. PERFORMED BY: [address] [id number] PATHOLOGIST SPIN TABLE OPERATOR JANA VARMA M.D. Performed By: #### G LULS #### Point of Care testing , Pathology Request for Lab Co rpon 05-20-2024 Pathology Request for Lab Cristina Normal [facility] Comment on above: Order Comment: PATHO LOGY GI SPECIMEN Result Comment: See report. Scanned copy available in EMR. PERFORMED BY: [place] [address] PATHOLOGIST SPIN TABLE OPERATOR JANA VARMA M.D. Performed By: #### P ATH TO [facility] #### [place] [id number] [facility] Glucose (Bld) [Mass/Vol]Orde red By: Shazia Yung on 04-19-2024 Glucose Blood, POC 188 mg[facility]-2024 Follow-up visit [id number] Loren Porter 1960 M Date Provider Department [facility] No family history on file Level of Service:62840 [place] OFFICE/OUTPATIENT ESTABLISHED LOW MDM 20 MIN Normal [facility] Office Visiton 10-19-2023 Follow-up visit [id number] Loren Porter 1960 M Date Provider Department [facility] No family history on file Level of Service:68272 ND OFFICE/OUTPATIENT ESTABLISHED LOW MDM 20 MIN Normal [facility] Office Visiton 07-24-2023 Follow-up visit [id number] Chen 1960 M Date Provider Department [facility] No family history on file Level of Service:77448 ND OFFICE/OUTPATIENT ESTABLISHED LOW MDM 20 MIN Normal [facility] CNOVon 05-07-2023 CNOV Office Visit ([facility] ) LOREN PORTER ([id number]) 1960 M Date Time Provider Department 05/07/23 3:45 PM [...] male with obesity who presents to the [facility] [place] for an initial evaluation of his obesity [...] 2 drinks diet drinks Characterization of diet:Structured. Rn Intern of impaired eating habits:denies Eating Disorder no [...] kidney stones, and CVA. No history of AR, COPD, asthma, peptic ulcer dx, pancreatitis, cancer, DVT, PE, gout, CKD, glaucoma, smoking history (quit 2018) PSH: bilateral TKR, stent abdominal aorta, left [...] most appro (more content not included)... Normal [facility] CNOVon 01-29-2023 CNOV Office Visit ([facility] ) LOREN PORTER ([id number]) 1960 M Date Time Provider Department 01/29/23 10:00 AM NONA ZAMBRANO [facility] During your visit today, we recorded the following information about you: Nona Zambrano MD 01/29/2023 12:38 PM Signed SPINE SURGERY OUTPATIENT CONSULT This is an in-person visit. SERVICE DATE: 01/29/2023 PCP: No primary care provider on file. REFERRING PROVIDER: Ben Zimmerman [id number] [facility] [address] Consult requested for an opinion regarding the [...] capsule Take 300 mg by mouth. Lacto no.29-Egbihr-YZI-larc h 25B cell-25B cell-50 mg cap Take 1 tablet by mouth once daily. Lacto no.43-Tarjqs-CHI-larc h 25B cell-25B cell-50 mg cap Take [...] Percentile 16 (more content not included)... Normal [facility] MRI LUMBAR SPINE WO IVCONon 01-03-2023 MRI [...] and assume there are 5 lumbar-type vertebrae. Bus Person Dishwasher: [facility] Transcribe Date/Time: Jan 03 2023 11:56A Dictated by : PAZ FREEMAN MD This examination was interpreted and the report reviewed and electronically signed by: PAZ FREEMAN MD on Jan 03 2023 12:52PM EST [id number] N Normal [facility] XR Lumbar spine Views W flex ion and W extensionon 12-22-2022 IMPRESSION: Anterior subluxation at L4-5 with no acute fractures seen. Facet degenerative changes. Bus Person Dishwasher: [facility] Transcribe Date/Time: Dec 22 2022 8:05P Dictated by : JESSICA ÁLVAREZ MD This examination was interpreted and the report reviewed and electronically signed by: JESSICA ÁLVAREZ MD on Dec 22 2022 8:07PM EST DIVISION OF RADIOLOGY * * *Final Report* [...] and iliac arteries DIVISION OF RADIOLOGY Provider, Diana Fletcher chapito Arminda - 12/22/2022 * * *Final Report* * [...] no acute fractures seen. Facet degenerative changes. Bus Person Dishwasher: [facility] Transcribe Date/Time: Dec 22 2022 8:05P Dictated by : JESSICA ÁLVAREZ MD This examination was interpreted and the report reviewed and electronically signed by: JESSICA ÁLVAREZ MD on Dec 22 2022 8:07PM [facility] XR Lumbar spine Views W flex ion and W extensionOrdered By: [facility] Provider on 12-22-2022 [facility] CNOVon 12-16-2022 CNOV Office Visit ([facility] ) LOREN PORTER ([id number]) 1960 M Date Time Provider Department 12/16/22 11:00 AM BEN ZIMMERMAN During your visit today, we recorded the following information about you: Pulse Blood pressure Weight 70/minute 104/66 151.5 kg Ben Zimmerman DO 12/21/2022 4:18 PM Signed [facility] Neurological [facility] - Medical Spine Initial [...] by: -Pain Management Dr. Sheriff Mcgrath in [place] [place]. Last visit around August 2022. 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 Retired from , worked as federal nurse technician for 14 years. Litigation: No Workers' Compensation: [...] Any ty (more content not included)... Normal [facility] XR LUMBAR 4V AP/LAT/ FLEX/EX Ton 12-16-2022 [...] no acute fractures seen. Facet degenerative changes. Bus Person Dishwasher: BRITTANY Transcribe Date/Time: Dec 22 2022 8:05P Dictated by : JESSICA ÁLVAREZ MD This examination was interpreted and the report reviewed and electronically signed by: JESSICA ÁLVAREZ MD on Dec 22 2022 8:07PM EST [id number] N Normal [facility] Lumbar spine Views W flex ion and W extensionon 12-16-2022 Radiology Study observation (narrative) [facility] C-PEPTIDE, SERUMon 3 C-Peptide, Serum 2.0 ng/mL Normal 1.1-4.4 [facility] Comment on above: Result Comment: C-Pe ptide reference interval is for fasting patients. Performed By: #### C PEPT #### [facility] [address] [address] [address] Red Munoz LIPID PROFILEon 10-20-2022 CHOL-HDL RATIO NORM SEE BELOW Normal [facility] Comment on above: Result Comment: 3.3 - 4.4 LOW RISK 4.4 - 7.1 AVERAGE RISK 7.1 - 11.0 MODERATE RISK >11.0 HIGH RISK Performed By: #### L IPID, RENAL #### [facility] [address] [address] [address] Red Munoz Cholesterol [Mass/Vol] 129 mg/dL Normal <=200 [facility] Comment on above: Performed By: #### L IPID, RENAL #### [facility] [address] [address] [address] Red Munoz Cholesterol in HDL [Mass/Vol] 44 mg/dL Normal 40-60 [facility] Comment on above: Performed By: #### L IPID, RENAL #### [facility] [address] [address] [address] Red Munoz Cholesterol in LDL [Mass/Vol] 69.4 mg/dL Normal [facility] Comment on above: Performed By: #### L IPID, RENAL #### [facility] [address] [address] [address] Red Munoz Cholesterol.total/Ch olesterol in HDL [Mass ratio] 2.9 {ratio} Normal [facility] Comment on above: Performed By: #### L IPID, RENAL #### [facility] [address] [address] [address] Red Munoz HDL NORMAL > or = 60 mg/dl - LO W CARDIOVASCULAR RISK <40 mg/dl - HIGH CARDIOVASCULAR RISK Normal [facility] Comment on above: Performed By: #### L IPID, RENAL #### [facility] [address] [address] [address] Red Munoz LDL CALC NORMAL SEE BELOW Normal [facility] Comment on above: Result Comment: <100 mg/dl OPTIMAL 100 - 129 mg/dl NEAR OR ABOVE OPTIMAL 130 - 159 mg/dl BORDERLINE HIGH 160 - 189 mg/dl HIGH >190 mg/dl VERY HIGH Performed By: #### L IPID, RENAL #### [facility] [address] [address] [address] Red Munoz Triglyceride [Mass/Vol] 78 mg/dL Normal <=150 [facility] Comment on above: Performed By: #### L IPID, RENAL #### [facility] [address] [place] [address] Dr. Red Munoz VLDL CALC 15.6 mg/dL Normal [facility] Comment on above: Performed By: #### L IPID, RENAL #### [facility] [address] [address] [address] Red Munoz MICROALB CREAT RATIO RANDOMo n 10-20-2022 mALB <1.3 Normal <=30.0 [facility] Comment on above: Performed By: #### M CRR #### [facility] [address] [place] [address] Dr. Red Munoz URINE CREAT 99.86 mg/dL Normal 20.00-300.00 [facility] Comment on above: Performed By: #### M CRR #### [facility] [address] [address] [address] Red Munoz RENAL FUNCTION PANELon 10-20 Albumin [Mass/Vol] 3.6 g/dL Normal 3.4-5.0 [facility] Comment on above: Performed By: #### L IPID, RENAL #### [facility] [address] [address] [address] Red Munoz Calcium [Mass/Vol] 9.1 mg/dL Normal 8.5-10.1 [facility] Comment on above: Performed By: #### L IPID, RENAL #### [facility] [address] [address] [address] Red Munoz Chloride [Moles/Vol] 103 mmol/L Normal 98-107 [facility] Comment on above: Performed By: #### L IPID, RENAL #### [facility] [address] [address] [address] Red Munoz CO2 [Moles/Vol] 28.3 mmol/L Normal 21.0-32.0 [facility] Comment on above: Performed By: #### L IPID, RENAL #### [facility] [address] [place] [address] Dr. Red Munoz Creatinine [Mass/Vol] 1.28 mg/dL Normal 0.70-1.30 [facility] Comment on above: Performed By: #### L IPID, RENAL #### [facility] [address] [place] [address] Dr. Red Munoz EGFR-AF [place]ER >60 Normal >=60 [facility] Comment on above: Performed By: #### L IPID, RENAL #### [facility] [address] [place] [address] Dr. Red Munoz EGFR-NON AF [place] 57 mL/min/1.73m2 Critically low >=60 [facility] Comment on above: Performed By: #### L IPID, RENAL #### [facility] [address] [address] [address] Red Munoz Glucose [Mass/Vol] 110 mg/dL Critically high 74-106 [facility] Comment on above: Performed By: #### L IPID, RENAL #### [facility] [address] [address] [address] Red Munoz Phosphate [Mass/Vol] 3.7 mg/dL Normal 2.6-4.7 [facility] Comment on above: Performed By: #### L IPID, RENAL #### [facility] [address] [place] [address] Dr. Red Munoz Potassium [Moles/Vol] 4.1 mmol/L Normal 3.5-5.1 [facility] Comment on above: Performed By: #### L IPID, RENAL #### [facility] [address] [place] [address] Dr. Red Munoz Sodium [Moles/Vol] 141 mmol/L Normal 136-145 [facility] Comment on above: Performed By: #### L IPID, RENAL #### [facility] [address] [place] [address] Dr. Red Munoz Urea nitrogen [Mass/Vol] 18.0 mg/dL Normal 7.0-18.0 [facility] Comment on above: Performed By: #### L IPID, RENAL #### [facility] [address] [place] [address] Dr. Red Munoz VITAMIN D 25 OHon 10-20-2022 VIT D 25-OH 35.5 ng/mL Normal [facility] Comment on above: Performed By: #### V ITAD #### [facility] [address] [place] [address] Dr. Red Munoz VIT D RANGES SEE BELOW Normal [facility] Comment on above: Result Comment: <20 ng/mL Vit D deficient 20 - <30 ng/mL Vit D insufficient 30 - 100 ng/mL Vit D sufficient >100 ng/mL Potential Toxicity Performed By: #### V ITAD #### [facility] [address] [place] [address] Dr. Red Munoz CTA ABD/PELVIS WO W [...] by: BEKAH EAGLE Date: 2022-04-29 16:41 Normal [facility] CREATININEon 04-28-2022 Creatinine [Mass/Vol] 1.21 mg/dL Normal 0.70-1.30 [facility] Comment on above: Performed By: #### C ANKITA #### [facility] [address] [address] [address] Red Munoz EGFR-AF [place] >60 Normal >=60 [facility] Comment on above: Performed By: #### C ANKITA #### [facility] [address] [address] [address] Red Munoz EGFR-NON AF [place] >60 Normal >=60 [facility] Comment on above: Performed By: #### C ANKITA #### [facility] [address] [place] [address] Dr. Red Munoz US CAROTID ART BILon -21-2 022 US CAROTID ART SUSAN EXAMINATION: US [...] by: JOSEF MCFARLANE Date: 2022-04-28 17:05 Normal [facility] ECHOCARDIO M/2D COMPLETEon 0 12-25-2021 ECHOCARDIO M/2D COMPLETE Patient: LOREN PORTER Exam Date: 12/25/2021 : 1960 Gender:M Ordering : LISA EMERY Admission #: [id number] Family : DR WARNER WELCH Order #: [id number] CLICK HERE TO VIEW EXAM ECHOCARDIOGRAM REPORT [...] Leon M.D. on 12/25/2021 at 17:05 Normal [facility] BASIC METABOLIC PANELon 06-2 Calcium [Mass/Vol] 9.1 mg/dL Normal 8.6-10.3 [facility] Comment on above: Performed By: #### 0 0071 #### [facility] [address] [place] [address], [place] Chloride [Moles/Vol] 98 mmol/L Normal 98-107 [facility] Comment on above: Performed By: #### 0 0071 #### [facility] [address] [place] [address], [place] CO2 [Moles/Vol] 30 mmol/L Normal 21-31 [facility] Comment on above: Performed By: #### 0 0071 #### [facility] [address] [place] [address], [place] Creatinine [Mass/Vol] 1.15 mg/dL Normal 0.70-1.30 [facility] Comment on above: Performed By: #### 0 0071 #### [facility] [address] [place] [address], [place] GFR/1.73 sq M.predicted among blacks MDRD (S/P/Bld) [Vol rate/Area] mL/min/{1.73_m2} Normal >60 [facility] Comment on above: Performed By: #### 0 0071 #### [facility] [address] [place] [address], [place] GFR/1.73 sq M.predicted among non-blacks MDRD (S/P/Bld) [Vol rate/Area] mL/min/{1.73_m2} Normal >60 [facility] Comment on above: Performed By: #### 0 0071 #### [facility] [address] [place] [address], [place] Glucose [Mass/Vol] 110 mg/dL High 70-100 [facility] Comment on above: Performed By: #### 0 0071 #### [facility] [address] [place] [address], [place] Potassium [Moles/Vol] 4.2 mmol/L Normal 3.5-5.1 [facility] Comment on above: Performed By: #### 0 0071 #### [facility] [address] [place] [address], [facility] Sodium [Moles/Vol] 135 mmol/L Low 136-145 [facility] Comment on above: Performed By: #### 0 0071 #### [facility] [address] [facility] [address] Urea nitrogen [Mass/Vol] 26 mg/dL High 7-25 [facility] Comment on above: Performed By: #### 0 0071 #### [facility] [address] BNP (B-TYPE NATRIURETIC PEPT PRECIOUS)on 11-26-2021 Natriuretic peptide B (Bld) [Mass/Vol] 12 pg/mL Normal 0-100 [facility] Comment on above: Result Comment: Give n the appropriate clinical setting a BNP result of >100 pg/mL indicates congestive heart failure. Performed By: #### 0 0071 #### [facility] [address] VC VENOUS REFLUX SUSAN LMTon 0 10-25-2021 VC VENOUS REFLUX SUSAN LMT Patient: LOREN PORTER Exam Date: 10/25/2021 : 1960 Gender:M Ordering : LAMONT EDWARDS Admission #: [id number] Family : Order #: [id number] CLICK HERE TO VIEW EXAM RADIOLOGY REPORT [...] or chronic thrombus. Compressibility: Normal. Flow: Normal. Electrical Repairer: Dist calf 3.6mm, 1.8s. Dist calf 3.0mm, [...] Eagle M.D. on 10/25/2021 at 12:18 Normal [facility] BASIC METABOLIC PANELon 04- BUN/CREATININE RATIO NOT APPLICABLE Normal 6-22 [facility] Comment on above: Order Comment: FASTI NG:NO FASTING: NO Performed By: #### 1 0165 #### [facility] [address], [address] [place] [address] Route Vending Machine Servicer: Mario Vasquez MD Calcium [Mass/Vol] 8.9 mg/dL Normal 8.6-10.3 [facility] Comment on above: Order Comment: FASTI NG:NO FASTING: NO Performed By: #### 1 0165 #### [facility] [address] [address] Route Vending Machine Servicer: Mario Vasquez MD Chloride [Moles/Vol] 103 mmol/L Normal 98-110 [facility] Comment on above: Order Comment: FASTI NG:NO FASTING: NO Performed By: #### 1 0165 #### [facility] [address] [address] Route Vending Machine Servicer: Mario Vasquez MD CO2 [Moles/Vol] 28 mmol/L Normal 20-32 [facility] Comment on above: Order Comment: FASTI NG:NO FASTING: NO Performed By: #### 1 0165 #### [facility] [address] [address] Route Vending Machine Servicer: Mario Vasquez MD Creatinine [Mass/Vol] 1.00 mg/dL Normal 0.70-1.25 [facility] Comment on above: Order Comment: FASTI NG:NO FASTING: NO Result Comment: For patients >49 years of age, the reference limit for Creatinine is approximately 13% higher for people identified as -Citizen Of [place]. Performed By: #### 1 0165 #### [facility] [address], [address] [place] [address] Route Vending Machine Servicer: Mario Vasquez MD eGFR NON-AFR. [place] 80 mL/min/1.73m2 Normal > OR = 60 [facility] Comment on above: Order Comment: FASTI NG:NO FASTING: NO Performed By: #### 1 0165 #### [facility] [address], [address] [place] [address] Route Vending Machine Servicer: Mario Vasquez MD GFR/1.73 sq M.predicted among blacks MDRD (S/P/Bld) [Vol rate/Area] 93 mL/min/{1.73_m2} Normal > OR = 60 [facility] Comment on above: Order Comment: FASTI NG:NO FASTING: NO Performed By: #### 1 0165 #### [facility] [address], [address] [place] [address] Route Vending Machine Servicer: Mario Vasquez MD Glucose [Mass/Vol] 128 mg/dL Normal 65-139 [facility] Comment on above: Order Comment: FASTI NG:NO FASTING: NO Result Comment: Non-fasting reference interval For someone without known diabetes, a glucose value >125 mg/dL indicates that they may have diabetes and this should be confirmed with a follow-up test. Performed By: #### 1 0165 #### [facility] [address], [address] [place] [address] Route Vending Machine Servicer: Mario Vasquez MD Potassium [Moles/Vol] 4.8 mmol/L Normal 3.5-5.3 [facility] Comment on above: Order Comment: FASTI NG:NO FASTING: NO Performed By: #### 1 0165 #### [facility] [address], [address] [place] [address] Route Vending Machine Servicer: Mario Vasquez MD Sodium [Moles/Vol] 139 mmol/L Normal 135-146 [facility] Comment on above: Order Comment: FASTI NG:NO FASTING: NO Performed By: #### 1 0165 #### [facility] [address] [address] Route Vending Machine Servicer: Mario Vasquez MD Urea nitrogen [Mass/Vol] 16 mg/dL Normal 7-25 [facility] Comment on above: Order Comment: FASTI NG:NO FASTING: NO Performed By: #### 1 0165 #### [facility] [address] [address] Route Vending Machine Servicer: Mario Vasquez MD ALBUMIN, RANDOM URINE W/CREA TININEon 07-29-2021 ALBUMIN, URINE 15.8 mg/dL Normal See Note: [facility] Comment on above: Result Comment: Refe rence Range: Reference Range Not established Performed By: #### 1 0231, 7600, 6517, 496, 5363 #### [facility] [address] [address] Route Vending Machine Servicer: Mario Vasquez MD ALBUMIN/CREATININE RATIO, RANDOM URINE [...] 7600, 6517, 496, 5363 #### [facility] [address] [address] Route Vending Machine Servicer: Mario Vasquez MD Creatinine (U) [Mass/Vol] 93 mg/dL Normal 20-320 [facility] Comment on above: Performed By: #### 1 0231, 7600, 6517, 496, 5363 #### [facility] [address] [address] Route Vending Machine Servicer: Mario Vasquez MD COMPREHENSIVE METABOLIC PANE Garry 07-29-2021 Albumin [Mass/Vol] 4.1 g/dL Normal 3.6-5.1 [facility] Comment on above: Performed By: #### 1 0231, 7600, 6517, 496, 5363 #### [facility] [address] [place] [address] Route Vending Machine Servicer: Mario Vasquez MD Albumin/Globulin [Mass ratio] 1.6 {ratio} Normal 1.0-2.5 [facility] Comment on above: Performed By: #### 1 0231, 7600, 6517, 496, 5363 #### [facility] of [address], [address] [place] [address] Route Vending Machine Servicer: Mario Vasquez MD ALP [Catalytic activity/Vol] 119 U/L Normal 35-144 [facility] Comment on above: Performed By: #### 1 0231, 7600, 6517, 496, 5363 #### [facility] of [address], [address] [place] [address] Route Vending Machine Servicer: Mario Vasquez MD ALT [Catalytic activity/Vol] 21 U/L Normal 9-46 [facility] Comment on above: Performed By: #### 1 0231, 7600, 6517, 496, 5363 #### [facility] [address], [address] [place] [address] Route Vending Machine Servicer: Mario Vasquez MD AST [Catalytic activity/Vol] 18 U/L Normal 10-35 [facility] Comment on above: Performed By: #### 1 0231, 7600, 6517, 496, 5363 #### [facility] [address], [address] [place] [address] Route Vending Machine Servicer: Mario Vasquez MD Bilirubin [Mass/Vol] 0.3 mg/dL Normal 0.2-1.2 [facility] Comment on above: Performed By: #### 1 0231, 7600, 6517, 496, 5363 #### [facility] [address], [address] [place] [address] Route Vending Machine Servicer: Mario Vasquez MD BUN/CREATININE RATIO NOT APPLICABLE Normal 6-22 [facility] Comment on above: Performed By: #### 1 0231, 7600, 6517, 496, 5363 #### [facility] [address], [address] [place], [place] [address] Route Vending Machine Servicer: Mario Vasquez MD Calcium [Mass/Vol] 9.0 mg/dL Normal 8.6-10.3 [facility] Comment on above: Performed By: #### 1 0231, 7600, 6517, 496, 5363 #### [facility] [address] [place] [address] Route Vending Machine Servicer: Mario Vasquez MD Chloride [Moles/Vol] 104 mmol/L Normal 98-110 [facility] Comment on above: Performed By: #### 1 0231, 7600, 6517, 496, 5363 #### [facility] [address] [place] [address] Route Vending Machine Servicer: Mario Vasquez MD CO2 [Moles/Vol] 29 mmol/L Normal 20-32 [facility] Comment on above: Performed By: #### 1 0231, 0, 65, 496, 5363 #### [facility] [address] [place] [address] Route Vending Machine Servicer: Mario Vasquez MD Creatinine [Mass/Vol] 1.03 mg/dL Normal 0.70-1.25 [facility] Comment on above: Result Comment: For patients >49 years of age, the reference limit for Creatinine is approximately 13% higher for people identified as -Citizen Of [place]. Performed By: #### 1 0231, 0, 65, 496, 5363 #### [facility] [address] [place] [address] Route Vending Machine Servicer: Mario Vasquez MD eGFR NON-AFR. [place] 77 mL/min/1.73m2 Normal > OR = 60 [facility] Comment on above: Performed By: #### 1 0231, 7600, 6517, 496, 5363 #### [facility] [address] [place] [address] Route Vending Machine Servicer: Mario Vasquez MD GFR/1.73 sq M.predicted among blacks MDRD (S/P/Bld) [Vol rate/Area] 90 mL/min/{1.73_m2} Normal > OR = 60 [facility] Comment on above: Performed By: #### 1 0231, 0, 65, 496, 5363 #### [facility] [address] [place] [address] Route Vending Machine Servicer: Mario Vasquez MD Globulin (S) [Mass/Vol] 2.5 g/dL Normal 1.9-3.7 [facility] Comment on above: Performed By: #### 1 0231, 0, 65, 496, 5363 #### [facility] [address] [place] [address] Route Vending Machine Servicer: Mario Vasquez MD Glucose [Mass/Vol] 126 mg/dL High 65-99 [facility] Comment on above: Result Comment: Fasting reference interval For someone without known diabetes, a glucose value >125 mg/dL indicates that they may have diabetes and this should be confirmed with a follow-up test. Performed By: #### 1 023, 0, 65, 496, 5363 #### [facility] [address] [place] [address] Route Vending Machine Servicer: Mario Vasquez MD Potassium [Moles/Vol] 4.7 mmol/L Normal 3.5-5.3 [facility] Comment on above: Performed By: #### 1 023, 7599, 65, 496, 5363 #### [facility] [place] [address] Route Vending Machine Servicer: Mario Vasquez MD Protein [Mass/Vol] 6.6 g/dL Normal 6.1-8.1 [facility] Comment on above: Performed By: #### 1 023, 0, 65, 496, 5363 #### [facility] [place] [address] Route Vending Machine Servicer: Mario Vasquez MD Sodium [Moles/Vol] 140 mmol/L Normal 135-146 [facility] Comment on above: Performed By: #### 1 0231, 0, 65, 496, 5363 #### [facility] [place] [address] Route Vending Machine Servicer: Mario Vasquez MD Urea nitrogen [Mass/Vol] 22 mg/dL Normal 7-25 [facility] Comment on above: Performed By: #### 1 0231, 7600, 6517, 496, 5363 #### [facility] [address], [address] [place] [address] Route Vending Machine Servicer: Mario Vasquez MD HEMOGLOBIN A1con 07-29-2021 HEMOGLOBIN [...] 7600, 6517, 496, 5363 #### [facility] [place] [address] Route Vending Machine Servicer: Mario Vasquez MD LIPID PANEL, STANDARDon 07-10 Cholesterol [Mass/Vol] 129 mg/dL Normal <200 [facility] Comment on above: Performed By: #### 1 0231, 7600, 6517, 496, 5363 #### [facility] [place] [address] Route Vending Machine Servicer: Mario Vasquez MD Cholesterol in HDL [Mass/Vol] 46 mg/dL Normal > OR = 40 [facility] Comment on above: Performed By: #### 1 0231, 7600, 6517, 496, 5363 #### [facility] [address], [address] [place] [address] Route Vending Machine Servicer: Mario Vasquez MD Cholesterol in LDL [Mass/Vol] 68 mg/dL Normal [facility] Comment on above: Result Comment: Refe rence range: <100 Desirable range <100 mg/dL for primary prevention; <70 mg/dL for patients with CHD or diabetic patients with > or = 2 CHD risk factors. LDL-C is now calculated using the Gary calculation, which is a validated novel method providing better accuracy than the Friedewald equation in the estimation of LDL-C. River SS et al. SHANIA. 2013;310(19): 3983-5595 (http://education.SeeJay.EmergenSee/faq/EPR164) Performed By: #### 1 0231, 7600, 6517, 496, 5363 #### [facility] [address], [address] [place] [address] Route Vending Machine Servicer: Mario Vasquez MD Cholesterol.total/Ch olesterol in HDL [Mass ratio] 2.8 {ratio} Normal <5.0 [facility] Comment on above: Performed By: #### 1 0231, 7600, 6517, 496, 5363 #### [facility] [address], [address] [place] [address] Route Vending Machine Servicer: Mario Vasquez MD NON HDL CHOLESTEROL 83 mg/dL (calc) Normal <130 [facility] Comment on above: Result Comment: For patients with diabetes plus 1 major ASCVD risk factor, treating to a non-HDL-C goal of <100 mg/dL (LDL-C of <70 mg/dL) is considered a therapeutic option. Performed By: #### 1 0231, 7600, 6517, 496, 5363 #### [facility] [address], [address] [place] [address] Route Vending Machine Servicer: Mario Vasquez MD Triglyceride [Mass/Vol] 70 mg/dL Normal <150 [facility] Comment on above: Performed By: #### 1 0231, 7600, 6517, 496, 5363 #### [facility] [address], [address] [place] [address] Route Vending Machine Servicer: Mario Vasquez MD PSA, TOTALon 07-29-2021 PSA, TOTAL 0.29 ng/mL Normal < OR = 4.00 [facility] Comment on above: Result Comment: The total PSA value from this assay system is standardized against the WHO standard. The test result will be approximately 20% lower when compared to the equimolar-standardized total PSA (Tyrone [place]). Comparison of serial PSA results should be interpreted with this fact in mind. This test was performed using the Siemens chemiluminescent method. Values obtained from different assay methods cannot be used interchangeably. PSA levels, regardless of value, should not be interpreted as absolute evidence of the presence or absence of disease. Performed By: #### 1 0231, 7600, 6517, 496, 5363 #### [facility] [place] [id number] [facility], [address] [place] [address] Route Vending Machine Servicer: Mario Vasquez MD CTA ABDOMEN AND PELVISon CTA ABDOMEN AND PELVIS [facility] Department of Radiology [address] [place] [address] Patient Name: LOREN PORTER : 1960 Sex: M Age: Race: White Pt. Location: [facility] Patient Status: O Ordered Date: 05/17/2021 12:05:00 PM Completed Date: 06/13/2021 10:42 AM Requesting Provider: NORMA KIRAN Attending Provider: NORMA KIRAN Report Copy To: WARNER WELCH Signs & Symptoms: I71.4 Abdominal aortic aneurysm, without rupture I10 History: Jaclyn labs done 04/26/21 Same day F/U Comments: [...] achievable Electronically signed: Dhaval Gregory. Transcribed by: [email or web address], User Resident: Electronically Signed by: DHAVAL GREGORY @ 06/13/2021 12:34 PM Normal [facility] Operative Reporton Operative Report MR#: [id number] I [facility] Pt. Name: Loren Porter Room #: DESIRE [...] artery in the same way. After that, 9-Serbian sheaths were inserted in both groins. Then, [...] A/Brian Waite M.D. Date Trans: 05/01/2021 08:56 P/mmo [id number] cc: Warner Welch M.D. [address] [facility] [address] Normal [facility] APTTon 04-30-2021 aPTT Coag (Bld) [Time] 25.9 s Normal 25.0-35.0 [facility] Comment on above: Order Comment: No: [...] PURPOSE. Performed By: #### 0 0071 #### [facility] [address] [place] [address], [facility] BASIC METABOLIC PANELon 11-2 Calcium [Mass/Vol] 8.4 mg/dL Low 8.6-10.3 [facility] Comment on above: Order Comment: No: D o not add to previous draw Performed By: #### 0 0071 #### [facility] [address] [place] [address], [place] Chloride [Moles/Vol] 101 mmol/L Normal 98-107 [facility] Comment on above: Order Comment: No: D o not add to previous draw Performed By: #### 0 0071 #### [facility] [address] [place] [address], [place] CO2 [Moles/Vol] 28 mmol/L Normal 21-31 [facility] Comment on above: Order Comment: No: D o not add to previous draw Performed By: #### 0 0071 #### [facility] [address] [place] [address], [place] Creatinine [Mass/Vol] 0.73 mg/dL Normal 0.70-1.30 [facility] Comment on above: Order Comment: No: D o not add to previous draw Performed By: #### 0 0071 #### [facility] [address] [place] [address], [place] GFR/1.73 sq M.predicted among blacks MDRD (S/P/Bld) [Vol rate/Area] mL/min/{1.73_m2} Normal >60 [facility] Comment on above: Order Comment: No: D o not add to previous draw Performed By: #### 0 0071 #### [facility] [address] [place] [address], [place] GFR/1.73 sq M.predicted among non-blacks MDRD (S/P/Bld) [Vol rate/Area] mL/min/{1.73_m2} Normal >60 [facility] Comment on above: Order Comment: No: D o not add to previous draw Performed By: #### 0 0071 #### [facility] [address] [place] [address], [place] Glucose [Mass/Vol] 194 mg/dL High 70-100 [facility] Comment on above: Order Comment: No: D o not add to previous draw Performed By: #### 0 0071 #### [facility] [address] [place] [address], [place] Potassium [Moles/Vol] 4.5 mmol/L Normal 3.5-5.1 [facility] Comment on above: Order Comment: No: D o not add to previous draw Performed By: #### 0 0071 #### [facility] [address] [place] [address], [facility] Sodium [Moles/Vol] 135 mmol/L Low 136-145 [facility] Comment on above: Order Comment: No: D o not add to previous draw Performed By: #### 0 0071 #### [facility] [address] [place] [address], [facility] Urea nitrogen [Mass/Vol] 18 mg/dL Normal 7-25 [facility] Comment on above: Order Comment: No: D o not add to previous draw Performed By: #### 0 0071 #### [facility] [address] [place] [address], [facility] CBC COMPLETE BLOOD COUNTon 06-30-2020 Erythrocyte distribution width (RBC) [Ratio] 13.5 % Normal 11.5-15.0 [facility] Comment on above: Order Comment: No: D o not add to previous draw Performed By: #### 0 0071 #### [facility] [address] [place] [address], [place] Hematocrit (Bld) [Volume fraction] 34.1 % Low 39.0-50.0 [facility] Comment on above: Order Comment: No: D o not add to previous draw Performed By: #### 0 0071 #### [facility] [address] [place] [address], [place] Hemoglobin (Bld) [Mass/Vol] 10.9 g/dL Low 13.0-17.0 [facility] Comment on above: Order Comment: No: D o not add to previous draw Performed By: #### 0 0071 #### [facility] [address] [place] [address], [facility] MCH (RBC) [Entitic mass] 30.2 pg Normal 27.0-33.0 [facility] Comment on above: Order Comment: No: D o not add to previous draw Performed By: #### 0 0071 #### [facility] [address] [place] [address], [facility] MCHC (RBC) [Mass/Vol] 32.0 g/dL Normal 32.0-35.0 [facility] Comment on above: Order Comment: No: D o not add to previous draw Performed By: #### 0 0071 #### [facility] [address] [place] [address], [facility] MCV (RBC) [Entitic vol] 94.5 fL Normal 82.0-98.0 [facility] Comment on above: Order Comment: No: D o not add to previous draw Performed By: #### 0 0071 #### [facility] [address] [facility] [place] [address], [facility] Nucleated RBC/100 WBC (Bld) [Ratio] 0 % Normal 0-0 [facility] Comment on above: Order Comment: No: D o not add to previous draw Performed By: #### 0 0071 #### [facility] [address] [facility] [place] [address], [facility] PLAT CNT 214 10*3/uL Normal 150-400 [facility] Comment on above: Order Comment: No: D o not add to previous draw Performed By: #### 0 0071 #### [facility] [address] [place] [address], [facility] RBC (Bld) [#/Vol] 3.61 10*6/uL Low 4.20-5.70 [facility] Comment on above: Order Comment: No: D o not add to previous draw Performed By: #### 0 0071 #### [facility] [address] [place] [address], [facility] WBC (Bld) [#/Vol] 10.93 10*3/uL High 4.00-10.60 [facility] Comment on above: Order Comment: No: D o not add to previous draw Performed By: #### 0 0071 #### [facility] [address] [place] [address], [place] LACTATE BLOODon 04-30-2021 Lactate [Moles/Vol] 0.6 mmol/L Normal .5-2.2 [facility] Comment on above: Order Comment: No: D o not add to previous draw Performed By: #### 1 0054 #### [facility] [address] [place] [address], [facility] POC GLUCOSE LABon 04-30-2021 Glucose [Mass/Vol] 265 mg/dL High 70-100 [facility] Comment on above: Performed By: #### 8 5499 #### [facility] [address] [place] [address], [place] Glucose [Mass/Vol] 270 mg/dL High 70-100 [facility] Comment on above: Performed By: #### 0 0071 #### [facility] [address] [place] [address], [place] Glucose [Mass/Vol] 171 mg/dL High 70-100 [facility] Comment on above: Performed By: #### 0 0071 #### [facility] [address] [place] [address], [place] PROTHROMBIN TIMEon INR Coag (PPP) [Relative time] 1.03 {INR} Normal 0.91-1.16 [facility] Comment on above: Order Comment: No: [...] 1995;[id number]. Performed By: #### 0 0071 #### [facility] [address] [place] [address], [facility] PT Coag (PPP) [Time] 13.5 s Normal 12.3-14.8 [facility] Comment on above: Order Comment: No: D o not add to previous draw Result Comment: ALL RESULTS MUST BE INTERPRETED WITH RESPECT TO BLOOD DRAWING ARTIFACT OR DILUTION ERROR OF ANTICOAGULANT AT THE TIME OF SAMPLING. Performed By: #### 0 0071 #### [facility] [address] [place] [address], [place] ACTIVATED CLOTTING TIMEon ACTIVATED CLOTTING TIME 169 sec High 82-152 [facility] Comment on above: Performed By: #### 0 0071 #### [facility] [address] [place] [address], [place] ACTIVATED CLOTTING TIME 126 sec Normal 82-152 [facility] Comment on above: Performed By: #### 0 0071 #### [facility] [address] ARTERIAL BLOOD GAS W/COOXon 04-29-2021 BASE EXCESS -2 mmol/L Normal -2-3 [facility] Comment on above: Order Comment: RESUL TS CHECKED AND CALLED. ACCURATELY READ BACK BY A WALKER, OR Performed By: #### 4 0055, 10942, 49744, 07994 #### [facility] [address] [place] [address], [facility] COHB 1.2 % Normal 0.0-1.5 [facility] Comment on above: Order Comment: RESUL TS CHECKED AND CALLED. ACCURATELY READ BACK BY A WALKER, OR Performed By: #### 4 0055, 31307, 65870, 31039 #### [facility] [address] DELIVERY SYSTEMS OR Normal [facility] Comment on above: Order Comment: RESUL TS CHECKED AND CALLED. ACCURATELY READ BACK BY A WALKER, OR Performed By: #### 4 0055, 37520, 13112, 95757 #### [facility] [address] [place] [address], [facility] HCO3 (Bld) [Moles/Vol] 26 mmol/L Normal 21-28 [facility] Comment on above: Order Comment: RESUL TS CHECKED AND CALLED. ACCURATELY READ BACK BY A WALKER, OR Performed By: #### 4 0055, 20602, 72596, 19806 #### [facility] [address] [place] [address], [facility] METHB 0.6 % Normal 0.0-1.5 [facility] Comment on above: Order Comment: RESUL TS CHECKED AND CALLED. ACCURATELY READ BACK BY A WALKER, OR Performed By: #### 4 0055, 13185, 98581, 81010 #### [facility] [address] [place] [address], [facility] Oxygen (Bld) [Partial pressure] 83 mm[Hg] Normal 83-108 [facility] Comment on above: Order Comment: RESUL TS CHECKED AND CALLED. ACCURATELY READ BACK BY A WALKER, OR Performed By: #### 4 0055, 11155, 85244, 01419 #### [facility] [address] [facility] Oxygen saturation in Blood 94.8 % Normal 94.0-97.0 [facility] Comment on above: Order Comment: RESUL TS CHECKED AND CALLED. ACCURATELY READ BACK BY A WALKER, OR Performed By: #### 4 0055, 57235, 24243, 85112 #### [facility] [address] PCO2 57 mmHg Critically high 35-45 [facility] Comment on above: Order Comment: RESUL TS CHECKED AND CALLED. ACCURATELY READ BACK BY A WALKER, OR Performed By: #### 4 005, 00948, 13639, 73325 #### [facility] [address] [facility] [address] pH (Bld) 7.26 [pH] Low 7.35-7.45 [facility] Comment on above: Order Comment: RESUL TS CHECKED AND CALLED. ACCURATELY READ BACK BY A WALKER, OR Performed By: #### 4 0055, 98958, 99234, 73388 #### [facility] [address] [facility] [address] THB 12.0 g/dL Normal 12.0-16.3 [facility] Comment on above: Order Comment: RESUL TS CHECKED AND CALLED. ACCURATELY READ BACK BY A WALKER, OR Performed By: #### 4 0055, 95142, 32458, 51840 #### [facility] [address] [facility] CALCIUM IONIZED CBGLon 04-29 IONIZED CALCIUM 1.20 mmol/L Normal 1.13-1.32 [facility] Comment on above: Performed By: #### 4 005, , 70154, 40668 #### [facility] [address] [place] [address], [facility] POC GLUCOSE LABon 04-29-2021 Glucose [Mass/Vol] 180 mg/dL High 70-100 [facility] Comment on above: Performed By: #### 0 0071 #### [facility] [address] [place] [address], [place] Glucose [Mass/Vol] 200 mg/dL High 70-100 [facility] Comment on above: Performed By: #### 0 0071 #### [facility] [address] [place] [address], [place] Glucose [Mass/Vol] 166 mg/dL High 70-100 [facility] Comment on above: Performed By: #### 0 0071 #### [facility] [address] [place] [address], [facility] POTASSIUM WHOLE BLOOD CBGLon 04-29-2021 Potassium [Moles/Vol] 4.1 mmol/L Normal 3.4-5.2 [facility] Comment on above: Performed By: #### 4 0055, 59162, 96676, 98054 #### [facility] [address] [place] [address], [facility] SODIUM WHOLE BLOOD CBGLon Sodium [Moles/Vol] 135.0 mmol/L Low 136.0-146.0 [facility] Comment on above: Performed By: #### 4 0055, 59566, 98961, 86435 #### [facility] [address] [place] [address], [place] TYPE AND SCREENon 04-29-2021 ABO INTERPRETATION O Normal [facility] Comment on above: Performed By: #### 0 0071 #### [facility] [address] [place] [address], [place] RH INTERPRETATION Positive Normal The [facility] Comment on above: Performed By: #### 0 0071 #### [facility] [address] Pulmonary Functionon 021 Pulmonary Function MR #: [id number] [facility] PT. Name: Loren Porter Date: 03/11/2021 Date [...] Jaramillo MD Date Trans: 03/14/2021 04:48 P/ [id number] cc: Warner Welch M.D. [facility] [address] [place] [address] Normal [facility] ARTERIAL BLOOD GAS W/COOXon 03-11-2021 BASE EXCESS 2 mmol/L Normal -2-3 [facility] Comment on above: Performed By: #### 0 0071 #### [facility] [address] [place] [address], [facility] COHB 1.4 % Normal 0.0-1.5 [facility] Comment on above: Performed By: #### 0 0071 #### [facility] [address] [place] [address], [facility] DELIVERY SYSTEMS ROOM AIR Normal [facility] Comment on above: Performed By: #### 0 0071 #### [facility] [address] [place] [address], [facility] FIO2 0 % Normal [facility] Comment on above: Performed By: #### 0 0071 #### [facility] [address] [place] [address], [facility] HCO3 (Bld) [Moles/Vol] 27 mmol/L Normal 21-28 [facility] Comment on above: Performed By: #### 0 0071 #### [facility] [address] [place] [address], [facility] METHB 0.9 % Normal 0.0-1.5 [facility] Comment on above: Performed By: #### 0 0071 #### [facility] [address] [place] [address], [facility] Oxygen (Bld) [Partial pressure] 98 mm[Hg] Normal 83-108 [facility] Comment on above: Performed By: #### 0 0071 #### [facility] [address] [place] [address], [facility] Oxygen saturation in Blood 96.4 % Normal 94.0-97.0 [facility] Comment on above: Performed By: #### 0 0071 #### [facility] [address] [place] [address], [place] PCO2 42 mmHg Normal 35-45 [facility] Comment on above: Performed By: #### 0 0071 #### [facility] [address] [place] [address], [place] pH (Bld) 7.42 [pH] Normal 7.35-7.45 [facility] Comment on above: Performed By: #### 0 0071 #### [facility] [address] [place] [address], [facility] THB 13.0 g/dL Normal 12.0-16.3 [facility] Comment on above: Performed By: #### 0 0071 #### [facility] [address] [place] [address], [facility] TSH+FREE T4on 02-07-2021 Free T4 [Mass/Vol] 1.1 ng/dL Normal 0.8-1.8 [facility] Comment on above: Order Comment: FASTI NG:YES FASTING: YES Performed By: #### 5 8984 #### [facility] [address], [address] [place] [address] Route Vending Machine Servicer: Mario Vasquez MD TSH Qn 0.86 m[IU]/L Normal 0.40-4.50 [facility] Comment on above: Order Comment: FASTI NG:YES FASTING: YES Performed By: #### 5 8984 #### [facility] [address], [address] [place] [address] Route Vending Machine Servicer: Mario Vasquez MD Coding Summaryon 01-24-2020 Coding Summary CODING DATE: 01/24/2020 [facility] STATUS: Home PAYOR: [employer] DESCRIPTION [...] Lisa Chowdary Date Saved: 01/24/2020 11:46 am [facility] Provider Orderson 01-24-2020 Provider Orders [id number] [facility] Managementon 01-06 Medication Management [id number] .[facility] Study[facility] 01-18-2020 [place] Bone Three Phase Study EXAMINATION: [place] BONE THREE PHASE STUDY HISTORY: Acute pain of right knee. COMPARISON: Three-phase bone scan dated 04/29/2019. TECHNIQUE: Utilizing 26.2 mCi of technetium 99m MDP, three-phase bone scan of the knees was performed. FINDINGS: Blood flow images demonstrate grossly symmetric isotope activity. Blood pool images demonstrate [id number] increased isotope activity about the right knee [...] Mccoy MD 01/18/20 11:46 a Technologist: SIMON [facility] Provider Orderson 05-03-2019 Provider Orders [id number] [facility] Coding Summaryon 05-02-2019 Coding Summary CODING DATE: 05/02/2019 [facility] STATUS: Home PAYOR: [employer] APC DESCRIPTION 5591 Level 1 Nuclear Medicine [...] [address] [place] Date Saved: 05/02/2019 01:03 pm [facility] Medication Managementon 04-09 Medication Management [id number] .00OTGTIFF [facility] Bone Three Phase Studyon 04-29-2019 [place] Bone Three Phase Study NUCLEAR MEDICINE TRIPLE-PHASE [...] Diallo Bird 04/29/19 2:17 pm Technologist: ANTWAN [facility] Vital Signs Date Time Vital Sign Value Performing Clinician Facility 01-25-2025 09:24-0400 Body height 175.3 cm [employer] Work Phone: [facility] 01-25-2025 09:24-0400 Body mass index (BMI) [Ratio] 37.05 kg/m2 [employer] Work Phone: [facility] 01-25-2025 09:24-0400 Body temperature 97.7 [degF] Warner Furlong DO Work Phone: [facility] [employer] [facility] 01-25-2025 09:24-0400 Body weight 113.85 kg Warner Furlong DO Work Phone: [facility] [employer] [facility] 01-25-2025 09:24-0400 Diastolic blood pressure 84 mm[Hg] Warner Furlong DO Work Phone: [facility] [employer] [facility] 01-25-2025 09:24-0400 Heart rate 79 /min Warner Furlong DO Work Phone: [facility] [employer] 01-25-2025 09:24-0400 Respiratory rate 18 /min Warner Furlong DO Work Phone: [facility] [employer] [facility] 01-25-2025 09:24-0400 SaO2% (BldA) [Mass fraction] 95 % Warner Furlong DO Work Phone: [facility] [employer] [facility] 01-25-2025 09:24-0400 Systolic blood pressure 128 mm[Hg] Warner Furlong DO Work Phone: [facility] [employer] [facility] 07-27-2024 09:42-0500 Body height 175.3 cm Warner Furlong DO Work Phone: [facility] [employer] [facility] 07-27-2024 09:42-0500 Body mass index (BMI) [Ratio] 41.45 kg/m2 Warner Furlong DO Work Phone: [facility] [employer] [facility] 07-27-2024 09:42-0500 Body temperature 98.01 [degF] Warner Furlong DO Work Phone: [facility] [employer] [facility] 07-27-2024 09:42-0500 Body weight 127.37 kg Warner Furlong DO Work Phone: [facility] [employer] [facility] 07-27-2024 09:42-0500 Diastolic blood pressure 58 mm[Hg] Warner Furlong DO Work Phone: [facility] [employer] 07-27-2024 09:42-0500 Heart rate 69 /min Warner Anglinng DO Work Phone: [facility] [employer] 07-27-2024 09:42-0500 Respiratory rate 20 /min Warner Anglinng DO Work Phone: [facility] [employer] 07-27-2024 09:42-0500 SaO2% (BldA) [Mass fraction] 97 % Warner Anglinng DO Work Phone: [facility] [employer] 07-27-2024 09:42-0500 Systolic blood pressure 110 mm[Hg] Warner Welch DO Work Phone: [facility] 05-24-2024 08:58-0500 Body height 175.3 cm [employer] Sales DO Work Phone: [facility] 05-24-2024 08:58-0500 Body mass index (BMI) [Ratio] 44.15 kg/m2 [employer] DO Work Phone: [facility] 05-24-2024 08:58-0500 Body weight 135.63 kg [employer] DO Work Phone: [facility] 05-24-2024 08:58-0500 Diastolic blood pressure 90 mm[Hg] Hood Sales DO Work Phone: [facility] 05-24-2024 08:58-0500 Systolic blood pressure 140 mm[Hg] [employer] DO Work Phone: [facility] 04-19-2024 10:52-0500 Body height 175.3 cm Milo Modi MD Work Phone: [facility] 04-19-2024 10:52-0500 Body mass index (BMI) [Ratio] 44.3 kg/m2 Milo Modi MD Work Phone: [facility] 04-19-2024 10:52-0500 Body weight 136.08 kg Milo Modi MD Work Phone: [facility] 04-19-2024 10:52-0500 Diastolic blood pressure 68 mm[Hg] Milo Modi MD Work Phone: [facility] 04-19-2024 10:52-0500 Heart rate 70 /min Milo Modi MD Work Phone: [facility] 04-19-2024 10:52-0500 Respiratory rate 19 /min Milo Modi MD Work Phone: [facility] 04-19-2024 10:52-0500 Systolic blood pressure 134 mm[Hg] Milo Modi MD Work Phone: [facility] 09-03-2023 15:06-0400 Body height 175.3 cm Warner Furlong DO Work Phone: [facility] [employer] [facility] 09-03-2023 15:06-0400 Body mass index (BMI) [Ratio] 45.22 kg/m2 Warner Furlong DO Work Phone: [facility] 09-03-2023 15:06-0400 Body weight 138.89 kg Warner Furlong DO Work Phone: [facility] [employer] [facility] 09-03-2023 15:06-0400 Diastolic blood pressure 70 mm[Hg] Warner Furlong DO Work Phone: [facility] [employer] [facility] 09-03-2023 15:06-0400 Systolic blood pressure 127 mm[Hg] Warner Furlong DO Work Phone: [facility] 08-14-2023 14:54-0500 Body height 175.3 cm Karie Barriga LOAN SECRETARY.MASSEUR/MASSEUSE Work Phone: [facility] 08-14-2023 14:54-0500 Body weight 136.08 kg Karie Barriga LOAN SECRETARY.MASSEUR/MASSEUSE Work Phone: [facility] 05-07-2023 15:46-0500 Body height 175.3 cm Minda Delcid DO Work Phone: [facility] 05-07-2023 15:46-0500 Body weight 147.46 kg Mindaalanis Huberin DO Work Phone: [facility] 05-07-2023 15:46-0500 Diastolic blood pressure 62 mm[Hg] Minda Cetin DO Work Phone: [facility] 05-07-2023 15:46-0500 Heart rate 85 /min Mindaalanis Huberin DO Work Phone: [facility] 05-07-2023 15:46-0500 Systolic blood pressure 120 mm[Hg] Minda Huberin DO Work Phone: [facility] 12-16-2022 11:01-0400 Body weight 151.5 kg Ben Zimmerman DO Work Phone: [facility] 12-16-2022 11:01-0400 Diastolic blood pressure 66 mm[Hg] Ben Navarrois DO Work Phone: [facility] 12-16-2022 11:01-0400 Heart rate 70 /min Ben Zimmerman DO Work Phone: [facility] 12-16-2022 11:01-0400 SaO2% (BldA) [Mass fraction] 99 % Ben Navarrois DO Work Phone: [facility] 12-16-2022 11:01-0400 Systolic blood pressure 104 mm[Hg] Ben Navarrois DO Work Phone: [facility] 06-26-2022 14:45-0500 Body height 175.26 cm Alberto Mcgrath Other [employer] Other 06-26-2022 14:45-0500 Body mass index (BMI) [Ratio] 48.2 kg/m2 Alberto Mcgrath Other [employer] Other 06-26-2022 14:45-0500 Body weight 148.06 kg Alberto Mcgrath Other [employer] Other 06-26-2022 14:45-0500 Diastolic blood pressure 66 mm[Hg] Alberto Alcides Other [employer] Other 06-26-2022 14:45-0500 SaO2% (BldA) [Mass fraction] 96 % Albertootoniel Mcgrath Other [employer] Other 06-26-2022 14:45-0500 Systolic blood pressure 118 mm[Hg] Alberto Alcides Other [employer] Other 06-12-2022 16:15-0500 Body height 175.26 cm Alberto Mcgrath Other [employer] Other 06-12-2022 16:15-0500 Body mass index (BMI) [Ratio] 48.2 kg/m2 Alberto Mcgrath Other [employer] Other 06-12-2022 16:15-0500 Body weight 148.06 kg Alberto Mcgrath Other [employer] Other 06-12-2022 16:15-0500 Diastolic blood pressure 78 mm[Hg] Alberto Alcides Other [employer] Other 06-12-2022 16:15-0500 SaO2% (BldA) [Mass fraction] 97 % Alberto Mcgrath Other [employer] Other 06-12-2022 16:15-0500 Systolic blood pressure 136 mm[Hg] Alberto Alcides Other [employer] Other 05-13-2022 10:15-0500 Body height 175.26 cm Alberto Mcgrath Other [employer] Other 05-13-2022 10:15-0500 Body mass index (BMI) [Ratio] 4.37 kg/m2 Alberto Mcgrath Other [employer] Other 05-13-2022 10:15-0500 Body weight 13.43 kg Alberto Mcgrath Other [employer] Other 05-13-2022 10:15-0500 Diastolic blood pressure 60 mm[Hg] Alberto Mcgrath Other [employer] Other 05-13-2022 10:15-0500 SaO2% (BldA) [Mass fraction] 98 % Alberto Mcgrath Other [employer] Other 05-13-2022 10:15-0500 Systolic blood pressure 110 mm[Hg] Alberto Mcgrath Other [employer] Other 01-30-2022 10:45-0400 Body height 175.26 cm Norma Fonseca Other [employer] Other 01-30-2022 10:45-0400 Diastolic blood pressure 68 mm[Hg] Norma Fonseca Other [employer] Other 01-30-2022 10:45-0400 Respiratory rate 18 /min Norma Fonseca Other [employer] Other 01-30-2022 10:45-0400 SaO2% (BldA) [Mass fraction] 96 % Norma Fonseca Other [employer] Other 01-30-2022 10:45-0400 Systolic blood pressure 116 mm[Hg] Norma Fonseca Other [employer] Other 01-09-2022 15:30-0400 Body height 175.26 cm Alberto Mcgrath Other [employer] Other 01-09-2022 15:30-0400 Body mass index (BMI) [Ratio] 48.64 kg/m2 Alberto Mcgrath Other [employer] Other 01-09-2022 15:30-0400 Body weight 149.42 kg Alberto Mcgrath Other [employer] Other 01-09-2022 15:30-0400 Diastolic blood pressure 58 mm[Hg] Alberto Mcgrath Other [employer] Other 01-09-2022 15:30-0400 SaO2% (BldA) [Mass fraction] 98 % Alberto Mcgrath Other [employer] Other 01-09-2022 15:30-0400 Systolic blood pressure 116 mm[Hg] Alberto Mcgrath Other [employer] Other 12-26-2021 16:00-0400 Body height 175.26 cm Alberto Mcgrath Other [employer] Other 12-26-2021 16:00-0400 Body mass index (BMI) [Ratio] 49.76 kg/m2 Alberto Mcgrath Other [employer] Other 12-26-2021 16:00-0400 Body weight 152.86 kg Alberto Mcgrath Other [employer] Other 12-26-2021 16:00-0400 Diastolic blood pressure 74 mm[Hg] Alberto Mcgrath Other [employer] Other 12-26-2021 16:00-0400 Systolic blood pressure 122 mm[Hg] Alberto Alcides Other [employer] Other 12-16-2021 16:15-0400 Body height 175.26 cm Alberto Mcgrath Other [employer] Other 12-16-2021 16:15-0400 Body mass index (BMI) [Ratio] 50.41 kg/m2 Alberto Mcgrath Other [employer] Other 12-16-2021 16:15-0400 Body weight 154.86 kg Alberto Mcgrath Other [employer] Other 12-16-2021 16:15-0400 Diastolic blood pressure 70 mm[Hg] Alberot Mcgrath Other [employer] Other 12-16-2021 16:15-0400 SaO2% (BldA) [Mass fraction] 97 % Alberto Mcgrath Other [employer] Other 12-16-2021 16:15-0400 Systolic blood pressure 124 mm[Hg] Alberto Mcgrath Other [employer] Other 11-19-2021 12:45-0400 Body height 175.26 cm Alberto Mcgrath Other [employer] Other 11-19-2021 12:45-0400 Body mass index (BMI) [Ratio] 49.97 kg/m2 Alberto Mcgrath Other [employer] Other 11-19-2021 12:45-0400 Body weight 153.5 kg Alberto Mcgrath Other [employer] Other 11-19-2021 12:45-0400 Diastolic blood pressure 74 mm[Hg] Alberto Alcides Other [employer] Other 11-19-2021 12:45-0400 SaO2% (BldA) [Mass fraction] 99 % Alberto Mcgrath Other [employer] Other 11-19-2021 12:45-0400 Systolic blood pressure 126 mm[Hg] Alberto Mcgrath Other [employer] Other 11-11-2021 11:45-0400 Body height 175.26 cm Alberto Mcgrath Other [employer] Other 11-11-2021 11:45-0400 Body mass index (BMI) [Ratio] 49.97 kg/m2 Alberto Mcgrath Other [employer] Other 11-11-2021 11:45-0400 Body weight 153.5 kg Alberto Mcgrath Other [employer] Other 11-11-2021 11:45-0400 Diastolic blood pressure 70 mm[Hg] Alberto Mcgrath Other [employer] Other 11-11-2021 11:45-0400 SaO2% (BldA) [Mass fraction] 98 % Alberto Mcgrath Other [employer] Other 11-11-2021 11:45-0400 Systolic blood pressure 120 mm[Hg] Alberto Mcgrath Other [employer] Other 10-24-2021 16:15-0400 Body height 175.26 cm Alberto Mcgrath Other [employer] Other 10-24-2021 16:15-0400 Body mass index (BMI) [Ratio] 51.24 kg/m2 Alberto Mcgrath Other [employer] Other 10-24-2021 16:15-0400 Body weight 157.4 kg Alberto Mcgrath Other [employer] Other 10-24-2021 16:15-0400 Diastolic blood pressure 80 mm[Hg] Alberto Mcgrath Other [employer] Other 10-24-2021 16:15-0400 Systolic blood pressure 128 mm[Hg] Alberto Mcgrath Other [employer] Other Encounters Encounter Date Encounter Type Care Provider Facility Start: 01-26-2025 End: 01-26-2025 Orders Only Warner Welch DO Work Phone: [facility] Start: 01-25-2025 End: 01-25-2025 ambulatory [facility] Start: 01-25-2025 Encounter for genera l adult medical examination without abnormal findings [facility] Start: 01-25-2025 End: 01-25-2025 Patient encounter procedure [facility] DO [facility] Comment on above: Welcome to Medicare preventive visit (Primary Dx); Screening for depression; Morbid obesity ([facility]-HCC); Sensorineural hearing loss (SNHL) of both ears; Hypertensive heart disease with heart failure ([facility]-HCC); Stage 3a chronic kidney disease ([facility]); 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, with long-term current use of insulin ([facility]-HCC); Acquired hypothyroidism Start: 01-25-2025 End: 01-25-2025 Patient encounter status Warner Simpsonmar DO Work Phone: [facility] Work Phone: Start: 10-05-2024 ambulatory [facility] Facility :[facility] Start: 08-16-2024 End: 08-16-2024 ambulatory MILO MODI Not Available Start: 07-27-2024 End: 07-27-2024 Office outpatient visit 25 minutes Warner Welch DO Work Phone: [facility] Comment on above: 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 ([facility]-HCC) (Primary Dx); Infrarenal abdominal aortic aneurysm (AAA) without rupture ([facility]-HCC); Current moderate episode of major depressive disorder, unspecified whether recurrent ([facility]-HCC); Morbid obesity ([facility]-HCC); Acquired hypothyroidism Start: 07-27-2024 End: 07-27-2024 ambulatory [facility] Start: 05-24-2024 End: [...] Dx) Start: 05-24-2024 End: 05-24-2024 ambulatory HOOD SALSE Not Available Start: 05-20-2024 End: 05-20-2024 ambulatory [facility] Facility:[facility] Start: 04-19-2024 End: 04-19-2024 Bamboo flowsheet Milo Modi MD Work Phone: [facility] Start: 04-19-2024 End: 04-19-2024 Bamboo flowsheet Milo Modi MD Work Phone: [facility] Start: 04-19-2024 End: 04-19-2024 Office outpatient visit 25 minutes Milo Modi MD Work Phone: [facility] Comment on above: Type 2 diabetes sulaiman itus with hyperglycemia, with long-term current use of insulin (CMS/HCC) (Primary Dx); Essential (primary) hypertension (CMS/HCC); Mixed hyperlipidemia (CMS/HCC); skilled nursing (current) use of insulin (CMS/HCC); Vitamin D deficiency; Microalbuminuria; Encounter for dietary consultation; Class 3 severe obesity due to excess calories with serious comorbidity and body mass index (BMI) of 40.0 to 44.9 in adult (CMS/HCC) Start: 04-19-2024 End: 04-19-2024 ambulatory MILO MODI Not Available Start: 04-07-2024 End: 04-07-2024 ambulatory [facility] Start: 02-29-2024 End: 03-01-2024 Telephone encounter Milo Modi MD Work Phone: [facility] Start: 02-11-2024 End: 02-11-2024 Orders Only Warner Chapito Welch DO Work Phone: [facility] Start: 02-10-2024 End: 02-10-2024 [facility]ill [facility] Start: 02-02-2024 End: 02-03-2024 Refill Shaneka Pierce [employer] [facility] Start: 01-27-2024 End: 01-27-2024 Refill Shaneka Pierce [employer] [facility] Start: 01-18-2024 End: 01-18-2024 [facility]ill [facility] Start: 11-07-2023 End: 11-07-2023 Refill Lilibeth WALTERS Work Phone: [facility] Start: 10-19-2023 End: 10-19-2023 ambulatory [facility] Start: 10-13-2023 End: 10-13-2023 Refill Warner Welch DO Work Phone: [facility] Start: 09-03-2023 End: 09-03-2023 Patient encounter procedure Warner Welch DO Work Phone: [facility] Comment on above: Medicare annual well ness visit, subsequent (Primary Dx); Screening for depression Start: 08-14-2023 End: 08-14-2023 ambulatory Karie Barriga MASSEUR/MASSEUSE Work Phone: General Surgery Comment on above: Encounter for weight management (Primary Dx); Class 3 severe obesity with serious comorbidity and body mass index (BMI) of 45.0 to 49.9 in adult, unspecified obesity type (HCC) Start: 08-14-2023 End: 08-14-2023 Telemedicine consultation with patient Karie Barriga MASSEUR/MASSEUSE Work Phone: [facility] Start: 07-24-2023 End: 07-24-2023 ambulatory [facility] Start: 07-19-2023 Refill Lilibeth Schultz Mamie LOAN SECRETARY-RAIL BONDER Work Phone: [facility] Start: 07-02-2023 Refill Lilibeth Schultz Mamie LOAN SECRETARY-RAIL BONDER Work Phone: [facility] Start: 06-09-2023 Refill Lilibeth Schultz Mamie LOAN SECRETARY-RAIL BONDER Work Phone: [facility] Start: 05-07-2023 End: 05-08-2023 ambulatory BEN ZIMMERMAN Facility:[facility] Start: 05-07-2023 End: 05-07-2023 Patient encounter procedure Minda Delcid DO Work Phone: General Surgery Comment on above: Obesity with serious comorbidity, unspecified classification, unspecified obesity type Start: 01-29-2023 End: 01-29-2023 ambulatory BEN ZIMMERMAN Facility:[facility] Start: 01-29-2023 End: 01-29-2023 Patient encounter procedure Nona Zambrano MD Work Phone: Neurosurgery Comment on above: Degenerative lumbar spinal stenosis; Chronic midline low back pain without sciatica Start: 01-14-2023 ambulatory Ben edouard DO Work Phone: [facility] Start: 01-14-2023 Patient encounter procedure Ben Zimmerman DO Work Phone: Spine Medicine Comment on above: Consultation Start: 01-03-2023 [facility] Start: 01-03-2023 End: 01-03-2023 Subsequent hospital visit by physician [facility] (I-Stat/Lg Bore/1.5t) [facility] Comment on above: Chronic midline low back pain without sciatica [M54.50, G89.29] Start: 12-16-2022 End: 12-16-2022 ambulatory WARNER WELCH Facility:[facility] Start: 12-16-2022 End: 12-16-2022 Subsequent hospital visit by physician Marla [facility] Work Phone: Radiology Comment on above: Chronic [...] 10-20-2022 End: 10-21-[address] WARNER WELCH Facility: Start: 06-26-2022 End: 06-26-2022 ambulatory Alberto Mcgrath Other [employer] Other Start: 06-26-2022 Office outpatient vi sit 15 minutes Alberto Alcides [facility] Start: 06-19-2022 (PROC) PROCEDURE Alberto [facility] Start: 06-19-2022 End: 06-19-2022 ambulatory Albertootoniel Mcgrath Other [employer] Other Start: 06-12-2022 End: 06-12-2022 ambulatory Alberto Mcgrath Other [employer] Other Start: 06-12-2022 Office outpatient vi sit 25 minutes Alberto Alcides [facility] Start: 05-27-2022 (PROC) PROCEDURE Alberto [facility] Start: 05-27-2022 End: 05-27-2022 ambulatory Alberto Mcgrath Other [employer] Other Start: 05-13-2022 End: 05-13-2022 ambulatory Alberto Mcgrath Other [employer] Other Start: 05-13-2022 Office outpatient vi sit 25 minutes Alberto Alcides [facility] Start: 04-28-2022 End: 04-29-[address] DOCTOR BLANC Facility:[facility] Start: 01-30-2022 End: 01-30-2022 ambulatory Norma Fonseca Other [employer] Other Start: 01-30-2022 Office outpatient vi sit 15 minutes Norma Fonseca [facility] Start: 01-24-2022 End: 01-25-[address] WARNER WELCH Facility:[facility] Start: 01-14-2022 (Procedure) Short Alberto Mcgrath [facility] Start: 01-14-2022 End: 01-14-2022 ambulatory Albertootoniel Mcgrath Other [employer] Other Start: 01-09-2022 End: 01-09-2022 ambulatory Alberto Alcides Other [employer] Other Start: 01-09-2022 Office outpatient vi sit 25 minutes Alberto Alcides [facility] Start: 12-31-2021 (Procedure) Short Alberto Mcgrath [facility] Start: 12-31-2021 End: 12-31-2021 ambulatory Alberto Alcides Other [employer] Other Start: 12-26-2021 End: 12-26-2021 ambulatory Alberto Alcides Other [employer] Other Start: 12-26-2021 Office outpatient vi sit 15 minutes Alberto Alcides [facility] Start: 12-25-2021 End: 12-26-[address] WARNER WELCH Facility: Start: 12-19-2021 (Procedure) Short Alberto Mcgrath [facility] Start: 12-19-2021 End: 12-19-2021 ambulatory Alberto Alcides Other [employer] Other Start: 12-16-2021 End: 12-16-2021 ambulatory Alberto Alcides Other [employer] Other Start: 12-16-2021 Office outpatient vi sit 25 minutes Alberto Alcides [facility] Start: 12-05-2021 End: 12-25-2021 ambulatory WARNER WELCH Facility:[facility] Start: 11-19-2021 End: 11-19-2021 ambulatory Alberto Alcides Other [employer] Other Start: 11-19-2021 Office outpatient vi sit 25 minutes Alberto Alcides [facility] Start: 11-12-2021 (Procedure) Short Alberto Mcgrath [facility] Start: 11-12-2021 End: 11-12-2021 ambulatory Alberto Alcides Other [employer] Other Start: 11-11-2021 End: 11-11-2021 ambulatory Albertootoniel Mcgrath Other [employer] Other Start: 11-11-2021 Office outpatient vi sit 25 minutes Alberto Alcides [facility] Start: 10-30-2021 (Procedure) Short Alberto Alcides [facility] Start: 10-30-2021 End: 10-30-2021 ambulatory Alberto Alcides Other [employer] Other Start: 10-25-2021 End: 10-26-[address] BEKAH EAGLE Facility: Start: 10-24-2021 End: 10-24-2021 ambulatory Alberto Alcides Other [employer] Other Start: 10-24-2021 Office outpatient vi sit 25 minutes Alberto Alcides [facility] Start: 10-16-2021 (Procedure) Short Alberto Alcides [facility] Start: 10-16-2021 End: 10-16-2021 ambulatory Alberto Alcides Other [employer] Other Start: 06-13-2021 End: 06-14-2021 ambulatory NORMA KIRAN Facility:[facility] Start: 04-29-2021 End: 04-30-2021 Evaluation and management of inpatient WARNERJOSE SIMPSONLONG Facility:[facility] Start: 02-12-2021 End: 02-13-2021 ambulatory NORMA KIRAN Facility:[facility] Procedures Date Procedure Procedure Detail Performing Clinician Start: 01-25-2025 Adult depression scr eening assessment Warner Furlong DO Work Phone: Start: 08-02-2024 Diabetic retinal eye exam Warner Furlong DO Work Phone: Start: 07-27-2024 Adult depression scr eening assessment Warner Furlong DO Work Phone: Start: 05-24-2024 Creatinine blood Hood Sales DO Work Phone: Start: 05-23-2024 Colonoscopy Hood winchester DO Work Phone: Start: 04-19-2024 Gluc bld gluc mntr d ev cleared fda spec home use Milo Modi MD Work Phone: Start: 09-03-2023 Adult depression scr eening assessment Warner Welch DO Work Phone: Start: 03-10-2023 Adult depression scr eening assessment Lilibeth Hatch LOAN SECRETARY-RAIL BONDER Work Phone: Start: 01-22-2023 Lipid 1996 panel - S jasbir or Plasma Minda Kristen DO Work Phone: Start: 01-03-2023 Mri spinal canal lum bar w/o contrast material Ben Navarrosilke DO Work Phone: Start: 12-16-2022 Radex spine lumbosac ral minimum 4 views Ben Zimmerman DO Work Phone: Start: 04-29-2021 Antibody screen WARNER WELCH Comment on above: Performed By: #### [id number] #### [address] Plan of Treatment Date Care Activity Detail Author Start: 05-23-2034 Screening for malign ant neoplasm of colon [facility] Start: 05-20-2032 DTaP,Tdap and Td Vaccines (2 - Td or Tdap) DTaP,Tdap and Td Vaccines (2 - Td or Tdap) [facility] Start: 05-20-2032 Urine microalbumin profile DTaP,Tdap,Td Vaccine (2 - Td or Tdap) [facility] Start: 01-23-2028 Lipid 1996 panel - S jasbir or Plasma Lipid Screening [facility] Start: 01-23-2028 LIPID SCREEN LIPID SCREEN [facility] Start: 01-23-2028 PROSTATE CANCER SCREENING DISCUSSION PROSTATE CANCER SCREENING DISCUSSION [facility] Start: 08-17-2028 Prostate specific antigen measurement Prostate Cancer Screening Discussion [facility] Start: 01-25-2026 Adult BMI Screening Adult BMI Screen ing [facility] Start: 01-25-2026 Depression Screening Depression Scre ening [facility] Start: 01-25-2026 Fall Risk Screening Fall Risk Screen ing [facility] Start: 01-25-2026 Tobacco Screening Tobacco Screening [facility] Start: 08-02-2025 Glaucoma screening Diabetic Op hthalmology Exam [facility] Start: 07-27-2025 Adult BMI Screening Adult BMI Screen ing [facility] Start: 07-27-2025 Depression Screening Depression Scre ening [facility] Start: 07-27-2025 Fall Risk Screening Fall Risk Screen ing [facility] Start: 07-27-2025 Tobacco Screening Tobacco Screening [facility] Start: 06-08-2025 Diabetic foot examination Diabetic Foot Exam [facility] Comment on above: Postponed from 09/23 (Patient Refused) Start: 02-10-2025 Statin Use: Diabetic Statin Use: Kathleen betic [facility] Start: 02-06-2025 Influenza vaccination Influenza Vacc ine [facility] Start: 01-25-2025 End: 01-25-2025 Patient encounter procedure 01/25/2025 9:00 AM EDT Office Visit [facility] [address] [place] [address] Warner Welch, DO [address], [facility] [place] [address] [facility] Start: 09-06-2024 End: 09-06-2024 Patient encounter procedure 09/06/2024 2:20 PM EDT Office Visit [facility] [address] [place] [address] [facility] Start: 09-02-2024 Adult BMI Screening Adult BMI Screen ing [facility] Start: 09-02-2024 Depression Screening Depression Scre ening [facility] Start: 08-16-2024 End: 08-16-2024 Patient encounter procedure 08/16/2024 11:10 AM EDT Office Visit [facility] [address] [place] [id number] Milo Modi MD [address] [place] [address] [facility] Start: 2024 Pneumococcal vaccination Pneum ococcal Vaccine (3 of 3 - PPSV23 or PCV20) [facility] Start: 06-10-2024 End: 06-10-2024 Patient encounter procedure 06/10/2024 10:30 AM EST Office Visit [facility] [address] [facility] [address] [place] [phone] Hood Sales DO [address] [place] [address] [facility] Start: 05-24-2024 End: 05-24-2025 Creatinine [Mass/volume] in Serum or Plasma Creatinine, Serum Lab Routine Cecum mass Expected: 05/24/2024 (Approximate), Expires: 05/24/2025 [facility] Comment on above: Expected: 05/24/2024 (Approximate), Expires: 05/24/2025 Start: 05-24-2024 End: 05-24-2025 CT Abdomen and Pelvis W contrast IV CT abdomen pelvis w IV contrast Imaging Routine Cecum mass Expected: 05/24/2024, Expires: 05/24/2025 [facility] Work Phone: Comment on above: Expected: 05/24/2024 , Expires: 05/24/2025 Start: 05-07-2024 BP Controlled (<130/80) BP Con trolled (<130/80) [facility] Start: 04-19-2024 End: 04-19-2024 Patient encounter procedure 04/19/2024 10:40 AM EST Office Visit [facility] [address] [place] [phone] Milo Modi MD [address] [place] [address] [facility] Start: 03-10-2024 Adult BMI Screening Adult BMI Screen ing [facility] Start: 03-10-2024 Creatinine measurement Serum Creatin ine [facility] Start: 03-10-2024 Depression Screening Depression Scre ening [facility] Start: 03-10-2024 Tobacco Screening Tobacco Screening [facility] Start: 02-07-2024 Covid-19 Vaccine ( season) Covid-19 Vaccine ( season) [facility] Start: 02-07-2024 Influenza vaccination C [facility] Start: 10-04-2023 Administration of varicella zoster vaccine Zoster (Shingles) Vaccine (3 of 3) [facility] Comment on above: Postponed from 07/15 (Insurance / Financial) Start: 09-24-2023 Diabetic foot examination Diabetic Foot Exam [facility] Start: 02-06-2023 Covid-19 Vaccine ( season) Covid-19 Vaccine ( season) [facility] Start: 02-06-2023 Influenza vaccination C [facility] Start: 07-15-2022 Administration of varicella zoster vaccine Zoster (Shingles) Vaccine (3 of 3) [facility] Start: 06-08-2022 DEPRESSION ASSESSMENT DEPRESSION ASS ESSMENT [facility] Start: 2019 RSV Vaccine (1 - 1-d ose 60+ series) RSV Vaccine (1 - 1-dose 60+ series) [facility] Start: 2014 PROSTATE CANCER SCREENING DISCUSSION PROSTATE CANCER SCREENING DISCUSSION [facility] Start: 2009 SHINGRIX VACCINE (1 of 2) SHINGRIX VACCINE (1 of 2) [facility] Start: 2004 COLOGUARD (FIT-DNA) COLOGUARD (FIT-D NA) [facility] Start: 2004 Colonoscopy COLONOSCOPY [facility] Start: 2004 COLORECTAL CANCER SCREENING COLORECTAL CANCER SCREENING [facility] Start: [address] COLONOGRAPHY [facility] Start: 2004 DIABETES SCREEN DIABETES SCREEN [facility] Start: 2004 Diabetes Screening Diabetes Screenin g [facility] Start: 2004 FECAL OCCULT BLOOD FECAL OCCULT BLOO D [facility] Start: 2004 Screening for malign ant neoplasm of colon [facility] Start: 2004 SIGMOIDOSCOPY SIGMOIDOSCOPY [facility] Start: 1994 LIPID SCREEN LIPID SCREEN [facility] Start: 1978 Urine microalbumin profile DTAP,TDAP,TD (1 - Tdap) [facility] Start: 1977 Adult BMI Follow Up Plan Adult BMI Follow Up Plan [facility] Start: 1977 Annual PCP Team [employer] Operator amarilis Disease Visit Annual PCP Team Chronic Disease Visit [facility] Start: 1977 Complete blood count Hemoglobin/Jose tocrit [facility] Start: 1977 Hepatitis B surface antibody level LDL Cholesterol [facility] Start: 1977 HEPATITIS C SCREENING HEPATITIS C [facility] Start: 1977 Hepatitis C screening Hepatitis C [facility] Start: 1977 HIV SCREENING HIV SCREENING [facility] Start: 1977 HIV screening HIV Screening [facility] Start: 1969 Diabetic foot examination Diabetic Foot Exam [facility] Start: 1969 Glaucoma screening Dilated Retinal E xam [facility] Start: 1969 Hepatitis B screening Urine Albumin:Creatinine Ratio [facility] Start: 1964 Hemoglobin A1c measurement HbA1C [facility] Start: 1959 Glaucoma screening Diabetic Op hthalmology Exam [facility] Start: 1959 Screening for malign ant neoplasm of colon [facility] Start: 1959 Urine screening for protein Urine Microalbumin [facility] End: 01-15-2024 Mri spinal canal lumbar w/o contrast material MRI LUMBAR SPINE WO IVCON Radiology Routine Chronic midline low back pain without sciatica Degenerative lumbar spinal stenosis Numbness of right lower extremity 1 Occurrences starting 12/16/2022 until 01/15/2024 [facility] Work Phone: Comment on above: 1 Occurrences starti ng 12/16/2022 until 01/15/2024 End: 01-15-2024 Radex spine lumbosacral minimum 4 views XR LUMBAR MOTION 4V AP/LAT/ FLEX/EXT Radiology Routine Chronic midline low back pain without sciatica Degenerative lumbar spinal stenosis Numbness of right lower extremity 1 Occurrences starting 12/16/2022 until 01/15/2024 [facility] Work Phone: Comment on above: 1 Occurrences starti ng 12/16/2022 until 01/15/2024 Radex spine lumbosac ral minimum 4 views XR LUMBAR MOTION 4V AP/LAT/ FLEX/EXT Radiology Routine Chronic midline low back pain without sciatica Degenerative lumbar spinal stenosis Numbness of right lower extremity 12/16/2022 12:34 PM EDT [facility] Work Phone: [facility] Immunizations Immunization Date Immunization Notes Care Provider [facility] 04-06-2024 Influenza, High-dose , Quadrivalent Warner Welch DO Work Phone: [facility] 04-06-2024 influenza virus vaccine, unspecified formulation Warner Welch DO Work Phone: [facility] 05-20-2022 tetanus toxoid, redu akanksha diphtheria toxoid, and acellular pertussis vaccine, adsorbed Lilibeth Hatch LOAN SECRETARY-RAIL BONDER Work Phone: [facility] 05-20-2022 zoster vaccine recombinant Lilibeth Hatch LOAN SECRETARY-RAIL BONDER Work Phone: [facility] 05-20-2022 zoster vaccine, live Lilibeth ledesma LOAN SECRETARY-RAIL BONDER Work Phone: [facility] 05-20-2022 zoster vaccine, unspecified formulation Lilibeth Hatch LOAN SECRETARY-RAIL BONDER Work Phone: [facility] 03-24-2022 SARS-COV-2 (COVID-19 ) Vaccine, Unspecified Lilibeth Hatch LOAN SECRETARY-RAIL BONDER Work Phone: [facility] 03-24-2022 zoster vaccine recombinant Lilibeth Hatch LOAN SECRETARY-RAIL BONDER Work Phone: [facility] 03-17-2022 influenza virus vaccine, unspecified formulation Minda Delcid DO Work Phone: [facility] 05-22-2021 Influenza, injectabl e, Madin Tracy Canine Kidney, preservative free, quadrivalent Lilibeth Hatch LOAN SECRETARY-RAIL BONDER Work Phone: [facility] 05-22-2021 pneumococcal conjuga te vaccine, 13 valent Lilibeth Hatch LOAN SECRETARY-RAIL BONDER Work Phone: [facility] 05-22-2021 pneumococcal conjuga te vaccine, 7 valent Lilibeth Hatch LOAN SECRETARY-RAIL BONDER Work Phone: [facility] 05-22-2021 influenza virus vaccine, unspecified formulation Lilibeth Hatch LOAN SECRETARY-RAIL BONDER Work Phone: [facility] 04-09-2021 COVID-19 Vaccine, vector-nr, rS-Ad26, PF, 0.5mL Lilibeth Hatch LOAN SECRETARY-RAIL BONDER Work Phone: [facility] 04-09-2021 SARS-COV-2 (COVID-19 ) Vaccine, Unspecified Lilibeth Hatch LOAN SECRETARY-RAIL BONDER Work Phone: [facility] 08-13-2020 COVID-19 Vaccine, vector-nr, rS-Ad26, PF, 0.5mL Lilibeth Hatch LOAN SECRETARY-RAIL BONDER Work Phone: [facility] 08-13-2020 SARS-COV-2 (COVID-19 ) Vaccine, Unspecified Lilibeth Hatch LOAN SECRETARY-RAIL BONDER Work Phone: [facility] 08-06-2020 COVID-19, mRNA, LNP- S, PF, 100mcg/0.5mL Dose Lilibeth Hatch LOAN SECRETARY-RAIL BONDER Work Phone: [facility] 03-23-2020 influenza, injectabl e, quadrivalent, preservative free Lilibeth Hatch LOAN SECRETARY-RAIL BONDER Work Phone: [facility] 03-30-2016 influenza virus vaccine, unspecified formulation Lilibeth Hatch APRN-RAIL BONDER Work Phone: [facility] [employer] [facility] 05-05-2015 influenza, seasonal, injectable, preservative free Lilibeth Hatch LOAN SECRETARY-RAIL BONDER Work Phone: [facility] [employer] [facility] 04-01-2013 pneumococcal polysaccharide vaccine, 23 valent Lilibeth Hatch LOAN SECRETARY-RAIL BONDER Work Phone: [facility] [employer]ix Quadrivalent 0.5 ML; Translations: [Fluarix Quadrivalent 0.5 ML] Alberto Mcgrath Other [employer] Other Payers Date Payer Category Payer Medicare HMO [facility] [id number] 2024 Unknown [id number] 2023 Medicare ANTHEM MEDICARE ANTHEM MEDICARE ADVANTAGE [id number] 2023-Present [phone] [address] [place] [address] [id number] 2023 Medicare (Managed Care) [facility] [id number] 2023 Medicare [id number] 2022 Self-pay 2022 [employer] ( and others) [id number] 2022 Unknown [id number] 2021 () [id number] 2021 [employer] ( and others) [id number] 2021 Medicaid [id number] 2019 [employer] ( and others) [id number] 2018 Private Health Insurance [id number] 1959 Unknown [id number] .647 1959 Unknown [id number] 2.16.840.1.694951.3.579.2 .647 1959 Unknown [id number] 2.16.840.1.715405.3.579.2 .647 1959 Unknown [id number] 2.16.840.1.233902.3.579.2 .647 1959 Unknown [id number] 2.16.840.1.141195.3.579.2 .593 1959 Unknown [id number] 2.16.840.1.753591.3.579.2 .593 1959 Unknown [id number] 2.16.840.1.351199.3.579.2 .593 1959 Unknown [id number] 2.16.840.1.152887.3.579.2 .593 1959 Unknown [id number] 2.16.840.1.255007.3.579.2 .593 1959 Unknown [id number] 2.16.840.1.765115.3.579.2 .1259 1959 Unknown [id number] 2.16.840.1.806515.3.579.2 .1259 1959 Unknown [id number] 2.16.840.1.746191.3.579.2 .1259 1959 Unknown [id number] 2.16.840.1.473342.3.579.2 .1286 1959 Unknown [id number] 2.16.840.1.139216.3.579.2 .1286 1959 [employer] ( and others) [id number] 1959 Unknown [id number] 2.16.840.1.356520.19 Unknown [id number] 2.16.840.1.535707.3.579.2 .531 Unknown [id number] 2.16.840.1.126528.3.579.2 .531 Unknown [id number] 2.16.840.1.028210.3.579.2 .531 Social History Date Type Detail Facility Unknown if ever smoked [employer] Other Start: 12-15-2022 End: 09-03-2023 Sex Assigned At [facility] Tobacco smoking consumption unknown [facility] Start: 12-15-2022 End: 09-03-2023 History of Social function [facility] Adult Depression Screening Assessment 5 [facility] Start: 1960 Sex Assigned At Not on file [facility] Start: 05-07-2023 End: 07-27-2024 Tobacco smoking status GAIS Ex-smoker [facility] Start: 01-06-1998 End: 01-06-2018 History of tobacco use Current smoker [facility] Start: 01-06-1998 End: 01-06-2018 History of tobacco use Cigarette Smoker [facility] Start: 05-07-2023 End: 07-27-2024 Tobacco use and exposure Smokeless tobacco non-user [facility] Start: 05-07-2023 Alcohol intake Lifetime non-d nikki (finding) [facility] Start: 04-19-2024 End: 01-25-2025 Alcoholic beverage intake Current drinker of alcohol (finding) [facility] Start: 11-11-2022 Tobacco Comment Last smoked: 1 -5 years [facility] Start: 11-11-2022 Alcohol Comment 1 or 2 drinks, 2-4 times a month; caffeine intake: 1-2 cups per day coffee, soda/pop [facility] Start: 1960 Sex assigned at Male [facility] Start: 11-05-2022 Gender identity Identifies as male gender (finding) [facility] History of tobacco use Passive smoker [facility] Start: 01-22-2023 Tobacco Comment Smoked 1 PPD x 20 years and 0.5 PPD x 20 years for a total of 30 pack years [facility] Start: 02-27-2022 Alcohol Comment OCCASIONAL [facility] [address] the [address] [employer], gas, oil, or water [employer] threatened to shut off services in your home in past 12Mo No [facility] Are you now , , , , never or living with a partner? [facility] How often to you have a drink containing alcohol? Monthly or less [facility] How many standard drinks containing alcohol do you have on a typical day? 1 or 2 [facility] How often do you have 6 or more drinks on 1 occasion? Never [facility] Do you feel stress - tense, restless, nervous, or anxious, or unable to sleep at night because your mind is troubled all the time - these days [OSQ] Not at all [facility] Start: 01-11-2015 Sex Male (finding) [facility] NEGATED: Highlighted rowStart: NINF History of tobacco use Passive smoker [facility] Medical Equipment Procedure Code Equipment Code Equipment Origin al Text Equipment Identifier Dates [id number], [id number] Star t: 03-25-2022 End: 07-27-2024 Clinical Notes 05-01-2021 to 01-25-2025 Warner Welch, DO - 01/25/2025 9:00 AM Sharathjose Welch, DO - 07/27/2024 9:30 AM Loly Sales, DO - 05/24/2024 9:00 AM Yannick Modi MD - 04/19/2024 10:40 AM EST Note Date & Type Note Facility 01-25-2025 History of Present illness Narrative Subjective Loren Porter is a 64 y.o. male who presents for a Welcome to Medicare visit. He is doing well. [facility] He stopped going to the management development specialist and [facility]. His last A1c was 6.1%. He was on a weight loss challenge with his son and lost a total of 90 lb so far. He is down 30 lb from his last visit here 6 months ago. The following portions of the patient's history were reviewed and updated as appropriate: Health Risk Assessment, allergies, past medical history, past surgical history, social history, family history, and immunization history Vitals: Vitals: 01/25/25 0924 BP: 128/84 Pulse: 79 Resp: 18 Temp: 36.5 C (97.7 F) SpO2: 95% Body mass index is 37.05 kg/m . 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 ([facility]) 07/27/2024 Infrarenal abdominal aortic aneurysm (AAA) without rupture 07/27/2024 Ex-cigar smoker 01/22/2023 Spinal stenosis at L4-L5 level 10/08/2022 Anxiety 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, with long-term current use of insulin ([facility]) 04/14/2022 Current moderate episode of major depressive disorder ([facility]) 04/14/2022 Type 2 diabetes mellitus ([facility]) 04/14/2022 Right anterior knee pain 03/03/2022 Cluster headache 03/03/2022 Diverticulosis of sigmoid colon 03/03/2022 Essential hypertension 03/03/2022 History of arthroplasty of right knee 03/03/2022 Hyperlipidemia 03/03/2022 Hypothyroidism 03/03/2022 Neck pain 03/03/2022 Obstructive sleep apnea syndrome 03/03/2022 Other acquired deformities of left foot 03/03/2022 Other acquired deformities of right foot 03/03/2022 Plantar nerve lesion 03/03/2022 Tussive syncope 03/03/2022 Tear of meniscus of knee 03/03/2022 Osteoarthritis of knee 03/03/2022 Palpitations 11/26/2021 Cerebrovascular accident ([facility]) 07/29/2021 Morbid obesity ([facility]) 03/14/2019 Fracture of distal end of radius 04/04/2016 Hyperplastic polyp of intestine 06/08/2009 Past Medical History: Diagnosis Date Anxiety Tobacco dependence syndrome 03/03/2022 Past Surgical History: Procedure Laterality Date COLONOSCOPY 2023 2024 COLONOSCOPY W/ BIOPSIES AND POLYPECTOMY 02/27/2022 diverticulosis and a single polyp Family History Problem Relation Age of Onset Hypertension Mother Diabetes Mother Diverticulitis Mother colon perforation Hypertension Father Heart failure Father Coronary artery disease Father Heart attack Father Diabetes Father Hyperlipidemia Father Heart disease Father Alcohol abuse Brother Heart attack Brother 53 Heart disease Brother Blood Clots Daughter No Known Problems Son Heart disease Maternal Aunt Heart disease Maternal Uncle Heart disease Maternal Uncle Heart disease Maternal Uncle Heart disease Maternal Uncle Alzheimer's disease Paternal Aunt Diabetes Maternal Grandmother Heart disease Maternal Grandmother Heart attack Maternal Grandfather Other Paternal Grandmother Malignant neoplastic disease Heart disease Paternal Grandfather Obesity Paternal Grandfather Social History Tobacco Use Smoking status: Former Current packs/day: 0.00 Average packs/day: 1 pack/day for 20.0 years (20.0 ttl pk-yrs) Types: Cigarettes Start date: 01/06/1998 Quit date: 01/06/2018 Years since quittin.0 Passive exposure: Past Smokeless tobacco: Never Tobacco comments: Smoked 1 PPD x 20 years and 0.5 PPD x 20 years for a total of 30 pack years Substance Use Topics Alcohol use: Yes Comment: OCCASIONAL Allergies: No Known Allergies Current Outpatient Medications Medication Sig Dispense Refill ARIPiprazole (ABILIFY) 10 mg tablet Take 1 tablet (10 mg total) by mouth in the morning and at bedtime. atorvastatin (LIPITOR) 80 mg tablet Take 1 tablet (80 mg total) by mouth every morning. 90 tablet 1 blood-glucose meter misc clopidogreL (PLAVIX) 75 mg tablet take 1 tablet by mouth once daily 90 tablet 1 furosemide (LASIX) 20 mg tablet Take 1 tablet (20 mg total) by mouth 2 (two) times a day. insulin glargine (LANTUS, BASAGLAR) 100 unit/mL (3 mL) insulin pen Inject 25 Units/kg under the skin nightly. lamoTRIgine (LaMICtal) 25 mg tablet Take 1 tablet (25 mg total) by mouth in the morning and 1 tablet (25 mg total) before bedtime. lancets misc levothyroxine (SYNTHROID, LEVOTHROID) 200 MCG tablet Take 1 tablet (200 mcg total) by mouth in the morning. 90 tablet 0 lisinopriL (PRINIVIL,ZESTRIL) 20 mg tablet take 1 tablet by mouth every morning 30 tablet 11 metFORMIN XR (GLUCOPHAGE XR) 500 mg 24 hr tablet Take 2 tablets (1,000 mg total) by mouth in the morning and at bedtime. 360 tablet 1 PEN NEEDLE 31 gauge x 5/16 needle semaglutide 0.25 mg or 0.5 mg(2 mg/1.5 mL) pen injector Inject under the skin. No current facility-administered medications for this visit. Immunization History Administered Date(s) Administered COVID-19 Vaccine, vector-nr, rS-Ad26, PF, 0.5mL 08/13/2020, 04/09/2021 COVID-19, mRNA, LNP-S, PF, 100mcg/0.5mL Dose 08/06/2020 Influenza (IM) Preservative Free 05/05/2015 Influenza, High-dose, Quadrivalent 04/06/2024 Influenza, Injectable, Mdck, Preservative Free, Quad 05/22/2021 Influenza, Injectable, quadrivalent (PF) 03/23/2020 Influenza, Unspecified 03/30/2016, 05/22/2021 Pneumococcal Conjugate 05/22/2021 Pneumococcal Conjugate 13-Valent 05/22/2021 Pneumococcal Polysaccharide 04/01/2013 SARS-COV-2 (COVID-19) Vaccine, Unspecified 08/13/2020, 04/09/2021, 03/24/2022 Tdap 05/20/2022 Zoster Vaccine Recombinant 03/24/2022, 05/20/2022 Functional Ability/Safety Screening 1. Was the patient's timed Get Up & Go test unsteady or longer than 30 seconds? No 2. Does the patient need help with the phone, transportation, shopping, preparing meals, housework, laundry, medications or managing money? No 3. Does the patient's home have rugs in the hallway, lack grab bars in the bathroom, lack handrails on the stairs or have poor lighting? No grab bars in bathroom 4. Have you noticed any hearing difficulties? Yes Hearing and/or Vision Screening: Wears hearing aids. Sees eye dr yearly Cognitive Screening; Clock Drawing Test: Normal Advanced Directives: Living Will: No DPA for Health Care: No Review of Systems: Review of Systems Constitutional: Positive for activity change, appetite change and unexpected weight change. HENT: Positive for hearing loss. Eyes: Negative. Respiratory: Negative. Cardiovascular: Negative. Gastrointestinal: Negative. Endocrine: Negative. Genitourinary: Negative. Musculoskeletal: Negative. Skin: Negative. Allergic/Immunologic: Negative. Neurological: Negative. Hematological: Negative. Psychiatric/Behavioral: Positive for dysphoric mood (started on new medications based on genesite testing). Objective Physical Exam Vitals reviewed. Exam conducted with a electric shaver mechanic present (Chung Ruiz, MS3). Constitutional: General: He is not in acute distress. Appearance: He is morbidly obese. He is not ill-appearing. HENT: Head: Normocephalic. Right Ear: Tympanic membrane, ear canal and external ear normal. Decreased hearing noted. Left Ear: Tympanic membrane, ear canal and external ear normal. Decreased hearing noted. Ears: Comments: Wears hearing aids Nose: Nose normal. Mouth/Throat: Lips: [place]. Mouth: Mucous membranes are moist. Dentition: Has dentures (upper only). Pharynx: Oropharynx is clear. Eyes: General: No scleral icterus. Extraocular Movements: Extraocular movements intact. Conjunctiva/sclera: Conjunctivae normal. Cardiovascular: Rate and Rhythm: Normal rate and regular rhythm. Heart sounds: Normal heart sounds. No murmur heard. Pulmonary: Effort: No respiratory distress. Breath sounds: Normal breath sounds. No wheezing, rhonchi or rales. Abdominal: General: Bowel sounds are normal. There is no distension. Palpations: Abdomen is soft. There is no mass. Tenderness: There is no abdominal tenderness. There is no guarding or rebound. Hernia: No hernia is present. Genitourinary: Comments: declined Musculoskeletal: Cervical back: Neck supple. Right lower leg: No edema. Left lower leg: No edema. Lymphadenopathy: Cervical: No cervical adenopathy. Skin: General: Skin is warm and dry. Findings: No lesion or rash. Neurological: General: No focal deficit present. Mental Status: He is alert and oriented to person, place, and time. Cranial Nerves: Cranial nerves 2-12 are intact. Gait: Gait is intact. Psychiatric: Attention and Perception: Attention normal. Mood and Affect: Mood and affect normal. Speech: Speech normal. Behavior: Behavior normal. Behavior is cooperative. Thought Content: Thought content normal. Cognition and Memory: Cognition and memory normal. Judgment: Judgment normal. Assessment/Plan Encounter Diagnoses Name Primary? Welcome to Medicare preventive visit Yes Screening for depression Morbid obesity ([facility]) Sensorineural hearing loss (SNHL) of both ears Hypertensive heart disease with heart failure ([facility]) Stage 3a chronic kidney disease ([facility]) 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, with long-term current use of insulin ([facility]) Acquired hypothyroidism Health maintenance discussed. Depression screen was negative. At least 3 minute spent administering and discussing. Cognitive evaluation did not reveal any impairment. He has advanced directives in place. [facility] up with the [facility] for labs and routine evaluation and management of chronic illnesses. No follow-ups on file. documented in this encounter [facility] 07-27-2024 History of Present illness Narrative Subjective Patient ID: Loren Porter is a 64 y.o. male. Loren Porter is 64 y.o. male here for evaluation of lipids and thyroid. He has been seeing a doctor at the [facility] and they are monitoring his labs twice [...] disease due to type 2 diabetes mellitus ([facility]) Blood pressure at goal. Recommend to get labs [facility]. Infrarenal abdominal aortic aneurysm (AAA) without rupture ([facility]) Stable. Follow up with specialist as directed. Current moderate episode of major depressive disorder, unspecified whether recurrent ([facility]) Stable. Continue current regimen Morbid obesity ([facility]) He is morbidly obese. He is losing [...] 07/27/24 9:45 AM documented in this encounter [facility] 05-24-2024 History of Present illness Narrative Images from the original note were not included. Loren Porter 1960 Loren Porter is a 63 y.o. male presents with chief complaint of Consult (Colon mass) HPI: HPI Patient had a colonoscopy and said that his wrapping machine tender told him that he had a growth [...] for his colonoscopy, He does see a it application development manager, he had a stroke and a endovascular [...] 1 kit, Other, Every 14 days Drug [place] Shilo Pentips 31G X 8 MM misc USE [...] History: Diagnosis Date Current use of insulin ([facility]) Diabetes ([facility]) Dietary counseling and surveillance HTN (hypertension) ([facility]) Hyperlipemia ([facility] Hypothyroidism ([facility]) Kidney stone Microalbuminuria Mixed hyperlipidemia ([facility]) Morbid obesity with body mass index (BMI) of 40.0 to 49.9 ([facility]) Sleep apnea Type 2 diabetes mellitus with other diabetic neurological complication ([facility]) Vitamin D deficiency, unspecified Social History Tobacco [...] 2011 DR. ZAMBRANO KNEE SURGERY x 9 ND KNEE SCOPE,DIAGNOSTIC Bilateral LT KNEE SCOPE X5 PER DR QUESADA/JUAN MANUEL, ND LAP,CHOLECYSTECTOMY 08/2020 - [facility] TOTAL KNEE ARTHROPLASTY Right 01/21/2018 DR ZAMBRANO WRIST SURGERY Left 2015 PER SHERRY REVIEW OF SYMPTOMS: Review of [...] to discuss further. documented in this encounter [facility] 04-19-2024 History of Present illness Narrative Loren Porter is a 63 y.o. male Ly, Ahmad F, MD presents with chief complaint of Diabetes [...] and Actos 45, off Victoza 1.8. CGM -23 avg 146. lab on 12/2023 TC 111, [...] History: Diagnosis Date Current use of insulin ([facility]) Diabetes ([facility]) Dietary counseling and surveillance HTN (hypertension) ([facility]) Hyperlipemia ([facility] Hypothyroidism ([facility]) Kidney stone Microalbuminuria Mixed hyperlipidemia ([facility]) Morbid obesity with body mass index (BMI) of 40.0 to 49.9 ([facility]) Sleep apnea Type 2 diabetes mellitus with other diabetic neurological complication ([facility]) Vitamin D deficiency, unspecified Past Surgical History: Procedure Laterality Date CAROTID ENDARTERECTOMY 01/14/2021 CT ANGIOGRAM ABDOMEN PELVIS 06/13/2021 CT ANGIOGRAM ABDOMEN PELVIS HERNIA REPAIR KNEE ARTHROPLASTY Left 2011 DR. ZAMBRANO KNEE SURGERY x 9 ND KNEE SCOPE,DIAGNOSTIC Bilateral LT KNEE SCOPE X5 PER DR QUESADA/JUAN MANUEL, ND LAP,CHOLECYSTECTOMY 08/2020 - [facility] TOTAL KNEE ARTHROPLASTY Right 01/21/2018 DR ZAMBRANO WRIST SURGERY Left 2016 PER SHERRY REVIEW OF SYMPTOMS: 14 POINT [...] hyperglycemia, with long-term current use of insulin ([facility]) - POCT glucose manually resulted Continue with Lantus 30 units, NovoLog average 12 units, metformin 500 2tablets twice a day, Actos 45 mg daily, he enrolled in weight loss program Essential (primary) hypertension (CMS/HCC) Mixed hyperlipidemia (CMS/HCC) computer terminal operator (current) use of insulin (CMS/[facility]) Vitamin D deficiency Microalbuminuria Encounter for dietary consultation Diet and exercise reviewed with the patient in Class 3 severe obesity due to excess calories with serious comorbidity and body mass index (BMI) of 40.0 to 44.9 in adult ([facility]) Follow up in about 4 months (around 08/17/2024). documented in this encounter [facility] 04-07-2024 Note Cardiology Clinic No te Loren [...] , Rfl: ergocalciferol (Vitamin D-2) 1.25 MG (21550 Units) capsule, Vitamin D2 1,250 mcg (50,000 [...] Disp: , Rfl: (more content not included)... [facility] 02-29-2024 Telephone encounter Note Please send Piglitozone 45mg please and thank you. Pt PCP retired and wants med mgmt through you now. [facility] 02-29-2024 Miscellaneous Notes Please send Piglitozone 45mg please and thank you. Pt PCP retired and wants med mgmt through you now. documented in this encounter [facility] 02-10-2024 Miscellaneous Notes [facility] can you resend it ? documented in this encounter [facility] 02-10-2024 Telephone encounter Note [facility] can you resend it ? [facility] 02-02-2024 Miscellaneous Notes Pt called [facility] documented in this encounter [facility] 02-02-2024 Telephone encounter Note Pt called [facility] 01-27-2024 Miscellaneous Notes Pretty sure the last refill on 01/17 [facility] Pharmacy is updated now Prescription sent in. He is due for CV/general recheck documented in this encounter [facility] 01-27-2024 Telephone encounter Note Pretty sure the last refill on 01/17 [facility] Pharmacy is updated now [facility] 01-27-2024 Telephone encounter Note Prescription sent in. He is due for CV/general recheck [facility] 10-19-2023 Note Cardiology Clinic No te Subjective [...] , Rfl: ergocalciferol (Vitamin D-2) 1.25 MG (83424 Units) capsule, Vitamin D2 1,250 mcg (50,000 unit) capsule take 1 capsule by mouth every week, Disp: , Rfl: insulin glargine (Lantus) 100 unit/mL (3 mL) pen, Lantus Solostar U-100 Insulin 100 unit/mL (3 mL) subcutaneous pen INJECT 80 UNITS SUBCUTANEOUSLY ONCE A DAY, Disp: , Rfl: insulin lispro (HumaLOG) 100 unit/mL injection, Humalog KwikPen ( (more content not included)... [facility] 09-03-2023 History of Present illness Narrative Subjective [...] Do you have a durable power of commercial litigation attorney?: (!) No Cognitive Screening Do you have trouble remembering or recalling facts or events?: (!) Yes Do family members or caregivers report that you have difficulty remembering things?: (!) Yes Clock Drawing Test: Normal REVIEW OF SYSTEMS: Review of Systems Objective PHYSICAL EXAMINATION: Vitals: 09/03/23 1506 BP: 127/70 Weight: (!) 138.9 kg [...] year (around 09/02/2024). documented in this encounter [facility] 08-14-2023 Note HNO ID: [id number] Author: KARIE BARRIGA APRN.MASSEUR/MASSEUSE Service: ? Author Type: Nurse Practitioner Type: Progress Notes Filed: 08/14/2023 15:18 Note Text: BMI Obesity Medicine Follow-Up Note - VIRTUAL VISIT August 14, 2023 This Team Access Model visit is a virtual encounter. I have communicated my name and active licensure. The patient's identity and physical location were verified at the time of this visit. Either the patient or their legal customer response representative has been informed of the risks and benefits of -- and alternatives to -- treatment through a remote evaluation and consents to proceed with the evaluation remotely. Patient Summary: is 63 year old male who presents for follow-up evaluation of his obesity and related complications to the [facility]. Initial program weight: 325 lbs [April 2023] [...] intervention is the best and most appropriate prison therapeutic option. The patient is extremely reluctant [...] He will have a discussion with his management development specialist to potentially switch to tirzepatide 15 mg [...] training and cardiovascular exercise is the best superintendent container terminal plan. An overall goal of 200 minutes [...] to discuss switching GLP-1 options with his management development specialist at initial visit. He saw his management development specialist and they did not switch GLP-1. His A1C decreased to 5.7%, management development specialist did not want to adjust GLP. Lowered his novolog, metformin, and lantus. Anti-obesity medication: No AOMs prescribed by our office Metformin Victoza per his endo Dietary changes: Increasing water intake Increasing servings of fruit Increasing servings of vegetables Seeing fabrication machine operator Increasing protein Exercise: stable Regular exercise: No [...] 40 mg by mouth once daily. Lacto no.84-Lsbgyg-HUS-larch 25B cell-25B cell-50 mg cap Take 1 tablet by mouth once daily. Lacto no.80-Gprlxt-YWA-larch 25B cell-25B cell-50 mg cap Take 2 tablets twice a day by oral route for 90 days. (Patient not taking: Reported on 01/29/2023) atorvastatin (LIPITOR) 80 mg tablet Take 1 tablet by mouth once daily. (Patient not taking: Reported on 01/29/2023) liraglutide (VICTOZA 3-FRANKLIN SUBCUTANEOUS) Inject subcutaneously. insulin glargine,hum.rec.anlog (LANTUS SUBCUTANEOUS) Inject subcutaneously. insulin lispro (HUMALO (more content not included)... [facility] 08-14-2023 History of Present illness Narrative Images from the original note were not included. BMI Obesity Medicine Follow-Up Note - VIRTUAL VISIT August 14, 2023 This Team Access Model visit is a virtual encounter. I have communicated my name and active licensure. The patient's identity and physical location were verified at the time of this visit. Either the patient or their legal customer response representative has been informed of the risks and benefits of -- and alternatives to -- treatment through a remote evaluation and consents to proceed with the evaluation remotely. Patient Summary: is 63 year old male who presents for follow-up evaluation of his obesity and related complications to the [facility]. Initial program weight: 325 lbs [April 2023] [...] intervention is the best and most appropriate superintendent container terminal therapeutic option. The patient is extremely reluctant [...] He will have a discussion with his management development specialist to potentially switch to tirzepatide 15 mg [...] training and cardiovascular exercise is the best superintendent container terminal plan. An overall goal of 200 minutes [...] to discuss switching GLP-1 options with his management development specialist at initial visit. He saw his management development specialist and they did not switch GLP-1. His A1C decreased to 5.7%, management development specialist did not want to adjust GLP. Lowered his novolog, metformin, and lantus. Anti-obesity medication: No AOMs prescribed by our office Metformin Victoza per his endo Dietary changes: Increasing water intake Increasing servings of fruit Increasing servings of vegetables Seeing fabrication machine operator Increasing protein Exercise: stable Regular exercise: No [...] 40 mg by mouth once daily. Lacto no.43-Oblnde-LLQ-larch 25B cell-25B cell-50 mg cap Take 1 tablet by mouth once daily. Lacto no.93-Ajmhjr-CVH-larch 25B cell-25B cell-50 mg cap Take 2 [...] advised to discuss switching GLP-1s with his management development specialist. Endo lowered his insulin and other DM medications, did not adjust GLP-1. I will send a recap of more ideal GLP-1s to him via [employer] to discuss with his management development specialist again at next visit such as Mounjaro [...] which included preparing to see the patient, ktip-cq-qops patient care, completing clinical documentation, obtaining and/or reviewing separately obtained history, performing a medically appropriate examination, counseling and educating the patient/family/caregiver, and ordering medications, tests, or procedures. This visit was performed virtually due to the COVID-19 epidemic as an effort to protect patients and minimize exposure. Karie Barriga, MSN, LOAN SECRETARY, ABRASIVE MIXER HELPER-C [facility] [address], [address] [place] [address] documented in this encounter [facility] 07-24-2023 Note Patient here for [...] All other systems reviewed and are negative. [facility] 07-24-2023 Note Cardiology Clinic No te Subjective [...] , Rfl: ergocalciferol (Vitamin D-2) 1.25 MG (76542 Units) capsule, Vitamin D2 1,250 mcg (50,000 [...] the morning., Dis (more content not included)... [facility] 05-07-2023 Note HNO ID: [id number] Author: Minda Delcid DO Service: ? Author Type: Physician Type: [...] male with obesity who presents to the [facility] for an initial evaluation of his obesity [...] 2 drinks diet drinks Characterization of diet:Structured. Rn Intern of impaired eating habits:denies Eating Disorder no [...] kidney stones, and CVA. No history of AR, COPD, asthma, peptic ulcer dx, pancreatitis, cancer, [...] intervention is the best and most appropriate prison therapeutic option. The patient is extremely reluctant to have bariatric surgery as his had complications from bariatric surgery. -- We discussed several strategies to track food intake and increase mindfulness around eating. He was co (more content not included)... [facility] 05-07-2023 History of Present illness Narrative BMI Obesity Medicine Consult 05/07/23 Consultation requested by Ben Zimmerman DO for an opinion regarding Obesity. My final recommendations will be communicated back to the requesting physician by way of shared Medical record or letter to requesting physician via US mail. Patient Summary: Loren Porter is a 62 year old male with obesity who presents to the [facility] for an initial evaluation of his obesity [...] 2 drinks diet drinks Characterization of diet:Structured. Rn Intern of impaired eating habits:denies Eating Disorder no [...] kidney stones, and CVA. No history of AR, COPD, asthma, peptic ulcer dx, pancreatitis, cancer, [...] intervention is the best and most appropriate superintendent container terminal therapeutic option. The patient is extremely reluctant [...] He will have a discussion with his management development specialist to potentially switch to tirzepatide 15 mg [...] training and cardiovascular exercise is the best superintendent container terminal plan. An overall goal of 200 minutes per week of exercise has been effective in weight loss and maintenance. -- Follow-up visit in 3 months for management of above interventions I spent a total of 45 minutes on the date of the service which included txxb-cc-mizv patient care, completing clinical documentation, obtaining and/or reviewing separately obtained history, performing a medically appropriate examination, counseling and educating the patient/family/caregiver, ordering medications, tests, or procedures, and communicating with other HCPs (not separately reported). Minda Delcid DO documented in this encounter [facility] 01-29-2023 Note HNO ID: [id number] Author: Nona Zambrano MD Service: ? Author Type: Physician Type: Progress Notes Filed: 01/29/2023 12:38 PM Note Text: SPINE SURGERY OUTPATIENT CONSULT This is an in-person visit. SERVICE DATE: 01/29/2023 PCP: No primary care provider on file. REFERRING PROVIDER: Ben Zimmerman [address] [facility] [id number] Consult requested for an opinion regarding the [...] capsule Take 300 mg by mouth. Lacto no.73-Xjhrnh-XMO-larch 25B cell-25B cell-50 mg cap Take 1 tablet by mouth once daily. Lacto no.78-Pxcoql-YAY-larch 25B cell-25B cell-50 mg cap Take 2 [...] Scale 12/15/2022 Phy (more content not included)... [facility] 01-29-2023 History of Present illness Narrative Images from the original note were not included. SPINE SURGERY OUTPATIENT CONSULT This is an in-person visit. SERVICE DATE: 01/29/2023 PCP: No primary care provider on file. REFERRING PROVIDER: Ben Zimmerman [address] [facility] [address] Consult requested for an opinion regarding the [...] capsule Take 300 mg by mouth. Lacto no.89-Irssgh-KWZ-larch 25B cell-25B cell-50 mg cap Take 1 tablet by mouth once daily. Lacto no.30-Yokkfu-UNI-larch 25B cell-25B cell-50 mg cap Take 2 [...] Past Histories independently gathered by the clinical application support lead and the remaining scribed note accurately describes my personal service to the patient. SIGNATURE: Nona Zambrano MD PATIENT NAME: Loren Porter DATE: January 29, 2023 TIME: 10:02 AM PAGER: documented in this encounter [facility] 01-18-2023 Miscellaneous Notes Patient has not responded to lumbar spine interventions and is now interested in surgical consultation. Updated MRI lumbar spine is available. Spine Surgery consult placed. Ben Zimmerman DO Patient is requesting a surgical consult since nothing else to offer. Do you want him to cancel 01/21 appointment? documented in this encounter [facility] 01-03-2023 Note HNO ID: [id number] Author: Carina Jo RT(Karla) Service: ? Author Type: Natural Gas Trader Type: Progress Notes Filed: 01/03/2023 10:03 AM [...] RT Ernesto(Karla) January 03, 2023 10:02 AM [facility] 01-03-2023 History of Present illness Narrative [...] 2023 10:02 AM documented in this encounter [facility] 12-16-2022 Note HNO ID: [id number] Author: RT John(R) Service: ? Author Type: [...] RT John(R) December 16, 2022 12:30 PM [facility] 12-16-2022 Note HNO ID: [id number] Author: Ben Zimmerman, Service: ? Author Type: Physician Type: Progress Notes Filed: 12/21/2022 4:18 PM Note Text: [facility] [facility] [place] [facility] - Medical Spine Initial [...] -01/14/22 BL L3, L4 MB and L5 RFA for the BL L4-5 and L5-S1 [...] by: -Pain Management Dr. Sheriff Mcgrath in [place]. Last visit around August 2022. 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 Retired from , worked as federal nurse technician for 14 years. Litigation: No Workers' Compensation: [...] pain and issues. (more content not included)... [facility] 12-16-2022 History of Present illness Narrative Images from the original note were not included. [facility] - Medical Spine Initial [...] by: -Pain Management Dr. Sheriff Mcgrath in [place]. Last visit around August 2022. 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 Retired from , worked as federal nurse technician for 14 years. Litigation: No Workers' Compensation: [...] ALLERGIES Not on File CURRENT MEDICATIONS: Lacto no.65-Dezkmz-TGA-larch 25B cell-25B cell-50 mg cap Take 1 tablet by mouth once daily. Lacto no.54-Cmozwf-SGU-larch 25B cell-25B cell-50 mg cap Take 2 [...] STRAIGHT LEG TEST: negative bilateral Hip: Negative FADIR, KALPANA SI joint: Negative Brandyn Lumbar facet loading [...] TIME: 11:33 AM documented in this encounter [facility] 06-26-2022 Evaluation note Encounter Date [...] - G89.29) Continue with current treatment plan [employer] Other 01-05-2023 Evaluation note* Encounter Date Diagnosis [...] - G89.29) Continue with current treatment plan [employer] Other 12-06-2022 Evaluation note* Encounter Date Diagnosis [...] week prior to procedure, he verbalizes understanding. [employer] Other 08-25-2022 Evaluation note* Encounter Date Diagnosis [...] - G89.29) Continue with current treatment plan [employer] Other 08-04-2022 Evaluation note* Encounter Date Diagnosis [...] - G89.29) Continue with current treatment plan [employer] Other 07-21-2022 Evaluation note* Encounter Date Diagnosis [...] - G89.29) Continue with current treatment plan [employer] Other 07-11-2022 Evaluation note* Encounter Date Diagnosis [...] - G89.29) Continue with current treatment plan [employer] Other 06-14-2022 Evaluation note* Encounter Date Diagnosis [...] - G89.29) Continue with current treatment plan [employer] Other 06-06-2022 Evaluation note* Encounter Date Diagnosis [...] - G89.29) Continue with current treatment plan [employer] Other 05-19-2022 Evaluation note* Encounter Date Diagnosis [...] - M51.36) Continue with current treatment plan. [employer] Other 11-24-2021 NoteMR#: [id number] I [facility] Pt. Name: Loren Porter Admitted: 04/29/2021 Discharged: [...] taking pain medications. He is to take anpf-nlw-dwkctoz stool softeners as needed secondary to constipation. [...] daily. 13. Sertraline 50 mg daily. 14. [place] 5/325 q.6 hours p.r.n. for pain. Electronically Signed by: Jana Berkowitz MD 05/07/2021 08:16 A Jana Berkowitz MD I have reviewed this discharge summary and confirmed the resident's documentation. Please note that there may be additional documentation from me. Date Dict: 04/30/2021/04:58 P/Avis España PA-C Date Trans: 05/01/2021 05:38 A/blossom [id number] cc: Warner Welch M.D. [facility] [address] [place], [place] [address]son [facility], [address] [place] [address] HospitalEvaluation noteNo [employer] Other Evaluation note* Diagnosis Chronic midline low back pain without sciatica- Primary Degenerative lumbar spinal stenosis Spinal stenosis, lumbar region, without neurogenic claudication Numbness of right lower extremity Obesity with serious comorbidity, unspecified classification, unspecified obesity type [facility] Diagnosis Chronic midline low back pain without sciatica Degenerative lumbar spinal stenosis Spinal stenosis, lumbar region, without neurogenic claudication Numbness of right lower extremity [facility] Diagnosis Degenerative lumbar spinal stenosis- Primary Spinal stenosis, lumbar region, without neurogenic claudication Chronic midline low back pain without sciatica [facility] Diagnosis Degenerative lumbar spinal stenosis Spinal stenosis, lumbar region, without neurogenic claudication Chronic midline low back pain without sciatica [facility] Diagnosis Obesity with serious comorbidity, unspecified classification, unspecified obesity type [facility] Diagnosis Encounter for weight management- Primary Class 3 severe obesity with serious comorbidity and body mass index (BMI) of 45.0 to 49.9 in adult, unspecified obesity type (HCC) documented [facility] this [facility] Diagnosis Chronic midline low back pain without sciatica Degenerative lumbar spinal stenosis Spinal stenosis, lumbar region, without neurogenic claudication Numbness of right lower extremity [facility] Diagnosis Type 2 diabetes mellitus with hyperglycemia, with long-term current use of insulin ([facility])- Primary Essential (primary) hypertension ([facility]) Unspecified essential hypertension Mixed hyperlipidemia ([facility]) Mixed hyperlipidemia skilled nursing (current) use of insulin ([facility]) Vitamin D deficiency Microalbuminuria Proteinuria Encounter for dietary consultation Class 3 severe obesity due to excess calories with serious comorbidity and body mass index (BMI) of 40.0 to 44.9 in adult ([facility]) documented in this encounter [facility]* Diagnosis Cecum mass- Primary Unspecified disorder of intestine documented in this encounter [facility]* Diagnosis Type 2 diabetes mellitus with hyperglycemia, unspecified whether prison insulin use ([facility])- Primary documented in this encounter [facility]* Diagnosis Medicare annual wellness visit, subsequent- Primary Screening for depression [facility] Diagnosis Hypertension 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 ([facility])- Primary Infrarenal abdominal aortic aneurysm (AAA) without rupture ([facility]) Current moderate episode of major depressive disorder, unspecified whether recurrent ([facility]) Morbid obesity ([facility]) Morbid obesity Acquired hypothyroidism Unspecified hypothyroidism [facility] Diagnosis Welcome to Medicare preventive visit- Primary Screening for depression Morbid obesity ([facility]) Morbid obesity Sensorineural hearing loss (SNHL) of both ears Hypertensive heart disease with heart failure ([facility]) Unspecified hypertensive heart disease with heart failure Stage 3a chronic kidney disease ([facility]) 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, with long- term current use of insulin ([facility]) Acquired hypothyroidism Unspecified hypothyroidism [facility]orted* Type Description Date Medical History Diabetes Medical History HTN (hypertension) Medical History Pure hypercholesterolemia, unspe cified Medical History Vitamin D deficiency, unspecifie d Surgical History knee surgery Surgical History fracture repair Surgical History bilateral knee replacement Surgical History cholecystectomy 08/2020 Surgical History carotidendarotomy 01/2021 Surgical History AAA 04/2021 Hospitalization History see above [employer] Other InstructionsNot on filedocumented in this encounter [...] Health SystemInstructionsNot on filedocumented in this encounter [facility] SystemReason for referral (narrative)* Diagnostic Procedure Only (Routine) - Closed Specialty Diagnoses / Procedures Referred By Isrrael mujica Referred To Contact XR IMAGING Diagnoses Chronic midline low back pain without sciatica Degenerative lumbar spinal stenosis Numbness of right lower extremity Procedures XR LUMBAR MOTION 4V AP/LAT/ FLEX/EXT RADEX SPINE LUMBOSACRAL MINIMUM 4 VIEWS Ben Zimmerman, [address] [place] [address] X[facility] [place] [address] Referral ID Status Reason Start Date Expiration Date V isits Requested Visits Authorized [id number] Closed Auto-Generate d Referral 12/16/2022 01/15/2024 1 1 [facility] for visit Narrative* Diagnostic Procedure Only (Routine) - Closed Specialty Diagnoses / Procedures Referred By Abdiac t Referred To Contact XR IMAGING Diagnoses Chronic midline low back pain without sciatica Degenerative lumbar spinal stenosis Numbness of right lower extremity Procedures XR LUMBAR MOTION 4V AP/LAT/ FLEX/EXT RADEX SPINE LUMBOSACRAL MINIMUM 4 VIEWS Ben Zimmerman, DO [address] [place] [address] [facility] [address] Referral ID Status Reason Start Date Expiration Date V isits Requested Visits Authorized [id number] Closed Auto-Generate d Referral 12/16/2022 01/15/2024 1 1 [facility] Summary Purpose Family History No [...] THERAPY MEDICAL NUTRITION ASSMT&IVNTJ INDIV EACH 15 AR Karie Barriga, MICHAEL.MASSEUR/MASSEUSE [address] [place] [address] Referral ID Status Reason Start Date Expiration Date Visits Requested Visits Authorized [id number] Authorized PCP Requested Referral 08/14/2023 08/13/2024 1 4 Specialty Diagnoses / Procedures Referred By Contac t Referred To Contact Diagnoses Chronic midline low back pain without sciatica Procedures CONSULT [facility] OFFICE/OUTPATIENT [facility] 60-74 MINUTES Nona Zambrano MD [address] [place] [address] Referral ID Status Reason Start Date Expiration Date Visits Requested Visits Authorized [id number] Authorized PCP Requested Referral 01/29/2023 01/29/2024 1 1 Specialty Diagnoses / Procedures Referred By Contac t Referred To Contact Diagnoses Degenerative lumbar spinal stenosis Chronic midline low back pain without sciatica Procedures CONSULT TO SPINE SURGERY OFFICE/OUTPATIENT [facility] 60-74 MINUTES Ben Zimmerman, [address] [place] [address] Referral ID Status Reason Start Date Expiration Date Visits Requested Visits Authorized [id number] Pending Review PCP Requested Referral 01/18/2023 01/18/2024 1 1 Specialty Diagnoses / Procedures Referred By Contac t Referred To Contact Diagnoses Obesity with serious comorbidity, unspecified classification, unspecified obesity type Procedures CONSULT [facility] OFFICE/OUTPATIENT [facility] 60-74 MINUTES Ben Zimmerman DO [address] [place] [address] Referral ID Status Reason Start Date Expiration Date Visits Requested Visits Authorized [id number] Pending Review PCP Requested Referral 12/16/2022 12/16/2023 1 1 Specialty Diagnoses / Procedures Referred By Contac t Referred To Contact XR IMAGING Diagnoses Chronic midline low back pain without sciatica Degenerative lumbar spinal stenosis Numbness of right lower extremity Procedures XR LUMBAR MOTION 4V AP/LAT/ FLEX/EXT RADEX SPINE LUMBOSACRAL MINIMUM 4 VIEWS Ben Zimmerman DO [address] [place] [address] Xr Imaging Referral ID Status Reason Start Date Expiration Date V isits Requested Visits Authorized [id number] Closed Auto-Generate d Referral 12/16/2022 01/15/2024 1 1 Specialty Diagnoses / Procedures Referred By Contac t Referred To Contact MR IMAGING Diagnoses Chronic midline low back pain without sciatica Degenerative lumbar spinal stenosis Numbness of right lower extremity Procedures MRI LUMBAR SPINE WO IVCON MRI SPINAL CANAL LUMBAR W/O CONTRAST MATERIAL Ben Zimmerman DO [address] [place] [address] Mr Imaging Referral ID Status Reason Start Date Expiration Date Visits Requested Visits Authorized [id number] Authorized Auto-Generat ed Referral 12/16/2022 01/15/2024 1 1 Additional Source Comments (unrecognized sect ion and content) No Status Records FoundNo Status Records FoundNo Status Records FoundNo Status Records FoundNo Status Records FoundNo Status Records FoundNo Status Records FoundNo Status Records FoundNo Status Records FoundNo Status Records Found INFORMATION SOURCE (unrecogn ized section and content) DATE CREATED AUTHOR 01/28/2020 [facility] DATE CREATED AUTHOR AUTHOR'S ORGANIZ ATION 09/20/2021 [facility] DATE CREATED AUTHOR AUTHOR'S ORGANIZ ATION 02/07/2022 [facility] DATE CREATED AUTHOR AUTHOR'S ORGANIZ ATION 10/21/2022 [facility] DATE CREATED AUTHOR AUTHOR'S ORGANIZ ATION 01/03/2023 [facility] DATE CREATED AUTHOR AUTHOR'S ORGANIZ ATION 08/15/2023 [facility] DATE CREATED AUTHOR AUTHOR'S ORGANIZ ATION 04/26/2024 [facility] DATE CREATED AUTHOR AUTHOR'S ORGANIZ ATION 08/18/2024 [facility] EPIC DATE CREATED AUTHOR AUTHOR'S ORGANIZ ATION 10/06/2024 [facility] DATE CREATED AUTHOR AUTHOR'S ORGANIZ ATION 01/26/2025 [facility] REASON FOR VISIT (unrecogniz ed section and content) Reason Comments Back Pain Specialty Diagnoses / Procedures Referred By Contac t Referred To Contact Spine Health / SPINE Diagnoses Low back pain Procedures REFERRAL TO [facility] OFFICE/OUTPATIENT [facility] 60-74 MINUTES Warner Welch DO [address] [place] [address] Ben Zimmerman DO [address] [place] [address] Referral ID Status Reason Start Date Expiration Date V isits Requested Visits Authorized [id number] Closed Financial Clearance Required - [employer] Payor 12/04/2022 06/07/2023 1 1 Specialty Diagnoses / Procedures Referred By Contac t Referred To Contact MR IMAGING Diagnoses Chronic midline low back pain without sciatica Degenerative lumbar spinal stenosis Numbness of right lower extremity Procedures MRI LUMBAR SPINE WO IVCON MRI SPINAL CANAL LUMBAR W/O CONTRAST MATERIAL Ben Zimmerman DO [address] [place] [address] Mr Imaging Referral ID Status Reason Start Date Expiration Date V isits Requested Visits Authorized [id number] Closed Auto-Generate d Referral 12/16/2022 01/15/2024 1 1 Reason Comments New Patient New Back Evaluation Specialty Diagnoses / Procedures Referred By Contac t Referred To Contact Diagnoses Degenerative lumbar spinal stenosis Chronic midline low back pain without sciatica Procedures CONSULT TO SPINE SURGERY OFFICE/OUTPATIENT [facility] 60-74 MINUTES Ben Zimmerman, DO [address] [place] [address] Referral ID Status Reason Start Date Expiration Date V isits Requested Visits Authorized [id number] Closed PCP Requested Referral 01/18/2023 01/18/2024 1 1 Reason Comments New Patient Specialty Diagnoses / Procedures Referred By Contac t Referred To Contact SPINE Diagnoses Obesity with serious comorbidity, unspecified classification, unspecified obesity type Procedures CONSULT [facility] OFFICE/[facility]PATIENT [facility] 60-74 MINUTES Ben Zimmerman, DO [address] [place] [address] [address] [address] Referral ID Status Reason Start Date Expiration Date Visits Requested Visits Authorized [id number] Authorized PCP Requested Referral 01/06/2023 06/07/2023 2 2 Reason Comments Established Patient Obesity Specialty Diagnoses / Procedures Referred By Contac t Referred To Contact GENERAL SURGERY Diagnoses Follow-up exam Procedures FOLLOW-UP E-ASSESSMENT Self [facility] [address] [place] [address] Referral ID Status Reason Start Date Expiration Date Visits Requested Visits Authorized [id number] Outside PCP OON/Self Pay Override 05/08/2023 11/04/2023 3 3 Reason Comments Diabetes Follow-up Reason Comments Consult Colon mass Reason Comments Med Refill Reason Comments medicare annual wellness Reason Onset Date Comments Med Refill 01/18/2024 Reason Onset Date Comments Med Refill 01/27/2024 Reason Onset Date Comments Med Refill 02/02/2024 Reason Onset Date Comments Med Refill 02/10/2024 Reason Comments Thyroid Problem lipid Reason Comments MAW tug test 10 sec Source Comments (unrecognize d section and content) In the event this informatio n is protected by the Federal Confidentiality of Alcohol and Drug Abuse Patient Records regulations: The Federal rules restrict any use of the information to criminally investigate or prosecute any alcohol or drug abuse patient.[facility] the event this information is protected by the Federal Confidentiality of Alcohol and Drug Abuse Patient Records regulations: The Federal rules restrict any use of the information to criminally investigate or prosecute any alcohol or drug abuse patient.[facility] the event this information is protected by the Federal Confidentiality of Alcohol and Drug Abuse Patient Records regulations: The Federal rules restrict any use of the information to criminally investigate or prosecute any alcohol or drug abuse patient.[facility] the event this information is protected by the Federal Confidentiality of Alcohol and Drug Abuse Patient Records regulations: The Federal rules restrict any use of the information to criminally investigate or prosecute any alcohol or drug abuse patient.[facility] the event this information is protected by the Federal Confidentiality of Alcohol and Drug Abuse Patient Records regulations: The Federal rules restrict any use of the information to criminally investigate or prosecute any alcohol or drug abuse patient.[facility] the event this information is protected by the Federal Confidentiality of Alcohol and Drug Abuse Patient Records regulations: The Federal rules restrict any use of the information to criminally investigate or prosecute any alcohol or drug abuse patient.[facility] the event this information is protected by the Federal Confidentiality of Alcohol and Drug Abuse Patient Records regulations: The Federal rules restrict any use of the information to criminally investigate or prosecute any alcohol or drug abuse patient.[facility] Care Teams (unrecognized sec tion and content) Gang Head Saw Operator Relationship Specialty Start Date End Date Mamie Lilibeth Acosta [address] [place] [address] Referring Family Medicine 10/24/22 Gang Head Saw Operator Relationship Specialty Start Date End Date Lilibeth Hatch [address] [place] [address] Referring Family Medicine 10/24/22 Gang Head Saw Operator Relationship Specialty Start Date End Date Lilibeth Hatch [address] [place] [address] Referring Family Medicine 10/24/22 Gang Head Saw Operator Relationship Specialty Start Date End Date Lilibeth Hatch, MASSEUR/MASSEUSE [address] [place] [address] Referring Family Medicine 10/24/22 Gang Head Saw Operator Relationship Specialty Start Date End Date Lilibeth Hatch, MASSEUR/MASSEUSE [address] [place] [address] Referring Family Medicine 10/24/22 Gang Head Saw Operator Relationship Specialty Start Date End Date Lilibeth Hatch, MASSEUR/MASSEUSE [address] [place] [address] Referring Family Medicine 10/24/22 Gang Head Saw Operator Relationship Specialty Start Date End Date Lilibeth Hatch, MASSEUR/MASSEUSE [address] [place] [address] Referring Family Medicine 10/24/22 Gang Head Saw Operator Relationship Specialty Start Date End Date Warner Welch MD [address] [place] [address] PCP - General 11/05/22 Gang Head Saw Operator Relationship Specialty Start Date End Date Warner Welch MD [address] [place] [address] PCP - General 11/05/22 Gang Head Saw Operator Relationship Specialty Start Date End Date Warner Welch MD [address], [place] [address] PCP - General 11/05/22 Gang Head Saw Operator Relationship Specialty Start Date End Date Warner Welch MD [address] [place] [address] PCP - General 11/05/22 Gang Head Saw Operator Relationship Specialty Start Date End Date Warner Welch MD [address] [place] [address] PCP - General 11/05/22 Gang Head Saw Operator Relationship Specialty Start Date End Date Warner Welch DO [address], [place] [address] PCP - General Family Medicine 02/27/22 Gang Head Saw Operator Relationship Specialty Start Date End Date Warner Welch DO [address], [place] [address] PCP - General Family Medicine 02/27/22 Gang Head Saw Operator Relationship Specialty Start Date End Date Warner Welch DO [address] [place] [address] PCP - General Family Medicine 02/27/22 Gang Head Saw Operator Relationship Specialty Start Date End Date Warner Welch DO [address], [place] [address] PCP - [facility] 02/27/22 Gang Head Saw Operator Relationship Specialty Start Date End Date Warner Welch DO [address], [place] [address] PCP - [facility] 02/27/22 Gang Head Saw Operator Relationship Specialty Start Date End Date Warner Welch DO [address], [place] [address] PCP [facility] 02/27/22 Gang Head Saw Operator Relationship Specialty Start Date End Date Warner Welch DO [address], [place] [address] PCP [facility] 02/27/22 Gang Head Saw Operator Relationship Specialty Start Date End Date Warner Welch DO [address], [place] [address] PCP [facility] 02/27/22 Gang Head Saw Operator Relationship Specialty Start Date End Date Warner Welch DO [address], [place] [address] PCP - [facility] 02/27/22 FOR RECORDS PERTAINING TO PATIENTS WHO [...] BE BASED ON THE PRIMARY CLINICAL RECORDS. [facility] [employer] [facility]. provides no warranty or guarantee of the accuracy or completeness of information in this document.
== END 2025-02-20 12:30 | disposition home or self-care (01) ==
LOC: LAB 12:30
PROVIDERS: PCP Family Medicine
DX: I10 Essential (primary) hypertension (principal)
CPT/HCPCS: 36415; 80053